=== PATIENT | male | born 1935 | race Caucasian/White ===

== ENCOUNTER 2016-09-26 13:04 | Inpatient (IN) | payer OTHER, MEDICARE ==
[~2016-09-26] VITALS: Ht 198.1 cm; Wt 126.8 kg
[~2016-09-26 13:04] MED LIST: ASPIRIN EC81 M1 PO; D-31000 IU PO; DIOVAN80 M1 PO; ELIQUIS5 MG PO; HUMALOG 75/2100 U/ML SC; IMDUR60 MG PO; KLOR-CON M1010 ME1 PO; LASIX80 M1 PO; LASIX80 MG PO; METOPROLOL TART50 MG PO; PRESERVISION AR1 SGL PO; PROBIOTIC1 EACH PO; ZOCOR40 M1 PO
--- NOTE | 2016-09-26 13:34 | ED DYSPNEA/ASTHMA COMPLAINT ---
History of Present Illness General Chief Complaint: Dyspnea (COPD, CHF, Other) Stated Complaint: SOB Source: patient, family, old records Exam Limitations: no limitations Allergies Coded Allergies: piperacillin (Mild, RASH 12/15/15) tazobactam (Mild, RASH 12/15/15) morphine (Intermediate, HALLUCINATIONS 12/15/15) heparin (SOMETHING WITH HIS PLATELETS 12/15/15) Reconcile Medications Apixaban (Eliquis) 5 MG TAB 1 TAB PO BID BLOOD THINNER Ascorbic Acid/Copper/Vitamin (Preservision Areds) 1 SGL SGL 1 SGL PO BID EYE HEALTH (Reported) Aspirin (Ecotrin) 81 MG ECT 1 TAB PO DAILY HEART HEALTH (Reported) Cholecalciferol (D-3) 1,000 IU CAP 1 TAB PO DAILY BONE HEALTH (Reported) Furosemide (Lasix) 80 MG TABLET 1 TAB PO BID WATER PILL (Reported) Insulin Lispro (Humalog 75/25) 100 U/ML SHEEBA 68 UNITS SC 0800 DIABETES ( Reported) Insulin Lispro (Humalog 75/25) 100 U/ML SHEEBA 74 UNITS SC 2200 DIABETES ( Reported) Isosorbide Mononitrate (Imdur) [address]5 TAB PO BID HEART HEALTH ( Reported) Metoprolol Tartrate 50 MG TAB 1 TAB PO BID HTN (Reported) Potassium Chloride (Klor-Con M10) [address] 1 PAC PO DAILY SUPPLEMENT ( Reported) Simvastatin (Zocor 40MG Tab) 40 MG TAB 1 TAB PO QPM CHOL (Reported) Valsartan (Diovan) 80 MG TAB HTN (Reported) Triage Note: C/O SOB WITH WHEEZING AT NIGHT SINCE 09/20 WITH COUGH WITH BILATERAL ANKLE EDEMA. HAD B/W AND CHEST XRAY ON 09/23. LASIX WAS INCREASED BY DR. BILLS TO 240 MG X 2 DAYS. DENIES CHEST PAIN. SOB WORSE ON INSPIRATION. Triage Nurses Notes Reviewed? yes Onset: Abrupt Duration: week(s): (1), constant, getting worse Timing: recent history Severity: moderate Activities at Onset: activity Prior Episodes/Possible Cause: occasional episodes Modifying Factors: Improves With: rest. Worsens With: movement. Associated Symptoms: cough ([facility]) HPI: 80-year-old male with history of A. fib, CHF presents emergency room for evaluation complaining of progressively worsening dyspnea upon exertion or orthopnea or leg swelling for the past 1 week getting worse. He was seen by his primary care physician earlier this week and had outpatient chest x-ray labs performed. He was advised it was up to Lasix 240 mg a day for 3 days. However states his symptoms are getting worse. His medical lab technologist is Dr. Raines. No chest pain no palpitations dizziness lightheadedness. Denies any nausea vomiting fever chills or abdominal pain. He states that despite going up on his diuretic he has had decreased urine output. There are no other modifying factors or associated symptoms otherwise (PIPO RODRIGUEZ) Vital Signs & Intake/Output Vital Signs & Intake/Output Vital Signs Date Time Temp Pulse Resp B/P Pulse O2 O2 Flow FiO2 Ox Delivery Rate 09/26 1849 97.0 75 20 120/70 90 09/26 1717 97.8 90 24 142/63 96 Room Air 09/26 1349 96 Room Air 09/26 1321 97.4 56 28 132/72 93 Room Air Past History Travel History Traveled to [place] past 21 day No Medical History Any Pertinent Medical History? see below for history Neurological: peripheral neuropathy EENT: CATARACT Cardiovascular: AFIB (paroxysmal), CHF, hyperlipidemia, syncope, STENT, PACER AFIB ,CHOL, HTN STENTS LCW PM permanent pacemaker for heart block peripheral vascular diseaase Respiratory: LYNDSEY Gastrointestinal: diverticulitis Hepatic: NONE Renal: benign prost hyperplasia Musculoskeletal: sciatica, L KNEE REPLACEMENT OSTEOMYELITIS osteomyelitis Psychiatric: NONE Endocrine: IDDM with diabetic neuropathy diabetic retinopathy Blood Disorders: NONE Cancer(s): NONE SIGNALER/Reproductive: NONE History of MRSA: Yes History of VRE: No History of CDIFF: No Surgical History Surgical History: DEFIB Psychosocial History Who do you live with Spouse Services at Home None What is your primary language Israeli Tobacco Use: Quit >30 days ago ETOH Use: occasional use Family History Hx Contributory? No (PIPO RODRIGUEZ) Review of Systems Review of Systems Constitutional: Reports: see HPI. All Other Systems: Reviewed and Negative Comments Review of systems: See HPI, All other systems negative. Constitutional, no chills no fever, no malaise HEENT: No visual changes no sore throat no congestion Cardiovascular: No chest pain , no palpitation , orthopnea ankle swelling Skin, no jaundice no rashes, no change in skin Respiratory: dyspnea cough no sputum no hemoptysis GI: No nausea no vomiting, no diarrhea, no bloating/constipation : No dysuria Muscle skeletal: No joint pain, no joint swelling, no back pain, no neck pain, Neurologic: no headache Psych: No stress Heme/endocrine: No bruising no bleeding no polyuria Immunology: No lymphadenopathy, (CEDRIC RUVALCABA,PIPO) Physical Exam Physical Exam General Appearance: well developed/nourished, alert, awake Respiratory: rales Comments: Well-developed well-nourished person in no acute distress HEENT: Normal EENT exam; PERRL, EOMI, HEAD is atraumatic. moist mucous membranes. Neck: Supple, normal range of motion Back: Nontender, no CVA tenderness. Full range of motion Cardiovascular: Irregular rate and rhythm no murmurs rubs or gallops Respiratory: Chest nontender.There were no bony deformities, no asymmetry. No respiratory distress. Patient speaking in full complete crackles noted to the bases no wheezing rhonchi Abdomen: Soft, nontender nondistended, no appreciable organomegaly. Normal bowel sounds. No rebound/guarding, No appreciable enlargement of the abdominal aorta, No ascites. Extremity: 3+ edema B/L LE EDEMA, full range of motion of extremities, normal and equal pulses bilaterally, 5 out of 5 strength noted to bilateral upper and lower extremities Neuro: Alert oriented x3, motor sensory normal, There were no obvious focal neurologic abnormalities. Skin: No appreciable rash on exposed skin, skin is warm and dry. Psych: Mood and affect is normal, memory and judgment is normal. Core Measures ACS in differential dx? Yes Severe Sepsis Present: No Septic Shock Present: No (CEDRIC RUVALCABA,PIPO) Progress Differential Diagnosis: asthma, AMI, bronchitis, costochondritis, CHF, COPD, musculoskeletal pain, pericarditis, pulmonary embolism, pneumonia, unstable angina Diagnostic Imaging: Viewed by Me: Radiology Read. Discussed w/RAD: Radiology Read. Radiology Impression: PATIENT: DAPHNEY MUNROE PRESENT AGE: 80 PATIENT ACCOUNT NO: [id number] : 34 LOCATION: [facility] ORDERING PHYSICIAN: PIPO RUVALCABA SERVICE DATE: 09/26/164839 EXAM TYPE: RAD - XRY- PORTABLE CHEST XRAY EXAMINATION: XR PORTABLE CHEST CLINICAL INFORMATION: Dyspnea. COMPARISON: 09/23/2016 TECHNIQUE: Portable view of the chest was obtained. FINDINGS: Left chest wall dual-lead pacer is unchanged. Low lung volumes. Small bilateral pleural effusions with mild interstitial prominence. No pneumothorax. No dense consolidation. The cardiomediastinal silhouette is unchanged, with a calcified aorta. IMPRESSION: Small bilateral pleural effusions with likely associated mild interstitial edema. DICTATED BY: JAMES MEANS MD DATE/TIME DICTATED:09/26/161402 [employer]:GLEN DATE/TIME TRANSCRIBED:09/26/161402 CONFIDENTIAL, DO NOT COPY WITHOUT APPROPRIATE AUTHORIZATION. <Electronically signed in Other Vendor System> SIGNED BY: JAMES MEANS MD 09/26/16 1411 Initial ED EKG: a. FIB 90, RIGHT BUNDLE BRANCH BLOCK NO ACUTE st SEGMENT CHANGES Prior EKG: unchanged (2014) Rhythm Strip: atrial fibrillation (PIPO RODRIGUEZ) Plan of Care: Orders Procedure Date/time Status Consistent Carbohydrate 3 09/27 B Active TROPONIN LEVEL 09/27 0600 Active CBC WITHOUT DIFFERENTIAL 09/27 0600 Active BASIC ELECTROLYTES PLUS BUN&CR 09/27 0600 Active EKG 09/27 0600 Active TROPONIN LEVEL 09/26 2200 Active EKG 09/26 2200 Active URINALYSIS 09/26 1911 Active Pathway - chart 09/26 1848 Active House Staff 09/26 1848 Active Code Status 09/26 1848 Active FingerStick- Glucose 09/26 1720 Active ECHOCARDIOGRAM 09/26 1711 Active Patient Data 09/26 1621 Active Misc Message 09/26 1603 Active ED Holding Orders 09/26 1603 Active Admit to inpatient 09/26 1603 Active Vital Signs 09/26 1603 Active Code Status 09/26 1603 Complete Intake & Output 09/26 1348 Active Saline Lock 09/26 1325 Active TROPONIN LEVEL 09/26 1325 Complete PROTHROMBIN TIME 09/26 1325 Complete COMPREHENSIVE METABOLIC PANEL 09/26 1325 Complete CBC WITHOUT DIFFERENTIAL 09/26 1325 Complete B-TYPE NATRIURETIC PEP (BNP) 09/26 1325 Complete EKG 09/26 1305 Active US-RENAL/KIDNEY 09/26 UNK Active Weight 09/26 UNK Active VTE Mechanical Prophylaxis 09/26 UNK Active Current Medications Sig/Roge Start time Last Medication Dose Stop Time Status Admin Aspirin Buffered 81 MG DAILY 09/27 1000 AC (Ecotrin) Cholecalciferol 1,000 IU DAILY 09/27 1000 AC (Vitamin D) Furosemide 80 MG BID 09/27 1000 AC (Lasix) Losartan Potassium 25 MG DAILY 09/27 1000 AC (Cozaar) Insulin Aspart 0 TIDAC 09/27 0800 AC (NovoLOG) Apixaban 5 MG BID 09/26 2200 AC (Eliquis) Insulin Detemir 25 UNITS BID 09/26 2200 AC (Levemir) Isosorbide 30 MG BID 09/26 2200 AC Mononitrate (Imdur) Metoprolol Tartrate 50 MG BID 09/26 2200 AC (Lopressor) Acetaminophen 650 MG Q6P PRN 09/26 190 AC (Tylenol) Laboratory Tests 09/26/16 1405: Anion Gap 12, Estimated GFR 49 L, BUN/Creatinine Ratio 37.1 H, Glucose 200 H, Calcium 9.1, Total Bilirubin 0.9, AST 17, ALT 20 L, Alkaline Phosphatase 68, Troponin I < 0.01, Hmi-R-Ldabrvlsfte Pept 4630 H, Total Protein 6.8, Albumin 3.5, Globulin 3.3, Albumin/Globulin Ratio 1.1, PT 25.3 H, INR 2.43 H, CBC w Diff NO MAN DIFF REQ, RBC 3.89 L, MCV 83.8, MCH 27.6, RDW 17.1 H, MPV 9.9, Gran % 83.9 H, Lymphocytes % 7.5 L, Monocytes % 7.0, Eosinophils % 1.1, Basophils % 0.5, Absolute Granulocytes 9.6 H, Absolute Lymphocytes 0.9 L, Absolute Monocytes 0.8 H, Absolute Eosinophils 0.1, Absolute Basophils 0.1, PUBS MCHC 33.0 Labs ordered old records reviewed patient speaking in full complete sentences 80 mg Lasix IV ordered old records reviewed. Case discussed with Dr. Trevino who evaluated the patient agrees with plan Case discussed with Dr. Raines will consul agrees with plan D/W DR HOWELL WILL ADMIT TO TELE 1800 dr raines at bedside (PIPO RODRIGUEZ) Departure Departure Time of Disposition: 1523 Disposition: STILL A PATIENT Condition: Stable Clinical Impression Primary Impression: CHF exacerbation Referrals: NEGAR GRIFFIN,WAYLON Segal (PCP/Family) Referred to [facility] as new patient No Departure Forms: Customer Survey General Discharge Information Admission Note Spoke With: DAVID HOWELL MD Documentation of Exam: Documentation of any treatments & extenuating circumstances including Concerns Regarding Discharge (functional status, medication knowledge or non-compliance, living conditions, etc.) that warrant an admission rather than observation: IV diuresis trend labs premature discharge would medically harmful cardiology consult (PIPO RODRIGUEZ) PA/[facility] Co-Sign Statement Statement: ED Attending supervision documentation- [X] I saw and evaluated the patient. I have also reviewed all the pertinent lab results and diagnostic results. I agree with the findings and the plan of care as documented in the PA's/[facility]'s documentation. [] I have reviewed the ED Record and agree with the PA's/[facility]'s documentation. [] Additions or exceptions (if any) to the PAs/[facility]'s note and plan are summarized below: [] (JOANNA GRIFFIN,OTIS Tyson) Critical Care Note Critical Care Note Critical Care Time: non-applicable (PIPO RODRIGUEZ)
--- NOTE | 2016-09-26 14:11 | RADIOLOGY REPORT ---
EXAMINATION: XR PORTABLE CHEST CLINICAL INFORMATION: Dyspnea. COMPARISON: 09/23/2016 TECHNIQUE: Portable view of the chest was obtained. FINDINGS: Left chest wall dual-lead pacer is unchanged. Low lung volumes. Small bilateral pleural effusions with mild interstitial prominence. No pneumothorax. No dense consolidation. The cardiomediastinal silhouette is unchanged, with a calcified aorta. IMPRESSION: Small bilateral pleural effusions with likely associated mild interstitial edema.
[2016-09-26 14:21] LABS: ABSOLUTE BASOPHIL COUNT 0.1 /CUMM (0.0-0.2); ABSOLUTE EOSINOPHIL COUNT 0.1 /CUMM (0.0-0.7); ABSOLUTE GRANULOCYTE CT 9.6 /CUMM (1.4-6.5); ABSOLUTE LYMPH COUNT 0.9 /CUMM (1.2-3.4); ABSOLUTE MONOCYTE COUNT 0.8 /CUMM (0.10-0.60); BASOPHIL % 0.5 % (0.0-2.0); EOSINOPHIL % 1.1 % (0-5); HEMATOCRIT 32.6 % (42-52); MEAN CORPUSCULAR HGB 27.6 PG (27.0-31.0); MEAN CORPUSCULAR VOLUME 83.8 FL (80.0-94.0); MEAN PLATELET VOLUME 9.9 FL (7.4-10.4); PLATELET COUNT 182 /CUMM (130-400); RBC DISTRIBUTION WIDTH 17.1 % (11.5-14.5); RED BLOOD CELL CT 3.89 /CUMM (4.70-6.10); WHITE BLOOD CELL COUNT 11.4 /CUMM (4.8-10.8)
[2016-09-26 14:23] LABS: PT 25.3 SEC (9.4-12.5)
[2016-09-26 14:45] LABS: GRANULOCYTE % 83.9 % (42.2-75.2)
--- NOTE | 2016-09-26 17:52 | Admission Certification ---
Admission Certification Certification Statement - As attending physician, I certify that at the time of - admission, based on clinical presentation, severity of - symptoms, need for further diagnostic testing and - therapeutic interventions, and risk of adverse outcomes - without in-hospital treatment, in my clinical assessment, - this patient requires an acute hospital stay for a minimum - of two nights or longer. I have also considered psychsocial - factors such as support system, advanced age, financial - issues, cognitive issues, and failed out-patient treatments, - past re-admission history, safety of patient, and lack of - compliance as applicable. Specific rationale supporting this admission is: Acute CHF failing otupatient therapy
--- NOTE | 2016-09-26 17:52 | PN- Att Addend ---
Attending Addendum Attending Brief Note 80M PMH HTN, CAD, a-fib on Coumadin, PVD, pacemaker placement presenting with worsening dyspnea with exertion, bilateral LE edema, orthopnea. His home Lasix has been increased to 80mg TID in the past few days with no improvement. No chest pain or palpitations. CXR shows small bilateral pleural effusion with interstitial edema. Creatinine stable at 1.4. Laboratory Tests 09/26/16 1405: Anion Gap 12, Estimated GFR 49 L, BUN/Creatinine Ratio 37.1 H, Glucose 200 H, Calcium 9.1, Total Bilirubin 0.9, AST 17, ALT 20 L, Alkaline Phosphatase 68, Troponin I < 0.01, Kwi-P-Vntyfxmuiqv Pept 4630 H, Total Protein 6.8, Albumin 3.5, Globulin 3.3, Albumin/Globulin Ratio 1.1, PT 25.3 H, INR 2.43 H, CBC w Diff NO MAN DIFF REQ, RBC 3.89 L, MCV 83.8, MCH 27.6, RDW 17.1 H, MPV 9.9, Gran % 83.9 H, Lymphocytes % 7.5 L, Monocytes % 7.0, Eosinophils % 1.1, Basophils % 0.5, Absolute Granulocytes 9.6 H, Absolute Lymphocytes 0.9 L, Absolute Monocytes 0.8 H, Absolute Eosinophils 0.1, Absolute Basophils 0.1, PUBS MCHC 33.0 Vital Signs Date Time Temp Pulse Resp B/P Pulse O2 O2 Flow FiO2 Ox Delivery Rate 09/26 1717 97.8 90 24 142/63 96 Room Air 09/26 1349 96 Room Air 09/26 1321 97.4 56 28 132/72 93 Room Air Intake & Output 09/26 1600 Intake Total Output Total Balance Patient 127.913 kg Weight Will admit to telemetry, start Lasix 80mg IV BID, monitor I/O, cardiology consult, serial cardiac enzymes and EKG, repeat echocardiogram, obtain renal ultrasound to rule out obstruction, check UA, continue home medications, DVT PPx.
--- NOTE | 2016-09-26 18:16 | History & Physical ---
DEE DEE CARMEN 09/26/16 1816: General Information and HPI MD Statement: I have seen and personally examined DAPHNEY MUNROE and documented this H&P. The patient is a 80 year old M who presented with a patient stated chief complaint of worsening shortness of breath and bilateral lower extremity leg swelling Source of Information: patient, family, old records Exam Limitations: no limitations History of Present Illness: This is a 80-year-old male with past medical history significant for diabetes mellitus, paroxysmal atrial fibrillation on eliqus at home, congestive heart failure(last echo in July 2015 with EF of 50-55% with a stage III diastolic dysfunction), hypertension, hyperlipidemia, peripheral neuropathy, syncope, coronary artery disease, stents, atrial fibrillation status post pacemaker placement, peripheral vascular disease, obstructive sleep apnea, diverticulitis, BPH, osteomyelitis, left knee replacement, sciatica presented to the emergency department with worsening shortness of breath and bilateral lower extremity leg swelling for 1 week. Patient spoke with Waylon Nunez MD primary care doctor over the phone early this week because of worsening shortness of breath and increased lower extremity swelling dince 09/23/2017. He was advised to take Lasix 80 mg 3 times a day for 3 days. However he sees no improvement. He was supposed to go to Waylon Nunez MD 's office this morning. Waylon Nunez MD advised him to go to the emergency room for further evaluation. According to the patient he has worsening shortness of breath on exertion since 1 week. He couldn't even take a few steps. He has bad orthopnea, couldn't lie flat he has to sit up every night because of breathing problem. Shortness of breath is associated with cough and phlegm production. Does report wheezing. Of note patient reports worsening b/l leg swelling. He noticed decrease in urinary output. even though after taking 80 mg Lasix 3 times a day there is no improvement in her urinary output. He didn't notice any weight change. He is on low-salt diet. Compliant with his medications. He denied any fever, chills, sick contacts, travel history. He denied any chest pain, racing of heart, hemoptysis, headache, weakness or sensory changes. He denied any nausea, vomiting, abdominal pain, change in bowel habits. Denies current smoking, alcohol, illicit drug abuse. Also reports generalized weakness and swelling of his fingers. Allergies/Medications Allergies: Coded Allergies: piperacillin (Mild, RASH 12/15/15) tazobactam (Mild, RASH 12/15/15) morphine (Intermediate, HALLUCINATIONS 12/15/15) heparin (SOMETHING WITH HIS PLATELETS 12/15/15) Home Med list Apixaban (Eliquis) 5 MG TAB 1 TAB PO BID BLOOD THINNER Ascorbic Acid/Copper/Vitamin (Preservision Areds) 1 SGL SGL 1 SGL PO BID EYE HEALTH (Reported) Aspirin (Ecotrin) 81 MG ECT 1 TAB PO DAILY HEART HEALTH (Reported) Cholecalciferol (D-3) 1,000 IU CAP 1 TAB PO DAILY BONE HEALTH (Reported) Furosemide (Lasix) 80 MG TABLET 1 TAB PO BID WATER PILL (Reported) Insulin Lispro (Humalog 75/25) 100 U/ML SHEEBA 68 UNITS SC 0800 DIABETES ( Reported) Insulin Lispro (Humalog 75/25) 100 U/ML SHEEBA 74 UNITS SC 2200 DIABETES ( Reported) Isosorbide Mononitrate (Imdur) [address]5 TAB PO BID HEART HEALTH ( Reported) Metoprolol Tartrate 50 MG TAB 1 TAB PO BID HTN (Reported) Potassium Chloride (Klor-Con M10) [address] PAC PO DAILY SUPPLEMENT ( Reported) Simvastatin (Zocor 40MG Tab) 40 MG TAB 1 TAB PO QPM CHOL (Reported) Valsartan (Diovan) 80 MG TAB HTN (Reported) Compliance With Home Meds: GOOD Past History Travel History Traveled to [place] past 21 day No Medical History Neurological: peripheral neuropathy EENT: CATARACT Cardiovascular: AFIB (paroxysmal), CHF, hyperlipidemia, syncope, STENT, PACER AFIB ,CHOL, HTN STENTS LCW PM permanent pacemaker for heart block peripheral vascular diseaase Respiratory: LYNDSEY Gastrointestinal: diverticulitis Hepatic: NONE Renal: benign prost hyperplasia Musculoskeletal: sciatica, L KNEE REPLACEMENT OSTEOMYELITIS osteomyelitis Psychiatric: NONE Endocrine: IDDM with diabetic neuropathy diabetic retinopathy Blood Disorders: NONE Cancer(s): NONE TELEVISION PARTS TESTER/Reproductive: NONE History of MRSA: Yes History of VRE: No History of CDIFF: No Surgical History Surgical History: DEFIB Past Family/Social History Psychosocial History Services at Home: None Smoking Status: Former Smoker ETOH Use: occasional use Illicit Drug Use: denies illicit drug use Review of Systems Review of Systems Constitutional: Reports: weakness. Denies: chills, diaphoresis, fever, malaise, unexplained weight loss. EENTM: Denies: double vision, visual changes, hearing changes. Cardiovascular: Reports: edema, orthopena, peripheral edema. Denies: chest pain, palpitations, syncope. Respiratory: Reports: cough, orthopnea, short of breath, sputum production, wheezing. Denies : hemoptysis, stridor. GI: Denies: abdominal pain, constipation, diarrhea, changes in stool, vomiting. Genitourinary: Denies: dysuria, hematuria, nocturia. Musculoskeletal: Denies: back pain, joint pain. Skin: Denies: rash. Neurological/Psychological: Denies: ataxia, cognitive dysfunction, confusion, depressed, dementia, emotional problems, tingling, tremors, weakness. Exam & Diagnostic Data Last 24 Hrs of Vital Signs/I&O Vital Signs Date Time Temp Pulse Resp B/P Pulse O2 O2 Flow FiO2 Ox Delivery Rate 09/26 1849 97.0 75 20 120/70 90 09/26 1717 97.8 90 24 142/63 96 Room Air 09/26 1349 96 Room Air 09/26 1321 97.4 56 28 132/72 93 Room Air Intake & Output 09/26 1600 09/26 0800 09/26 0000 Intake Total Output Total Balance Patient 127.913 kg Weight Physical Exam General Appearance Alert, Oriented X3, Cooperative, No Acute Distress Skin No Rashes, No Breakdown, No Significant Lesion HEENT Atraumatic, PERRLA, Mucous Membr. moist/pink Neck Supple, No JVD Lymphatic Cervical nl Cardiovascular Normal S1, Normal S2, No Murmurs, irregular rhythm Lungs crackles b/l Abdomen Normal Bowel Sounds, Soft, distended Neurological Strength at 5/5 X4 Ext, Normal Tone, Sensation Intact, Cranial Nerves 3-12 NL Extremities No Clubbing, No Cyanosis, +2 pitting edema b/l Vascular Normal Pulses Last 24 Hrs of Labs/Chu: Laboratory Tests 09/26/16 1405: Anion Gap 12, Estimated GFR 49 L, BUN/Creatinine Ratio 37.1 H, Glucose 200 H, Calcium 9.1, Total Bilirubin 0.9, AST 17, ALT 20 L, Alkaline Phosphatase 68, Troponin I < 0.01, Vxh-R-Rytqzelfmhs Pept 4630 H, Total Protein 6.8, Albumin 3.5, Globulin 3.3, Albumin/Globulin Ratio 1.1, PT 25.3 H, INR 2.43 H, CBC w Diff NO MAN DIFF REQ, RBC 3.89 L, MCV 83.8, MCH 27.6, RDW 17.1 H, MPV 9.9, Gran % 83.9 H, Lymphocytes % 7.5 L, Monocytes % 7.0, Eosinophils % 1.1, Basophils % 0.5, Absolute Granulocytes 9.6 H, Absolute Lymphocytes 0.9 L, Absolute Monocytes 0.8 H, Absolute Eosinophils 0.1, Absolute Basophils 0.1, PUBS MCHC 33.0 Diagnostic Data EKG Results EKG showed ventricular paced + A. fib, 90 CXR Results CXR IMPRESSION: Small bilateral pleural effusions with likely associated mild interstitial edema. Assessment/Plan Assessment: This is a 80-year-old male with past medical history significant for diabetes mellitus, paroxysmal atrial fibrillation on eliqus at home, congestive heart failure(last echo in July 2015 with EF of 50-55% with a stage III diastolic dysfunction), hypertension, hyperlipidemia, peripheral neuropathy, syncope, coronary artery disease, stents, atrial fibrillation status post pacemaker placement, peripheral vascular disease, obstructive sleep apnea, diverticulitis, BPH, osteomyelitis, left knee replacement, sciatica presented to the emergency department with worsening shortness of breath and bilateral lower extremity leg swelling for 1 week. Temperature 97.8, pulse rate 90, RR 24, blood pressure 142/63, saturating at 96% on room air WBC 11.4, H and H 10.7 and 32.6. INR 2.43. Electrolytes normal. Creatinine 1.4 on admission which is his baseline.. Troponins were negative. ProBNP elevated 4630. CXR- Small bilateral pleural effusions with likely associated mild interstitial edema. EKG showed ventricular paced + A. fib, 90 Problem list 1. Acute on chronic diastolic congestive heart failure 2. Possible upper respiratory tract infection 3. Diabetes mellitus 4. Paroxysmal atrial fibrillation 5. Hypertension 6. Hyperlipidemia 7. Coronary artery disease Acute on chronic stage 3 diastolic congestive heart failure Patient presented with worsening shortness of breath, orthopnea, bilateral lower extremity leg swelling. He failed outpatient treatment for congestive heart failure. He took Lasix 80 mg orally 3 times a day before coming to the hospital with no improvement in urinary output. Admitted him to the hospital for acute on chronic diastolic heart failure. Chest x-ray showed bilateral pleural effusions and pulmonary edema. (last echo in July 2015 with EF of 50-55% with a stage III diastolic dysfunction) * Admitted to telemetry floor for further monitoring. * Monitor vitals every shift * Maintain oxygen saturation above 92% * Provide supplemental oxygen if necessary * First set of EKG and troponins were negative * Serial EKGs and troponins * Monitor for worsening shortness of breath, leg swelling * IV Lasix 80 mg twice a day for now. Of note patient takes Lasix 80 twice a day at home * Strict ins and outs * Daily weights * Monitor closely for urine output * Renal ultrasound to rule out any obstruction * Echocardiogram * Trauma Registrar on board possible upper respiratory tract infection Patient presented with worsening shortness of breath, cough, associated with yellow colored phlegm production. He denied any fever, chills, sick contacts, travel history. He reported wheezing. Complains of orthopnea. * WBC count elevated to 11.4 on admission * Closely watch for fever and leukocytosis * Monitor him off from antibiotics for now * Chest x-ray ruled out pneumonia. * Check WBC in the morning * Total respiratory care diabetes mellitus * Follows Waylon Nunez MD as an outpatient * Stopped Humalog home dose * per started the patient on Levemir 25 twice a day and sliding scale insulin before each meal and at bedtime * Accu-Cheks 3 times a day and at bedtime Hypertension Continue metoprolol home dose Continue valsartan home Paroxysmal atrial fibrillation Continue home dose of eliqus 5 mg twice a day Coronary artery disease Continue aspirin, statins Continue imdur Hyperlipidemia Continue statins Low urine output Patient complaint of low urine output even after taking 80 mg 3 times a day. * Will check renal ultrasound to rule out any obstruction * Will check urinalysis DVT prophylaxis - eliqus Diabetic diet Pain pathway Tylenol Full code As Ranked By This Provider Problem List: 1. Congestive heart failure 2. Peripheral edema 3. Hypertension 4. Diabetes Core Measures/Miscellaneous Acute Coronary Syndrome ACS Diagnosis: No Cerebrovascular Accident CVA/TIA Diagnosis: No Congestive Heart Failure CHF Diagnosis: Yes Last Known EF %: 55 ELENA/ARB for EF <40%: Yes Venous Thromboembolism VTE Risk Factors: Acute medical illness, Age > 40, CHF or Resp failure, Obesity VTE Prophylaxis Ordered Inpt: Pharm- Eliquis No Mech VTE prophylaxis d/t: LE Edema No VTE Pharm Prophylaxis d/t: VTE low risk, No contraindications VTE Diagnosis: No VTE Type: NONE VTE Confirmed by (Test): NONE Severe Sepsis Severe Sepsis Present: No Septic Shock Septic Shock Present: No Miscellaneous Documentation Attending Case Discussed With: DAVID HOWELL MD Primary Care Physician: WAYLON NUNEZ MD Patient sees these Specialists cardiology Level of Patient Care: Telemetry SHELLEY GUILLORY 09/26/16 1825: Resident Review Statement Resident Statement: examined this patient, discussed with agriculture intern, agreed with agriculture intern, discussed with family, reviewed EMR data (avail), reviewed images, amended to note Other Findings: 80-year-old man with past medical history of A. fib with pacemaker on eliquis, diabetes on Humalog, CHF(last echo in July 2015 with EF of 50-55% with a stage III diastolic dysfunction), hypertension, hyperlipidemia came to the hospital was she complaining of shortness of breath. She reported about 1 week ago he started having shortness of breath on minimal exertion with occasional coughing with phlegm production which is white. He denies any fevers, chills, nausea, vomiting, headache, dizziness. However he reports swelling of the hands and anything his fingers and generalized weakness. He does report of wheezing and orthopnea as well. He called Dr. Nunez and increased his Lasix to 240 mg daily for 3 days, however his symptoms did not improve and he came to the hospital. Patient denies any recent sick contacts. He reports that he follows a good diet regimen and takes his medication regularly. Temperature 97.8, pulse rate 90, RR 24, blood pressure 142/63, pulse is 96% on room air General appearance alert and oriented 3, not in distress HEENT Atraumatic, PERRLA, EOMI Neck Supple, No JVD, No thryomegaly Cardiovascular iriRegular Rate, Normal S1, Normal S2 Lungs bilateral fine crackles in lower half of the lungs Abdomen Normal Bowel Sounds, Soft, No Tenderness, distended Extremities No Clubbing, No Cyanosis, +2 edema till mid shins 11.4 wbc, rbc 3.89, hgb 10.7 , grn 83.9, sodim 140,creatine 1.4 which is at baseline Glucose 200, AST 20, BNP 4630, troponin was unremarkable CXR IMPRESSION: Small bilateral pleural effusions with likely associated mild interstitial edema. EKG showed ventricular paced + A. fib, 90 Assessment and plan #CHF Exacebation/history of hypertension/possible URI/CAD -patient got 80 mg of IV Lasix. Continue with 80 mg IV Lasix twice a day -Follow cardiology notes -Rule out ACS with serial troponins and EKGs -Continue Diovan -Continue metoprolol -continue aspirin -Echocardiogram for now -Follow cardiology notes -We can check rapid flu -Continue Imdur -Daily weights and strict I and O's -Follow-up WBC and watch for fevers #Diabetes on Humalog -Stop Humalog -per start the patient on Levemir 25 twice a day and sliding scale insulin -Accu-Cheks 3 times a day and at bedtime #HyperLipidemia -Continue statin #low urine output -Check renal ultrasound -Check UA DVT prophylaxis is eliquis and mechanical, diabetic diet, Tylenol for pain, full code
--- NOTE | 2016-09-26 18:47 | Cons- Cardiology ---
General Information and HPI Consulting Request Date of Consult: 09/26/16 Requested By: DAVID HOWELL MD History of Present Illness: Brad is 80 year old male with a history of diabetes mellitus, dyslipidemia, PVD, carotid artery disease and coronary artery disease s/p non-ST elevation VA. He also has a history of PAF treated with Coumadin. The patient is s/p angioplasty to his LAD performed in 1997. Lastly this patient is status post a permanent pacemaker for heart block. Brad has noted shortness of breath with orthopnea over the past week along with leg swelling that is worse than his baseline. He also has a fullness in his abdomen without any clear chest or abdominal pain. He denies any fever or chills but does have a cough that is a bit worse than his baseline. It is productive of clear sputum. Lightheadedness and palpitations are not part of his clinical syndrome although he is worn out. The patient did see Dr. Nunez recently who thought that the patient had decompensated CHF. He was given a higher dose of lasix with little improvement. His chest X -ray shows small bilateral pleural effusion with mild interstitial edema. Creatinine is stable at 1.4. At baseline this patient is minimally active. This patient underwent a vascular procedure on his legs by Dr. Martinez a couple months ago with some borderline positive results. The patient's last echocardiogram showed a low normal EF of 50% with distal septal and apical akinesis and mild to moderate left ventricular hypertrophy with a restrictive filling pattern. There was mild right ventricular enlargement with moderate left atrial enlargment. Trace MR, AI, PI and mild TR is noted along with moderate pulmonary hypertension. To review of the patient's prior history, Brad has a history of atrial fibrillation, s/p cardioversion. Workup has included Holter monitor performed in 09/2007 which showed NSR with occasional PACs and PVCs with no recurrence of atrial fibrillation. In 1997, the patient underwent angioplasty of his LAD, as mentioned above. It should be noted that Brad underwent a left knee replacement complicated by what sounded like a non-ST elevation myocardial infarction. This occurred at [facility]. 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 In August of 2009, the patient was admitted with shortness of breath and a cough. He did rule in for another non-ST elevation VA. It was, at that time, he was discovered to have osteomyelitis with gram positive cocci in both blood and bone samples. In consideration of the above, I performed a repeat cardiac catheterization which showed a diffusely calcified left main with a 50% distal stenosis. The LAD harbored a 50% proximal stenosis followed by a 50% mid- stenosis. Luminal irregularities were noted in the previously placed stent. Left circumflex, however, had a 50% proximal stenosis of the obtuse marginal 3 branch. The right coronary artery is dominant and parents a diffusely diseased PDA., with perhaps, a focal 80% mid-stenosis. I felt the patient had questionable left main disease with non-obstructive coronary artery disease in the left LAD and circumflex. The PDA did have a significant stenosis; however, this disease was very distal and diffusely diseased narrow vessel. Therefore, medical therapy was pursued. The PDA had an 80% mid-stenosis and less than 2 mm in this location and I do not think it would get good angioplasty results. Allergies/Medications Allergies: Coded Allergies: piperacillin (Mild, RASH 12/15/15) tazobactam (Mild, RASH 12/15/15) morphine (Intermediate, HALLUCINATIONS 12/15/15) heparin (SOMETHING WITH HIS PLATELETS 12/15/15) Home Med List: Apixaban (Eliquis) 5 MG TAB 1 TAB PO BID BLOOD THINNER Ascorbic Acid/Copper/Vitamin (Preservision Areds) 1 SGL SGL 1 SGL PO BID EYE HEALTH (Reported) Aspirin (Ecotrin) 81 MG ECT 1 TAB PO DAILY HEART HEALTH (Reported) Cholecalciferol (D-3) 1,000 IU CAP 1 TAB PO DAILY BONE HEALTH (Reported) Furosemide (Lasix) 80 MG TABLET 1 TAB PO BID WATER PILL (Reported) Insulin Lispro (Humalog 75/25) 100 U/ML SHEEBA 68 UNITS SC 0800 DIABETES ( Reported) Insulin Lispro (Humalog 75/25) 100 U/ML SHEEBA 74 UNITS SC 2200 DIABETES ( Reported) Isosorbide Mononitrate (Imdur) [address] 0[address]5 TAB PO BID HEART HEALTH ( Reported) Metoprolol Tartrate 50 MG TAB 1 TAB PO BID HTN (Reported) Potassium Chloride (Klor-Con M10) [address] 1 PAC PO DAILY SUPPLEMENT ( Reported) Simvastatin (Zocor 40MG Tab) 40 MG TAB 1 TAB PO QPM CHOL (Reported) Valsartan (Diovan) 80 MG TAB HTN (Reported) Review of Systems Review of Systems: A twelve point review of systems is unremarkable. Past History Travel History Traveled to [place] past 21 day No Medical History Neurological: peripheral neuropathy EENT: CATARACT, diabetic retinopathy Cardiovascular: AFIB (paroxysmal), CHF, hyperlipidemia, syncope, STENT, PACER AFIB ,CHOL, HTN STENTS LCW PM permanent pacemaker for heart block peripheral vascular diseaase, peripheral vascular disease s/p angioplasty Respiratory: LYNDSEY Gastrointestinal: diverticulitis Hepatic: NONE Renal: benign prost hyperplasia Musculoskeletal: sciatica, L KNEE REPLACEMENT OSTEOMYELITIS osteomyelitis Psychiatric: NONE Endocrine: IDDM with diabetic neuropathy diabetic retinopathy Blood Disorders: NONE Cancer(s): NONE 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 Mother: stroke, hypertension Father: diabetes Psychosocial History Services at Home: None Smoking Status: Former Smoker (quit in 1979) ETOH Use: denies use (2 drinks per day), occasional use Exam & Diagnostic Data Vital Signs and I&O Vital Signs Date Time Temp Pulse Resp B/P Pulse O2 O2 Flow FiO2 Ox Delivery Rate 09/26 1717 97.8 90 24 142/63 96 Room Air 09/26 1349 96 Room Air 09/26 1321 97.4 56 28 132/72 93 Room Air Intake & Output 09/26 1600 09/26 0800 09/26 0000 09/25 1600 09/25 0800 09/25 0000 Intake Total Output Total Balance Patient 282 lb Weight Physical Exam: General: WD/ obese male in NAD; alert and oriented x 3 HEENT: NC/ AT, PERRL, EOMI, clear oropharynx Neck: no JVD, bilateral carotid bruit R>L Heart: irregularly irregular with 2/6 sytolic murmur at the RUSB and 2/6 sytolic murmur at the LUSB and apex Lungs: clear bilaterally with decresed breath sounds at the bases bilaterally Abdomen: soft, obese, NT, +ve bowel sounds Extremities: 3+ leg edema with venous stasis changes bilaterally Diagnostic Data EKG Results atrial fibrillation with RBBB, LAFB, occasional PVC's and demand pacing Assessment/Plan Assessment/Plan * Although a viral URI cannot be excluded, I suspect that this patient has mild decompensated congestive heart failure due to his conversion into atrial fibrillation. This is superimposed on restrictive heart disease that will make tachycardia even less well tolerated. Although his average heart rate is reasonably well controlled he does have frequent heartbeats that are in close temporal proximity and likely has poor filling and contraction associated with these beats. We will obtain an echocardiogram and will diurese with Lasix 80mg IV BID. Continue his Lopressor, Imdur and Diovan. Follow his BUN, creatinine and potassium. * This patient will need to stay on Eliquis for stroke prophylaxis. * Follow this patient's WBC count and observe for fever. Consult Acknowledgment - Thank you for your consult request.
[2016-09-26 18:49] VITALS: BP 120/70
--- NOTE | 2016-09-26 21:33 | ULTRASOUND REPORT ---
US RETROPERITONEAL COMPLETE (RENAL) CLINICAL INFORMATION: Low urine output with elevated creatinine.. COMPARISON: Abdominal CT 01/15/2014. TECHNIQUE: Real-time imaging of the kidneys and bladder. FINDINGS: RIGHT KIDNEY: 10.6 x 5.2 x 4.7 cm (SAG x AP x TRV). Assessment is limited by technique. Renal echogenicity appears normal. There is no hydronephrosis. No calculi are identified. LEFT KIDNEY: 11.0 x 6.0 x 4.7 cm (SAG x AP x TRV). Significantly limited assessment of the left renal parenchyma secondary to obscuring bowel gas. No hydronephrosis is appreciated. No definite calculi are seen. BLADDER: The bladder is partially decompressed and difficult to evaluate. IMPRESSION: Limited renal ultrasound with very limited assessment of the left kidney secondary to obscuring bowel gas. No hydronephrosis is appreciated.
[2016-09-27 00:37] VITALS: BP 110/56
--- NOTE | 2016-09-27 06:35 | PN- Housestaff ---
KAHLILSHELLEY PARSONS 09/27/16 0635: Subjective Follow-up For: CHF exacerbation Tele-Events Since Last Visit: single pacing 69-74 Subjective: patient is slightly better. however slept on recliner last night.VSS but on 2 L oxyge. we try to wean him off oxygen. Review of Systems Constitutional: Reports: see HPI. Objective Last 24 Hrs of Vital Signs/I&O Vital Signs Date Time Temp Pulse Resp B/P Pulse O2 O2 Flow FiO2 Ox Delivery Rate 09/27 0037 93 Nasal 2.0L Cannula 09/27 0037 97.3 70 20 110/56 92 Room Air 09/27 0000 Nasal 2.0L Cannula 09/26 2102 79 09/26 2102 79 09/26 1849 97.0 75 20 120/70 90 09/26 1717 97.8 90 24 142/63 96 Room Air 09/26 1349 96 Room Air 09/26 1321 97.4 56 28 132/72 93 Room Air Intake & Output 09/27 0800 09/27 0000 09/26 1600 Intake Total 250 250 Output Total 575 250 Balance -325 0 Intake, IV 10 10 Intake, Oral 240 240 Number 1 Bowel Movements Output, Urine 575 250 Patient 284 lb 288 lb 282 lb Weight Physical Exam General Appearance: Alert, Oriented X3, Cooperative Cardiovascular: Regular Rate, Normal S1, Normal S2 Lungs: mild basal crackles Extremities: No Clubbing, No Cyanosis, +2 edema Current Medications: Current Medications Sig/Roge Start time Last Medication Dose Route Stop Time Status Admin Acetaminophen 650 MG Q6P PRN 09/26 1900 AC PO Albuterol Sulfate 3 ML Q6 PRN 09/27 0015 AC 09/27 INH 0023 Apixaban 5 MG BID 09/26 2200 AC 09/26 PO 2102 Aspirin Buffered 81 MG DAILY 09/27 1000 AC PO Atorvastatin Calcium 20 MG 1700 09/26 1700 AC 09/26 PO 1716 Cholecalciferol 1,000 IU DAILY 09/27 1000 AC PO Furosemide 80 MG BID 09/27 1000 AC IV Furosemide 0 .STK-MED ONE 09/26 1422 DC IV Furosemide 80 MG ONCE ONE 09/26 1415 DC 09/26 IV PUSH 09/26 1416 1425 Insulin Aspart 0 TIDAC 09/27 0800 AC SC Insulin Detemir 25 UNITS BID 09/26 2200 AC 09/26 SC 2102 Isosorbide 30 MG BID 09/26 2200 AC 09/26 Mononitrate PO 210 Losartan Potassium 25 MG DAILY 09/27 1000 AC PO Metoprolol Tartrate 50 MG BID 09/26 2200 AC 09/26 PO 210 Multivitamins 1 TAB DAILY 09/26 1624 AC 09/26 PO 1716 Patient Medication 1 UNIT ONE NR 09/26 1715 MN Teaching ED 09/26 1730 Potassium Chloride 10 MEQ DAILY 09/27 1000 AC PO Assessment/Plan Assessment: 80-year-old man with past medical history of A. fib with pacemaker on eliquis, diabetes on Humalog, CHF(last echo in July 2015 with EF of 50-55% with a stage III diastolic dysfunction), hypertension, hyperlipidemia came to the hospital was she complaining of shortness of breath. She reported about 1 week ago he started having shortness of breath on minimal exertion with occasional coughing with phlegm production which is white. He denies any fevers, chills, nausea, vomiting, headache, dizziness. However he reports swelling of the hands and anything his fingers and generalized weakness. He does report of wheezing and orthopnea as well. He called Dr. Nunez and increased his Lasix to 240 mg daily for 3 days, however his symptoms did not improve and he came to the hospital. Patient denies any recent sick contacts. He reports that he follows a good diet regimen and takes his medication regularly. Temperature 97.8, pulse rate 90, RR 24, blood pressure 142/63, pulse is 96% on room air General appearance alert and oriented 3, not in distress 11.4 wbc, rbc 3.89, hgb 10.7 , grn 83.9, sodim 140,creatine 1.4 which is at baseline Glucose 200, AST 20, BNP 4630, troponin was unremarkable CXR IMPRESSION: Small bilateral pleural effusions with likely associated mild interstitial edema. EKG showed ventricular paced + A. fib, 90 Assessment and plan #CHF Exacebation/history of hypertension/possible URI/CAD -patient got 80 mg of IV Lasix. Continue with 80 mg IV Lasix twice a day -Follow cardiology notes -Rule out ACS with serial troponins and EKGs (so far negative) -Continue Diovan -Continue metoprolol -continue aspirin -Echocardiogram is pending -Follow cardiology notes -We can check rapid flu -Continue Imdur -Daily weights and strict I and O's -Follow-up WBC and watch for fevers #Diabetes on Humalog -Stop Humalog -per start the patient on Levemir 25 twice a day and sliding scale insulin -Accu-Cheks 3 times a day and at bedtime #HyperLipidemia -Continue statin #low urine output -Check renal ultrasound :no obstrction -Check UA Problem List: 1. Congestive Heart Failure Pain Ratin Pain Location: no pain Pain Goal: Pain 4 or less Pain Plan: same Tomorrow's Labs & Rationales: laurence ROQUE MD,CABRERAOli 09/27/16 1112: Attending MD Review Statement Attending Statement Attending MD Statement: examined this patient, discuss w/resident/PA/UROGYNECOLOGY PHYSICIAN, agreed w/resident/PA/UROGYNECOLOGY PHYSICIAN, reviewed EMR data (avail), discussed with nursing, discussed with case mgmt, amended to note Attending Assessment/Plan: Patient seen and examined. Seasonal comfortably in chair not in acute distress. He reports feeling slightly better compared to admission. ventricular ectory noted on telemetry. Denies chest pain or shortness of breath at rest. He so far maintaining a negative balance. His weight appears to be down by about 2 kg. His blood glucose levels are in the 200s. Is hemodynamically stable. He i saturating 90-92% on room air. On examination has diminished entry in the bases with mild crepitus. The venous distention. Abdomen is soft and nontender. He has bilateral pedal edema left greater than right with some hyperpigmentation. Recommendations: -Continue diuresis with Lasix IV. -His creatinine has trended up mildly. He does have history of chronic kidney disease. No acute pathology noted on renal ultrasound. Continue to monitor serum creatinine daily, if renal function continues to worsen recommend tapering down his diuretic regimen. -Continue anticoagulation with liquids. -Recommend Doppler of the lower extremity to rule out DVT given the uneven nature of the leg swelling. -Continue patient on his home insulin regimen with sliding scale coverage.
[2016-09-27 08:10] LABS: ABSOLUTE BASOPHIL COUNT 0 /CUMM (0.0-0.2); ABSOLUTE EOSINOPHIL COUNT 0.1 /CUMM (0.0-0.7); ABSOLUTE GRANULOCYTE CT 7.5 /CUMM (1.4-6.5); ABSOLUTE LYMPH COUNT 1.2 /CUMM (1.2-3.4); ABSOLUTE MONOCYTE COUNT 0.9 /CUMM (0.10-0.60); BASOPHIL % 0.5 % (0.0-2.0); EOSINOPHIL % 1.3 % (0-5); GRANULOCYTE % 76.7 % (42.2-75.2); HEMATOCRIT 31.4 % (42-52); MEAN CORPUSCULAR HGB 27.7 PG (27.0-31.0); MEAN CORPUSCULAR VOLUME 84.2 FL (80.0-94.0); MEAN PLATELET VOLUME 10.8 FL (7.4-10.4); PLATELET COUNT 171 /CUMM (130-400); RBC DISTRIBUTION WIDTH 16.4 % (11.5-14.5); RED BLOOD CELL CT 3.73 /CUMM (4.70-6.10); WHITE BLOOD CELL COUNT 9.7 /CUMM (4.8-10.8)
[2016-09-27 08:36] VITALS: BP 142/50
--- NOTE | 2016-09-27 13:01 | Cons- Endocrinology ---
General Information and HPI Consulting Request Date of Consult: 09/27/16 Requested By: medical team Reason for Consult: management of DM type 2 Source of Information: patient, old records Exam Limitations: no limitations History of Present Illness: 80-year-old male with past medical history significant for diabetes mellitus, paroxysmal atrial fibrillation, congestive heart failure, hypertension, hyperlipidemia, peripheral neuropathy, syncope, coronary artery disease, stents, atrial fibrillation status post pacemaker placement, peripheral vascular disease , obstructive sleep apnea, diverticulitis, BPH, osteomyelitis, left knee replacement, sciatica presented to the emergency department with worsening SOB and LE swelling. At home, he was on Humalog 75/25 mix 68 units before breakfast and 74 units before dinner. In hospital, he was put on Levemir 25 units twice a day, Novolog coverage before meals and novolog coverage at bedtime. His FSGs were 260, 279, 218 and 147. Clinically he has been feeling better and he feels hungry, will finish the lunch today. Allergies/Medications Allergies: Coded Allergies: piperacillin (Mild, RASH 12/15/15) tazobactam (Mild, RASH 12/15/15) morphine (Intermediate, HALLUCINATIONS 12/15/15) heparin (SOMETHING WITH HIS PLATELETS 12/15/15) Home Med List: Apixaban (Eliquis) 5 MG TAB 1 TAB PO BID BLOOD THINNER Ascorbic Acid/Copper/Vitamin (Preservision Areds) 1 SGL SGL 1 SGL PO BID EYE HEALTH (Reported) Aspirin (Ecotrin) 81 MG ECT 1 TAB PO DAILY HEART HEALTH (Reported) Cholecalciferol (D-3) 1,000 IU CAP 1 TAB PO DAILY BONE HEALTH (Reported) Furosemide (Lasix) 80 MG TABLET 1 TAB PO BID WATER PILL (Reported) Insulin Lispro (Humalog 75/25) 100 U/ML SHEEBA 68 UNITS SC 0800 DIABETES ( Reported) Insulin Lispro (Humalog 75/25) 100 U/ML SHEEBA 74 UNITS SC 2200 DIABETES ( Reported) Isosorbide Mononitrate (Imdur) [address]5 TAB PO BID HEART HEALTH ( Reported) Metoprolol Tartrate 50 MG TAB 1 TAB PO BID HTN (Reported) Potassium Chloride (Klor-Con M10) [address] PAC PO DAILY SUPPLEMENT ( Reported) Simvastatin (Zocor 40MG Tab) 40 MG TAB 1 TAB PO QPM CHOL (Reported) Valsartan (Diovan) 80 MG TAB HTN (Reported) Review of Systems Review of Systems Constitutional: Reports: see HPI. Cardiovascular: Reports: edema, orthopena. Respiratory: Reports: short of breath. GI: Denies: abdominal pain. Hematologic/Endocrine: Denies: polyuria, polydipsia. Past History Travel History Traveled to [place] past 21 day No Medical History Neurological: peripheral neuropathy EENT: CATARACT diabetic retinopathy Cardiovascular: AFIB (paroxysmal), CHF, hyperlipidemia, syncope, STENT, PACER AFIB ,CHOL, HTN STENTS LCW PM permanent pacemaker for heart block peripheral vascular diseaase peripheral vascular disease s/p angioplasty Respiratory: LYNDSEY Gastrointestinal: diverticulitis Hepatic: NONE Renal: benign prost hyperplasia Musculoskeletal: sciatica, L KNEE REPLACEMENT OSTEOMYELITIS osteomyelitis Psychiatric: NONE Endocrine: IDDM with diabetic neuropathy diabetic retinopathy Blood Disorders: NONE Cancer(s): NONE SOLUTION CONSULTANT/Reproductive: NONE Other Medical Hx: osteomyelitis Surgical History Surgical History: left knee replacement Psychosocial History Where Do You Live? Home Services at Home: None Smoking Status: Former Smoker ETOH Use: denies use (2 drinks per day), occasional use Illicit Drug Use: denies illicit drug use Exam & Diagnostic Data Last 24 Hrs of Vital Signs/I&O Vital Signs Date Time Temp Pulse Resp B/P Pulse O2 O2 Flow FiO2 Ox Delivery Rate 09/27 0949 Room Air 09/27 0836 97.9 71 18 142/50 93 Room Air 09/27 0800 Room Air 09/27 0800 72 142/50 09/27 0759 72 142/50 09/27 0758 72 142/50 09/27 0037 93 Nasal 2.0L Cannula 09/27 0037 97.3 70 20 110/56 92 Room Air 09/27 0000 Nasal 2.0L Cannula 09/26 2102 79 09/26 2102 79 09/26 1849 97.0 75 20 120/70 90 09/26 1717 97.8 90 24 142/63 96 Room Air 09/26 1349 96 Room Air 09/26 1321 97.4 56 28 132/72 93 Room Air Intake & Output 09/27 1600 09/27 0800 09/27 0000 Intake Total 250 250 Output Total 575 250 Balance -325 0 Intake, IV 10 10 Intake, Oral 240 240 Number 1 Bowel Movements Output, Urine 575 250 Patient 284 lb 288 lb Weight Physical Exam General Appearance: no apparent distress Neck: normal inspection Respiratory: decreased breath sounds Cardiovascular: irregularly irregular Gastrointestinal: distention Extremities: swelling Labs/Chu Results: Laboratory Tests 09/27 09/26 0625 2200 Chemistry Sodium (137 - 145 mmol/L) 139 Potassium (3.5 - 5.1 mmol/L) 4.4 Chloride (98 - 107 mmol/L) 101 Carbon Dioxide (22 - 30 mmol/L) 28 Anion Gap (5 - 16) 11 BUN (9 - 20 mg/dL) 56 H Creatinine (0.7 - 1.2 mg/dL) 1.5 H Estimated GFR (>60 ml/min) 45 L BUN/Creatinine Ratio (7 - 25 %) 37.3 H Troponin I (<0.11 ng/ml) 0.02 0.01 Hematology CBC w Diff NO MAN DIFF REQ WBC (4.8 - 10.8 /CUMM) 9.7 RBC (4.70 - 6.10 /CUMM) 3.73 L Hgb (14.0 - 18.0 G/DL) 10.4 L Hct (42 - 52 %) 31.4 L MCV (80.0 - 94.0 FL) 84.2 MCH (27.0 - 31.0 PG) 27.7 RDW (11.5 - 14.5 %) 16.4 H Plt Count (130 - 400 /CUMM) 171 MPV (7.4 - 10.4 FL) 10.8 H Gran % (42.2 - 75.2 %) 76.7 H Lymphocytes % (20.5 - 51.1 %) 12.3 L Monocytes % (1.7 - 9.3 %) 9.2 Eosinophils % (0 - 5 %) 1.3 Basophils % (0.0 - 2.0 %) 0.5 Absolute Granulocytes (1.4 - 6.5 /CUMM) 7.5 H Absolute Lymphocytes (1.2 - 3.4 /CUMM) 1.2 Absolute Monocytes (0.10 - 0.60 /CUMM) 0.9 H Absolute Eosinophils (0.0 - 0.7 /CUMM) 0.1 Absolute Basophils (0.0 - 0.2 /CUMM) 0 PUBS MCHC (33.0 - 37.0 G/DL) 33.0 09/26 1405 Chemistry Sodium (137 - 145 mmol/L) 140 Potassium (3.5 - 5.1 mmol/L) 4.1 Chloride (98 - 107 mmol/L) 100 Carbon Dioxide (22 - 30 mmol/L) 28 Anion Gap (5 - 16) 12 BUN (9 - 20 mg/dL) 52 H Creatinine (0.7 - 1.2 mg/dL) 1.4 H Estimated GFR (>60 ml/min) 49 L BUN/Creatinine Ratio (7 - 25 %) 37.1 H Glucose (65 - 99 mg/dL) 200 H Calcium (8.4 - 10.2 mg/dL) 9.1 Total Bilirubin (0.2 - 1.3 mg/dL) 0.9 AST (17 - 59 U/L) 17 ALT (21 - 72 U/L) 20 L Alkaline Phosphatase (< 127 U/L) 68 Troponin I (<0.11 ng/ml) < 0.01 [id number] Pept (<125 pg/mL) 4630 H Total Protein (6.3 - 8.2 g/dL) 6.8 Albumin (3.5 - 5.0 g/dL) 3.5 Globulin (1.9 - 4.2 gm/dL) 3.3 Albumin/Globulin Ratio (1.1 - 2.2 %) 1.1 Coagulation PT (9.4 - 12.5 SEC) 25.3 H INR (0.90 - 1.17) 2.43 H Hematology CBC w Diff NO MAN DIFF REQ WBC (4.8 - 10.8 /CUMM) 11.4 H RBC (4.70 - 6.10 /CUMM) 3.89 L Hgb (14.0 - 18.0 G/DL) 10.7 L Hct (42 - 52 %) 32.6 L MCV (80.0 - 94.0 FL) 83.8 MCH (27.0 - 31.0 PG) 27.6 RDW (11.5 - 14.5 %) 17.1 H Plt Count (130 - 400 /CUMM) 182 MPV (7.4 - 10.4 FL) 9.9 Gran % (42.2 - 75.2 %) 83.9 H Lymphocytes % (20.5 - 51.1 %) 7.5 L Monocytes % (1.7 - 9.3 %) 7.0 Eosinophils % (0 - 5 %) 1.1 Basophils % (0.0 - 2.0 %) 0.5 Absolute Granulocytes (1.4 - 6.5 /CUMM) 9.6 H Absolute Lymphocytes (1.2 - 3.4 /CUMM) 0.9 L Absolute Monocytes (0.10 - 0.60 /CUMM) 0.8 H Absolute Eosinophils (0.0 - 0.7 /CUMM) 0.1 Absolute Basophils (0.0 - 0.2 /CUMM) 0.1 PUBS MCHC (33.0 - 37.0 G/DL) 33.0 Assessment/Plan Assessment/Plan 80-year-old male with past medical history significant for diabetes mellitus, paroxysmal atrial fibrillation, congestive heart failure, hypertension, hyperlipidemia, peripheral neuropathy, syncope, coronary artery disease, stents, atrial fibrillation status post pacemaker placement, peripheral vascular disease , obstructive sleep apnea, diverticulitis, BPH, osteomyelitis and left knee replacement, was admitted for CHF exacerbation. DM management: 1. increase Levemir to 30 units twice a day; 2. adjust Novolog coverage before meals--detail see the inpatient DM order; 3. continue the current Novolog coverage at bedtime; 4. monitor FSGs. will follow. Inpatient Diabetes Orders Before Each Meal: Bolus Insulin: Novolog < 80 mg/dl: no coverage 80-100 mg/dl: 8 units 101-120 mg/dl: 8 units 121-150 mg/dl: 8 units 151-200 mg/dl: 10 units 201-250 mg/dl: 12 units 251-300 mg/dl: 14 units 301-350 mg/dl: 16 units 351-400 mg/dl: 18 units > 400 mg/dl: 20 units Consult Acknowledgment - Thank you for your consult request.
--- NOTE | 2016-09-27 15:52 | ULTRASOUND REPORT ---
EXAMINATION: US TRIPLEX LOWER EXTREMITY, BILATERAL CLINICAL INFORMATION: Leg swelling. COMPARISON: None. TECHNIQUE: Color-flow triplex imaging with spectral analysis and compression Doppler were performed on the bilateral lower extremities. FINDINGS: The common femoral vein is compressible and exhibits a normal phasic waveform, bilaterally; this suggests that the iliac veins are widely patent above. Within each proximal thigh, the visualized profunda femoris vein is patent. The visualized greater saphenous vein and saphenofemoral junction are normal, bilaterally. Superficial femoral vein is patent in the proximal, mid and distal aspect of each thigh. Popliteal vein appears normal to the level of the trifurcation, bilaterally, and the visualized calf veins are unremarkable. No evidence of Peres's cyst. IMPRESSION: No evidence of deep vein thrombosis in either lower extremity.
[2016-09-27 16:45] VITALS: BP 141/60
--- NOTE | 2016-09-27 19:01 | PN- Cardiology ---
Subjective Subjective: Feeling better. No shortness of breath. No chest pain. No palpitations. No diaphoresis. Objective Vital Signs and I&Os Vital Signs Date Time Temp Pulse Resp B/P Pulse O2 O2 Flow FiO2 Ox Delivery Rate 09/27 1645 97.6 67 18 141/60 94 Room Air 09/27 0949 Room Air 09/27 0836 97.9 71 18 142/50 93 Room Air 09/27 0800 Room Air 09/27 0800 72 142/50 09/27 0759 72 142/50 09/27 0758 72 142/50 09/27 0037 93 Nasal 2.0L Cannula 09/27 0037 97.3 70 20 110/56 92 Room Air 09/27 0000 Nasal 2.0L Cannula 09/26 210 79 09/26 2102 79 Intake & Output 09/27 1600 09/27 0800 09/27 0000 09/26 1600 09/26 0800 09/26 0000 Intake Total 600 250 250 Output Total 700 575 250 Balance -100 -325 0 Intake, IV 10 10 Intake, Oral 600 240 240 Number 1 Bowel Movements Output, Urine 700 575 250 Patient 284 lb 288 lb 282 lb Weight Physical Exam: General: WD/ obese male in NAD; alert and oriented x 3 HEENT: NC/ AT, PERRL, EOMI, clear oropharynx Neck: no JVD, bilateral carotid bruit R>L Heart: irregularly irregular with 2/6 sytolic murmur at the RUSB and 2/6 sytolic murmur at the LUSB and apex Lungs: clear bilaterally with decresed breath sounds at the bases bilaterally Abdomen: soft, obese, NT, +ve bowel sounds Extremities: 3+ leg edema with venous stasis changes bilaterally Current Medications: Current Medications Sig/Roge Start time Last Medication Dose Route Stop Time Status Admin Acetaminophen 650 MG Q6P PRN 09/26 1900 AC PO Albuterol Sulfate 3 ML Q6 PRN 09/27 0015 DC 09/27 INH 0023 Apixaban 5 MG BID 09/26 2200 AC 09/27 PO 0756 Aspirin Buffered 81 MG DAILY 09/27 1000 AC 09/27 PO 0758 Atorvastatin Calcium 20 MG 1700 09/26 1700 AC 09/27 PO 0758 Cholecalciferol 1,000 IU DAILY 09/27 1000 AC 09/27 PO 0801 Furosemide 80 MG BID 09/27 1000 AC 09/27 IV 0756 Insulin Aspart 0 TIDAC 09/27 0800 AC 09/27 SC 1651 Insulin Detemir 27 UNITS BID 09/27 2200 DC SC Insulin Detemir 30 UNITS BID 09/27 2200 AC SC Insulin Detemir 25 UNITS BID 09/26 2200 DC 09/27 SC 0756 Isosorbide 30 MG BID 09/26 2200 AC 09/27 Mononitrate PO 0758 Losartan Potassium 25 MG DAILY 09/27 1000 AC 09/27 PO 0759 Metoprolol Tartrate 50 MG BID 09/26 2200 AC 09/27 PO 0800 Multivitamins 1 TAB DAILY 09/26 1624 AC 09/27 PO 0758 Potassium Chloride 10 MEQ DAILY 09/27 1000 AC 09/27 PO 0757 Results Last 48 Hrs of Labs/Mics: Laboratory Tests 09/27/16 0625: Anion Gap 11, Estimated GFR 45 L, BUN/Creatinine Ratio 37.3 H, Troponin I 0.02 , CBC w Diff NO MAN DIFF REQ, RBC 3.73 L, MCV 84.2, MCH 27.7, RDW 16.4 H, MPV 10.8 H, Gran % 76.7 H, Lymphocytes % 12.3 L, Monocytes % 9.2, Eosinophils % 1.3, Basophils % 0.5, Absolute Granulocytes 7.5 H, Absolute Lymphocytes 1.2, Absolute Monocytes 0.9 H, Absolute Eosinophils 0.1, Absolute Basophils 0, PUBS MCHC 33.0 09/26/162199: Troponin I 0.01 09/26/16 1911: Urine Color Cancelled, Urine Clarity Cancelled, Urine pH Cancelled, Ur Specific [place] Cancelled, Urine Protein Cancelled, Urine Ketones Cancelled, Urine Nitrite Cancelled, Urine Bilirubin Cancelled, Urine Urobilinogen Cancelled, Ur Leukocyte Esterase Cancelled, Ur Microscopic Cancelled, Urine Hemoglobin Cancelled, Urine Glucose Cancelled 09/26/16 1405: Anion Gap 12, Estimated GFR 49 L, BUN/Creatinine Ratio 37.1 H, Glucose 200 H, Calcium 9.1, Total Bilirubin 0.9, AST 17, ALT 20 L, Alkaline Phosphatase 68, Troponin I < 0.01, Voh-K-Gvwtvfpewli Pept 4630 H, Total Protein 6.8, Albumin 3.5, Globulin 3.3, Albumin/Globulin Ratio 1.1, PT 25.3 H, INR 2.43 H, CBC w Diff NO MAN DIFF REQ, RBC 3.89 L, MCV 83.8, MCH 27.6, RDW 17.1 H, MPV 9.9, Gran % 83.9 H, Lymphocytes % 7.5 L, Monocytes % 7.0, Eosinophils % 1.1, Basophils % 0.5, Absolute Granulocytes 9.6 H, Absolute Lymphocytes 0.9 L, Absolute Monocytes 0.8 H, Absolute Eosinophils 0.1, Absolute Basophils 0.1, PUBS MCHC 33.0 Recent Imaging Studies: Bilateral lower Extremity Doppler study: No evidence of deep vein thrombosis in either lower extremity. Assessment/Plan Assessment/Plan Assessment: 1. Acute HFpEF exacerbation 2. Paroxysmal atrial fibrillation 3. Lower extremity Doppler study negative for DVT 4. Coronary artery disease Plan: * Continue IV Lasix * Follow input and output with daily weights * Check basic metabolic profile daily. * Continue Eliquis. Continue telemetry? Yes
[2016-09-28 00:27] VITALS: BP 128/60
--- NOTE | 2016-09-28 08:13 | PN- Housestaff ---
DEE DEE CARMEN 09/28/16 0813: Subjective Follow-up For: Acute on chronic diastolic congestive heart failure Diabetes mellitus Paroxysmal atrial fibrillation Complaints: pain scale (0-10) Tele-Events Since Last Visit: Patient is in sinus rhythm Rate 70-80 Single pacing PVCs No other acute events reported overnight Subjective: Patient was seen and examined this morning. He is alert, awake and oriented to time place and person. No acute events reported overnight. He was sitting comfortably and eating breakfast this morning. He denies any shortness of breath, saturating at room air comfortably. He denied any fever, chills, lung congestion, cough, sputum production. He denied any nausea, vomiting, abdominal pain, change in bladder or bowel habits. He does report bilateral lower extremity swelling. Left greater than right. b/l DVT was ruled out. Vitals were stable. He is afebrile, heart rate 70, respiratory 20, blood pressure 140/50, saturating at 94% on room air Review of Systems Constitutional: Denies: see HPI. Objective Last 24 Hrs of Vital Signs/I&O Vital Signs Date Time Temp Pulse Resp B/P Pulse O2 O2 Flow FiO2 Ox Delivery Rate 09/28 0916 76 142/56 09/28 0841 97.4 75 20 142/56 94 Room Air 09/28 0027 98.4 72 20 128/60 94 Room Air 09/28 0000 Room Air 09/27 2155 78 128/60 09/27 2155 78 1209/27 1645 97.6 67 18 141/60 94 Room Air Intake & Output 09/28 1600 09/28 0800 09/28 0000 Intake Total 200 450 Output Total 800 800 Balance -600 -350 Intake, IV 0 0 Intake, Oral 200 450 Number 0 0 Bowel Movements Output, Urine 800 800 Patient 129.274 kg Weight Physical Exam General Appearance: Alert, Oriented X3, Cooperative, No Acute Distress Skin: No Breakdown, No Significant Lesion HEENT: Atraumatic, Mucous Membr. moist/pink Neck: Supple, No JVD Lymphatic: Cervical nl Cardiovascular: Regular Rate, Normal S1, Normal S2, No Murmurs Lungs: decreased breath sounds bilaterally Abdomen: Normal Bowel Sounds, Soft, No Tenderness Extremities: No Clubbing, No Cyanosis, bilateral lower extremity pitting edema left greater than right Vascular: Normal Pulses Current Medications: Current Medications Sig/Roge Start time Last Medication Dose Route Stop Time Status Admin Acetaminophen 650 MG Q6P PRN 09/26 1900 AC PO Apixaban 5 MG BID 09/26 2200 AC 09/28 PO 0916 Aspirin Buffered 81 MG DAILY 09/27 1000 AC 09/28 PO 0917 Atorvastatin Calcium 20 MG 1700 09/26 1700 AC 09/27 PO 0758 Cholecalciferol 1,000 IU DAILY 09/27 1000 AC 09/28 PO 0917 Furosemide 80 MG 7:30 AM, & 4:30 PM 09/28 0730 AC 09/28 IV 0918 Furosemide 80 MG BID 09/27 1000 DC 09/27 IV 1900 Insulin Aspart 0 TIDAC 09/27 0800 AC 09/28 SC 0918 Insulin Detemir 27 UNITS BID 09/27 2200 DC SC Insulin Detemir 30 UNITS BID 09/27 220 AC 09/28 SC 0917 Isosorbide 30 MG BID 09/26 220 AC 09/28 Mononitrate PO 0916 Losartan Potassium 25 MG DAILY 09/27 1000 AC 09/28 PO 0917 Metoprolol Tartrate 50 MG BID 09/26 220 AC 09/28 PO 0917 Multivitamins 1 TAB DAILY 09/26 1624 AC 09/28 PO 0917 Potassium Chloride 10 MEQ DAILY 09/27 1000 AC 09/28 PO 0917 Last 24 Hrs of Lab/Chu Results Last 24 Hrs of Labs/Mics: Laboratory Tests 09/28/16 0635: Anion Gap 13, Estimated GFR 49 L, BUN/Creatinine Ratio 38.6 H, CBC w Diff NO MAN DIFF REQ, RBC 3.79 L, MCV 84.5, MCH 28.0, RDW 16.7 H, MPV 10.4, Gran % 81.1 H, Lymphocytes % 9.3 L, Monocytes % 8.0, Eosinophils % 1.3, Basophils % 0.3, Absolute Granulocytes 8.5 H, Absolute Lymphocytes 1.0 L, Absolute Monocytes 0.8 H, Absolute Eosinophils 0.1, Absolute Basophils 0, PUBS MCHC 33.1 Assessment/Plan Assessment: This is a 80-year-old male with past medical history significant for diabetes mellitus, paroxysmal atrial fibrillation on eliqus at home, congestive heart failure(last echo in July 2015 with EF of 50-55% with a stage III diastolic dysfunction), hypertension, hyperlipidemia, peripheral neuropathy, syncope, coronary artery disease, stents, atrial fibrillation status post pacemaker placement, peripheral vascular disease, obstructive sleep apnea, diverticulitis, BPH, osteomyelitis, left knee replacement, sciatica presented to the emergency department with worsening shortness of breath and bilateral lower extremity leg swelling for 1 week. Temperature 97.8, pulse rate 90, RR 24, blood pressure 142/63, saturating at 96% on room air WBC 11.4, H and H 10.7 and 32.6. INR 2.43. Electrolytes normal. Creatinine 1.4 on admission which is his baseline.. Troponins were negative. ProBNP elevated 4630. CXR- Small bilateral pleural effusions with likely associated mild interstitial edema. EKG showed ventricular paced + A. fib, 90 Problem list 1. Acute on chronic diastolic congestive heart failure 2. Possible upper respiratory tract infection 3. Diabetes mellitus 4. Paroxysmal atrial fibrillation 5. Hypertension 6. Hyperlipidemia 7. Coronary artery disease Acute on chronic stage 3 diastolic congestive heart failure Patient presented with worsening shortness of breath, orthopnea, bilateral lower extremity leg swelling. He failed outpatient treatment for congestive heart failure. He took Lasix 80 mg orally 3 times a day before coming to the hospital with no improvement in urinary output. Admitted him to the hospital for acute on chronic diastolic heart failure. Chest x-ray showed bilateral pleural effusions and pulmonary edema. (last echo in July 2015 with EF of 50-55% with a stage III diastolic dysfunction) * Admitted to telemetry floor for further monitoring. * Monitor vitals every shift * Maintain oxygen saturation above 92% * Provide supplemental oxygen if necessary * First set of EKG and troponins were negative * Serial EKGs and troponins-negative * Monitor for worsening shortness of breath, leg swelling * IV Lasix 80 mg twice a day for now. Of note patient takes Lasix 80 twice a day at home * Strict ins and outs * Daily weights * Monitor closely for urine output * Renal ultrasound ruled out obstruction * Echocardiogram * Talent Manager on board possible upper respiratory tract infection Patient presented with worsening shortness of breath, cough, associated with yellow colored phlegm production. He denied any fever, chills, sick contacts, travel history. He reported wheezing. Complains of orthopnea. * WBC count elevated to 11.4 on admission-came down to 10.4 * Closely watch for fever and leukocytosis * Monitor him off from antibiotics for now * Chest x-ray ruled out pneumonia. * Check WBC in the morning * Total respiratory care diabetes mellitus * Follows Elmer Nunez MD as an outpatient * Stopped Humalog home dose * per started the patient on Levemir 30 twice a day and sliding scale insulin before each meal and at bedtime * Accu-Cheks 3 times a day and at bedtime Hypertension Continue metoprolol home dose Continue valsartan home Paroxysmal atrial fibrillation Continue home dose of eliqus 5 mg twice a day Coronary artery disease Continue aspirin, statins Continue imdur Hyperlipidemia Continue statins Low urine output Patient complaint of low urine output even after taking lasix 80 mg 3 times a day. checked renal ultrasound to rule out any obstruction- normal DVT prophylaxis - eliqus Diabetic diet Pain pathway Tylenol Full code Problem List: 1. Congestive Heart Failure 2. Diabetes Pain Ratin Pain Location: none Pain Goal: Remain pain free Pain Plan: tylinol Tomorrow's Labs & Rationales: BEP in the setting of acute congestive heart failure MYA GRIFFIN,MIKE 09/28/16 0837: Attending MD Review Statement Attending Statement Attending MD Statement: examined this patient, discuss w/resident/PA/GRUBBER, agreed w/resident/PA/GRUBBER, reviewed EMR data (avail), discussed with nursing, amended to note Attending Assessment/Plan: Patient seen and examined. Sitting comfortably eating breakfast. No issues overnight reported by nursing staff. No events on telemetry order than occasional PVCs. He denies chest pain or shortness of breath at rest. He continues to maintain saturation on room air. On examination he has nodular venous distention. He continues have diminished breath sounds in the bases with mild crepitus. Abdomen is soft and nontender. He continues of bilateral lower extremity edema left greater than right. Lower extremity Dopplers yesterday showed no evidence of deep vein thrombosis. Recommendations: -Continue diuresis with IV Lasix today. -If patient remains stable off oxygen supplementation and transitioned to oral Lasix tomorrow. Follow-up with the cardiology service regarding dosing. -Continue to monitor daily weights and input output. -Follow-up serum chemistry. -Blood glucose level was 251 at bedtime yesterday. Follow-up a.m. blood glucose readings. Follow-up with the endocrinology service regarding management of his insulin regimen.
[2016-09-28 08:41] VITALS: BP 142/56
[2016-09-28 08:53] LABS: ABSOLUTE BASOPHIL COUNT 0 /CUMM (0.0-0.2); ABSOLUTE EOSINOPHIL COUNT 0.1 /CUMM (0.0-0.7); ABSOLUTE GRANULOCYTE CT 8.5 /CUMM (1.4-6.5); ABSOLUTE MONOCYTE COUNT 0.8 /CUMM (0.10-0.60); BASOPHIL % 0.3 % (0.0-2.0); EOSINOPHIL % 1.3 % (0-5); GRANULOCYTE % 81.1 % (42.2-75.2); MEAN CORPUSCULAR HGB CONC 33.1 G/DL (33.0-37.0); MEAN CORPUSCULAR VOLUME 84.5 FL (80.0-94.0); MEAN PLATELET VOLUME 10.4 FL (7.4-10.4); PLATELET COUNT 162 /CUMM (130-400); RBC DISTRIBUTION WIDTH 16.7 % (11.5-14.5); RED BLOOD CELL CT 3.79 /CUMM (4.70-6.10); WHITE BLOOD CELL COUNT 10.4 /CUMM (4.8-10.8)
--- NOTE | 2016-09-28 11:36 | PN- Diabetes ---
Assessment/Plan Assessment: 80-year-old male with past medical history significant for diabetes mellitus, paroxysmal atrial fibrillation, congestive heart failure, hypertension, hyperlipidemia, peripheral neuropathy, syncope, coronary artery disease, stents, atrial fibrillation status post pacemaker placement, peripheral vascular disease , obstructive sleep apnea, diverticulitis, BPH, osteomyelitis and left knee replacement, was admitted for CHF exacerbation. He was put on Levemir 30 units twice a day, Novolog coverage before meals and Novolog coverage at bedtime. His FSGs were 147, 217, 251 and 234. Plan: 1. increase Levemir to 36 units twice a day; 2. adjust Novolog coverage before meals-- detail see the inpatient DM order. 3. continue the current Novolog coverage at bedtime; 4. monitor FSGs. will follow. Inpatient Diabetes Orders Before Each Meal: Bolus Insulin: Novolog < 80 mg/dl: no coverage 80-100 mg/dl: 11 units 101-120 mg/dl: 11 units 121-150 mg/dl: 11 units 151-200 mg/dl: 13 units 201-250 mg/dl: 15 units 251-300 mg/dl: 17 units 301-350 mg/dl: 19 units 351-400 mg/dl: 21 units > 400 mg/dl: 23 units Subjective Subjective: He feels okay this morning. The LE swelling is slight better. Objective Last 24 Hrs of Vital Signs/I&O Vital Signs Date Time Temp Pulse Resp B/P Pulse O2 O2 Flow FiO2 Ox Delivery Rate 09/28 0916 76 142/56 09/28 0841 97.4 75 20 142/56 94 Room Air 09/28 0027 98.4 72 20 128/60 94 Room Air 09/28 0000 Room Air 09/27 215 78 128/60 09/27 215 78 09/27 1645 97.6 67 18 141/60 94 Room Air Intake & Output 09/28 1600 09/28 0800 09/28 0000 Intake Total 200 450 Output Total 800 800 Balance -600 -350 Intake, IV 0 0 Intake, Oral 200 450 Number 0 0 Bowel Movements Output, Urine 800 800 Patient 285 lb Weight Findings Pertinent Lab/Chu Results: Laboratory Tests 09/28 0635 Chemistry Sodium (137 - 145 mmol/L) 140 Potassium (3.5 - 5.1 mmol/L) 4.0 Chloride (98 - 107 mmol/L) 98 Carbon Dioxide (22 - 30 mmol/L) 28 Anion Gap (5 - 16) 13 BUN (9 - 20 mg/dL) 54 H Creatinine (0.7 - 1.2 mg/dL) 1.4 H Estimated GFR (>60 ml/min) 49 L BUN/Creatinine Ratio (7 - 25 %) 38.6 H Hematology CBC w Diff NO MAN DIFF REQ WBC (4.8 - 10.8 /CUMM) 10.4 RBC (4.70 - 6.10 /CUMM) 3.79 L Hgb (14.0 - 18.0 G/DL) 10.6 L Hct (42 - 52 %) 32.0 L MCV (80.0 - 94.0 FL) 84.5 MCH (27.0 - 31.0 PG) 28.0 RDW (11.5 - 14.5 %) 16.7 H Plt Count (130 - 400 /CUMM) 162 MPV (7.4 - 10.4 FL) 10.4 Gran % (42.2 - 75.2 %) 81.1 H Lymphocytes % (20.5 - 51.1 %) 9.3 L Monocytes % (1.7 - 9.3 %) 8.0 Eosinophils % (0 - 5 %) 1.3 Basophils % (0.0 - 2.0 %) 0.3 Absolute Granulocytes (1.4 - 6.5 /CUMM) 8.5 H Absolute Lymphocytes (1.2 - 3.4 /CUMM) 1.0 L Absolute Monocytes (0.10 - 0.60 /CUMM) 0.8 H Absolute Eosinophils (0.0 - 0.7 /CUMM) 0.1 Absolute Basophils (0.0 - 0.2 /CUMM) 0 PUBS MCHC (33.0 - 37.0 G/DL) 33.1
--- NOTE | 2016-09-28 15:49 | PN- Cardiology ---
Subjective Subjective: Shortness of breath improving. No chest pain. No palpitations. No diaphoresis. No nausea or vomiting. Objective Vital Signs and I&Os Vital Signs Date Time Temp Pulse Resp B/P Pulse O2 O2 Flow FiO2 Ox Delivery Rate 09/28 0916 76 142/56 09/28 0841 97.4 75 20 142/56 94 Room Air 09/28 0027 98.4 72 20 128/60 94 Room Air 09/28 0000 Room Air 09/27 2155 78 128/60 09/27 2155 78 64 09/27 1645 97.6 67 18 141/60 94 Room Air Intake & Output 09/28 1600 09/28 0800 09/28 0000 09/27 1600 09/27 0800 09/27 0000 Intake Total 200 450 600 250 250 Output Total 800 800 700 575 250 Balance -600 -350 -100 -325 0 Intake, IV 0 0 10 10 Intake, Oral 200 450 600 240 240 Number 0 0 1 Bowel Movements Output, Urine 800 800 700 575 250 Patient 285 lb 284 lb 288 lb Weight Physical Exam: General: WD/ obese male in NAD; alert and oriented x 3 HEENT: NC/ AT, PERRL, EOMI, clear oropharynx Neck: no JVD, bilateral carotid bruit R>L Heart: irregularly irregular with 2/6 sytolic murmur at the RUSB and 2/6 sytolic murmur at the LUSB and apex Lungs: Few scattered rales bilaterally with decresed breath sounds at the bases bilaterally Abdomen: soft, obese, NT, +ve bowel sounds Extremities: 2+ leg edema with venous stasis changes bilaterally Current Medications: Current Medications Sig/Roge Start time Last Medication Dose Route Stop Time Status Admin Acetaminophen 650 MG Q6P PRN 09/26 1900 AC PO Apixaban 5 MG BID 09/26 2200 AC 09/28 PO 0916 Aspirin Buffered 81 MG DAILY 09/27 1000 AC 09/28 PO 0917 Atorvastatin Calcium 20 MG 1700 09/26 1700 AC 09/27 PO 0758 Cholecalciferol 1,000 IU DAILY 09/27 1000 AC 09/28 PO 0917 Furosemide 80 MG 7:30 AM, & 4:30 PM 09/28 0730 AC 09/28 IV 0918 Furosemide 80 MG BID 09/27 1000 DC 09/27 IV 1900 Insulin Aspart 0 TIDAC 09/27 0800 AC 09/28 SC 1339 Insulin Detemir 36 UNITS BID 09/28 2199 [facility] Insulin Detemir 30 UNITS BID 09/27 2200 DC 09/28 MN 0917 Isosorbide 30 MG BID 09/26 2200 AC 09/28 Mononitrate PO 0916 Losartan Potassium 25 MG DAILY 09/27 1000 AC 09/28 PO 0917 Metoprolol Tartrate 50 MG BID 09/26 2200 AC 09/28 PO 0917 Multivitamins 1 TAB DAILY 09/26 1624 AC 09/28 PO 0917 Potassium Chloride 10 MEQ DAILY 09/27 1000 AC 09/28 PO 0917 Results Last 48 Hrs of Labs/Mics: Laboratory Tests 09/28/16 0635: Anion Gap 13, Estimated GFR 49 L, BUN/Creatinine Ratio 38.6 H, CBC w Diff NO MAN DIFF REQ, RBC 3.79 L, MCV 84.5, MCH 28.0, RDW 16.7 H, MPV 10.4, Gran % 81.1 H, Lymphocytes % 9.3 L, Monocytes % 8.0, Eosinophils % 1.3, Basophils % 0.3, Absolute Granulocytes 8.5 H, Absolute Lymphocytes 1.0 L, Absolute Monocytes 0.8 H, Absolute Eosinophils 0.1, Absolute Basophils 0, PUBS MCHC 33.1 09/27/16 0625: Anion Gap 11, Estimated GFR 45 L, BUN/Creatinine Ratio 37.3 H, Troponin I 0.02 , CBC w Diff NO MAN DIFF REQ, RBC 3.73 L, MCV 84.2, MCH 27.7, RDW 16.4 H, MPV 10.8 H, Gran % 76.7 H, Lymphocytes % 12.3 L, Monocytes % 9.2, Eosinophils % 1.3, Basophils % 0.5, Absolute Granulocytes 7.5 H, Absolute Lymphocytes 1.2, Absolute Monocytes 0.9 H, Absolute Eosinophils 0.1, Absolute Basophils 0, PUBS MCHC 33.0 09/26/162199: Troponin I 0.01 09/26/161910: Urine Color Cancelled, Urine Clarity Cancelled, Urine pH Cancelled, Ur Specific [place] Cancelled, Urine Protein Cancelled, Urine Ketones Cancelled, Urine Nitrite Cancelled, Urine Bilirubin Cancelled, Urine Urobilinogen Cancelled, Ur Leukocyte Esterase Cancelled, Ur Microscopic Cancelled, Urine Hemoglobin Cancelled, Urine Glucose Cancelled Assessment/Plan Assessment/Plan Assessment: 1. Acute HFpEF exacerbation 2. Paroxysmal atrial fibrillation 3. Lower extremity Doppler study negative for DVT 4. Coronary artery disease Plan: * Continue IV Lasix, can change to po tomorrow if continued improvement * Follow input and output with daily weights * Check basic metabolic profile daily. * Continue Eliquis. Continue telemetry? Yes
[2016-09-28 16:05] VITALS: BP 146/50
[2016-09-29 00:28] VITALS: BP 150/60
[2016-09-29 08:22] VITALS: BP 134/57
--- NOTE | 2016-09-29 09:16 | PN- Housestaff ---
Subjective Follow-up For: Acute on chronic diastolic congestive heart failure Diabetes mellitus Paroxysmal atrial fibrillation Tele-Events Since Last Visit: Normal sinus rhythm, rate 71-91, no events Subjective: Patient seen and examined. Offers no complaints. Denies headache, nausea, vomiting, dizziness, lightheadedness, chest pain, shortness of breath, abdominal pain, urinary symptoms. His lower extremity edema is at baseline. Vital signs stable. No overnight events reported. Review of Systems Constitutional: Denies: see HPI. Objective Last 24 Hrs of Vital Signs/I&O Vital Signs Date Time Temp Pulse Resp B/P Pulse O2 O2 Flow FiO2 Ox Delivery Rate 09/29 2108 71 150/60 09/29 210 71 150/60 09/29 1545 97.6 75 18 179/53 95 Room Air 09/29 0830 Room Air 09/29 0822 97.3 90 18 134/57 91 Room Air 09/29 0814 92 150/60 09/29 0813 92 150/60 09/29 0813 92 150/60 09/29 0028 98.2 92 20 150/60 92 Room Air Intake & Output 09/29 1600 09/29 0800 09/29 0000 Intake Total 600 Output Total 350 725 875 Balance 250 -725 -875 Intake, Oral 600 Number 2 Bowel Movements Output, Urine 350 725 875 Patient 280 lb Weight Physical Exam General Appearance: Alert, Oriented X3, Cooperative, No Acute Distress Skin: No Rashes, No Breakdown, No Significant Lesion HEENT: Atraumatic, PERRLA, EOMI, Mucous Membr. moist/pink Neck: Supple, No JVD, No thryomegaly, +2 Carotid Pulse wo Bruit, No LAD Lymphatic: Axillary nl, Cervical nl Cardiovascular: Regular Rate, Normal S1, Normal S2, No Murmurs Lungs: expiratory wheezes, decreased breath sounds Abdomen: Normal Bowel Sounds, Soft, No Tenderness, No Hepatospenomegaly Neurological: Normal Speech, Strength at 5/5 X4 Ext, Normal Tone, Sensation Intact, Cranial Nerves 3-12 NL, Reflexes 2+ Extremities: lower extremity edema noted.left greater than right. Vascular: Normal Pulses, Pulses Symmetrical Assessment/Plan Assessment: This is an 80-year-old gentleman with past medical history significant for diabetes mellitus, paroxysmal atrial fibrillation on eliquis, congestive heart failure(last echo in July 2015 with EF of 50-55% with a stage III diastolic dysfunction), hypertension, hyperlipidemia, peripheral neuropathy, syncope, coronary artery disease, stents, atrial fibrillation status post pacemaker placement, peripheral vascular disease, obstructive sleep apnea, diverticulitis, BPH, osteomyelitis, left knee replacement, sciatica presented to the emergency department with worsening shortness of breath and bilateral lower extremity leg swelling for 1 week. Problem list/plan #Acute on chronic stage 3 diastolic congestive heart failure * Continue with bus monitor * Monitor vitals every shift * Maintain oxygen saturation above 92% * Serial EKGs and troponins-negative * Strict ins and outs * Daily weights * Renal ultrasound ruled out obstruction * Echocardiogram pending * Inseam Trimming Machine Operator on board * Cardiology recommended to change IV Lasix to by mouth #diabetes mellitus * Follows Elmer Nunez MD as an outpatient * Stopped Humalog home dose * On Levemir 36 twice a day and sliding scale insulin before each meal and at bedtime * Accu-Cheks 3 times a day and at bedtime #Hypertension * Stable * Continue with Cozaar, metoprolol #Paroxysmal atrial fibrillation * Continue home dose of eliquis 5 mg twice a day #Coronary artery disease * Continue aspirin, statins, imdur #Hyperlipidemia * Continue statins DVT prophylaxis - eliquis Diabetic diet Pain pathway Tylenol Full code Problem List: 1. Congestive Heart Failure 2. Peripheral edema 3. Renal insufficiency Pain Ratin Pain Location: NA Pain Goal: Remain pain free Pain Plan: Pain pathway Tylenol Tomorrow's Labs & Rationales: BEP to monitor creatinine level * Follows Elmer Nunez MD as an outpatient * Stopped Humalog home dose * per started the patient on Levemir 30 twice a day and sliding scale insulin before each meal and at bedtime * Accu-Cheks 3 times a day and at bedtime Hypertension Continue metoprolol home dose Continue valsartan home Paroxysmal atrial fibrillation Continue home dose of eliqus 5 mg twice a day Coronary artery disease Continue aspirin, statins Continue imdur Hyperlipidemia Continue statins Low urine output Patient complaint of low urine output even after taking lasix 80 mg 3 times a day. checked renal ultrasound to rule out any obstruction- normal DVT prophylaxis - eliqus Diabetic diet Pain pathway Tylenol Full code
--- NOTE | 2016-09-29 11:25 | PN- Att Addend ---
Attending Addendum Attending Brief Note Patient seen and examined. Resting comfortably not in acute distress. No events overnight on telemetry. Paced rhythm with heart rate occasionally in the 40s. He reports feeling better. Denies shortness of breath at rest. Denies chest pain. Denies palpitations. He has been keeping his legs elevated. Vital Signs Date Time Temp Pulse Resp B/P Pulse O2 O2 Flow FiO2 Ox Delivery Rate 09/29 0830 Room Air 09/29 0822 97.3 90 18 134/57 91 Room Air 09/29 0814 92 150/60 09/29 0813 92 150/60 09/29 0813 92 150/60 09/29 0028 98.2 92 20 150/60 92 Room Air 09/28 2116 80 132/60 09/28 1605 97.6 73 20 146/50 93 Room Air Gen. appearance: Well-developed and not in acute distress. Heart: S1-S2 Lungs: Improved air entry in the bases with diminished crepitus. Abdomen: Soft, nontender with normal bowel sounds Extremities: Decreased lower extremity edema however left remains greater than right. Skin: Intact with no rashes Neurologic: No gross focal deficits. Laboratory Tests 09/29/16 0600: Anion Gap 11, Estimated GFR 49 L, BUN/Creatinine Ratio 37.9 H Problems: Problem list 1. Acute on chronic diastolic congestive heart failure 2. Insulin-dependent diabetes mellitus. 3. Paroxysmal atrial fibrillation status post implantable pacemaker. 4. Hypertension 5. Coronary artery disease. Plan: -Follow-up with the cardiology service regarding transition patient to oral Lasix. He was on Lasix 80 mg orally twice daily at home prior to admission. He was likely require doses. -Refer patient outpatient CHF clinic upon discharge. Please note, he states states that his millwright may have told him that he does not require this service. -Continue to monitor input and output. Creatinine remains stable despite aggressive diuresis. -Endocrinology follow-up appreciated. Follow recommendations. -Continue anticoagulation with Eliquis.
--- NOTE | 2016-09-29 11:46 | PN- Diabetes ---
Assessment/Plan Assessment: 80-year-old male with past medical history significant for diabetes mellitus, paroxysmal atrial fibrillation, congestive heart failure, hypertension, hyperlipidemia, peripheral neuropathy, syncope, coronary artery disease, stents, atrial fibrillation status post pacemaker placement, peripheral vascular disease , obstructive sleep apnea, diverticulitis, BPH, osteomyelitis and left knee replacement, was admitted for CHF exacerbation. He was put on Levemir 36 units twice a day, Novolog coverage before meals and Novolog coverage at bedtime. His FSGs were 287, 141, 90 and 84. Plan: continue the current insulin regimen for now; monitor FSGs; will follow. Subjective Subjective: He feels about the same. Objective Last 24 Hrs of Vital Signs/I&O Vital Signs Date Time Temp Pulse Resp B/P Pulse O2 O2 Flow FiO2 Ox Delivery Rate 09/29 0830 Room Air 09/29 0822 97.3 90 18 134/57 91 Room Air 09/29 0814 92 150/60 09/29 0813 92 150/60 09/29 0813 92 150/60 09/29 0028 98.2 92 20 150/60 92 Room Air 09/28 2116 80 132/60 09/28 1605 97.6 73 20 146/50 93 Room Air Intake & Output 09/29 1600 09/29 0800 09/29 0000 Intake Total Output Total 725 875 Balance -725 -875 Number 2 Bowel Movements Output, Urine 725 875 Patient 280 lb Weight Findings Pertinent Lab/Chu Results: Laboratory Tests 09/29 0600 Chemistry Sodium (137 - 145 mmol/L) 141 Potassium (3.5 - 5.1 mmol/L) 4.0 Chloride (98 - 107 mmol/L) 102 Carbon Dioxide (22 - 30 mmol/L) 28 Anion Gap (5 - 16) 11 BUN (9 - 20 mg/dL) 53 H Creatinine (0.7 - 1.2 mg/dL) 1.4 H Estimated GFR (>60 ml/min) 49 L BUN/Creatinine Ratio (7 - 25 %) 37.9 H
--- NOTE | 2016-09-29 14:07 | PN- Cardiology ---
Subjective Subjective: Feeling better. Shortness of breath is improving. No chest pain. No palpitations. No diaphoresis. No nausea or vomiting. Objective Vital Signs and I&Os Vital Signs Date Time Temp Pulse Resp B/P Pulse O2 O2 Flow FiO2 Ox Delivery Rate 09/29 0830 Room Air 09/29 0822 97.3 90 18 134/57 91 Room Air 09/29 0814 92 150/60 09/29 0813 92 150/60 09/29 0813 92 150/60 09/29 0028 98.2 92 20 150/60 92 Room Air 09/28 2116 80 132/60 09/28 1605 97.6 73 20 146/50 93 Room Air Intake & Output 09/29 1600 09/29 0800 09/29 0000 09/28 1600 09/28 0809/28 0000 Intake Total 200 450 Output Total 725 875 625 800 800 Balance -725 -875 -625 -600 -350 Intake, IV 0 0 Intake, Oral 200 450 Number 2 0 0 Bowel Movements Output, Urine 725 875 625 800 800 Patient 280 lb 285 lb Weight Physical Exam: General: WD/ obese male in NAD; alert and oriented x 3 HEENT: NC/ AT, PERRL, EOMI, clear oropharynx Neck: no JVD, bilateral carotid bruit R>L Heart: irregularly irregular with 2/6 sytolic murmur at the RUSB and 2/6 sytolic murmur at the LUSB and apex Lungs: Few scattered rales bilaterally with decresed breath sounds at the bases bilaterally Abdomen: soft, obese, NT, +ve bowel sounds Extremities: 2+ leg edema with venous stasis changes bilaterally Current Medications: Current Medications Sig/Roge Start time Last Medication Dose Route Stop Time Status Admin Acetaminophen 650 MG Q6P PRN 09/26 1900 AC PO Apixaban 5 MG BID 09/26 2200 AC 09/29 PO 0814 Aspirin Buffered 81 MG DAILY 09/27 1000 AC 09/29 PO 0814 Atorvastatin Calcium 20 MG 1700 09/26 1700 AC 09/28 PO 1801 Bismuth Subsalicylate 30 ML PCHS 09/28 2115 DC PO Cholecalciferol 1,000 IU DAILY 09/27 1000 AC 09/29 PO 0814 Furosemide 80 MG 7:30 AM, & 4:30 PM 09/28 0730 AC 09/29 IV 0626 Insulin Aspart 0 TIDAC 09/27 0800 AC 09/29 SC 1218 Insulin Detemir 36 UNITS BID 09/28 2200 AC 09/29 SC 0815 Isosorbide 30 MG BID 09/26 2200 AC 09/29 Mononitrate PO 0814 Losartan Potassium 25 MG DAILY 09/27 1000 AC 09/29 PO 0813 Metoprolol Tartrate 50 MG BID 09/26 2200 AC 09/29 PO 0813 Multivitamins 1 TAB DAILY 09/26 1624 AC 09/29 PO 0813 Omeprazole 20 MG DAILY AC 09/29 0700 DC PO Omeprazole 20 MG DAILY AC 09/28 2130 AC 09/29 PO 0626 Potassium Chloride 10 MEQ DAILY 09/27 1000 AC 09/29 PO 0813 Results Last 48 Hrs of Labs/Mics: Laboratory Tests 09/29/16 0600: Anion Gap 11, Estimated GFR 49 L, BUN/Creatinine Ratio 37.9 H 09/28/16 0635: Anion Gap 13, Estimated GFR 49 L, BUN/Creatinine Ratio 38.6 H, CBC w Diff NO MAN DIFF REQ, RBC 3.79 L, MCV 84.5, MCH 28.0, RDW 16.7 H, MPV 10.4, Gran % 81.1 H, Lymphocytes % 9.3 L, Monocytes % 8.0, Eosinophils % 1.3, Basophils % 0.3, Absolute Granulocytes 8.5 H, Absolute Lymphocytes 1.0 L, Absolute Monocytes 0.8 H, Absolute Eosinophils 0.1, Absolute Basophils 0, PUBS MCHC 33.1 Assessment/Plan Assessment/Plan Assessment: 1. Acute HFpEF exacerbation 2. Paroxysmal atrial fibrillation 3. Lower extremity Doppler study negative for DVT 4. Coronary artery disease Plan: * Change Lasix to 120 mg by mouth twice a day * Check basic metabolic profile tomorrow * Continue Eliquis. * Likely ready for discharge tomorrow Continue telemetry? Yes
[2016-09-29 15:45] VITALS: BP 179/53
[2016-09-29 23:15] VITALS: BP 150/60
--- NOTE | 2016-09-30 07:26 | PN- Housestaff ---
DEE DEE CARMEN 09/30/16 0726: Subjective Follow-up For: Acute on chronic diastolic congestive heart failure Diabetes mellitus Paroxysmal atrial fibrillation Complaints: pain scale (0-10) Tele-Events Since Last Visit: Patient is in sinus rhythm Rate 70-80 Single pacing No other acute events reported overnight Subjective: Patient was seen and examined this morning. He is alert, awake and oriented to time place and person. No acute events reported overnight. He was sitting comfortably and eating breakfast this morning. He denies any shortness of breath, saturating at room air comfortably. He denied any fever, chills, lung congestion, cough, sputum production. He denied any nausea, vomiting, abdominal pain, change in bladder or bowel habits. He does report bilateral lower extremity swelling-improved since admission. b/l DVT was ruled out. Feels much better this morning and eager to go home. Vitals were stable. He is afebrile, heart rate 70, respiratory 20, blood pressure 150/60, saturating at 94% on room air Review of Systems Constitutional: Denies: see HPI. Objective Last 24 Hrs of Vital Signs/I&O Vital Signs Date Time Temp Pulse Resp B/P Pulse O2 O2 Flow FiO2 Ox Delivery Rate 09/30 1105 79 142/54 09/30 1103 79 142/54 09/30 1101 79 142/54 09/30 0827 98.1 79 20 142/54 90 Room Air 09/30 0000 94 Room Air 09/29 2315 97.5 76 20 150/60 94 Room Air 09/29 2109 71 150/60 09/29 2108 71 150/60 09/29 1545 97.6 75 18 179/53 95 Room Air Intake & Output 09/30 1600 09/30 0800 09/30 0000 Intake Total 240 240 Output Total 350 150 Balance -110 90 Intake, Oral 240 240 Number 0 Bowel Movements Output, Urine 350 150 Physical Exam General Appearance: Alert, Oriented X3, Cooperative, No Acute Distress Skin: No Rashes, No Significant Lesion HEENT: Atraumatic, Mucous Membr. moist/pink Neck: Supple, No JVD Lymphatic: Cervical nl Cardiovascular: Regular Rate, Normal S1, Normal S2, No Murmurs Lungs: Normal Air Movement, basialr crackles Abdomen: Normal Bowel Sounds, Soft, No Tenderness Extremities: No Clubbing, No Cyanosis, b/l pitting edema +1 Vascular: Normal Pulses Current Medications: Current Medications Sig/Roge Start time Last Medication Dose Route Stop Time Status Admin Acetaminophen 650 MG Q6P PRN 09/26 1900 AC PO Apixaban 5 MG BID 09/26 2200 AC 09/30 PO 1105 Aspirin Buffered 81 MG DAILY 09/27 1000 AC 09/30 PO 1104 Atorvastatin Calcium 20 MG 1700 09/26 1700 AC 09/29 PO 1701 Cholecalciferol 1,000 IU DAILY 09/27 1000 AC 09/30 PO 1106 Furosemide 120 MG 7:30 AM, & 4:30 PM 09/30 0730 AC 09/30 PO 0812 Furosemide 80 MG 7:30 AM, & 4:30 PM 09/28 0730 DC 09/29 IV 0626 Insulin Aspart 0 TIDAC 09/27 0800 AC 09/30 SC 0813 Insulin Detemir 30 UNITS BID 09/30 1000 AC 09/30 SC 1106 Insulin Detemir 36 UNITS BID 09/28 2200 DC 09/29 SC 0815 Isosorbide 30 MG BID 09/26 2200 AC 09/30 Mononitrate PO 1101 Losartan Potassium 25 MG DAILY 09/27 1000 AC 09/30 PO 1103 Metoprolol Tartrate 50 MG BID 09/26 2200 AC 09/30 PO 1105 Multivitamins 1 TAB DAILY 09/26 1624 AC 09/30 PO 1105 Omeprazole 20 MG DAILY AC 09/28 2130 AC 09/30 PO 0812 Potassium Chloride 10 MEQ DAILY 09/27 1000 AC 09/30 PO 1105 Last 24 Hrs of Lab/Hcu Results Last 24 Hrs of Labs/Mics: Laboratory Tests 09/30/16 0645: Anion Gap 14, Estimated GFR 42 L, BUN/Creatinine Ratio 35.0 H Assessment/Plan Assessment: This is an 80-year-old gentleman with past medical history significant for diabetes mellitus, paroxysmal atrial fibrillation on eliquis, congestive heart failure(last echo in July 2015 with EF of 50-55% with a stage III diastolic dysfunction), hypertension, hyperlipidemia, peripheral neuropathy, syncope, coronary artery disease, stents, atrial fibrillation status post pacemaker placement, peripheral vascular disease, obstructive sleep apnea, diverticulitis, BPH, osteomyelitis, left knee replacement, sciatica presented to the emergency department with worsening shortness of breath and bilateral lower extremity leg swelling for 1 week. Temperature 97.8, pulse rate 90, RR 24, blood pressure 142/63, saturating at 96% on room air WBC 11.4, H and H 10.7 and 32.6. INR 2.43. Electrolytes normal. Creatinine 1.4 on admission which is his baseline.. Troponins were negative. ProBNP elevated 4630. CXR- Small bilateral pleural effusions with likely associated mild interstitial edema. EKG showed ventricular paced + A. fib, 90 Problem list 1. Acute on chronic diastolic congestive heart failure 2. Possible upper respiratory tract infection 3. Diabetes mellitus 4. Paroxysmal atrial fibrillation 5. Hypertension 6. Hyperlipidemia 7. Coronary artery disease Acute on chronic stage 3 diastolic congestive heart failure Patient presented with worsening shortness of breath, orthopnea, bilateral lower extremity leg swelling. He failed outpatient treatment for congestive heart failure. He was on Lasix 80 mg orally 3 times a day before coming to the hospital with no improvement in urinary output. Admitted him to the hospital for acute on chronic diastolic heart failure. Chest x-ray showed bilateral pleural effusions and pulmonary edema. (last echo in July 2015 with EF of 50-55% with a stage III diastolic dysfunction) * Admitted to telemetry floor for further monitoring. * Monitor vitals every shift * Maintain oxygen saturation above 92% * Provide supplemental oxygen if necessary * First set of EKG and troponins were negative * Serial EKGs and troponins-negative * Monitor for worsening shortness of breath, leg swelling * IV Lasix 80 mg twice a day so far. Of note patient takes Lasix 80 twice a day at home. Planning to discharge him on 120 mg lasix orally twice a day * Strict ins and outs * Daily weights * Monitor closely for urine output * Renal ultrasound ruled out obstruction * Echocardiogram PENDING. 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 He denied any fever, chills, sick contacts, travel history. He reported wheezing. Complains of orthopnea. * WBC count elevated to 11.4 on admission-came down to 10.4 * Closely watching for fever and leukocytosis * Monitor him off from antibiotics for now * Chest x-ray ruled out pneumonia. * Total respiratory care diabetes mellitus * Follows Elmer Nunez MD as an outpatient * Stopped Humalog home dose * per started the patient on Levemir 30 twice a day and sliding scale insulin before each meal and at bedtime * Accu-Cheks 3 times a day and at bedtime Hypertension Continue metoprolol home dose Continue valsartan home Paroxysmal atrial fibrillation Continue home dose of eliqus 5 mg twice a day Coronary artery disease Continue aspirin, statins Continue imdur Hyperlipidemia Continue statins Low urine output Patient complaint of low urine output even after taking lasix 80 mg 3 times a day at the time of admission. checked renal ultrasound to rule out any obstruction- normal DVT prophylaxis - eliqus Diabetic diet Pain pathway Tylenol Full code Problem List: 1. CHF exacerbation 2. Diabetes Pain Ratin Pain Location: none Pain Goal: Remain pain free Pain Plan: tylinol Tomorrow's Labs & Rationales: BEP in the setting of acute CHF exacerbation HA MCCORMACK MD 09/30/16 1010: Attending MD Review Statement Attending Statement Attending MD Statement: examined this patient, discuss w/resident/PA/TRUCK SALES MANAGER, agreed w/resident/PA/TRUCK SALES MANAGER, reviewed EMR data (avail), discussed with nursing, discussed with case mgmt Attending Assessment/Plan: Patient is eager to leave. He's been transitioned to by mouth Lasix and is on 120 twice a day. His usual outpatient doses 80 twice a day. He has underlying coronary artery disease, A. 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 Will follow-up with cardiology and make sure they're okay with the by mouth Lasix dose. Set him up with CHF outpatient clinic. He says his is a nurse and she manages all his medications and will follow-up for likely discharge today.
[2016-09-30 08:27] VITALS: BP 142/54
--- NOTE | 2016-09-30 08:35 | PN- Diabetes ---
See Addendum Assessment/Plan Assessment: 80-year-old male with past medical history significant for diabetes mellitus, paroxysmal atrial fibrillation, congestive heart failure, hypertension, hyperlipidemia, peripheral neuropathy, syncope, coronary artery disease, stents, atrial fibrillation status post pacemaker placement, peripheral vascular disease , obstructive sleep apnea, diverticulitis, BPH, osteomyelitis and left knee replacement, was admitted for CHF exacerbation. He was put on Levemir 36 units twice a day, Novolog coverage before meals and Novolog coverage at bedtime. His FSGs were 84, 201, 118, 79 and 194. Plan: 1. decrease Levemir to 30 units twice a day; 2. decrease Novolog coverage before meals--detail see the inpatient DM order; 3. continue the current Novolog coverage at bedtime; 4. monitor FSGs. will follow. Inpatient Diabetes Orders Before Each Meal: Bolus Insulin: Novolog < 80 mg/dl: no coverage 80-100 mg/dl: 10 units 101-120 mg/dl: 10 units 121-150 mg/dl: 10 units 151-200 mg/dl: 12 units 201-250 mg/dl: 14 units 251-300 mg/dl: 16 units 301-350 mg/dl: 18 units 351-400 mg/dl: 20 units > 400 mg/dl: 22 units Subjective Subjective: He has no special complaints this morning. Objective Last 24 Hrs of Vital Signs/I&O Vital Signs Date Time Temp Pulse Resp B/P Pulse O2 O2 Flow FiO2 Ox Delivery Rate 09/30 0827 98.1 79 20 142/54 90 Room Air 09/30 0000 94 Room Air 09/29 2315 97.5 76 20 150/60 94 Room Air 09/29 2109 71 150/60 09/29 2108 71 150/60 09/29 1545 97.6 75 18 179/53 95 Room Air Intake & Output 09/30 1600 09/30 0800 09/30 0000 Intake Total 240 240 Output Total 350 150 Balance -110 90 Intake, Oral 240 240 Number 0 Bowel Movements Output, Urine 350 150 Findings Pertinent Lab/Chu Results: Laboratory Tests 09/30 0645 Chemistry Sodium (137 - 145 mmol/L) 138 Potassium (3.5 - 5.1 mmol/L) 4.4 Chloride (98 - 107 mmol/L) 98 Carbon Dioxide (22 - 30 mmol/L) 27 Anion Gap (5 - 16) 14 BUN (9 - 20 mg/dL) 56 H Creatinine (0.7 - 1.2 mg/dL) 1.6 H Estimated GFR (>60 ml/min) 42 L BUN/Creatinine Ratio (7 - 25 %) 35.0 H
[2016-09-30] MEDS ORDERED: OMEPRAZOLE20 M2 PO (09:20)
[2016-09-30] MEDS ORDERED: LASIX40 M1 PO (09:24)
--- NOTE | 2016-09-30 09:33 | Patient Discharge Instructions ---
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 in 1 week Follow-up at CHF clinic ON 10/13/16 AT 11AM after discharge Diet Recommended Diet: Heart Healthy Activity Full Activity/No Limits: No Acute Coronary Syndrome Inclusion Criteria At DC or during hospital stay patient has or had the following: ACS DIAGNOSIS No Discharge Core Measures Meds if any: Prescribed or Continued at Discharge Meds if any: NOT Prescribed or Continued at Discharge Congestive Heart Failure Inclusion Criteria At DC or during hospital stay patient has or had the following: CHF DIAGNOSIS No Discharge Core Measures Meds if any: Prescribed or Continued at Discharge Meds if any: NOT Prescribed or Continued at Discharge Cerebrovascular accident Inclusion Criteria At DC or during hospital stay patient has or had the following: CVA/TIA Diagnosis No Discharge Core Measures Meds if any: Prescribed or Continued at Discharge Meds if any: NOT Prescribed or Continued at Discharge Venous thromboembolism Inclusion Criteria VTE Diagnosis No VTE Type NONE VTE Confirmed by (Test) NONE Discharge Core Measures - Per Current guidelines, there needs to be overlap - treatment for the first 5 days of Warfarin therapy. - If discharged on Warfarin prior to 5 days of - overlap therapy, the patient will need to be - assessed for post discharge needs including - *Post discharge parental anticoagulation - *Warfarin and/or parental anticoagulation education - *Follow up date to check INR post discharge At least 5 days overlap therapy as Inpatient No Meds if any: Prescribed or Continued at Discharge Note: Overlap Therapy is Warfarin and Anticoagulant Meds if any: NOT Prescribed or Continued at Discharge
[2016-09-30] MEDS ORDERED: HUMALOG100 UNIT/2 SC ×2 (13:25)
--- NOTE | 2016-09-30 14:14 | PN- Cardiology ---
Subjective Subjective: * Breathing is now comfortable although leg swelling persists. Patient does report right knee discomfort and discomfort in his left fingertips. * Creatinine increased to 1.6 with normal potassium * atrial fibrillation with demand pacing Objective Vital Signs and I&Os Vital Signs Date Time Temp Pulse Resp B/P Pulse O2 O2 Flow FiO2 Ox Delivery Rate 09/30 1105 79 142/54 09/30 1103 79 142/54 09/30 1101 79 142/54 09/30 1045 93 Room Air Room Air 09/30 0827 98.1 79 20 142/54 90 Room Air 09/30 0000 94 Room Air 09/29 2315 97.5 76 20 150/60 94 Room Air 09/29 2109 71 150/60 09/29 2108 71 150/60 09/29 1545 97.6 75 18 179/53 95 Room Air Intake & Output 09/30 1600 09/30 0800 09/30 0000 09/29 1600 09/29 0800 09/29 0000 Intake Total 240 240 600 Output Total 350 150 350 725 875 Balance -110 90 250 -725 -875 Intake, Oral 240 240 600 Number 0 2 Bowel Movements Output, Urine 350 150 350 725 875 Patient 280 lb Weight Physical Exam: General: WD/ obese male in NAD; alert and oriented x 3 Neck: no JVD, bilateral carotid bruit R>L Heart: irregularly irregular with 2/6 sytolic murmur at the RUSB and 2/6 sytolic murmur at the LUSB and apex Lungs: no crackles or wheezing Abdomen: soft, obese, NT, +ve bowel sounds Extremities: 2+ leg edema with venous stasis changes bilaterally Assessment/Plan Assessment/Plan * This patient is doing a bit better with increased diuresis. He now has resolution of his shortness of breath with clear lungs. Leg swelling is improved although not resolved. Brad is stable for discharge on Lasix 120mg PO BID. Continue Diovan, Imdur and lopressor as previously prescribed and continue potassium while on large doses of Lasix. I would not go up on his diuretic at this time despite his persistent leg edema due to his renal insufficiency. I will follow up with this patient in the office in a week and will consider switching him to Bumex at that time if he remains significantly fluid overloaded. In all likelihood, the patients conversion to atrial fibrillation made him decompensate. I will not plan on a cardioversion at this time but rather we should continue Apixiban for stroke prophylaxis. * Knee discomfort. This is likely an arthritic pain. I would not give NSAIDS. Check a uric acid level although I am no highly suspicious of gout. Continue telemetry? No
[2016-09-30] MEDS ORDERED: HUMALOG MI100 UNIT/1 SC ×2 (14:56)
[2016-09-30 16:24] VITALS: BP 138/58
--- NOTE | 2016-09-30 17:17 | Discharge Summary ---
Visit Information Visit Dates Admission Date: 09/26/16 Discharge Date: 09/30/16 Hospital Course Course Attending Physician: KSENIA GRIFFIN,HA Gonzalez Primary Care Physician: NEGAR GRIFFIN,WAYLON Segal Other Care Providers: Dr. Moreno and Dr. Olu anderson Consulting Request: Consulting Specialty: Cardiology Hospital Course: This is an 80-year-old gentleman with past medical history significant for diabetes mellitus, paroxysmal atrial fibrillation on eliquis, congestive heart failure(last echo in July 2015 with EF of 50-55% with a stage III diastolic dysfunction), hypertension, hyperlipidemia, peripheral neuropathy, syncope, coronary artery disease, stents, atrial fibrillation status post pacemaker placement, peripheral vascular disease, obstructive sleep apnea, diverticulitis, BPH, osteomyelitis, left knee replacement, sciatica presented to the emergency department with worsening shortness of breath and bilateral lower extremity leg swelling for 1 week. Vitals on admission -Temperature 97.8, pulse rate 90, RR 24, blood pressure 142/ 63, saturating at 96% on room air WBC 11.4, H and H 10.7 and 32.6. INR 2.43. Electrolytes normal. Creatinine 1.4 on admission which is his baseline.. Troponins were negative. ProBNP elevated 4630. CXR- Small bilateral pleural effusions with likely associated mild interstitial edema. EKG showed ventricular paced + A. fib, 90 Acute on chronic stage 3 diastolic congestive heart failure Patient presented with worsening shortness of breath, orthopnea, bilateral lower extremity leg swelling. He failed outpatient treatment for congestive heart failure. He was on Lasix 80 mg orally 3 times a day before coming to the hospital with no improvement in urinary output. Admitted him to the hospital for acute on chronic diastolic heart failure. Chest x-ray showed bilateral pleural effusions and pulmonary edema. (last echo in July 2015 with EF of 50 -55% with a stage III diastolic dysfunction) we Admitted him to telemetry floor for further monitoring. Monitored vitals every shift. Serial EKGs and troponins-negative. Received IV Lasix 80 mg twice a day in the hospital. Of note patient takes Lasix 80 twice a day at home. He was discharged on 120 mg lasix orally twice a day. Strict ins and outs and Daily weights were monitored. Advised to follow-up with progressive care nurse Dr. Raines in one week and follow-up at CHF clinic on 10/13/2016 at 11 AM possible upper respiratory tract infection Patient presented with worsening shortness of breath, cough, associated with yellow colored phlegm production. He denied any fever, chills, sick contacts, travel history. He reported wheezing and orthopnea. WBC count elevated to 11.4 on admission-came down to 10.4. Closely watched for fever and leukocytosis. Monitored him off from antibiotics for now diabetes mellitus Follows Waylon Nunez MD as an outpatient. Stopped Humalog home dose. per started the patient on Levemir 30 twice a day and sliding scale insulin before each meal and at bedtime. Accu-Cheks 3 times a day and at bedtime. Patient was sent on insulin lispro/Humalog (75-25)-100 unit/vial-45 units subcutaneous at 8 AM and 45 units subcutaneous at 10 PM daily. Hypertension Continued metoprolol home dose Continued losartan in the hospital. Paroxysmal atrial fibrillation Continued home dose of eliqus 5 mg twice a day Coronary artery disease Continued aspirin, statins Continued imdur Hyperlipidemia Continued statins Low urine output Patient complaint of low urine output even after taking lasix 80 mg 3 times a day at the time of admission. checked renal ultrasound to rule out any obstruction- normal DVT prophylaxis - eliqus Diabetic diet Pain pathway Tylenol Full code Complications: none Allergies: Coded Allergies: piperacillin (Mild, RASH 12/15/15) tazobactam (Mild, RASH 12/15/15) morphine (Intermediate, HALLUCINATIONS 12/15/15) heparin (SOMETHING WITH HIS PLATELETS 12/15/15) Significant Procedures: none Pertinent Lab Results: renal ultrasound IMPRESSION: Limited renal ultrasound with very limited assessment of the left kidney secondary to obscuring bowel gas. No hydronephrosis is appreciated. cxr IMPRESSION: Small bilateral pleural effusions with likely associated mild interstitial edema. venous doppler IMPRESSION: No evidence of deep vein thrombosis in either lower extremity. Disposition Summary Disposition Principal Diagnosis: Acute on chronic stage III diastolic heart failure Additional Diagnosis: Atrial fibrillation Diabetes mellitus Discharge Disposition: home health services Discharge Instructions General Discharge Information Code Status: Full Code Patient's Diet: diabetic diet Patient's Activity: As tolerated Follow-Up Instructions/Appts: Follow-up with primary care doctor in 1 week Follow-up with your progressive care nurse dr raines in 1 week Follow-up at CHF clinic ON 10/13/16 AT 11AM after discharge. Medications at Discharge Discharge Medications: Stop taking the following medications: Isosorbide Mononitrate (Imdur) [address] ORAL TWICE DAILY Qty = 90 Insulin Lispro (Humalog 75/25) 100 U/ML SHEEBA Inject into fatty tissue DAILY @8 AM Insulin Lispro (Humalog 75/25) 100 U/ML SHEEBA Inject into fatty tissue 2200 Furosemide (Lasix) 80 MG TABLET ORAL TWICE DAILY Continue taking these medications: Simvastatin (Zocor 40MG Tab) 40 MG TAB 1 Tablet ORAL Every night Qty = 90 Comments: Last Taken:08/21/15 Time:5 PM Valsartan (Diovan) 80 MG TAB Qty = 90 Comments: Last Taken:08/22/15 Time:1020 AM Potassium Chloride (Klor-Con M10) [address] Packet ORAL DAILY Qty = 90 Comments: Last Taken:08/22/15 Time:1020 AM Metoprolol Tartrate (Metoprolol Tartrate) 50 MG TAB 1 Tablet ORAL TWICE DAILY Qty = 180 Comments: Last Taken:08/22/15 Time:1020 AM Apixaban (Eliquis) 5 MG TAB 1 Tablet ORAL TWICE DAILY Qty = 60 Comments: Last Taken:08/22/15 Time:1020 AM Aspirin (Ecotrin) 81 MG ECT 1 Tablet ORAL DAILY Comments: Last Taken:08/22/15 Time:1020 AM Cholecalciferol (D-3) 1,000 IU CAP 1 Tablet ORAL DAILY Comments: NOT GIVEN IN HOSPITAL Ascorbic Acid/Copper/Vitamin (Preservision Areds) 1 SGL SGL 1 SGL ORAL TWICE DAILY Comments: NOT GIVEN IN HOSPITAL Start taking the following new medications: Omeprazole (Omeprazole) 20 MG CAPSULE.DR 1 Tablet ORAL DAILY BEFORE BREAKFAST Qty = 30 No Refills Furosemide (Lasix) 40 MG TABLET 3 Tablet ORAL 7:30AM & 4:30PM Qty = 30 No Refills Insulin NPL/Insulin Lispro (Humalog Mix 75-25 Vial) 100 UNIT/ML (75-25) VIAL 45 Units Inject into fatty tissue DAILY @8AM Days = 30 No Refills Insulin NPL/Insulin Lispro (Humalog Mix 75-25 Vial) 100 UNIT/ML (75-25) VIAL 45 Units Inject into fatty tissue 2200 Days = 30 No Refills Copies To: NEGAR GRIFFIN,WAYLON Segal
[2017-02-20] MEDS ORDERED: LOPRESSOR50 M1 PO (15:44)
[2017-02-20] MEDS ORDERED: PRESERVISION A1 EAC1 (15:45)
== END 2016-09-30 16:28 | DRG 293 ==
LOC: ERH 13:04 → ERHI 16:03 → 1NO 16:03
PROVIDERS: Internal Medicine; Physician Assistant Medical; ADMIT Internal Medicine
DX: I11.0 Hypertensive heart disease with heart failure (principal); E11.40 Type 2 diabetes mellitus with diabetic neuropathy, unspecified; I42.5 Other restrictive cardiomyopathy; I48.91 Unspecified atrial fibrillation; I50.33 Acute on chronic diastolic (congestive) heart failure; I45.10 Unspecified right bundle-branch block; E11.319 Type 2 diabetes mellitus with unspecified diabetic retinopathy without macular edema; J06.9 Acute upper respiratory infection, unspecified; E78.5 Hyperlipidemia, unspecified; I25.10 Atherosclerotic heart disease of native coronary artery without angina pectoris; Z95.0 Presence of cardiac pacemaker; G47.33 Obstructive sleep apnea (adult) (pediatric); N40.0 Benign prostatic hyperplasia without lower urinary tract symptoms
CPT/HCPCS: 1NP; 36415; 76775; 82436; 93005; 93010; 93970; 96374; J1940

== ENCOUNTER 2016-10-06 11:54 | Inpatient (IN) | payer OTHER, MEDICARE ==
[~2016-10-06] VITALS: Ht 198.1 cm; Wt 122.9 kg
[~2016-10-06 11:54] MED LIST changes: +HUMALOG MI100 UNIT/1 SC; +HUMALOG100 UNIT/2 SC; +LASIX40 M1 PO; +OMEPRAZOLE20 M2 PO
--- NOTE | 2016-10-06 12:09 | NUR ---
81 YEAR OLD MALE SENT BY DR MCFARLANE DUE TO HIS CHF, STATES THAT HE HAS INCREASED BLE EDEMA AND SOB, O2 SAT 90 % ON RA, NON PRODUCTIVE COUGH. DENIES CP
[2016-10-06] MEDS ORDERED: ISOSORBIDE MONO60 M1 PO (12:29)
[2016-10-06] MEDS ORDERED: PROAIR HFA8.5 GM PO (12:31)
--- NOTE | 2016-10-06 12:32 | ED DYSPNEA/ASTHMA COMPLAINT ---
History of Present Illness General Chief Complaint: Dyspnea (COPD, CHF, Other) Stated Complaint: DIFF BREAHING Source: patient, family, old records Exam Limitations: no limitations Vital Signs & Intake/Output Vital Signs & Intake/Output Vital Signs Date Time Temp Pulse Resp B/P Pulse O2 O2 Flow FiO2 Ox Delivery Rate 10/06 1407 96.4 76 20 185/74 98 Nasal 2.0L Cannula 10/06 1309 96 Nasal 2.0L Cannula 10/06 1210 97.1 62 24 137/62 90 Room Air Allergies Coded Allergies: piperacillin (Mild, RASH 12/15/15) tazobactam (Mild, RASH 12/15/15) morphine (Intermediate, HALLUCINATIONS 12/15/15) heparin (SOMETHING WITH HIS PLATELETS 12/15/15) Reconcile Medications Albuterol Sulfate (Proair Hfa) 90 MCG HFA.AER.AD 2 PUFF PO BID BREATHING PROBLEMS (Reported) Apixaban (Eliquis) 5 MG TAB 1 TAB PO BID BLOOD THINNER Ascorbic Acid/Copper/Vitamin (Preservision Areds) 1 SGL SGL 1 SGL PO BID EYE HEALTH (Reported) Aspirin (Ecotrin) 81 MG ECT 1 TAB PO DAILY HEART HEALTH (Reported) Cholecalciferol (D-3) 1,000 IU CAP 1 TAB PO DAILY BONE HEALTH (Reported) Furosemide (Lasix) 40 MG TABLET 3 TAB PO 7:30 AM, & 4:30 PM chf Insulin NPL/Insulin Lispro (Humalog Mix 75-25 Vial) 100 UNIT/ML (75-25) VIAL 45 UNITS SC 8AM diabetes Insulin NPL/Insulin Lispro (Humalog Mix 75-25 Vial) 100 UNIT/ML (75-25) VIAL 45 UNITS SC 2200 diabetes Isosorbide Mononitrate (Isosorbide Mononitrate ER) 60 MG TAB.ER.24H 0.5 TAB PO BID HEART (Reported) Metoprolol Tartrate 50 MG TAB 1 TAB PO BID HTN (Reported) Omeprazole 20 MG CAPSULE.DR 1 TAB PO DAILY AC heart burn Potassium Chloride (Klor-Con M10) [address] PAC PO DAILY SUPPLEMENT ( Reported) Simvastatin (Zocor 40MG Tab) 40 MG TAB 1 TAB PO QPM CHOL (Reported) Valsartan (Diovan) 80 MG TABLET 1 TAB PO DAILY HTN (Reported) Triage Note: 81 YEAR OLD MALE SENT BY DR MCFARLANE DUE TO HIS CHF, STATES THAT HE HAS INCREASED BLE EDEMA AND SOB, O2 SAT 90 % ON RA, NON PRODUCTIVE COUGH. DENIES CP Triage Nurses Notes Reviewed? yes HPI: Patient presents for evaluation of dyspnea. Patient states that he was recently discharged from [facility] for a similar complaint of dyspnea secondary to congestive heart failure. He was treated with furosemide and albuterol treatments and was discharged to August 30. He states that he has not felt any better since his discharge and returns for reevaluation. He is unable to lie flat stating that he begins to wheeze and "becomes gurgly" after about an hour. He has been forced to sleep in a reclining chair. He becomes severely dyspneic with exertion and even with conversation. He has been compliant with his medications but states his leg swelling is beginning to worsen again. He has had a nonproductive cough but no other cold symptoms or fever. Past History Travel History Traveled to [place] past 21 day No Medical History Any Pertinent Medical History? see below for history Neurological: peripheral neuropathy EENT: CATARACT diabetic retinopathy Cardiovascular: AFIB (paroxysmal), CHF, hyperlipidemia, syncope, STENT, PACER AFIB ,CHOL, HTN STENTS LCW PM permanent pacemaker for heart block peripheral vascular diseaase peripheral vascular disease s/p angioplasty Respiratory: LYNDSEY Gastrointestinal: diverticulitis Hepatic: NONE Renal: benign prost hyperplasia Musculoskeletal: sciatica, L KNEE REPLACEMENT OSTEOMYELITIS osteomyelitis Psychiatric: NONE Endocrine: IDDM with diabetic neuropathy diabetic retinopathy Blood Disorders: NONE Cancer(s): NONE 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 No Review of Systems Review of Systems Constitutional: Reports: no symptoms. EENTM: Reports: no symptoms. Respiratory: Reports: no symptoms. Cardiovascular: Reports: no symptoms. GI: Reports: no symptoms. Genitourinary: Reports: no symptoms. Musculoskeletal: Reports: no symptoms. Skin: Reports: no symptoms. Neurological/Psychological: Reports: no symptoms. Hematologic/Endocrine: Reports: no symptoms. Immunologic/Allergic: Reports: no symptoms. All Other Systems: Reviewed and Negative Physical Exam Physical Exam Respiratory: SEE BELOW Comments: Gen.: Well-nourished, well-developed, no acute respiratory distress. Head: Normocephalic, atraumatic. Eyes: Normal inspection bilaterally Ears: Normal inspection bilaterally Nose: Normal inspection Throat/mouth : Moist mucosa Neck: Supple, full range of motion, no goiter, no JVD or hepatojugular reflux Heart: Regular rate and rhythm, no murmurs rubs or gallops Lungs: Decreased air entry bilaterally but no wheezes rales or rhonchi Chest: Nontender Back: Normal range of motion Abdomen: Soft, nontender, nondistended, normal bowel sounds Extremities: Normal range of motion grossly, equal radial pulses, no cyanosis, 3 + bilateral pitting lower extremity edema with chronic skin changes and hyperpigmentation. Neurologic: Cranial nerves grossly intact, speech is clear Skin: warm and dry Psychiatric: Calm, cooperative, no apparent delusions or hallucinations Core Measures ACS in differential dx? No Severe Sepsis Present: No Septic Shock Present: No Progress Differential Diagnosis: CHF, COPD, pneumonia Plan of Care: Orders Procedure Date/time Status Heart Healthy Diet 10/[address] in observation 10/06 1505 Active Telemetry/Journeyman Molder 10/06 1231 Active TROPONIN LEVEL 10/06 1231 Complete MAGNESIUM 10/06 1231 Complete CBC WITHOUT DIFFERENTIAL 10/06 1231 Complete B-TYPE NATRIURETIC PEP (BNP) 10/06 1231 Complete BASIC METABOLIC PANEL 10/06 1231 Complete EKG 10/06 1155 Active Laboratory Tests 10/06/16 1254: Anion Gap 13, Estimated GFR 53 L, BUN/Creatinine Ratio 36.9 H, Glucose 195 H, Calcium 9.0, Magnesium 2.2, Troponin I 0.01, Mru-L-Hof[place]res[place] Pept 5660 H, CBC w Diff NO MAN DIFF REQ, RBC 3.83 L, MCV 83.2, MCH 27.0, RDW 16.5 H, MPV 8.6, Gran % 83.1 H, Lymphocytes % 7.5 L, Monocytes % 7.4, Eosinophils % 1.4, Basophils % 0.6, Absolute Granulocytes 9.1 H, Absolute Lymphocytes 0.8 L, Absolute Monocytes 0.8 H, Absolute Eosinophils 0.2, Absolute Basophils 0.1, PUBS MCHC 32.4 L Diagnostic Imaging: Discussed w/RAD: Radiology Read. CXR Impression: PATIENT: DAPHNEY MUNROE PRESENT AGE: 81 PATIENT ACCOUNT NO: [id number] : 34 LOCATION: [facility] ORDERING PHYSICIAN: OTIS MARSHALL MD SERVICE DATE: 10/06/161231 EXAM TYPE: RAD - XRY-PORTABLE CHEST XRAY EXAMINATION: XR PORTABLE CHEST CLINICAL INFORMATION: Shortness of breath, leg swelling and history of congestive heart failure. COMPARISON: CXR from 09/19/2014 and 09/26/2016 TECHNIQUE: Portable view of the chest was obtained. FINDINGS: There is a left pectoral region cardiac pacemaker with transvenous leads extending to the right atrium and right ventricle. Cardiac silhouette and pulmonary vessels remain enlarged but there is no overt interstitial edema; no Mariah B lines are seen. The haziness in the medial right lung bases likely represents atelectasis adjacent to the paracardiac fat pad. The left lateral costophrenic sulcus remains blunted, consistent with small pleural effusion. The bones appear diffusely osteopenic. IMPRESSION: 1. Cardiomegaly and pulmonary vascular congestion. 2. Small left pleural effusion, unchanged compared to 09/26/2016. DICTATED BY: BERT ROMANO MD DATE/TIME DICTATED:10/06/161250 OPTIMIZATION MANAGER:GLEN DATE/TIME TRANSCRIBED:1250 CONFIDENTIAL, DO NOT COPY WITHOUT APPROPRIATE AUTHORIZATION. < Electronically signed in Other Vendor System> SIGNED BY: BERT ROMANO MD 10/06/16 1250 Initial ED EKG: VENTRICULAR PACER WITH LEFT BUNDLE BRANCH PATTERN, RATE 78 Prior EKG: unchanged Comments: 10/06/2016 3:09:57 PM patient's case discussed with Dr. Mcfarlane and IV Bumex ordered at his suggestion. Patient has also been provided supplemental oxygen with improvement in his overall level of dyspnea. His oxygen saturations have normalized as well. Departure Departure Disposition: STILL A PATIENT Condition: Stable Clinical Impression Primary Impression: Congestive heart failure Qualifiers: Congestive heart failure type: unspecified congestive heart failure type Congestive heart failure chronicity: acute on chronic Qualified Code: I50.9 - Heart failure, unspecified Secondary Impressions: Anemia Qualifiers: Anemia type: unspecified type Qualified Code: D64.9 - Anemia, unspecified Hyperglycemia Peripheral edema Renal insufficiency Stasis dermatitis of both legs Volume overload Qualifiers: Hypervolemia type: unspecified Qualified Code: E87.70 - Fluid overload, unspecified Referrals: NEGAR GRIFFIN,WAYLON Segal (PCP/Family) Departure Forms: Customer Survey General Discharge Information Observation Note Spoke With: DENYS GRIFFIN PhD,DRU Devi Physician Advisor Notified: NATAN GRIFFIN,DRU [place] [facility] Patient In: Non-ED OBS Care Area Rationale for Observation: My rational for observation is as follows patient presents for worsening dyspnea on exertion orthopnea and leg swelling. His evaluation reveals an increase in his BNP I feel reflective of volume overload. This is consistent with his worsening leg swelling. He has failed outpatient management with relatively large doses of Lasix. His dyspnea on exertion and worsening leg edema make him a poor candidate for outpatient management as well. He would be at high risk of hypoxia and falling with subsequent injury. I now feel he requires a more aggressive management with IV diuresis and close monitoring of his renal functions. In addition intake and output should be monitored along with daily weights. His medication regimen should be adjusted accordingly. Critical Care Note Critical Care Note Critical Care Time: 30-74 min
--- NOTE | 2016-10-06 12:36 | NUR ---
PT EVALUATED BY MD JOANNA. RAD AT BEDSIDE FOR CHEST XRAY.
--- NOTE | 2016-10-06 12:55 | NUR ---
BLOOD DRAWN AND SENT TO [facility]. FOOD ORDERED.
[2016-10-06 12:56] LABS: ABSOLUTE BASOPHIL COUNT 0.1 /CUMM (0.0-0.2); ABSOLUTE EOSINOPHIL COUNT 0.2 /CUMM (0.0-0.7); ABSOLUTE GRANULOCYTE CT 9.1 /CUMM (1.4-6.5); ABSOLUTE LYMPH COUNT 0.8 /CUMM (1.2-3.4); ABSOLUTE MONOCYTE COUNT 0.8 /CUMM (0.10-0.60); BASOPHIL % 0.6 % (0.0-2.0); EOSINOPHIL % 1.4 % (0-5); GRANULOCYTE % 83.1 % (42.2-75.2); HEMATOCRIT 31.9 % (42-52); MEAN CORPUSCULAR HGB CONC 32.4 G/DL (33.0-37.0); MEAN CORPUSCULAR VOLUME 83.2 FL (80.0-94.0); MEAN PLATELET VOLUME 8.6 FL (7.4-10.4); PLATELET COUNT 229 /CUMM (130-400); RBC DISTRIBUTION WIDTH 16.5 % (11.5-14.5); RED BLOOD CELL CT 3.83 /CUMM (4.70-6.10); WHITE BLOOD CELL COUNT 10.9 /CUMM (4.8-10.8)
--- NOTE | 2016-10-06 12:59 | RADIOLOGY REPORT ---
EXAMINATION: XR PORTABLE CHEST CLINICAL INFORMATION: Shortness of breath, leg swelling and history of congestive heart failure. COMPARISON: CXR from 09/19/2014 and 09/26/2016 TECHNIQUE: Portable view of the chest was obtained. FINDINGS: There is a left pectoral region cardiac pacemaker with transvenous leads extending to the right atrium and right ventricle. Cardiac silhouette and pulmonary vessels remain enlarged but there is no overt interstitial edema; no Mariah B lines are seen. The haziness in the medial right lung bases likely represents atelectasis adjacent to the paracardiac fat pad. The left lateral costophrenic sulcus remains blunted, consistent with small pleural effusion. The bones appear diffusely osteopenic. IMPRESSION: 1. Cardiomegaly and pulmonary vascular congestion. 2. Small left pleural effusion, unchanged compared to 09/26/2016.
--- NOTE | 2016-10-06 14:27 | NUR ---
PT MEDICATED WITH BUMEX PER EMAR.
--- NOTE | 2016-10-06 15:26 | NUR ---
ASSUMED CARE OF PT. PT ASSISTED BY RAGINI BOB RN UP TO RECLINER CHAIR-PER PT REQUEST. PT SITTING IN RECLINER, CALL MARSHALL IN REACH. ON 2 LITERS OF NC O2. IN NO ACUTE DISTRESS. AT BEDSIDE. PT VERBALIZED UNDERSTANDING OF PLAN TO ADMIT TO HOSPITAL.
--- NOTE | 2016-10-06 15:41 | History & Physical ---
VIC GRIFFIN,[facility] 10/06/16 1534: General Information and HPI MD Statement: I have seen and personally examined DAPHNEY LIN and documented this H&P. The patient is a 81 year old M who presented with a patient stated chief complaint of dyspnea Source of Information: patient, family, old records Exam Limitations: no limitations History of Present Illness: Mr Lin is an 81 year gentleman with past medical history significant for diabetes mellitus, paroxysmal atrial fibrillation on eliqus at home, congestive heart failure(last echo in July 2015 with EF of 50-55% with a stage III diastolic dysfunction), hypertension, hyperlipidemia, peripheral neuropathy, syncope, coronary artery disease, stents, atrial fibrillation status post pacemaker placement, peripheral vascular disease, obstructive sleep apnea, diverticulitis, BPH, osteomyelitis, left knee replacement, sciatica who presented to the emergency department on 10/06/2016 after experiencing dyspnea and dyspnea on exertion. The patient was previously discharged from [facility] on 09/30/2016. Patient states that since he got home he has continued to feel dyspneic. He reports only one evening where he has a resolution of his symptoms. Patient states he has been unable to lie flat due to worsening orthopnea, which normally begins approximately one hour after he gets into bed. Patient denies any palpitations. Over the course of the weekend the patient has also continued to experience, bilateral lower extremity swelling. He reports edema is increased in the left lower extremity. Patient also reports right lower extremity knee pain rated pain in knee joint rated at a 2 out of 10 in severity. Patient states pain becomes worse on ambulation and goes up to a 4 out of 10. Patient denies any acute changes to this pain and states pain has been present over last few weeks. The of the patient who was also present at Bedside spoke with Dr. Raines this a.m. who recommended that he should come in to the emergency department for additional care and workup. The patient denies any fever, chills, nausea, vomiting. The patient PCP is Dr Nunez. The patients [employer] Clerk is Dr Raines. Allergies/Medications Allergies: Coded Allergies: piperacillin (Mild, RASH 12/15/15) tazobactam (Mild, RASH 12/15/15) morphine (Intermediate, HALLUCINATIONS 12/15/15) heparin (SOMETHING WITH HIS PLATELETS 12/15/15) Home Med list Albuterol Sulfate (Proair Hfa) 90 MCG HFA.AER.AD 2 PUFF PO BID BREATHING PROBLEMS (Reported) Apixaban (Eliquis) 5 MG TAB 1 TAB PO BID BLOOD THINNER Ascorbic Acid/Copper/Vitamin (Preservision Areds) 1 SGL SGL 1 SGL PO BID EYE HEALTH (Reported) Aspirin (Ecotrin) 81 MG ECT 1 TAB PO DAILY HEART HEALTH (Reported) Cholecalciferol (D-3) 1,000 IU CAP 1 TAB PO DAILY BONE HEALTH (Reported) Furosemide (Lasix) 40 MG TABLET 3 TAB PO 7:30 AM, & 4:30 PM chf Insulin NPL/Insulin Lispro (Humalog Mix 75-25 Vial) 100 UNIT/ML (75-25) VIAL 45 UNITS SC 8AM diabetes Insulin NPL/Insulin Lispro (Humalog Mix 75-25 Vial) 100 UNIT/ML (75-25) VIAL 45 UNITS SC 2200 diabetes Isosorbide Mononitrate (Isosorbide Mononitrate ER) 60 MG TAB.ER.24H 0.5 TAB PO BID HEART (Reported) Metoprolol Tartrate 50 MG TAB 1 TAB PO BID HTN (Reported) Omeprazole 20 MG CAPSULE.DR 1 TAB PO DAILY AC heart burn Potassium Chloride (Klor-Con M10) [address] PAC PO DAILY SUPPLEMENT ( Reported) Simvastatin (Zocor 40MG Tab) 40 MG TAB 1 TAB PO QPM CHOL (Reported) Valsartan (Diovan) 80 MG TABLET 1 TAB PO DAILY HTN (Reported) Compliance With Home Meds: GOOD Past History Travel History Traveled to [place] past 21 day No Medical History Neurological: peripheral neuropathy EENT: CATARACT diabetic retinopathy Cardiovascular: AFIB (paroxysmal), CHF, hyperlipidemia, syncope, STENT, PACER AFIB ,CHOL, HTN STENTS LCW PM permanent pacemaker for heart block peripheral vascular diseaase peripheral vascular disease s/p angioplasty Respiratory: LYNDSEY Gastrointestinal: diverticulitis Hepatic: NONE Renal: benign prost hyperplasia Musculoskeletal: sciatica, L KNEE REPLACEMENT OSTEOMYELITIS osteomyelitis Psychiatric: NONE Endocrine: IDDM with diabetic neuropathy diabetic retinopathy Blood Disorders: NONE Cancer(s): NONE 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 Home Who Do You Live With? spouse Services at Home: None Primary Language: East Timorese ETOH Use: denies use Illicit Drug Use: denies illicit drug use Functional Ability ADLs Independent: dressing, eating, toileting, bathing. Ambulation: walker Review of Systems Review of Systems Constitutional: Reports: see HPI, weakness. Denies: chills, diaphoresis, fever, malaise. Cardiovascular: Reports: edema, orthopena, peripheral edema. Denies: chest pain, palpitations, syncope. Respiratory: Reports: cough. Denies: hemoptysis, orthopnea, short of breath, sputum production, stridor. GI: Reports: constipation. Denies: abdominal pain, bloating, distention, bowel incontinence, melena, nausea. Genitourinary: Denies: dysuria, frequency, hematuria, hesitation, nocturia. Musculoskeletal: Reports: joint pain. Denies: joint swelling, muscle pain, muscle stiffness. Skin: Denies: erythema, jaundice, lesions. Exam & Diagnostic Data Last 24 Hrs of Vital Signs/I&O Vital Signs Date Time Temp Pulse Resp B/P Pulse O2 O2 Flow FiO2 Ox Delivery Rate 10/06 1407 96.4 76 20 185/74 98 Nasal 2.0L Cannula 10/06 1309 96 Nasal 2.0L Cannula 10/06 1210 97.1 62 24 137/62 90 Room Air Intake & Output 10/06 1600 10/06 0800 10/06 0000 Intake Total Output Total Balance Patient 128.82 kg Weight Physical Exam General Appearance Alert, Oriented X3, Cooperative, No Acute Distress Cardiovascular Normal S1, Normal S2, Irregular Rate and Rhythm Lungs Distant Breath Sounds. ?Crackles Left Lower Lung Bases Abdomen Normal Bowel Sounds, Soft, No Tenderness Neurological Normal Speech, Sensation Intact, Cranial Nerves 3-12 NL Extremities Edema. L>R. Left: 3+ Right 2+ Last 24 Hrs of Labs/Chu: Laboratory Tests 10/06/16 1254: Anion Gap 13, Estimated GFR 53 L, BUN/Creatinine Ratio 36.9 H, Glucose 195 H, Calcium 9.0, Magnesium 2.2, Troponin I 0.01, Gqy-P-Pmsfkougctc Pept 5660 H, CBC w Diff NO MAN DIFF REQ, RBC 3.83 L, MCV 83.2, MCH 27.0, RDW 16.5 H, MPV 8.6, Gran % 83.1 H, Lymphocytes % 7.5 L, Monocytes % 7.4, Eosinophils % 1.4, Basophils % 0.6, Absolute Granulocytes 9.1 H, Absolute Lymphocytes 0.8 L, Absolute Monocytes 0.8 H, Absolute Eosinophils 0.2, Absolute Basophils 0.1, PUBS MCHC 32.4 L Diagnostic Data CXR Results PATIENT: DAPHNEY LIN PRESENT AGE: 81 PATIENT ACCOUNT NO: [id number] : 34 LOCATION: [facility] ORDERING PHYSICIAN: OTIS MARSHALL MD SERVICE DATE: 10/06/16 EXAM TYPE: RAD - XRY-PORTABLE CHEST XRAY EXAMINATION: XR PORTABLE CHEST CLINICAL INFORMATION: Shortness of breath, leg swelling and history of congestive heart failure. COMPARISON: CXR from 09/19/2014 and 09/26/2016 TECHNIQUE: Portable view of the chest was obtained. FINDINGS: There is a left pectoral region cardiac pacemaker with transvenous leads extending to the right atrium and right ventricle. Cardiac silhouette and pulmonary vessels remain enlarged but there is no overt interstitial edema; no Mariah B lines are seen. The haziness in the medial right lung bases likely represents atelectasis adjacent to the paracardiac fat pad. The left lateral costophrenic sulcus remains blunted, consistent with small pleural effusion. The bones appear diffusely osteopenic. IMPRESSION: 1. Cardiomegaly and pulmonary vascular congestion. 2. Small left pleural effusion, unchanged compared to 09/26/2016. 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 <Electronically signed in Other Vendor System> SIGNED BY: BERT ROMANO MD 10/06/16 7995 Assessment/Plan Assessment: Mr Lin is an 81 year gentleman with past medical history significant for diabetes mellitus, paroxysmal atrial fibrillation on eliqus at home, congestive heart failure(last echo in July 2015 with EF of 50-55% with a stage III diastolic dysfunction), hypertension, hyperlipidemia, peripheral neuropathy, syncope, coronary artery disease, stents, atrial fibrillation status post pacemaker placement, peripheral vascular disease, obstructive sleep apnea, diverticulitis, BPH, osteomyelitis, left knee replacement, sciatica who presented to the emergency department on 10/06/2016 after experiencing dyspnea and dyspnea on exertion # CAD and HFpEF Admit patient to telemetry service for continuous cardiac monitoring and serial EKG and troponins. Continue diuresis with Lasix IV. Due to questionable renal function patient may benefit from Bumex. Cardiology consult, for further diurseing recomendations. ProBNP chest x-ray to rule out worsening pulmonary congestion and pulmonary Edema Strict I's and O's Daily weights Limit intake of sodium. #Diabetes Continue patient on sliding scale Hemoglobin A1c Levemir 12 units #History of hypertension Continue antihypertensives. #Atrial Fibrilation Continue Eliquis #Worsening constipation Dulcolax and senna when necessary patient continues to experience abdominal symptoms consider abdominal x-ray to rule out worsening obstruction versus stool impaction #Left Knee Pain Tylenol when necessary as needed for pain relief it patient complains worsening pain consider stronger pain medication. May consider x-ray to rule out septic joint if patient continues to experience knee pain. #Diet Consistent carbohydrate two #DVT prophylaxis Eliquis #Code Full code As Ranked By This Provider Problem List: 1. Hyperglycemia 2. Volume overload Qualifiers Hypervolemia type: unspecified Qualified Code: E87.70 - Fluid overload, unspecified 3. CHF exacerbation 4. Chronic CHF 5. CHF (congestive heart failure) 6. Hypertension 7. Pulmonary edema 8. Congestive heart failure Qualifiers Congestive heart failure type: unspecified congestive heart failure type Congestive heart failure chronicity: acute on chronic Qualified Code: I50.9 - Heart failure, unspecified 9. Diabetes Core Measures/Miscellaneous Acute Coronary Syndrome ACS Diagnosis: No Cerebrovascular Accident CVA/TIA Diagnosis: No Congestive Heart Failure CHF Diagnosis: Yes Venous Thromboembolism VTE Risk Factors: Age > 40 VTE Prophylaxis Ordered Inpt: Pharm- Eliquis No [facility] VTE prophylaxis d/t: No contraindications No VTE Pharm Prophylaxis d/t: No contraindications VTE Diagnosis: No VTE Type: NONE VTE Confirmed by (Test): NONE Severe Sepsis Severe Sepsis Present: No Septic Shock Septic Shock Present: No Miscellaneous Documentation Attending Case Discussed With: Dr Nunez Primary Care Physician: WAYLON NUNEZ MD Patient sees these Specialists Dr Raines Level of Patient Care: Telemetry ALECIA GRIFFIN,LISA 10/06/16 1618: Resident Review Statement Resident Statement: examined this patient, discussed with industrial engineering intern, agreed with industrial engineering intern, discussed with family, reviewed EMR data (avail), discussed with nursing , discussed with case mgmt, reviewed images, amended to note Other Findings: Daphney an 80-year-old man with a medical history of type 2 diabetes proximal atrial fibrillation on anticoagulation w/ eliquis congestive heart failure with preserved ejection fraction hypertension dyslipidemia peripheral neuropathy syncope coronary disease with cardiac stents atrial fibrillation status post permanent pacemaker peripheral vascular disease and obstructive sleep apnea diverticulitis BPH osteomyelitis left knee replacement sciatica was recently discharged from [facility] on 09/30/2016 for acute on chronic state diastolic congestive heart failure. He returns with similar symptoms for some dyspnea and "gurgling", orthopnea. Suspect the patient is once again a congestive heart failure. - Problems - Acute HFpEF CAD PAFib Type 2 diabetes Hypertension - Plan - Continuous cardiac monitoring Obtain serial enzymes and EKG Aggressive diuresis with Lasix 80 mg IV every 12 hours Strict I's and O's Restrict sodium to less than 2 g per day Continue cardiac regimen Await cardiology recommendations Continue anticoagulation and beta drake for rate control Levemir 12 units every 12 hours: NovoLog 6 units pre-meal with sliding scale coverage Continue antihypertensive medications DVT prophylaxis - patient is already anticoagulated Full code
--- NOTE | 2016-10-06 16:43 | NUR ---
PT SITTING UP IN CHAIR. NO COMPLAINTS. INQUIRING ABOUT DINNER
--- NOTE | 2016-10-06 17:14 | NUR ---
PT STOOD UP WITH ASSIST TO VOID
--- NOTE | 2016-10-06 17:45 | NUR ---
PT MOVED TO ROOM 21. REPORT GIVEN TO DYLON LOCKWOOD. DYLON NOTIFIED OF REPEAT EKG AND TROPONINS ORDERED. FINGER STICK CHECKED AND WAS 225.
--- NOTE | 2016-10-06 18:00 | NUR ---
DINNER TRAY GIVEN TO PT, GLUCOSE LEVEL TAKEN AND PT COVERED WITH SSI
--- NOTE | 2016-10-06 18:25 | Cons- Cardiology ---
General Information and HPI Consulting Request Date of Consult: 10/06/16 Requested By: DENYS GRIFFIN PhD,DRU Devi History of Present Illness: Brad is 81 year old male with a history of diabetes mellitus, dyslipidemia, PVD, carotid artery disease and coronary artery disease s/p non-ST elevation SC. He also has a history of PAF treated with Coumadin. The patient is s/p angioplasty to his LAD performed in 1997. Lastly this patient is status post a permanent pacemaker for heart block. Brad was recently admitted to [facility] with shortness of breath accompanied by orthopnea. He was diureses with lasix and was discharged to home. He continued to feel shortness of breath with minimal exertion and needs to sleep in a reclining chair. He can walk about twently feet before becoming winded. He also has severe lower extremity edema. Early in the day this patient has noted some mild chest heaviness that improves as the day progresses. There is no clear exertional chest pain, He denies lightheadedness or palpitations. At baseline this patient is minimally active. This patient underwent a vascular procedure on his legs by Dr. Martinez a couple months ago with some borderline positive results. The patient's last echocardiogram showed a low normal EF of 50% with distal septal and apical akinesis and mild to moderate left ventricular hypertrophy with a restrictive filling pattern. There was mild right ventricular enlargement with moderate left atrial enlargment. Trace MR, AI, PI and mild TR is noted along with moderate pulmonary hypertension. To review of the patient's prior history, Brad has a history of atrial fibrillation, s/p cardioversion. Workup has included Holter monitor performed in 09/2007 which showed NSR with occasional PACs and PVCs with no recurrence of atrial fibrillation. In 1997, the patient underwent angioplasty of his LAD, as mentioned above. It should be noted that Brad underwent a left knee replacement complicated by what sounded like a non-ST elevation myocardial infarction. This occurred at [facility]. 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 In August of 2009, the patient was admitted with shortness of breath and a cough. He did rule in for another non-ST elevation SC. It was, at that time, he was discovered to have osteomyelitis with gram positive cocci in both blood and bone samples. In consideration of the above, I performed a repeat cardiac catheterization which showed a diffusely calcified left main with a 50% distal stenosis. The LAD harbored a 50% proximal stenosis followed by a 50% mid- stenosis. Luminal irregularities were noted in the previously placed stent. Left circumflex, however, had a 50% proximal stenosis of the obtuse marginal 3 branch. The right coronary artery is dominant and parents a diffusely diseased PDA., with perhaps, a focal 80% mid-stenosis. I felt the patient had questionable left main disease with non-obstructive coronary artery disease in the left LAD and circumflex. The PDA did have a significant stenosis; however, this disease was very distal and diffusely diseased narrow vessel. Therefore, medical therapy was pursued. The PDA had an 80% mid-stenosis and less than 2 mm in this location and I do not think it would get good angioplasty results. Allergies/Medications Allergies: Coded Allergies: piperacillin (Mild, RASH 12/15/15) tazobactam (Mild, RASH 12/15/15) morphine (Intermediate, HALLUCINATIONS 12/15/15) heparin (SOMETHING WITH HIS PLATELETS 12/15/15) Home Med List: Albuterol Sulfate (Proair Hfa) 90 MCG HFA.AER.AD 2 PUFF PO BID BREATHING PROBLEMS (Reported) Apixaban (Eliquis) 5 MG TAB 1 TAB PO BID BLOOD THINNER Ascorbic Acid/Copper/Vitamin (Preservision Areds) 1 SGL SGL 1 SGL PO BID EYE HEALTH (Reported) Aspirin (Ecotrin) 81 MG ECT 1 TAB PO DAILY HEART HEALTH (Reported) Cholecalciferol (D-3) 1,000 IU CAP 1 TAB PO DAILY BONE HEALTH (Reported) Furosemide (Lasix) 40 MG TABLET 3 TAB PO 7:30 AM, & 4:30 PM chf Insulin NPL/Insulin Lispro (Humalog Mix 75-25 Vial) 100 UNIT/ML (75-25) VIAL 45 UNITS SC 8AM diabetes Insulin NPL/Insulin Lispro (Humalog Mix 75-25 Vial) 100 UNIT/ML (75-25) VIAL 45 UNITS SC 2200 diabetes Isosorbide Mononitrate (Isosorbide Mononitrate ER) 60 MG TAB.ER.24H 0.5 TAB PO BID HEART (Reported) Metoprolol Tartrate 50 MG TAB 1 TAB PO BID HTN (Reported) Omeprazole 20 MG CAPSULE.DR 1 TAB PO DAILY AC heart burn Potassium Chloride (Klor-Con M10) [address] PAC PO DAILY SUPPLEMENT ( Reported) Simvastatin (Zocor 40MG Tab) 40 MG TAB 1 TAB PO QPM CHOL (Reported) Valsartan (Diovan) 80 MG TABLET 1 TAB PO DAILY HTN (Reported) Review of Systems Review of Systems: Knee discomfort on the right. Past History Travel History Traveled to [place] past 21 day No Medical History Neurological: peripheral neuropathy EENT: CATARACT diabetic retinopathy Cardiovascular: AFIB (paroxysmal), CHF, hyperlipidemia, syncope, STENT, PACER AFIB ,CHOL, HTN STENTS LCW PM permanent pacemaker for heart block peripheral vascular diseaase peripheral vascular disease s/p angioplasty Respiratory: LYNDSEY Gastrointestinal: diverticulitis Hepatic: NONE Renal: benign prost hyperplasia Musculoskeletal: sciatica, L KNEE REPLACEMENT OSTEOMYELITIS osteomyelitis Psychiatric: NONE Endocrine: IDDM with diabetic neuropathy diabetic retinopathy Blood Disorders: NONE Cancer(s): NONE 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 Home Who Do You Live With? spouse Services at Home: None Primary Language: Albanian ETOH Use: denies use Illicit Drug Use: denies illicit drug use Functional Ability ADLs Independent: dressing, eating, toileting, bathing. Ambulation: walker Exam & Diagnostic Data Vital Signs and I&O Vital Signs Date Time Temp Pulse Resp B/P Pulse O2 O2 Flow FiO2 Ox Delivery Rate 10/06 1642 97.2 65 20 171/70 98 Nasal 2.0L Cannula 10/06 1407 96.4 76 20 185/74 98 Nasal 2.0L Cannula 10/06 1309 96 Nasal 2.0L Cannula 10/06 1210 97.1 62 24 137/62 90 Room Air Intake & Output 10/06 1600 10/06 0000 10/05 1600 10/05 0000 Intake Total Output Total Balance Patient 284 lb Weight Physical Exam: General: WD/ obese male in NAD; alert and oriented x 3 HEENT: NC/ AT, PERRL, EOMI, clear oropharynx Neck: no JVD, bilateral carotid bruit R>L Heart: regular rate and rhythm with ectopy and a 2/6 sytolic murmur at the RUSB and 2/6 sytolic murmur at the LUSB and apex Lungs: clear bilaterally Abdomen: soft, obese, NT, +ve bowel sounds Extremities: 3+ leg edema on the left and 2+ edema on the right with venous stasis changes bilaterally Assessment/Plan Assessment/Plan * This patient has mild vascular congestion that is somewhat out of proportion to his level of shortness of breath. He clearly has peripheral edema however. We will obtain an echocardiogram to assess his RV and LV function. This patient has some known restrictive heart disease. We will diurese him aggressively with careful monitoring of his renal function. Begin Bumex 2mg IV x one dose then 2mg PO BID. Stop Lasix. Monitor potassium level. * We will also check a urinalysis and 24 hour urine for protein and creatinine. * Continue other medications as previously prescribed. Consult Acknowledgment - Thank you for your consult request.
[2016-10-06 23:00] VITALS: BP 195/81
--- NOTE | 2016-10-07 02:21 | NUR ---
PT UP AND DOWN OOB IN RECLINER, AT BEDSIDE AND LYING IN BED EVERY 15 MINUTES CHANGES POSITION. PT 24 HR URINE COLLECTION STARTED AT 0030. PT UNABLE TO MARKIE VTE D/T EDEMA AND CHRONIC VENOUS STATIS, HOUSESTAFF PAGED FOR SAME.
--- NOTE | 2016-10-07 03:00 | NUR ---
AWAKE MONITOR PACED/BBB 24 HR URINE COLLECTION CONTINUES OFFERS NO COMPLAINTS
--- NOTE | 2016-10-07 05:40 | NUR ---
UP TO COMMODE, NO BM STATES HE HAS GONE IN SEVERAL DAYS V/S STABLE AM BLOOD WORK DRAWN AND SENT
--- NOTE | 2016-10-07 07:20 | PN- Housestaff ---
Subjective Follow-up For: Acute on chronic diastolic congestive heart failure Diabetes mellitus Paroxysmal atrial fibrillation Complaints: pain scale (0-10) Tele-Events Since Last Visit: Patient is in sinus rhythm Rate 70-80 Single pacing No other acute events reported overnight Subjective: Patient was seen and examined this morning. He is alert, awake and oriented to time place and person. No acute events reported overnight. He reports shortness of breath and orthopnea. He denied any fever, chills, lung congestion, cough, sputum production. He denied any nausea, vomiting, abdominal pain, change in bladder or bowel habits. He does report bilateral lower extremity swelling-left worse than right. Vitals were stable. He is afebrile, heart rate 70, respiratory 20, blood pressure 161/70, saturating at 94% on 2l. Review of Systems Constitutional: Denies: see HPI. Objective Last 24 Hrs of Vital Signs/I&O Vital Signs Date Time Temp Pulse Resp B/P Pulse O2 O2 Flow FiO2 Ox Delivery Rate 10/07 1057 97.0 72 18 152/86 95 Room Air 10/07 1046 97.0 72 18 152/86 95 Room Air 10/07 1037 97.0 152/86 10/07 1037 72 18 152/86 10/07 1037 97.0 72 18 152/86 10/07 0541 65 20 161/70 95 Nasal 2.0L Cannula 10/06 2300 97.9 65 20 195/81 97 Nasal 2.0L Cannula 10/06 2220 78 164/80 10/06 2220 78 164/80 10/06 2031 98 Room Air 2.0L 10/06 1642 97.2 65 20 171/70 98 Nasal 2.0L Cannula 10/06 1407 96.4 76 20 185/74 98 Nasal 2.0L Cannula 10/06 1309 96 Nasal 2.0L Cannula 10/06 1210 97.1 62 24 137/62 90 Room Air Intake & Output 10/07 1600 10/07 0800 10/07 0000 Intake Total 300 Output Total 400 490 950 Balance -100 -490 -950 Intake, Oral 300 Output, Urine 400 490 950 Patient 128.82 kg Weight Physical Exam General Appearance: Alert, Oriented X3, Cooperative, No Acute Distress Skin: No Rashes, No Breakdown HEENT: Atraumatic, Mucous Membr. moist/pink Neck: Supple, No JVD Lymphatic: Cervical nl Cardiovascular: Regular Rate, Normal S1, Normal S2 Lungs: crackles b/l Abdomen: Normal Bowel Sounds, Soft, No Tenderness Extremities: No Clubbing, No Cyanosis, +2 edema Vascular: Normal Pulses Current Medications: Current Medications Sig/Roge Start time Last Medication Dose Route Stop Time Status Admin Acetaminophen 650 MG Q6P PRN 10/06 1600 AC PO Albuterol Sulfate 2 PUF BID PRN 10/06 1615 AC INH Apixaban 5 MG BID 10/06 2199 AC 10/07 PO 1037 Aspirin 81 MG DAILY 10/07 1000 AC 10/07 PO 1037 Atorvastatin Calcium 20 MG 1700 10/06 1700 AC 10/06 PO 1746 Bumetanide 2 MG BID 10/07 1000 AC 10/07 PO 1037 Bumetanide 4 MG ONCE ONE 10/06 1345 DC 10/06 IV 10/06 1346 1427 Cholecalciferol 1,000 IU DAILY 10/07 1000 AC 10/07 PO 1037 Diphenhydramine HCl 25 MG Q6P PRN 10/06 1600 AC IV Docusate Sodium 100 MG BID 10/06 2199 AC 10/07 PO 1037 Furosemide 0 .STK-MED ONE 10/06 1656 DC IV Furosemide 80 MG 7:30 AM, & 4:30 PM 10/06 1630 DC 10/06 IV 1745 Insulin Aspart 0 TIDAC 10/06 1700 AC 10/07 SC 0846 Insulin Detemir 12 UNITS BID 10/060 AC 10/07 SC 1037 Isosorbide 30 MG BID 10/060 AC 10/07 Mononitrate PO 1037 Losartan Potassium 25 MG DAILY 10/07 1000 AC 10/07 PO 1037 Metoprolol Tartrate 50 MG BID 10/06 2199 AC 10/07 PO 1037 Omeprazole 20 MG DAILY AC 10/07 0700 AC 10/07 PO 0904 Polyethylene Glycol 17 GM AT BEDTIME 10/06 2200 AC 10/06 PO 2220 Potassium Chloride 0 .STK-MED ONE 10/06 1656 DC PO Potassium Chloride 20 MEQ DAILY 10/06 1610 AC 10/07 PO 1037 Prochlorperazine 10 MG Q6P PRN 10/06 1600 AC IV Senna/Docusate Sodium 1 TAB AT BEDTIME 10/06 2199 AC 10/06 PO 2220 Last 24 Hrs of Lab/Chu Results Last 24 Hrs of Labs/Mics: Laboratory Tests 10/07/16 0530: Anion Gap 13, Estimated GFR 58 L, BUN/Creatinine Ratio 35.8 H, Magnesium 2.2 10/07/16 0033: Urinalysis LIGHT H, Urine Color YEL, Urine Clarity CLEAR, Urine pH 6.0, Ur Specific [place] 1.010, Urine Protein NEG, Urine Ketones NEG, Urine Nitrite NEG, Urine Bilirubin NEG, Urine Urobilinogen 0.2, Ur Leukocyte Esterase NEG, Ur Microscopic SEDIMENT EXAMINED, Urine RBC 1-3, Urine Hemoglobin TRACE-INTACT H, Urine Glucose NEG 10/06/16 1900: Troponin I 0.02 10/06/16 1254: Anion Gap 13, Estimated GFR 53 L, BUN/Creatinine Ratio 36.9 H, Glucose 195 H, Calcium 9.0, Magnesium 2.2, Troponin I 0.01, Aia-M-Xlimjyqyfbi Pept 5660 H, CBC w Diff NO MAN DIFF REQ, RBC 3.83 L, MCV 83.2, MCH 27.0, RDW 16.5 H, MPV 8.6, Gran % 83.1 H, Lymphocytes % 7.5 L, Monocytes % 7.4, Eosinophils % 1.4, Basophils % 0.6, Absolute Granulocytes 9.1 H, Absolute Lymphocytes 0.8 L, Absolute Monocytes 0.8 H, Absolute Eosinophils 0.2, Absolute Basophils 0.1, PUBS MCHC 32.4 L Assessment/Plan Assessment: This is an 80-year-old gentleman with past medical history significant for diabetes mellitus, paroxysmal atrial fibrillation on eliquis, congestive heart failure(last echo in July 2015 with EF of 50-55% with a stage III diastolic dysfunction), hypertension, hyperlipidemia, peripheral neuropathy, syncope, coronary artery disease, stents, atrial fibrillation status post pacemaker placement, peripheral vascular disease, obstructive sleep apnea, diverticulitis, BPH, osteomyelitis, left knee replacement, sciatica presented to the emergency department with worsening shortness of breath, orthopnea and bilateral lower extremity leg swelling. The patient was previously discharged from [facility] on 09/30/2016 after being treated for acute chf exacerbation. Temperature 97.1, pulse rate 62, RR 24, blood pressure 137/62, saturating at 90% on room air WBC 10.9, H and H 10.3 and 31.9. Electrolytes normal. Creatinine 1.3 on admission which is his baseline.. Troponins were negative. ProBNP elevated 5660 CXR- 1. Cardiomegaly and pulmonary vascular congestion. 2. Small left pleural effusion, unchanged compared to 09/26/2016. EKG showed ventricular paced + A. fib, 90 Problem list 1. Acute on chronic diastolic congestive heart failure 3. Diabetes mellitus 4. Paroxysmal atrial fibrillation 5. Hypertension 6. Hyperlipidemia 7. Coronary artery disease Acute on chronic stage 3 diastolic congestive heart failure Patient presented with worsening shortness of breath, orthopnea, bilateral lower extremity leg swelling. The patient was recently discharged from [facility] on 09/30/2016 after being treated for acute chf exacerbation. Admitted him to the hospital again for acute on chronic diastolic heart failure. Chest x-ray showed 1. Cardiomegaly and pulmonary vascular congestion. 2. Small left pleural effusion, unchanged compared to 09/26/2016. (last echo in July 2015 with EF of 50-55% with a stage III diastolic dysfunction) * Admitted to telemetry floor for further monitoring. * Monitor vitals every shift * Maintain oxygen saturation above 92% * Provide supplemental oxygen if necessary * First set of EKG and troponins were negative * Monitor for worsening shortness of breath, leg swelling * IV Lasix 80 mg twice a day so far. * Received Bumex 2 mg IV once and started on Bumex 2 mg orally twice a day. * Lasix was stopped * Strict ins and outs * Daily weights * Monitor closely for urine output. * Echocardiogram PENDING. * Programmer on board diabetes mellitus * Follows Elmer Nunez MD as an outpatient * Stopped Humalog home dose * started the patient on Levemir 12 twice a day and sliding scale insulin before each meal and at bedtime * Accu-Cheks 3 times a day and at bedtime Hypertension Continue metoprolol home dose Continue losartan (valsartan at home) Paroxysmal atrial fibrillation Continue home dose of eliqus 5 mg twice a day Coronary artery disease Continue aspirin, statins Continue imdur Hyperlipidemia Continue statins Worsening constipation Dulcolax and senna when necessary If patient continues to experience abdominal symptoms consider abdominal x-ray to rule out obstruction versus stool impaction #Left Knee Pain Tylenol when necessary as needed for pain relief if patient complains worsening pain consider stronger pain medication. DVT prophylaxis - eliqus Diabetic diet Pain pathway Tylenol Full code Problem List: 1. CHF (congestive heart failure) 2. CHF exacerbation Pain Ratin Pain Location: knee pain- right Pain Goal: Remain pain free Pain Plan: bruna Tomorrow's Labs & Rationales: bep in the setting of renal insufficiency and chf
--- NOTE | 2016-10-07 07:56 | NUR ---
ASSUMED CARE, PT ASSISTED TO SIT UP AND USE URINAL , VOIDED 140 CC CLEAR YELLOW URINE, PLACED IN 24 HOUR URINE COLLECTION BOTTLE, PT NOW SITTING UP EATING HIS BREAKFAST
--- NOTE | 2016-10-07 08:50 | NUR ---
PT MEDICATED WITH 12 UNITS NOVOLOG FOR FS 268
--- NOTE | 2016-10-07 09:49 | PN- Student ---
Subjective Subjective: Patient is a 81 year old male with PMH of DM, paraxysmal atrial fibrilation, CHF with stage III disatorlic dysfunction EF 50-55%, hypertension, hyperlipidemia, peripheral neuropathy, syncope, coronart artery disease, stents, arterial fibrilation status post pacemaker placement, peripheral vascular disease, obstructive sleep apnra, diverticulitis, BPH, osteomyelitis, left knee replacement, sciatica. He presented to the ED on 10/06/16 due to dynea and dyspnea on exertion. Today was observed in bedside sitting up eating breakfast. Patient reported that O2 has been helping him, and that is currently not experiencing wheezing. He still has edema of the left leg but reports that it has improved since yesterday. He also reports a mild cough. Pt denies periphernal numbness and tingling, shortness of breath , chest pain. ROS: Constitutional: Pt denies fatigue, or fever HEENT: Patient denies changes in his vision, or headache HEART: Pt denies palpitations, or chest tightness LUNGS: Pt denies wheezing, pt reports slight cough NEURO: Pt denies numbness and tingling, or weakness EXTREMETIES: Patient has lower leg edema, especially of the left leg Objective Objective: Patient observed at bedside sitting up. Pt on 2L O2 NC pulse ox 95, pulse 65 RR 20, BP 161/70.Physical Exam General: patient appears comfortable HEART: S1/S2 normal, hard to appeciate heart sounds due to body habitus LUNGS: distant breath sounds, some crackles at base? Neuro: Sensory and motor functions intact Extremeties: lower leg edema, worse on left leg Skin: Sebbhoric keratosis present on back Physical Exam Vital Signs Date Time Temp Pulse Resp B/P Pulse O2 O2 Flow FiO2 Ox Delivery Rate 10/07 0541 65 20 161/70 95 Nasal 2.0L Cannula 10/06 2300 97.9 65 20 195/81 97 Nasal 2.0L Cannula 10/06 2220 78 164/80 10/06 2220 78 164/80 10/06 2031 98 Room Air 2.0L 10/06 1642 97.2 65 20 171/70 98 Nasal 2.0L Cannula 10/06 1407 96.4 76 20 185/74 98 Nasal 2.0L Cannula 10/06 1309 96 Nasal 2.0L Cannula 10/06 1210 97.1 62 24 137/62 90 Room Air Last 24 Hours I&Os 10/07 1600 10/07 0800 10/07 0000 Intake Total Output Total 490 950 Balance -490 -950 Output, Urine 490 950 Patient 284 lb Weight Laboratory Tests 10/07/16 0530: Anion Gap 13, Estimated GFR 58 L, BUN/Creatinine Ratio 35.8 H, Magnesium 2.2 10/07/16 0033: Urinalysis LIGHT H, Urine Color YEL, Urine Clarity CLEAR, Urine pH 6.0, Ur Specific [place] 1.010, Urine Protein NEG, Urine Ketones NEG, Urine Nitrite NEG, Urine Bilirubin NEG, Urine Urobilinogen 0.2, Ur Leukocyte Esterase NEG, Ur Microscopic SEDIMENT EXAMINED, Urine RBC 1-3, Urine Hemoglobin TRACE-INTACT H, Urine Glucose NEG 10/06/16 1900: Troponin I 0.02 10/06/16 1254: Anion Gap 13, Estimated GFR 53 L, BUN/Creatinine Ratio 36.9 H, Glucose 195 H, Calcium 9.0, Magnesium 2.2, Troponin I 0.01, Oyn-N-Ynhopyyipel Pept 5660 H, CBC w Diff NO MAN DIFF REQ, RBC 3.83 L, MCV 83.2, MCH 27.0, RDW 16.5 H, MPV 8.6, Gran % 83.1 H, Lymphocytes % 7.5 L, Monocytes % 7.4, Eosinophils % 1.4, Basophils % 0.6, Absolute Granulocytes 9.1 H, Absolute Lymphocytes 0.8 L, Absolute Monocytes 0.8 H, Absolute Eosinophils 0.2, Absolute Basophils 0.1, PUBS MCHC 32.4 L Orders Procedure Date/time Status MAGNESIUM 10/07 0600 Complete BASIC ELECTROLYTES PLUS BUN&CR 10/07 0600 Complete ECHOCARDIOGRAM 10/07 UNK Active Consistent Carbohydrate 3 10/06 D Active Vital Signs 10/06 2010 Active Teach/Educate 10/06 2010 Active Nutritional Intake, Monitor 10/06 2010 Active Isolation 10/06 2010 Active Patient Care Conference 10/06 2010 Active Activity/Ambulation 10/06 2010 Active URINE TOTAL CREATININE, 24 HR. 10/06 1902 Active URINALYSIS 10/06 1901 Complete TROPONIN LEVEL 10/06 1900 Complete EKG 10/06 1900 Active Saline Lock 10/06 1600 Active Pathway - chart 10/06 1600 Active House Staff 10/06 1600 Active Code Status 10/06 1600 Active Patient Data 10/[address] in observation 10/06 1505 Active Telemetry/Handle Sewer 10/06 1231 Active TROPONIN LEVEL 10/06 1231 Complete MAGNESIUM 10/06 1231 Complete CBC WITHOUT DIFFERENTIAL 10/06 1231 Complete B-TYPE NATRIURETIC PEP (BNP) 10/06 1231 Complete BASIC METABOLIC PANEL 10/06 1231 Complete EKG 10/06 1155 Active VTE Mechanical Prophylaxis 10/06 UNK Complete Intake & Output 10/06 UNK Active Heat/Cold Therapy 10/06 UNK Active FingerStick- Glucose 10/06 UNK Active URINE TOTAL PROTEIN 10/06 UNK Active Results Results: Laboratory Tests 10/07/16 0530: Anion Gap 13, Estimated GFR 58 L, BUN/Creatinine Ratio 35.8 H, Magnesium 2.2 10/07/16 0033: Urinalysis LIGHT H, Urine Color YEL, Urine Clarity CLEAR, Urine pH 6.0, Ur Specific [place] 1.010, Urine Protein NEG, Urine Ketones NEG, Urine Nitrite NEG, Urine Bilirubin NEG, Urine Urobilinogen 0.2, Ur Leukocyte Esterase NEG, Ur Microscopic SEDIMENT EXAMINED, Urine RBC 1-3, Urine Hemoglobin TRACE-INTACT H, Urine Glucose NEG 10/06/16 1900: Troponin I 0.02 10/06/16 1254: Anion Gap 13, Estimated GFR 53 L, BUN/Creatinine Ratio 36.9 H, Glucose 195 H, Calcium 9.0, Magnesium 2.2, Troponin I 0.01, Tnp-T-Aopqfcibrsp Pept 5660 H, CBC w Diff NO MAN DIFF REQ, RBC 3.83 L, MCV 83.2, MCH 27.0, RDW 16.5 H, MPV 8.6, Gran % 83.1 H, Lymphocytes % 7.5 L, Monocytes % 7.4, Eosinophils % 1.4, Basophils % 0.6, Absolute Granulocytes 9.1 H, Absolute Lymphocytes 0.8 L, Absolute Monocytes 0.8 H, Absolute Eosinophils 0.2, Absolute Basophils 0.1, PUBS MCHC 32.4 L
--- NOTE | 2016-10-07 10:13 | NUR ---
PHARMACY CALLED FOR MEDS , PT NOTED TO BE SLEEPING AT THIS TIME REG RESP RATE NOTED AND HR 60 AT THIS TIME
--- NOTE | 2016-10-07 10:46 | NUR ---
PT SITTING UP ON EDGE OF BED, MEDICATED PER ORDER, THIS NURSE OFFERED TO ASSIST PT INTO RECLINER SO THAT FRESH BED LINENS COULD BE APPLIED AND PT REFUSED. PT VOIDED 140 CC YELLOW URINE THAT WAS ADDED TO 24 HOUR COLLECTION JAR
--- NOTE | 2016-10-07 10:49 | NUR ---
SPOUSE AT BEDSIDE
[2016-10-07 10:57] VITALS: BP 152/86
--- NOTE | 2016-10-07 10:58 | NUR ---
pt admitted to room 173 per nursing sup
[2016-10-07 12:39] VITALS: BP 152/70
[2016-10-07 15:30] VITALS: BP 118/68
--- NOTE | 2016-10-07 15:57 | Patient Discharge Instructions ---
Discharge Instructions General Discharge Information You were seen/treated for: acute on chronic chf You had these procedures: none Watch for these problems: worsening lower extremity edema worsening short of breath and orthopnea Special Instructions: Follow up your primary care doctor, dr coto in one week. Follow up motor runner, in one week. Plan for an outpatient transesophageal echocardiogram to hopefully get better visualization of his mitral valve to better assess his degree of mitral stenosis. Diet Recommended Diet: Diabetic, Heart Healthy Activity Additional ACTIVITY Info: As tolerated. Acute Coronary Syndrome Inclusion Criteria At DC or during hospital stay patient has or had the following: ACS DIAGNOSIS No Discharge Core Measures Meds if any: Prescribed or Continued at Discharge Meds if any: NOT Prescribed or Continued at Discharge Congestive Heart Failure Inclusion Criteria At DC or during hospital stay patient has or had the following: CHF DIAGNOSIS Yes Discharge Core Measures Meds if any: Prescribed or Continued at Discharge Meds if any: NOT Prescribed or Continued at Discharge Cerebrovascular accident Inclusion Criteria At DC or during hospital stay patient has or had the following: CVA/TIA Diagnosis No Discharge Core Measures Meds if any: Prescribed or Continued at Discharge Meds if any: NOT Prescribed or Continued at Discharge Venous thromboembolism Inclusion Criteria VTE Diagnosis No VTE Type NONE VTE Confirmed by (Test) NONE Discharge Core Measures - Per Current guidelines, there needs to be overlap - treatment for the first 5 days of Warfarin therapy. - If discharged on Warfarin prior to 5 days of - overlap therapy, the patient will need to be - assessed for post discharge needs including - *Post discharge parental anticoagulation - *Warfarin and/or parental anticoagulation education - *Follow up date to check INR post discharge At least 5 days overlap therapy as Inpatient No Meds if any: Prescribed or Continued at Discharge Note: Overlap Therapy is Warfarin and Anticoagulant Meds if any: NOT Prescribed or Continued at Discharge
--- NOTE | 2016-10-07 16:02 | PN- Cardiology ---
Subjective Subjective: * Breathing is comfortable at rest on 2L O2 by NC * slightly less leg edema * creatinine improved to 1.2 Objective Vital Signs and I&Os Vital Signs Date Time Temp Pulse Resp B/P Pulse O2 O2 Flow FiO2 Ox Delivery Rate 10/07 1239 97.8 60 20 152/70 95 Nasal 2.0L Cannula 10/07 1057 97.0 72 18 152/86 95 Room Air 10/07 1046 97.0 72 18 152/86 95 Room Air 10/07 1037 97.0 152/86 10/07 1037 72 18 152/86 10/07 1037 97.0 72 18 152/86 10/07 0541 65 20 161/70 95 Nasal 2.0L Cannula 10/06 2300 97.9 65 20 195/81 97 Nasal 2.0L Cannula 10/06 2220 78 164/80 10/06 2220 78 164/80 10/06 2031 98 Room Air 2.0L 10/06 1642 97.2 65 20 171/70 98 Nasal 2.0L Cannula Intake & Output 10/07 1600 10/07 0800 10/07 0000 10/06 1600 10/06 0800 10/06 0000 Intake Total 540 Output Total 400 490 950 Balance 140 -490 -950 Intake, Oral 540 Output, Urine 400 490 950 Patient 284 lb 284 lb Weight Physical Exam: General: WD/ obese male in NAD; alert and oriented x 3 Neck: no JVD, bilateral carotid bruit R>L Heart: regular rate and rhythm with ectopy and a 2/6 sytolic murmur at the RUSB and 2/6 sytolic murmur at the LUSB and apex Lungs: clear bilaterally Extremities: 3+ leg edema on the left and 1+ edema on the right with venous stasis changes bilaterally Assessment/Plan Assessment/Plan * Change Bumex to 2mg IV BID and follow BUN, creatinine and potassium. * obtain echo * 24 hour urine for protein and creatinine Continue telemetry? Yes
[2016-10-07 23:30] VITALS: BP 138/72
--- NOTE | 2016-10-08 07:31 | PN- Housestaff ---
Subjective Follow-up For: Acute on chronic diastolic congestive heart failure Diabetes mellitus Paroxysmal atrial fibrillation Complaints: pain scale (0-10) Tele-Events Since Last Visit: Patient is in a.flutter Rate 60-70 No other acute events reported overnight Subjective: Patient was seen and examined this morning. He is alert, awake and oriented to time place and person. No acute events reported overnight. He reports shortness of breath and orthopnea. He denied any fever, chills, lung congestion, cough, sputum production. He denied any nausea, vomiting, abdominal pain, change in bladder or bowel habits. He does report bilateral lower extremity- subsiding since admission Vitals were stable. He is afebrile, heart rate 60, respiratory 22, blood pressure 138/70, saturating at 95% on 2l. Review of Systems Constitutional: Denies: see HPI. Objective Last 24 Hrs of Vital Signs/I&O Vital Signs Date Time Temp Pulse Resp B/P Pulse O2 O2 Flow FiO2 Ox Delivery Rate 10/08 0943 82 148/58 10/08 0942 82 148/58 10/08 0941 82 148/58 10/08 0800 97.5 75 20 102/60 95 Nasal 2.0L Cannula 10/08 0000 Nasal 2.0L Cannula 10/07 2330 97.2 64 22 138/72 95 Nasal 2.0L Cannula 10/07 2158 78 172/60 10/07 2158 78 172/60 10/07 1600 96 Nasal 2.0L Cannula 10/07 1530 98.7 61 20 118/68 96 Nasal 2.0L Cannula Intake & Output 10/08 1600 10/08 0800 10/08 0000 Intake Total 450 600 Output Total 950 1150 Balance -500 -550 Intake, IV 0 Intake, Oral 450 600 Number 0 1 Bowel Movements Output, Urine 950 1150 Physical Exam General Appearance: Alert, Oriented X3, Cooperative, No Acute Distress Skin: No Rashes, No Breakdown HEENT: Atraumatic, Mucous Membr. moist/pink Neck: Supple, No JVD Lymphatic: Cervical nl Cardiovascular: Normal S1, Normal S2, No Murmurs Lungs: Normal Air Movement Abdomen: Normal Bowel Sounds, Soft, No Tenderness Extremities: No Clubbing, No Cyanosis, +3 edema on left and +1 edema on right Vascular: Normal Pulses, Pulses Symmetrical Current Medications: Current Medications Sig/Roge Start time Last Medication Dose Route Stop Time Status Admin Acetaminophen 650 MG Q6P PRN 10/06 1600 AC PO Albuterol Sulfate 2 PUF BID PRN 10/06 1615 AC INH Apixaban 5 MG BID 10/06 2200 AC 10/08 PO 0943 Aspirin 81 MG DAILY 10/07 1000 AC 10/08 PO 0942 Atorvastatin Calcium 20 MG 1700 10/06 1700 AC 10/07 PO 1809 Bumetanide 2 MG BID 10/07 2200 AC 10/08 IV 0948 Bumetanide 2 MG BID 10/07 1000 DC 10/07 PO 1037 Cholecalciferol 1,000 IU DAILY 10/07 1000 AC 10/08 PO 0942 Diphenhydramine HCl 25 MG Q6P PRN 10/06 1600 AC IV Docusate Sodium 100 MG BID 10/06 2200 AC 10/07 PO 1037 Insulin Aspart 0 TIDAC 10/06 1700 AC 10/08 SC 1241 Insulin Detemir 12 UNITS BID 10/06 2200 AC 10/08 SC 0948 Isosorbide 30 MG BID 10/07 2200 AC 10/08 Mononitrate PO 0941 Isosorbide 30 MG BID 10/06 2200 DC 10/07 Mononitrate PO 1037 Losartan Potassium 25 MG DAILY 10/07 1000 AC 10/08 PO 0942 Metoprolol Tartrate 50 MG BID 10/06 2200 AC 10/08 PO 0943 Omeprazole 20 MG DAILY AC 10/07 0700 AC 10/07 PO 0904 Polyethylene Glycol 17 GM AT BEDTIME 10/06 2200 AC 10/06 PO 2220 Potassium Chloride 20 MEQ DAILY 10/06 1610 AC 10/08 PO 0941 Prochlorperazine 10 MG Q6P PRN 10/06 1600 AC IV Senna/Docusate Sodium 1 TAB AT BEDTIME 10/06 2200 AC 10/06 PO 2220 Last 24 Hrs of Lab/Chu Results Last 24 Hrs of Labs/Mics: Laboratory Tests 10/08/16 0620: Anion Gap 12, Estimated GFR 58 L, BUN/Creatinine Ratio 31.7 H 10/08/16 0000: Ur Random Creatinine 40.0, Urine Total Volume 2200 H, Urine Creatinine 0.9 L Assessment/Plan Assessment: This is an 80-year-old gentleman with past medical history significant for diabetes mellitus, paroxysmal atrial fibrillation on eliquis, congestive heart failure(last echo in July 2015 with EF of 50-55% with a stage III diastolic dysfunction), hypertension, hyperlipidemia, peripheral neuropathy, syncope, coronary artery disease, stents, atrial fibrillation status post pacemaker placement, peripheral vascular disease, obstructive sleep apnea, diverticulitis, BPH, osteomyelitis, left knee replacement, sciatica presented to the emergency department with worsening shortness of breath, orthopnea and bilateral lower extremity leg swelling. The patient was previously discharged from [facility] on 09/30/2016 after being treated for acute chf exacerbation. Temperature 97.1, pulse rate 62, RR 24, blood pressure 137/62, saturating at 90% on room air WBC 10.9, H and H 10.3 and 31.9. Electrolytes normal. Creatinine 1.3 on admission which is his baseline.. Troponins were negative. ProBNP elevated 5660 CXR- 1. Cardiomegaly and pulmonary vascular congestion. 2. Small left pleural effusion, unchanged compared to 09/26/2016. EKG showed ventricular paced + A. fib, 90 Problem list 1. Acute on chronic diastolic congestive heart failure 3. Diabetes mellitus 4. Paroxysmal atrial fibrillation 5. Hypertension 6. Hyperlipidemia 7. Coronary artery disease Acute on chronic stage 3 diastolic congestive heart failure Patient presented with worsening shortness of breath, orthopnea, bilateral lower extremity leg swelling. The patient was recently discharged from [facility] on 09/30/2016 after being treated for acute chf exacerbation. Admitted him to the hospital again for acute on chronic diastolic heart failure. Chest x-ray showed 1. Cardiomegaly and pulmonary vascular congestion. 2. Small left pleural effusion, unchanged compared to 09/26/2016. (last echo in July 2015 with EF of 50-55% with a stage III diastolic dysfunction) * Admitted to telemetry floor for further monitoring. * Monitor vitals every shift * Maintain oxygen saturation above 92% * Provide supplemental oxygen if necessary * First set of EKG and troponins were negative * Monitor for worsening shortness of breath, leg swelling * IV Lasix 80 mg twice a day so far. * started on Bumex 2 mg iv twice a day. * Lasix was stopped * Strict ins and outs * Daily weights * Monitor closely for urine output. * Echocardiogram PENDING. 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 diabetes mellitus * Follows Elmer Nunez MD as an outpatient * Stopped Humalog home dose * started the patient on Levemir 12 twice a day and sliding scale insulin before each meal and at bedtime * Accu-Cheks 3 times a day and at bedtime Hypertension Continue metoprolol home dose Continue losartan (valsartan at home) Paroxysmal atrial fibrillation Continue home dose of eliqus 5 mg twice a day Coronary artery disease Continue aspirin, statins Continue imdur Hyperlipidemia Continue statins Worsening constipation Dulcolax and senna when necessary If patient continues to experience abdominal symptoms consider abdominal x-ray to rule out obstruction versus stool impaction #Left Knee Pain Tylenol when necessary as needed for pain relief if patient complains worsening pain consider stronger pain medication. DVT prophylaxis - eliqus Diabetic diet Pain pathway Tylenol Full code Problem List: 1. CHF exacerbation Pain Ratin Pain Location: none Pain Goal: Remain pain free Pain Plan: tylinol Tomorrow's Labs & Rationales: BEP in the setting of acute congestive heart failure
[2016-10-08 08:00] VITALS: BP 102/60
--- NOTE | 2016-10-08 14:04 | PN- Cardiology ---
Subjective Subjective: * Breathing is improving. * creatinine 1.2 * atrial fibrillation with paced rhythm Objective Vital Signs and I&Os Vital Signs Date Time Temp Pulse Resp B/P Pulse O2 O2 Flow FiO2 Ox Delivery Rate 10/08 0943 82 148/58 10/08 0842 82 148/58 10/08 0941 82 148/58 10/08 08 97.5 75 20 102/60 95 Nasal 2.0L Cannula 10/08 0000 Nasal 2.0L Cannula 10/07 2330 97.2 64 22 138/72 95 Nasal 2.0L Cannula 10/07 2158 78 172/60 10/07 2158 78 172/60 10/07 1600 96 Nasal 2.0L Cannula 10/07 1530 98.7 61 20 118/68 96 Nasal 2.0L Cannula Intake & Output 10/08 1600 10/08 0800 10/08 0000 10/07 1600 10/07 0800 10/07 0000 Intake Total 450 600 540 Output Total 950 1150 400 490 950 Balance -500 -550 140 -490 -950 Intake, IV 0 Intake, Oral 450 600 540 Number 0 1 Bowel Movements Output, Urine 950 1150 400 490 950 Patient 284 lb Weight Physical Exam: General: WD/ obese male in NAD; alert and oriented x 3 Neck: no JVD, bilateral carotid bruit R>L Heart: regular rate and rhythm with ectopy and a 2/6 sytolic murmur at the RUSB and 2/6 sytolic murmur at the LUSB and apex Lungs: clear bilaterally Extremities: 3+ leg edema on the left and 1+ edema on the right with venous stasis changes bilaterally Assessment/Plan Assessment/Plan * Continue Bumex to 2mg IV BID and begin a 1000cc per day fluid restriction. Follow BUN, creatinine and potassium. * obtain echo * 24 hour urine for protein and creatinine * Ambulate as tolerated. Continue telemetry? Yes
--- NOTE | 2016-10-08 14:25 | PN- Student ---
Subjective Subjective: Patient was observed sitting at bedside eating his breakfast. This morning patient was in a slightly irritable mood. He was oriented to person place and time. Patient reported that his shortness of breath has been improving. Patient said he could not tell whether his leg edema was getting better or not. Objective Objective: Patient has no events overnight. He has been in artial flutter 59-68. BY was 148 /58, pulse 82, RR 20. On physcial exam edema was still noted on the legs, +1 on right leg, +3 on left leg. Patient has distant breath sounds. Physcial Exam Heart: Normal s1, s2 heart sounds Lungs: Lung sounds distant, some wheezeing heard on lung base. Neuro: Soft touch and pinprick intact. Extremeties: Lower left leg edema +3, right leg edema +1 Vital Signs Date Time Temp Pulse Resp B/P Pulse O2 O2 Flow FiO2 Ox Delivery Rate 10/08 0943 82 148/58 10/08 0942 82 148/58 10/08 0941 82 148/58 10/08 0800 97.5 75 20 102/60 95 Nasal 2.0L Cannula 10/08 0000 Nasal 2.0L Cannula 10/07 2330 97.2 64 22 138/72 95 Nasal 2.0L Cannula 10/07 2158 78 172/60 10/07 2158 78 172/60 10/07 1600 96 Nasal 2.0L Cannula 10/07 1530 98.7 61 20 118/68 96 Nasal 2.0L Cannula 10/07 1239 97.8 60 20 152/70 95 Nasal 2.0L Cannula 10/07 1057 97.0 72 18 152/86 95 Room Air 10/07 1046 97.0 72 18 152/86 95 Room Air 10/07 1037 97.0 152/86 10/07 1037 72 18 152/86 10/07 1037 97.0 72 18 152/86 10/07 0541 65 20 161/70 95 Nasal 2.0L Cannula 10/06 2300 97.9 65 20 195/81 97 Nasal 2.0L Cannula 10/06 2220 78 164/80 10/06 2220 78 164/80 10/06 2031 98 Room Air 2.0L 10/06 1642 97.2 65 20 171/70 98 Nasal 2.0L Cannula 10/06 1407 96.4 76 20 185/74 98 Nasal 2.0L Cannula 10/06 1309 96 Nasal 2.0L Cannula 10/06 1210 97.1 62 24 137/62 90 Room Air Laboratory Tests 10/08/16 0620: Anion Gap 12, Estimated GFR 58 L, BUN/Creatinine Ratio 31.7 H 10/08/16 0000: Ur Random Creatinine 40.0, Urine Total Volume 2200 H, Urine Creatinine 0.9 L Orders Procedure Date/time Status BASIC ELECTROLYTES PLUS BUN&CR 10/09 0600 Active Consistent Carbohydrate 3 10/08 D Active Weight 10/08 0827 Active BASIC ELECTROLYTES PLUS BUN&CR 10/08 06 Complete MISSING MEDICATION FORM 10/08 UNK Active ECHOCARDIOGRAM 10/08 UNK Active MAGNESIUM 10/07 0600 Complete BASIC ELECTROLYTES PLUS BUN&CR 10/07 0600 Complete OXYGEN SETUP CHG 10/07 UNK Complete OXYGEN 10/07 UNK Complete OXYGEN TRANSPORT 10/07 UNK Complete OXYGEN SETUP (GEN) 10/07 UNK Complete Admit to inpatient 10/07 UNK Active MISSING MEDICATION FORM 10/07 UNK Active Consistent Carbohydrate 3 10/06 D Complete Vital Signs 10/06 2010 Active Teach/Educate 10/06 2010 Active Nutritional Intake, Monitor 10/06 2010 Active Isolation 10/06 2010 Active Patient Care Conference 10/06 2010 Active Activity/Ambulation 10/06 2010 Active URINE TOTAL CREATININE, 24 HR. 10/06 1902 Complete URINALYSIS 10/06 1901 Complete TROPONIN LEVEL 10/06 1900 Complete EKG 10/06 1900 Active Saline Lock 10/06 1600 Active Pathway - chart 10/06 1600 Active House Staff 10/06 1600 Active Code Status 10/06 1600 Active Patient Data 10/[address] in observation 10/06 1505 Active Telemetry/Card Grader 10/06 1231 Active TROPONIN LEVEL 10/06 1231 Complete MAGNESIUM 10/06 1231 Complete CBC WITHOUT DIFFERENTIAL 10/06 1231 Complete B-TYPE NATRIURETIC PEP (BNP) 10/06 1231 Complete BASIC METABOLIC PANEL 10/06 1231 Complete EKG 10/06 1155 Active VTE Mechanical Prophylaxis 10/06 UNK Complete Intake & Output 10/06 UNK Active Heat/Cold Therapy 10/06 UNK Active FingerStick- Glucose 10/06 UNK Active Assessment/Plan Assessment: 1. CHF 2. Diabetes Mellitus 3. Paroxysmal atrial fibrilation 4. Hypertention 5. Hyperlipidemia 7. Coronary artery disease Plan: 1. Continue to monitor on telemetry floor Bumex 2mg oral BID Patient switched to Bumax after max trial of furosemide 2. Diabetees Mellitus Home Humalog stopped Started on Levemir 12 BID sliding scale insulin before each meal and at bedtime 3. HTN Continue on metprolol home dose Continue on Losartan, valsartan at home 4. Paroxysmal atril fibrilaton Continue on Eliqus 5 mg BID 5. Coronary Artery Disease Continue statins Continue aspril 6. Hyperlipidemia Continue statins
[2016-10-08 15:30] VITALS: BP 118/60
--- NOTE | 2016-10-08 16:26 | Discharge Summary ---
Visit Information Visit Dates Admission Date: 10/06/16 Discharge Date: 10/12/16 Hospital Course Course Attending Physician: DENYS GRIFFIN PhD,DRU Devi Primary Care Physician: NEGAR GRIFFIN,WAYLON Segal Other Care Providers: none Consulting Request: Consulting Specialty: Cardiology Hospital Course: This is an 80-year-old gentleman with past medical history significant for diabetes mellitus, paroxysmal atrial fibrillation on eliquis, congestive heart failure(last echo in July 2015 with EF of 50-55% with a stage III diastolic dysfunction), hypertension, hyperlipidemia, peripheral neuropathy, syncope, coronary artery disease, stents, atrial fibrillation status post pacemaker placement, peripheral vascular disease, obstructive sleep apnea, diverticulitis, BPH, osteomyelitis, left knee replacement, sciatica presented to the emergency department with worsening shortness of breath, orthopnea and bilateral lower extremity leg swelling. The patient was previously discharged from [facility] on 09/30/2016 after being treated for acute chf exacerbation. Temperature 97.1, pulse rate 62, RR 24, blood pressure 137/62, saturating at 90% on room air WBC 10.9, H and H 10.3 and 31.9. Electrolytes normal. Creatinine 1.3 on admission which is his baseline.. Troponins were negative. ProBNP elevated 5660 CXR- 1. Cardiomegaly and pulmonary vascular congestion. 2. Small left pleural effusion, unchanged compared to 09/26/2016. EKG showed ventricular paced + A. fib, 90. Acute on chronic stage 3 diastolic congestive heart failure Patient presented with worsening shortness of breath, orthopnea, bilateral lower extremity leg swelling. The patient was recently discharged from [facility] on 09/30/2016 after being treated for acute chf exacerbation. Admitted him to the hospital again for acute on chronic diastolic heart failure. Chest x-ray showed 1. Cardiomegaly and pulmonary vascular congestion. 2. Small left pleural effusion, unchanged compared to 09/26/2016. (last echo in July 2015 with EF of 50-55% with a stage III diastolic dysfunction) Admitted to telemetry floor for further monitoring. He was on Bumex 4mg iv twice a day. Lasix was stopped. Discharged on bumex 2mg orally twice a day. Strict ins and outs and Daily weights were monitored. ECHO- CONCLUSIONS 1. Normal EF of 70%. 2. Mild left ventricular hypertrophy. 3. Severe left atrial enlargment. 4. 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 5. Moderate to severe mitral stenosis with trace mitral regurgitation. 6. Mild tricuspid regurgitation. 7. Mild aortic stenosis. 8. Mild pulmonic regurgitation. 9. Moderate to severe pulmonary hypertension. Plan for an outpatient transesophageal echocardiogram to hopefully get better visualization of mitral valve to better assess his degree of mitral stenosis. diabetes mellitus Follows Waylon Coto MD as an outpatient. we Stopped Humalog home dose [facility]. He was on Levemir 12 units twice a day and sliding scale insulin before each meal and at bedtime. Hypertension Continued metoprolol home dose Continued losartan (valsartan at home) Paroxysmal atrial fibrillation Continued home dose of eliqus 5 mg twice a day Coronary artery disease Continued aspirin, statins Continued imdur Hyperlipidemia Continued statins constipation Dulcolax and senna when necessary #Left Knee Pain Tylenol when necessary as needed for pain relief DVT prophylaxis - eliqus Diabetic diet Pain pathway Tylenol Full code Complications: none Allergies: Coded Allergies: piperacillin (Mild, RASH 12/15/15) tazobactam (Mild, RASH 12/15/15) morphine (Intermediate, HALLUCINATIONS 12/15/15) heparin (SOMETHING WITH HIS PLATELETS 12/15/15) Significant Procedures: none Pertinent Lab Results: cxr IMPRESSION: 1. Cardiomegaly and pulmonary vascular congestion. 2. Small left pleural effusion, unchanged compared to 09/26/2016. ECHO- CONCLUSIONS 1. Normal EF of 70%. 2. Mild left ventricular hypertrophy. 3. Severe left atrial enlargment. 4. 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 5. Moderate to severe mitral stenosis with trace mitral regurgitation. 6. Mild tricuspid regurgitation. 7. Mild aortic stenosis. 8. Mild pulmonic regurgitation. 9. Moderate to severe pulmonary hypertension. Disposition Summary Disposition Principal Diagnosis: Acute on chronic diastolic congestive heart failure Additional Diagnosis: Paroxysmal atrial fibrillation Diabetes mellitus Discharge Disposition: home or self care Discharge Instructions General Discharge Information Code Status: Full Code Patient's Diet: Heart healthy diet Patient's Activity: As tolerated Follow-Up Instructions/Appts: Follow up your primary care doctor, dr coto in one week. Follow up clinical training specialist, in one week. Plan for an outpatient transesophageal echocardiogram to hopefully get better visualization of mitral valve to better assess his degree of mitral stenosis. Medications at Discharge Discharge Medications: Stop taking the following medications: Furosemide (Lasix) 40 MG TABLET ORAL 7:30AM & 4:30PM Qty = 30 Continue taking these medications: Simvastatin (Zocor 40MG Tab) 40 MG TAB 1 Tablet ORAL Every night Qty = 90 Comments: Last Taken:08/21/15 Time:5 PM Valsartan (Diovan) 80 MG TABLET 1 Tablet ORAL DAILY Comments: Last Taken: 10/12/16 Time: 10 AM Potassium Chloride (Klor-Con M10) [address] Packet ORAL DAILY Qty = 90 Comments: Last Taken:08/22/15 Time:1020 AM Metoprolol Tartrate (Metoprolol Tartrate) 50 MG TAB 1 Tablet ORAL TWICE DAILY Qty = 180 Comments: Last Taken:08/22/15 Time:1020 AM Apixaban (Eliquis) 5 MG TAB 1 Tablet ORAL TWICE DAILY Qty = 60 Comments: Last Taken:08/22/15 Time:1020 AM Aspirin (Ecotrin) 81 MG ECT 1 Tablet ORAL DAILY Comments: Last Taken:08/22/15 Time:1020 AM Cholecalciferol (D-3) 1,000 IU CAP 1 Tablet ORAL DAILY Comments: NOT GIVEN IN HOSPITAL Ascorbic Acid/Copper/Vitamin (Preservision Areds) 1 SGL SGL 1 SGL ORAL TWICE DAILY Comments: NOT GIVEN IN HOSPITAL Omeprazole (Omeprazole) 20 MG CAPSULE.DR 1 Tablet ORAL DAILY BEFORE BREAKFAST Qty = 30 Comments: Last Taken: 10/07/16 Time: 9 AM Insulin NPL/Insulin Lispro (Humalog Mix 75-25 Vial) 100 UNIT/ML (75-25) VIAL 45 Units Inject into fatty tissue DAILY @8AM Days = 30 Comments: Last Taken: 10/12/16 Time: 11:30 AM NOVOLOG & LEVEMIR GIVEN Insulin NPL/Insulin Lispro (Humalog Mix 75-25 Vial) 100 UNIT/ML (75-25) VIAL 45 Units Inject into fatty tissue 2200 Days = 30 Comments: NOT GIVEN IN HOSPITAL Isosorbide Mononitrate (Isosorbide Mononitrate ER) 60 MG TAB.ER.24H 0.5 Tablet ORAL TWICE DAILY Qty = 90 Comments: Last Taken: 10/12/16 Time: 10 AM Albuterol Sulfate (Proair Hfa) 90 MCG HFA.AER.AD 2 PUFF ORAL TWICE DAILY Qty = 9 Comments: NOT GIVEN IN HOSPITAL Start taking the following new medications: Bumetanide (Bumetanide) 2 MG TABLET 1 Tablet ORAL TWICE DAILY Qty = 60 No Refills Copies To: NEGAR GRIFFIN,WAYLON Segal
[2016-10-08 23:00] VITALS: BP 150/62
--- NOTE | 2016-10-09 07:20 | PN- Housestaff ---
Subjective Follow-up For: Acute on chronic diastolic congestive heart failure Diabetes mellitus Paroxysmal atrial fibrillatio Complaints: pain scale (0-10) Tele-Events Since Last Visit: Patient is in a.flutter Rate 60-80 No other acute events reported overnight Subjective: Patient was seen and examined this morning. He is alert, awake and oriented to time place and person. No acute events reported overnight. He reports shortness of breath and orthopnea- however subsiding now.. He denied any fever, chills, lung congestion, cough, sputum production. He denied any nausea, vomiting, abdominal pain, change in bladder or bowel habits. He does report bilateral lower extremity- subsiding since admission Vitals were stable. He is afebrile, heart rate 60, respiratory 22, blood pressure 150/62, saturating at 93 on room air. Review of Systems Constitutional: Denies: see HPI. Objective Last 24 Hrs of Vital Signs/I&O Vital Signs Date Time Temp Pulse Resp B/P Pulse O2 O2 Flow FiO2 Ox Delivery Rate 10/09 0832 97.9 62 20 140/52 93 Room Air 10/09 0820 72.0 150/90 10/09 0819 150/90 10/09 0817 150/90 10/09 0000 94 Room Air 10/08 2300 97.8 61 18 150/62 94 Room Air 10/08 2101 61 150/62 10/08 2101 61 150/62 Intake & Output 10/09 1600 10/09 0800 10/09 0000 Intake Total 400 300 400 Output Total 575 525 525 Balance -175 -225 -125 Intake, Oral 400 300 400 Number 1 1 Bowel Movements Output, Urine 575 525 525 Patient 125.305 kg Weight Physical Exam General Appearance: Alert, Oriented X3, Cooperative, No Acute Distress Skin: No Rashes, No Breakdown HEENT: Atraumatic, Mucous Membr. moist/pink Neck: Supple, No JVD Lymphatic: Cervical nl Cardiovascular: Normal S1, Normal S2 Lungs: Normal Air Movement Abdomen: Normal Bowel Sounds, Soft, No Tenderness Extremities: No Clubbing, No Cyanosis, +1 edema b/l Vascular: Normal Pulses Current Medications: Current Medications Sig/Roge Start time Last Medication Dose Route Stop Time Status Admin Acetaminophen 650 MG Q6P PRN 10/06 1600 AC PO Albuterol Sulfate 2 PUF BID PRN 10/06 1615 AC INH Apixaban 5 MG BID 10/06 2200 AC 10/09 PO 0819 Aspirin 81 MG DAILY 10/07 1000 AC 10/09 PO 0817 Atorvastatin Calcium 20 MG 1700 10/06 1700 AC 10/08 PO 1803 Bumetanide 4 MG BID 10/09 2200 AC IV 10/10 1001 Bumetanide 2 MG BID 10/07 2200 DC 10/09 IV 0818 Cholecalciferol 1,000 IU DAILY 10/07 1000 AC 10/09 PO 0822 Diphenhydramine HCl 25 MG Q6P PRN 10/06 1600 AC IV Docusate Sodium 100 MG BID 10/06 2200 AC 10/09 PO 0819 Insulin Aspart 0 TIDAC 10/06 1700 AC 10/09 SC 1225 Insulin Detemir 12 UNITS BID 10/06 2200 AC 10/09 SC 1225 Isosorbide 30 MG BID 10/07 2200 AC 10/09 Mononitrate PO 0817 Losartan Potassium 25 MG DAILY 10/07 1000 AC 10/09 PO 0819 Metoprolol Tartrate 50 MG BID 10/06 2200 AC 10/09 PO 0820 Omeprazole 20 MG DAILY AC 10/07 0700 AC 10/07 PO 0904 Patient Medication 1 ED .STK-MED ONE 10/09 1348 NV Teaching ED 10/09 1349 Polyethylene Glycol 17 GM AT BEDTIME 10/06 2199 AC 10/06 PO 2220 Potassium Chloride 20 MEQ DAILY 10/06 1610 AC 10/09 PO 0820 Prochlorperazine 10 MG Q6P PRN 10/06 1600 AC IV Senna/Docusate Sodium 1 TAB AT BEDTIME 10/06 2199 AC 10/06 PO 2220 Last 24 Hrs of Lab/Chu Results Last 24 Hrs of Labs/Mics: Laboratory Tests 10/09/16 0615: Anion Gap 13, Estimated GFR 49 L, BUN/Creatinine Ratio 32.1 H Assessment/Plan Assessment: This is an 80-year-old gentleman with past medical history significant for diabetes mellitus, paroxysmal atrial fibrillation on eliquis, congestive heart failure(last echo in July 2015 with EF of 50-55% with a stage III diastolic dysfunction), hypertension, hyperlipidemia, peripheral neuropathy, syncope, coronary artery disease, stents, atrial fibrillation status post pacemaker placement, peripheral vascular disease, obstructive sleep apnea, diverticulitis, BPH, osteomyelitis, left knee replacement, sciatica presented to the emergency department with worsening shortness of breath, orthopnea and bilateral lower extremity leg swelling. The patient was previously discharged from [facility] on 09/30/2016 after being treated for acute chf exacerbation. Temperature 97.1, pulse rate 62, RR 24, blood pressure 137/62, saturating at 90% on room air WBC 10.9, H and H 10.3 and 31.9. Electrolytes normal. Creatinine 1.3 on admission which is his baseline.. Troponins were negative. ProBNP elevated 5660 CXR- 1. Cardiomegaly and pulmonary vascular congestion. 2. Small left pleural effusion, unchanged compared to 09/26/2016. EKG showed ventricular paced + A. fib, 90 Problem list 1. Acute on chronic diastolic congestive heart failure 3. Diabetes mellitus 4. Paroxysmal atrial fibrillation 5. Hypertension 6. Hyperlipidemia 7. Coronary artery disease Acute on chronic stage 3 diastolic congestive heart failure Patient presented with worsening shortness of breath, orthopnea, bilateral lower extremity leg swelling. The patient was recently discharged from [facility] on 09/30/2016 after being treated for acute chf exacerbation. Admitted him to the hospital again for acute on chronic diastolic heart failure. Chest x-ray showed 1. Cardiomegaly and pulmonary vascular congestion. 2. Small left pleural effusion, unchanged compared to 09/26/2016. (last echo in July 2015 with EF of 50-55% with a stage III diastolic dysfunction) * Admitted to telemetry floor for further monitoring. * Monitor vitals every shift * Maintain oxygen saturation above 92% * Provide supplemental oxygen if necessary * First set of EKG and troponins were negative * Monitor for worsening shortness of breath, leg swelling * IV Lasix 80 mg twice a day so far. * on bumex 4mg iv bid today. will resume bumex 2mg iv bid from tomorroww. * Lasix was stopped * Strict ins and outs * Daily weights * 1000 cc fluid restriction. * Monitor closely for urine output. * Echocardiogram PENDING. * Fans Clerk on board diabetes mellitus * Follows Elmer Nunez MD as an outpatient * Stopped Humalog home dose * started the patient on Levemir 12 twice a day and sliding scale insulin before each meal and at bedtime * Accu-Cheks 3 times a day and at bedtime Hypertension Continue metoprolol home dose Continue losartan (valsartan at home) Paroxysmal atrial fibrillation Continue home dose of eliqus 5 mg twice a day Coronary artery disease Continue aspirin, statins Continue imdur Hyperlipidemia Continue statins Worsening constipation Dulcolax and senna when necessary If patient continues to experience abdominal symptoms consider abdominal x-ray to rule out obstruction versus stool impaction #Left Knee Pain Tylenol when necessary as needed for pain relief if patient complains worsening pain consider stronger pain medication. DVT prophylaxis - eliqus Diabetic diet Pain pathway Tylenol Full code Problem List: 1. CHF (congestive heart failure) Pain Ratin Pain Location: none Pain Goal: Remain pain free Pain Plan: tylinol Tomorrow's Labs & Rationales: bep in the setting of chf
[2016-10-09 08:32] VITALS: BP 140/52
--- NOTE | 2016-10-09 08:51 | PN- Student ---
Subjective Subjective: Patient examined this morning sitting up eating his breakfast on a chair next to his bed. Patient appears comfortable and appears well rested this morning. His mood is somewhat irritable. Patient reports that he has been feeling better, denies shortness of breath today. Patient also has lower leg edema, worse in the left leg. It is the same as yesterday, right leg +1 left leg +3. ROS: Constitutional: no fever, no pallor HEENT: no headache, or changes in vision HEART: no palpitations, no chest tightness LUNG: no shortness of breath Extremeties: Lower leg swelling bilaterally, worse on left leg Objective Objective: Pt in atrial flutter 62-79, no overnight events. Pt temp is 97.9, pulse 62, BP 140/52, pulse ox 93, on room air. Patient has no wheezes or shortness of breath. Patient has lower leg edema, +3 left leg +1 right leg. Physical Exam: HEENT: No congestion or swollen lymph nodes Vital Signs Date Time Temp Pulse Resp B/P Pulse O2 O2 Flow FiO2 Ox Delivery Rate 10/09 0832 97.9 62 20 140/52 93 Room Air 10/09 0820 72.0 150/90 10/09 0819 150/90 10/09 0817 150/90 10/09 0000 94 Room Air 10/08 2300 97.8 61 18 150/62 94 Room Air 10/08 2101 61 150/62 10/08 2101 61 150/62 10/08 1530 97.7 64 20 118/60 94 Room Air 10/08 0943 82 148/58 10/08 0942 82 148/58 10/08 0941 82 148/58 Intake & Output 10/09 1600 10/09 0800 10/09 0000 Intake Total 400 Output Total 525 Balance -125 Intake, Oral 400 Output, Urine 525 Patient 276 lb Weight
--- NOTE | 2016-10-09 09:56 | PN- Cardiology ---
Subjective Subjective: * Breathing is improving. Patient ambulated a short distance to the fish tanks without problem. * creatinine 1.4 * atrial fibrillation with paced rhythm Objective Vital Signs and I&Os Vital Signs Date Time Temp Pulse Resp B/P Pulse O2 O2 Flow FiO2 Ox Delivery Rate 10/09 0832 97.9 62 20 140/52 93 Room Air 10/09 0820 72.0 150/90 10/09 0819 150/90 10/09 0817 150/90 10/09 0000 94 Room Air 10/08 2300 97.8 61 18 150/62 94 Room Air 10/08 2101 61 150/62 10/08 2101 61 150/62 10/08 1530 97.7 64 20 118/60 94 Room Air Intake & Output 10/09 1600 10/09 0800 10/09 0000 10/08 1600 10/08 0800 10/08 0000 Intake Total 400 640 450 600 Output Total 525 632 147 7638 Balance -125 15 -500 -550 Intake, IV 0 Intake, Oral 400 640 450 600 Number 0 1 Bowel Movements Output, Urine 525 612 601 7910 Patient 276 lb Weight Physical Exam: General: WD/ obese male in NAD; alert and oriented x 3 Neck: no JVD, bilateral carotid bruit R>L Heart: regular rate and rhythm with ectopy and a 2/6 sytolic murmur at the RUSB and 2/6 sytolic murmur at the LUSB and apex Lungs: clear bilaterally Extremities: 3+ leg edema on the left and 1+ edema on the right with venous stasis changes bilaterally Assessment/Plan Assessment/Plan * Change Bumex to 4mg IV BID for today and then decrease to 2mg IV BID tomorrow. Begin a 1000cc per day fluid restriction. Follow BUN, creatinine and potassium. * Obtain accurate daily weights and I/O's * obtain echo * 24 hour urine for protein and creatinine * Ambulate as tolerated. Continue telemetry? Yes
[2016-10-09 16:25] VITALS: BP 160/60
[2016-10-10 00:10] VITALS: BP 162/60
--- NOTE | 2016-10-10 07:38 | PN- Housestaff ---
Subjective Follow-up For: Acute on chronic diastolic congestive heart failure Diabetes mellitus Paroxysmal atrial fibrillatioN Complaints: pain scale (0-10) Tele-Events Since Last Visit: Patient is in a.flutter Rate 62-68 pvc No other acute events reported overnight Subjective: Patient was seen and examined this morning. He is alert, awake and oriented to time place and person. No acute events reported overnight. He reports shortness of breath and orthopnea- however subsiding now.. He denied any fever, chills, lung congestion, cough, sputum production. He denied any nausea, vomiting, abdominal pain, change in bladder or bowel habits. He does report bilateral lower extremity- subsiding since admission Vitals were stable. He is afebrile, heart rate 60, respiratory 22, blood pressure 162/60, saturating at 92 on room air. lost 4pounds since admisson. negative fluid balance 1060. Review of Systems Constitutional: Denies: see HPI. Objective Last 24 Hrs of Vital Signs/I&O Vital Signs Date Time Temp Pulse Resp B/P Pulse O2 O2 Flow FiO2 Ox Delivery Rate 10/10 0924 60 160/64 10/10 0924 60 160/64 10/10 0924 60 160/64 10/10 0805 97.6 60 20 160/64 95 Room Air 10/10 0010 98.0 60 20 162/60 92 Room Air 10/10 0000 92 Room Air 10/09 2028 60 160/60 10/09 2029 60 160/60 10/09 1625 97.6 60 20 160/60 92 Room Air Intake & Output 10/10 1600 10/10 0800 10/10 0000 Intake Total 240 300 Output Total 1300 1275 Balance -1060 -975 Intake, Oral 240 300 Number 1 1 Bowel Movements Output, Urine 1300 1275 Patient 124.738 kg Weight Physical Exam General Appearance: Alert, Oriented X3, Cooperative, No Acute Distress Skin: No Rashes, No Breakdown HEENT: Atraumatic, Mucous Membr. moist/pink Neck: Supple, No JVD Lymphatic: Cervical nl Cardiovascular: Normal S1, Normal S2 Lungs: Normal Air Movement, crackles Abdomen: Normal Bowel Sounds, Soft, No Tenderness Extremities: No Clubbing, No Cyanosis, Normal Pulses, +2 edema b/l Vascular: Normal Pulses Current Medications: Current Medications Sig/Roge Start time Last Medication Dose Route Stop Time Status Admin Acetaminophen 650 MG Q6P PRN 10/06 1600 AC PO Albuterol Sulfate 2 PUF BID PRN 10/06 1615 AC INH Apixaban 5 MG BID 10/06 2200 AC 10/10 PO 0924 Aspirin 81 MG DAILY 10/07 1000 AC 10/10 PO 0923 Atorvastatin Calcium 20 MG 1700 10/06 1700 AC 10/09 PO 1843 Bumetanide 4 MG BID 10/10 2200 AC IV 10/11 1001 Bumetanide 4 MG BID 10/09 2200 DC 10/10 IV 10/10 1001 0923 Cholecalciferol 1,000 IU DAILY 10/07 1000 AC 10/10 PO 0924 Diphenhydramine HCl 25 MG Q6P PRN 10/06 1600 AC IV Docusate Sodium 100 MG BID 10/06 2200 AC 10/09 PO 0819 Insulin Aspart 0 TIDAC 10/06 1700 AC 10/10 SC 0922 Insulin Detemir 12 UNITS BID 10/06 2200 AC 10/10 SC 0921 Isosorbide 30 MG BID 10/07 2200 AC 10/10 Mononitrate PO 0924 Losartan Potassium 25 MG DAILY 10/07 1000 AC 10/10 PO 0924 Metoprolol Tartrate 50 MG BID 10/06 2200 AC 10/10 PO 0924 Omeprazole 20 MG DAILY AC 10/07 0700 AC 10/07 PO 0904 Patient Medication 1 ED .STK-MED ONE 10/09 1348 IA Teaching ED 10/09 1349 Polyethylene Glycol 17 GM AT BEDTIME 10/06 2199 AC 10/06 PO 2220 Potassium Chloride 20 MEQ DAILY 10/06 1610 AC 10/10 PO 0924 Prochlorperazine 10 MG Q6P PRN 10/06 1600 AC IV Senna/Docusate Sodium 1 TAB AT BEDTIME 10/06 2200 AC 10/06 PO 2220 Last 24 Hrs of Lab/Chu Results Last 24 Hrs of Labs/Mics: Laboratory Tests 10/10/16 0620: Anion Gap 14, Estimated GFR 49 L, BUN/Creatinine Ratio 35.0 H Assessment/Plan Assessment: This is an 80-year-old gentleman with past medical history significant for diabetes mellitus, paroxysmal atrial fibrillation on eliquis, congestive heart failure(last echo in July 2015 with EF of 50-55% with a stage III diastolic dysfunction), hypertension, hyperlipidemia, peripheral neuropathy, syncope, coronary artery disease, stents, atrial fibrillation status post pacemaker placement, peripheral vascular disease, obstructive sleep apnea, diverticulitis, BPH, osteomyelitis, left knee replacement, sciatica presented to the emergency department with worsening shortness of breath, orthopnea and bilateral lower extremity leg swelling. The patient was previously discharged from [facility] on 09/30/2016 after being treated for acute chf exacerbation. Temperature 97.1, pulse rate 62, RR 24, blood pressure 137/62, saturating at 90% on room air WBC 10.9, H and H 10.3 and 31.9. Electrolytes normal. Creatinine 1.3 on admission which is his baseline.. Troponins were negative. ProBNP elevated 5660 CXR- 1. Cardiomegaly and pulmonary vascular congestion. 2. Small left pleural effusion, unchanged compared to 09/26/2016. EKG showed ventricular paced + A. fib, 90 Problem list 1. Acute on chronic diastolic congestive heart failure 3. Diabetes mellitus 4. Paroxysmal atrial fibrillation 5. Hypertension 6. Hyperlipidemia 7. Coronary artery disease Acute on chronic stage 3 diastolic congestive heart failure Patient presented with worsening shortness of breath, orthopnea, bilateral lower extremity leg swelling. The patient was recently discharged from [facility] on 09/30/2016 after being treated for acute chf exacerbation. Admitted him to the hospital again for acute on chronic diastolic heart failure. Chest x-ray showed 1. Cardiomegaly and pulmonary vascular congestion. 2. Small left pleural effusion, unchanged compared to 09/26/2016. (last echo in July 2015 with EF of 50-55% with a stage III diastolic dysfunction) * Admitted to telemetry floor for further monitoring. * Monitor vitals every shift * Maintain oxygen saturation above 92% * Provide supplemental oxygen if necessary * First set of EKG and troponins were negative * Monitor for worsening shortness of breath, leg swelling * IV Lasix 80 mg twice a day so far. * on bumex 4mg iv bid today. * Lasix was stopped * Strict ins and outs * Daily weights * 1000 cc fluid restriction. * Monitor closely for urine output. * Field Service Tech on board ECHO 1. Normal EF of 70%. 2. Mild left ventricular hypertrophy. 3. Severe left atrial enlargment. 4. 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 5. Moderate to severe mitral stenosis with trace mitral regurgitation. 6. Mild tricuspid regurgitation. 7. Mild aortic stenosis. 8. Mild pulmonic regurgitation. 9. Moderate to severe pulmonary hypertension. diabetes mellitus * Follows Elmer Nunez MD as an outpatient * Stopped Humalog home dose * started the patient on Levemir 12 twice a day and sliding scale insulin before each meal and at bedtime * Accu-Cheks 3 times a day and at bedtime Hypertension Continue metoprolol home dose Continue losartan (valsartan at home) Paroxysmal atrial fibrillation Continue home dose of eliqus 5 mg twice a day Coronary artery disease Continue aspirin, statins Continue imdur Hyperlipidemia Continue statins Worsening constipation Dulcolax and senna when necessary If patient continues to experience abdominal symptoms consider abdominal x-ray to rule out obstruction versus stool impaction #Left Knee Pain Tylenol when necessary as needed for pain relief if patient complains worsening pain consider stronger pain medication. DVT prophylaxis - eliqus Diabetic diet Pain pathway Tylenol Full code Problem List: 1. CHF (congestive heart failure) Pain Ratin Pain Location: NONE Pain Goal: Remain pain free Pain Plan: TYLINOL Tomorrow's Labs & Rationales: BEP IN THE SETTING OF ACUTE CHF ON BUMEX
[2016-10-10 08:05] VITALS: BP 160/64
--- NOTE | 2016-10-10 08:25 | ECHOCARDIOGRAM REPORT ---
DAPHNEY MUNROE Age: 81 : 1935 Gender: M Exam Date: 10/09/2016 17:57 Exam Location: 1 [address] Ht (in): 78 Wt (lb): 284 BSA: 2.69 BP: 140 / 52 Ordering Physician: DELMA HO MD Referring Physician: Joel Raines MD, PhD Technologist: Angélica Galicia [facility] Room Number: [id number] Indications: SHORTNESS OF BREATH Rhythm: atrial fibrillation with ventricular pacing Technical Quality: fair FINDINGS Left Ventricle Normal left ventricular size with mild left ventricular hypertrophy. Normal systolic function with no obvious regional wall motion abnormalities. The ejection fraction is visually estimated at 70%. Right Ventricle The right ventricle is normal in size and function. A pacemaker lead is noted in the right cardiac chambers. Right Atrium The right atrium is normal in size. Left Atrium The left atrium is markedly enlarged. The interatrial septum is intact. Mitral Valve The mitral valve is thickended and calcified with decreased leaflet excursion and mild calcification of the subvalvular apparatus. There is moderate to severe mitral stenosis with a mean gradient of 8.5mmHg. normal in structure and function. There is trace mitral regurgitation. Aortic Valve Mildly calcified aortic valve with mildly decreased leaflet excursion. There is mild aortic stenosis. There is no aortic regurgitation. Tricuspid Valve The tricuspid valve is normal in structure and function. There is mild tricuspid regurgitation. Pulmonary artery systolic pressure is moderate to severely elevated to 61mmHg. Pulmonic Valve Structurally normal pulmonic valve. There is mild pulmonic regurgitation. Pericardium Normal pericardium without effusion. No pleural effusion. Great Vessels Normal aortic root dimension. The aortic arch and great vessels are well seen and are normal. CONCLUSIONS 1. Normal EF of 70%. 2. Mild left ventricular hypertrophy. 3. Severe left atrial enlargment. 4. 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 5. Moderate to severe mitral stenosis with trace mitral regurgitation. 6. Mild tricuspid regurgitation. 7. Mild aortic stenosis. 8. Mild pulmonic regurgitation. 9. Moderate to severe pulmonary hypertension. Joel Raines M.D. (Electronically Signed) Final Date: 10 October 2016 08:25 MEASUREMENTS (Male / Female) Normal Values 2D ECHO LV Diastolic Diameter PLAX 4.4 cm 4.2 - 5.9 / 3.9 - 5.3 cm LV Systolic Diameter PLAX 2.4 cm 2.1 - 4.0 cm LV Fractional Shortening PLAX 45.5 % 25 - 46 % LV Ejection Fraction 2D Teich 77.0 % IVS Diastolic Thickness 1.3 cm LVPW Diastolic Thickness 1.3 cm LV Relative Wall Thickness 0.6 RV Internal Dim ED PLAX 3.0 cm 1.9 - 3.8 cm LVOT Diameter 2.2 cm Aortic Root Diameter 3.1 cm LA Systolic Diameter LX 5.2 cm 3.0 - 4.0 / 2.7 - 3.8 cm LA Volume 147.0 cm 18 - 58 / 22 - 52 cm Ascending Aorta Diameter 3.0 cm DOPPLER AV Peak Velocity 171.0 cm/s AV Peak Gradient 11.7 mmHg AV Mean Velocity 125.0 cm/s AV Mean Gradient 7.0 mmHg AV Velocity Time Integral 39.9 cm LVOT Peak Velocity 129.0 cm/s LVOT Peak Gradient 6.7 mmHg LVOT Mean Velocity 89.1 cm/s LVOT Mean Gradient 4.0 mmHg LVOT Velocity Time Integral 30.6 cm LVOT Stroke Volume 116.3 cm AV Area Cont Eq vti 2.9 cm AV Area Cont Eq pk 2.9 cm MV Peak Velocity 249.5 cm/s MV Peak Gradient 24.9 mmHg MV Mean Velocity 127.5 cm/s MV Mean Gradient 8.5 mmHg Mitral E Point Velocity 211.0 cm/s MV PHT Velocity 258.0 cm/s MV Deceleration Nuckolls 662.5 cm/s MV Pressure Half Time 116.8 ms MV Area PHT 1.9 cm MV Deceleration Time 333.0 ms TR Peak Velocity 375.0 cm/s TR Peak Gradient 56.3 mmHg Right Atrial Pressure 5.0 mmHg Pulmonary Artery Systolic Pressu 61.3 mmHg Right Ventricular Systolic Press 61.3 mmHg PV Peak Velocity 103.0 cm/s PV Peak Gradient 4.2 mmHg PV Mean Velocity 72.9 cm/s PV Mean Gradient 2.0 mmHg PV Velocity Time Integral 23.3 cm LV E' Lateral Velocity 5.1 cm/s Mitral E to LV E' Lateral Ratio 41.0 LV E' Septal Velocity 6.1 cm/s Mitral E to LV E' Septal Ratio 34.4
[2016-10-10 15:31] VITALS: BP 158/60
--- NOTE | 2016-10-10 17:30 | PN- Cardiology ---
Subjective Subjective: * Brad feels well at rest without shortness of breath. He was able to ambulate short distances as well. * Patient's weight decreased 5 pounds since admission. * No evidence of high levels of protein wasting in his urine to suggest nephrotic syndrome * The patient's echo shows a normal EF with left atrial enlargement, mild and moderate to severe mitral stenosis. * creatinine stable at 1.4 * atrial fibrillation with demand pacing Objective Vital Signs and I&Os Vital Signs Date Time Temp Pulse Resp B/P Pulse O2 O2 Flow FiO2 Ox Delivery Rate 10/10 1531 97.4 60 20 158/60 95 Room Air 10/10 0924 60 160/64 10/10 0924 60 160/64 10/10 0924 60 160/64 10/10 0805 97.6 60 20 160/64 95 Room Air 10/10 0010 98.0 60 20 162/60 92 Room Air 10/10 0000 92 Room Air 10/09 202 60 160/60 10/099 60 160/60 Intake & Output 10/10 1600 10/10 0800 10/10 0000 10/09 1600 10/09 0800 10/09 0000 Intake Total 750 240 300 400 300 400 Output Total 1000 1300 1275 575 525 525 Balance -250 -1060 -975 -175 -225 -125 Intake, IV 0 Intake, Oral 750 240 300 400 300 400 Number 1 1 1 1 1 Bowel Movements Output, Urine 1000 1300 1275 575 525 525 Patient 275 lb 275 lb 276 lb Weight Physical Exam: General: WD/ obese male in NAD; alert and oriented x 3 Neck: no JVD, bilateral carotid bruit R>L Heart: regular rate and rhythm with ectopy and a 2/6 sytolic murmur at the RUSB and 2/6 sytolic murmur at the LUSB and apex Lungs: clear bilaterally Extremities: 3+ leg edema on the left and 1+ edema on the right with venous stasis changes bilaterally Assessment/Plan Assessment/Plan * [place] Bumex at 4mg IV BID for today and then decrease to 2mg PO BID tomorrow 10/11/2016. Follow BUN, creatinine and potassium. * Obtain accurate daily weights and I/O's * If patient is ambulating reasonably tomorrow without significant shortness of breath he can be discharged on Bumex 2mg PO BID. Our plan will be for an outpatient BETH early next week. If his breathing is not adequate we will continue to diurese him over the weekend and will pursue a BETH as an inpatient. Continue telemetry? Yes
[2016-10-11 00:07] VITALS: BP 170/60
[2016-10-11 00:18] VITALS: BP 150/60
[2016-10-11 08:15] VITALS: BP 142/60
--- NOTE | 2016-10-11 08:32 | PN- Housestaff ---
Subjective Follow-up For: Acute on chronic diastolic congestive heart failure Diabetes mellitus Paroxysmal atrial fibrillatioN Complaints: pain scale (0-10) Tele-Events Since Last Visit: Patient is in a.fib Rate 62-68 pvc No other acute events reported overnight Subjective: Patient was seen and examined this morning. He is alert, awake and oriented to time place and person. No acute events reported overnight. He reports shortness of breath only on exertion and orthopnea- however subsiding now.. He denied any fever, chills, lung congestion, cough, sputum production. He denied any nausea, vomiting, abdominal pain, change in bladder or bowel habits. He does report bilateral lower extremity- subsided since admission Vitals were stable. He is afebrile, heart rate 60, respiratory 22, blood pressure 142/60, saturating at 95 on room air. lost 6 pounds since admisson. negative fluid balance 1100 Review of Systems Constitutional: Denies: see HPI. Objective Last 24 Hrs of Vital Signs/I&O Vital Signs Date Time Temp Pulse Resp B/P Pulse O2 O2 Flow FiO2 Ox Delivery Rate 10/11 0815 97.6 62 20 142/60 95 Room Air 10/11 0018 150/60 10/11 0007 97.8 63 20 170/60 93 Room Air 10/11 0000 Room Air 10/10 2135 59 176/60 10/10 2135 59 176/60 10/10 1600 95 Room Air 10/10 1531 97.4 60 20 158/60 95 Room Air 10/10 0924 60 160/64 10/10 0924 60 160/64 10/10 0924 60 160/64 Intake & Output 10/11 1600 10/11 0800 10/11 0000 Intake Total 420 Output Total 1100 1350 Balance -1100 -930 Intake, IV 20 Intake, Oral 400 Number 1 1 Bowel Movements Output, Urine 1100 1350 Patient 122.924 kg Weight Physical Exam General Appearance: Alert, Oriented X3, Cooperative, No Acute Distress Skin: No Rashes, No Breakdown HEENT: Atraumatic, Mucous Membr. moist/pink Neck: Supple, No JVD Lymphatic: Cervical nl Cardiovascular: Normal S1, Normal S2 Lungs: Normal Air Movement Abdomen: Normal Bowel Sounds, Soft, No Tenderness Extremities: No Clubbing, No Cyanosis, +1 edema Vascular: Normal Pulses, Pulses Symmetrical Current Medications: Current Medications Sig/Roge Start time Last Medication Dose Route Stop Time Status Admin Acetaminophen 650 MG Q6P PRN 10/06 1600 AC 10/11 PO 0250 Albuterol Sulfate 2 PUF BID PRN 10/06 1615 AC INH Apixaban 5 MG BID 10/06 2200 AC 10/10 PO 2133 Aspirin 81 MG DAILY 10/07 1000 AC 10/10 PO 0923 Atorvastatin Calcium 20 MG 1700 10/06 1700 AC 10/10 PO 1627 Bumetanide 2 MG BID 10/11 1000 AC PO Bumetanide 4 MG BID 10/10 2200 DC 10/10 IV 10/10 2300 2136 Bumetanide 4 MG BID 10/09 2200 DC 10/10 IV 10/10 1001 0923 Cholecalciferol 1,000 IU DAILY 10/07 1000 AC 10/10 PO 0924 Diphenhydramine HCl 25 MG Q6P PRN 10/06 1600 AC IV Docusate Sodium 100 MG BID 10/06 2200 AC 10/09 PO 0819 Insulin Aspart 0 TIDAC 10/06 1700 AC 10/10 SC 1745 Insulin Detemir 12 UNITS BID 10/06 2200 AC 10/10 SC 2145 Isosorbide 30 MG BID 10/07 2200 AC 10/10 Mononitrate PO 2135 Losartan Potassium 25 MG DAILY 10/07 1000 AC 10/10 PO 0924 Metoprolol Tartrate 50 MG BID 10/06 2200 AC 10/10 PO 2135 Omeprazole 20 MG DAILY AC 10/07 0700 AC 10/07 PO 0904 Polyethylene Glycol 17 GM AT BEDTIME 10/06 2200 AC 10/06 PO 2220 Potassium Chloride 20 MEQ DAILY 10/06 1610 AC 10/10 PO 0924 Prochlorperazine 10 MG Q6P PRN 10/06 1600 AC IV Senna/Docusate Sodium 1 TAB AT BEDTIME 10/06 2200 AC 10/06 PO 2220 Last 24 Hrs of Lab/Chu Results Last 24 Hrs of Labs/Mics: Laboratory Tests 10/11/16 0605: Anion Gap 14, Estimated GFR 49 L, BUN/Creatinine Ratio 35.0 H Assessment/Plan Assessment: This is an 80-year-old gentleman with past medical history significant for diabetes mellitus, paroxysmal atrial fibrillation on eliquis, congestive heart failure(last echo in July 2015 with EF of 50-55% with a stage III diastolic dysfunction), hypertension, hyperlipidemia, peripheral neuropathy, syncope, coronary artery disease, stents, atrial fibrillation status post pacemaker placement, peripheral vascular disease, obstructive sleep apnea, diverticulitis, BPH, osteomyelitis, left knee replacement, sciatica presented to the emergency department with worsening shortness of breath, orthopnea and bilateral lower extremity leg swelling. The patient was previously discharged from [facility] on 09/30/2016 after being treated for acute chf exacerbation. Temperature 97.1, pulse rate 62, RR 24, blood pressure 137/62, saturating at 90% on room air WBC 10.9, H and H 10.3 and 31.9. Electrolytes normal. Creatinine 1.3 on admission which is his baseline.. Troponins were negative. ProBNP elevated 5660 CXR- 1. Cardiomegaly and pulmonary vascular congestion. 2. Small left pleural effusion, unchanged compared to 09/26/2016. EKG showed ventricular paced + A. fib, 90 Problem list 1. Acute on chronic diastolic congestive heart failure 3. Diabetes mellitus 4. Paroxysmal atrial fibrillation 5. Hypertension 6. Hyperlipidemia 7. Coronary artery disease Acute on chronic stage 3 diastolic congestive heart failure Patient presented with worsening shortness of breath, orthopnea, bilateral lower extremity leg swelling. The patient was recently discharged from [facility] on 09/30/2016 after being treated for acute chf exacerbation. Admitted him to the hospital again for acute on chronic diastolic heart failure. Chest x-ray showed 1. Cardiomegaly and pulmonary vascular congestion. 2. Small left pleural effusion, unchanged compared to 09/26/2016. (last echo in July 2015 with EF of 50-55% with a stage III diastolic dysfunction) * Admitted to telemetry floor for further monitoring. * Monitor vitals every shift * Maintain oxygen saturation above 92% * Provide supplemental oxygen if necessary * First set of EKG and troponins were negative * Monitor for worsening shortness of breath, leg swelling * on bumex 4mg iv bid so far * Lasix was stopped * started bumex 2mg po bid today * Strict ins and outs * Daily weights * 1000 cc fluid restriction. * Monitor closely for urine output. * Scrap Charger on board ECHO 1. Normal EF of 70%. 2. Mild left ventricular hypertrophy. 3. Severe left atrial enlargment. 4. 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 5. Moderate to severe mitral stenosis with trace mitral regurgitation. 6. Mild tricuspid regurgitation. 7. Mild aortic stenosis. 8. Mild pulmonic regurgitation. 9. Moderate to severe pulmonary hypertension. diabetes mellitus * Follows Elmer Nunez MD as an outpatient * Stopped Humalog home dose * started the patient on Levemir 12 twice a day and sliding scale insulin before each meal and at bedtime * Accu-Cheks 3 times a day and at bedtime Hypertension Continue metoprolol home dose Continue losartan (valsartan at home) Paroxysmal atrial fibrillation Continue home dose of eliqus 5 mg twice a day Coronary artery disease Continue aspirin, statins Continue imdur Hyperlipidemia Continue statins Worsening constipation Dulcolax and senna when necessary If patient continues to experience abdominal symptoms consider abdominal x-ray to rule out obstruction versus stool impaction #Left Knee Pain Tylenol when necessary as needed for pain relief if patient complains worsening pain consider stronger pain medication. DVT prophylaxis - eliqus Diabetic diet Pain pathway Tylenol Full code Problem List: 1. CHF exacerbation Pain Ratin Pain Location: none Pain Goal: Remain pain free Pain Plan: tylinol Tomorrow's Labs & Rationales: bep in the setting of raising creatinine
[2016-10-11 16:00] VITALS: BP 150/70
[2016-10-11] MEDS ORDERED: BUMETANIDE1 M1 PO (18:48)
--- NOTE | 2016-10-11 19:21 | PN- Cardiology ---
Subjective Subjective: Admits to continued dyspnea on exertion. Denies any chest discomfort or palpitations. Thinks is lower extremity edema has improved. Objective Vital Signs and I&Os Vital Signs Date Time Temp Pulse Resp B/P Pulse O2 O2 Flow FiO2 Ox Delivery Rate 10/11 1600 97.4 59 20 150/70 95 Room Air 10/11 0840 62 142/60 10/11 0840 62 142/60 10/11 0840 62 142/60 10/11 0815 97.6 62 20 142/60 95 Room Air 10/11 0018 150/60 10/11 0007 97.8 63 20 170/60 93 Room Air 10/11 0000 Room Air 10/10 2135 59 176/60 10/10 2135 59 176/60 Intake & Output 10/11 1600 10/11 0800 10/11 0000 10/10 1600 10/10 0800 10/10 0000 Intake Total 800 420 750 240 300 Output Total 800 1100 1350 1000 1300 1275 Balance 0 -1100 -930 -250 -1060 -975 Intake, IV 0 20 0 Intake, Oral 800 400 750 240 300 Number 3 1 1 1 1 1 Bowel Movements Output, Urine 800 1100 1350 1000 1300 1275 Patient 271 lb 275 lb 275 lb Weight Physical Exam: Well-developed, overweight elderly male in no acute distress. Vital signs: See above. Lungs: Few crackles at the bases. Heart: S1, S2 (irregularly, irregular) with grade 2/6 systolic murmur. Extremities: Positive edema. Current Medications: Current Medications Sig/Roge Start time Last Medication Dose Route Stop Time Status Admin Acetaminophen 325 MG .STK-MED ONE 10/11 0244 DC PO 10/11 0245 Acetaminophen 650 MG Q6P PRN 10/06 1600 AC 10/11 PO 0250 Albuterol Sulfate 2 PUF BID PRN 10/06 1615 AC INH Apixaban 5 MG BID 10/06 2200 AC 10/11 PO 0840 Aspirin 81 MG DAILY 10/07 1000 AC 10/11 PO 0840 Atorvastatin Calcium 20 MG 1700 10/06 1700 AC 10/11 PO 1745 Bumetanide 2 MG BID 10/11 1000 AC 10/11 PO 1223 Bumetanide 4 MG BID 10/10 2200 DC 10/10 IV 10/10 2300 2136 Cholecalciferol 1,000 IU DAILY 01/10 1000 AC 10/11 PO 0840 Diphenhydramine HCl 25 MG Q6P PRN 10/06 1600 AC IV Docusate Sodium 100 MG BID 10/06 2200 AC 10/09 PO 0819 Insulin Aspart 0 TIDAC 10/06 1700 AC 10/11 SC 1745 Insulin Detemir 12 UNITS BID 10/06 2200 AC 10/11 SC 0841 Isosorbide 30 MG BID 10/07 2200 AC 10/11 Mononitrate PO 0840 Losartan Potassium 25 MG DAILY 10/07 1000 AC 10/11 PO 0840 Metoprolol Tartrate 50 MG BID 10/06 2200 AC 10/11 PO 0840 Omeprazole 20 MG DAILY AC 10/07 0700 AC 10/07 PO 0904 Polyethylene Glycol 17 GM AT BEDTIME 10/06 2200 AC 10/06 PO 2220 Potassium Chloride 20 MEQ DAILY 10/06 1610 AC 10/11 PO 0840 Prochlorperazine 10 MG Q6P PRN 10/06 1600 AC IV Senna/Docusate Sodium 1 TAB AT BEDTIME 10/06 220 AC 10/06 PO 2220 Results Last 48 Hrs of Labs/Mics: Laboratory Tests 10/11/16 0605: Anion Gap 14, Estimated GFR 49 L, BUN/Creatinine Ratio 35.0 H 10/10/16 0620: Anion Gap 14, Estimated GFR 49 L, BUN/Creatinine Ratio 35.0 H Recent Imaging Studies: Echocardiogram (10/09/2016) Normal left ventricular size with mild left ventricular hypertrophy, no obvious regional wall motion abnormalities, and normal systolic function with an estimated ejection fraction of 70%, normal right ventricular size and function, normal right atrial size, pacemaker lead noted in right heart, markedly dilated left atrium, calcified mitral valve annulus and subvalvular apparatus as well as thickened mitral valve leaflets with decreased excursion, mildly calcified aortic valve leaflets with decreased excursion, structurally normal tricuspid and pulmonic valves, no pericardial effusion, normal size aortic root. The Doppler portion of the study revealed moderate to severe mitral stenosis with a mean gradient of 8.5 mmHg, trace mitral regurgitation, mild aortic stenosis, mild tricuspid regurgitation, mild pulmonic regurgitation, and moderate to severe pulmonary hypertension with estimated PA systolic pressure of 61 mmHg. Assessment/Plan Assessment/Plan Recurrent heart failure in this elderly male with his most recent transthoracic echocardiogram revealing preserved left ventricular systolic function and evidence of moderate to severe mitral stenosis. We will plan for discharge in the morning if the ventricular response to his atrial fibrillation adequate and he feels as though his breathing is near his baseline. We will maintain him on bumetanide 2 mg twice daily with close follow-up of his BUN/creatinine, potassium, etc. We will also plan for an outpatient transesophageal echocardiogram to hopefully get better visualization of his mitral valve to better assess his degree of mitral stenosis. Continue telemetry? Yes
[2016-10-11 23:33] VITALS: BP 150/70
[2016-10-12 08:14] VITALS: BP 144/60
--- NOTE | 2016-10-12 09:20 | PN- Housestaff ---
Subjective Follow-up For: CHF A. fib Complaints: no complaints Tele-Events Since Last Visit: Paroxysmal A. fib, rate in the 70s, some PVCs Subjective: Patient seen and examined this morning, offers no complaints, states that he couldn't sleep extremely well last night because he is uncomfortable in the bed. Apart from that he is eager to go home today. States that the swelling on his legs has markedly improved. Review of Systems Constitutional: Reports: see HPI. Objective Last 24 Hrs of Vital Signs/I&O Vital Signs Date Time Temp Pulse Resp B/P Pulse O2 O2 Flow FiO2 Ox Delivery Rate 10/12 813 97.8 68 20 144/60 94 Room Air 10/12 0000 Room Air 10/11 2333 97.7 68 20 150/70 96 10/11 2053 60 144/68 10/11 2052 60 144/68 10/11 1600 97.4 59 20 150/70 95 Room Air Intake & Output 10/12 1600 10/12 0800 10/12 0000 Intake Total 800 200 Output Total 500 150 Balance 300 50 Intake, Oral 800 200 Output, Urine 500 150 Physical Exam General Appearance: Alert, Oriented X3, Cooperative HEENT: Atraumatic, PERRLA, EOMI Cardiovascular: Normal S1, Normal S2 Lungs: Normal Air Movement Extremities: 1+ b/l le edema Current Medications: Current Medications Sig/Roge Start time Last Medication Dose Route Stop Time Status Admin Acetaminophen 650 MG Q6P PRN 10/06 1600 AC 10/11 PO 0250 Albuterol Sulfate 2 PUF BID PRN 10/06 1615 AC INH Apixaban 5 MG BID 10/06 2199 AC 10/11 PO 2053 Aspirin 81 MG DAILY 10/07 1000 AC 10/11 PO 0840 Atorvastatin Calcium 20 MG 1700 10/06 1700 AC 10/11 PO 1745 Bumetanide 2 MG BID 10/11 1000 AC 10/11 PO 2053 Cholecalciferol 1,000 IU DAILY 10/07 1000 AC 10/11 PO 08 Diphenhydramine HCl 25 MG Q6P PRN 10/06 1600 AC IV Docusate Sodium 100 MG BID 10/06 2199 AC 10/09 PO 0819 Insulin Aspart 0 TIDAC 10/06 1700 AC 10/12 SC 08 Insulin Detemir 12 UNITS BID 10/06 2199 AC 10/11 SC 2053 Isosorbide 30 MG BID 10/07 2199 AC 10/11 Mononitrate PO 2052 Losartan Potassium 25 MG DAILY 10/07 1000 AC 10/11 PO 839 Metoprolol Tartrate 50 MG BID 10/06 2199 AC 10/11 PO 2053 Omeprazole 20 MG DAILY AC 10/07 0700 AC 10/07 PO 0904 Polyethylene Glycol 17 GM AT BEDTIME 10/060 AC 10/06 PO 2220 Potassium Chloride 20 MEQ DAILY 10/06 1610 AC 10/11 PO 0840 Prochlorperazine 10 MG Q6P PRN 10/06 1600 AC IV Senna/Docusate Sodium 1 TAB AT BEDTIME 10/06 2199 AC 10/06 PO 2220 Last 24 Hrs of Lab/Chu Results Last 24 Hrs of Labs/Mics: Laboratory Tests 10/12/16 0605: Sodium Pending, Potassium Pending, Chloride Pending, Carbon Dioxide Pending, Anion Gap Pending, BUN Pending, Creatinine Pending, BUN/Creatinine Ratio Pending Assessment/Plan Assessment: Problem list 1. Acute on chronic diastolic congestive heart failure 2. Bilateral lower extremity pitting edema 3. Diabetes mellitus 4. Paroxysmal atrial fibrillation 5. Hypertension 6. Hyperlipidemia 7. Coronary artery disease Plan Continue by mouth Bumex Has not negative fluid balance Low-salt diet Elevate lower extremities Accu-Cheks, diabetic diet Beta drake note was for A. fib Continue losartan Continue statin Problem List: 1. Hyperglycemia 2. Anemia 3. CHF exacerbation 4. Volume overload 5. Stasis dermatitis of both legs Pain Ratin Pain Location: none Pain Goal: Pain 4 or less Pain Plan: per emr Tomorrow's Labs & Rationales: none
[2016-10-12 10:07] VITALS: BP 144/60
[2016-10-12] MEDS ORDERED: BUMETANIDE2 M1 PO (13:49)
--- NOTE | 2016-10-12 13:49 | PN- Cardiology ---
Subjective Subjective: No new complaints. Has chronic dyspnea on exertion that has improved since admission. He denies any chest discomfort or palpitations. Objective Vital Signs and I&Os Vital Signs Date Time Temp Pulse Resp B/P Pulse O2 O2 Flow FiO2 Ox Delivery Rate 10/12 1007 68 144/60 10/12 1006 68 144/60 10/12 1006 68 144/60 10/12 0814 97.8 68 20 144/60 94 Room Air 10/12 0000 Room Air 10/11 2333 97.7 68 20 150/70 96 10/11 2054 60 144/68 10/11 2053 60 144/68 10/11 1600 97.4 59 20 150/70 95 Room Air Intake & Output 10/12 1600 10/12 0800 10/12 0000 10/11 1600 10/11 0000 Intake Total 800 200 800 420 Output Total 500 122 897 0246 1350 Balance 300 50 0 -1100 -930 Intake, IV 0 20 Intake, Oral 800 200 800 400 Number 1 3 1 1 Bowel Movements Output, Urine 500 190 167 0181 1350 Patient 271 lb Weight Physical Exam: Well-developed, overweight elderly male in no acute distress. Vital signs: See above. Lungs: Few crackles at the bases. Heart: S1, S2 (irregularly, irregular) with grade 2/6 systolic murmur. Extremities: Positive edema. Assessment/Plan Assessment/Plan Recurrent heart failure in this elderly male with his most recent transthoracic echocardiogram revealing preserved left ventricular systolic function and evidence of moderate to severe mitral stenosis. We will plan for discharge in the morning if the ventricular response to his atrial fibrillation adequate and he feels as though his breathing is near his baseline. We will maintain him on bumetanide 2 mg twice daily with close follow-up of his BUN/creatinine, potassium, etc. We will also plan for an outpatient transesophageal echocardiogram to hopefully get better visualization of his mitral valve to better assess his degree of mitral stenosis. Continue telemetry? No
[2017-02-20] MEDS ORDERED: LOPRESSOR50 M1 PO (15:44)
[2017-02-20] MEDS ORDERED: PRESERVISION A1 EAC1 (15:45)
== END 2016-10-12 14:20 | DRG 293 ==
LOC: ERH 11:54 → ERHI 15:05 → 1NO 16:01 → ERHI 20:31 → 1NO 10-07 12:00
PROVIDERS: Emergency Medicine; ADMIT Internal Medicine Interventional Cardiology
DX: I11.0 Hypertensive heart disease with heart failure (principal); E11.319 Type 2 diabetes mellitus with unspecified diabetic retinopathy without macular edema; I48.0 Paroxysmal atrial fibrillation; I73.9 Peripheral vascular disease, unspecified; Z79.01 Long term (current) use of anticoagulants; I87.2 Venous insufficiency (chronic) (peripheral); K59.00 Constipation, unspecified; I50.33 Acute on chronic diastolic (congestive) heart failure; E78.5 Hyperlipidemia, unspecified; I05.0 Rheumatic mitral stenosis; I25.10 Atherosclerotic heart disease of native coronary artery without angina pectoris; Z95.0 Presence of cardiac pacemaker; N40.0 Benign prostatic hyperplasia without lower urinary tract symptoms
CPT/HCPCS: 1NP; 84156; ERO; 36415; 81001; 82436; 82570; 93005; 93010; 93306; 96374; 97116-GO; 97161-GP; J0780; J1200; J1940; J3490

== ENCOUNTER 2017-02-25 02:19 | Inpatient (IN) | payer OTHER, MEDICARE ==
[~2017-02-25] VITALS: Ht 198.1 cm; Wt 129.3 kg
[~2017-02-25 02:19] MED LIST changes: +BUMETANIDE1 M1 PO; +BUMETANIDE2 M1 PO; +ISOSORBIDE MONO60 M1 PO; +LOPRESSOR50 M1 PO; +PRESERVISION A1 EAC1; +PROAIR HFA8.5 GM PO
--- NOTE | 2017-02-25 13:50 | Operative Report ---
Operative/Inv Procedure Report Surgery Date: 02/25/17 Name of Procedure: Left carpal tunnel release Pre-Operative Diagnosis: Left carpal tunnel syndrome Post-Operative Diagnosis: Same Estimated Blood Loss: none Surgeon/Machine Operator Cane Cutter: JULIUS FLEMING MD Anesthesia: local monitored anesthesi, block IV Fluids: See anesthesia record Implants: None Specimens: None Tourniquet: 15 minutes Condition: Stable Operative Indication: Patient is a 1-year-old male with documented carpal tunnel the left hand. He was indicated for surgical decompression of the median nerve. Risk and benefits of procedure were discussed with the patient detail and he wished to proceed. Operative/Procedure Note Note: Once informed consent was obtained and the correct limb was identified patient brought to operating room placed on table supine position. After administration of sedation local anesthesia was infiltrated around the planned incision site on the left palm. Left upper extremity is prepped and draped usual sterile fashion and a tourniquet was inflated to 250 mmHg. An incision was made in line with the radial border of the fourth ray. Sharp dissection Down to skin and subcutaneous tissue and palmar fascia. A weave and retractor was placed in the incision and the transverse carpal ligament was identified. A Timbo elevator was placed underneath the trans-pars carpal ligament to protect any neurovascular and tendinous structures. The ligament was incised sharply with a #15 blade. Incision was carried out proximal and distally for complete release. The wound was then irrigated with sterile saline. The skin was closed with 3-0 nylon interrupted sutures and a sterile dressing and splint was applied. Patient was taken recovery room in stable condition.
[2017-02-25 21:20] VITALS: BP 132/68
--- NOTE | 2017-02-25 21:25 | Admission Core Measures ---
Admission Meds I reviewed the following Meds: Current Medications Sig/Roge Start time Last Medication Dose Stop Time Status Admin Albuterol Sulfate 2 PUF BID 02/25 2200 UNVr (Ventolin) Apixaban 5 MG BID 02/25 2200 UNVr (Eliquis) Aspirin 81 MG DAILY 02/26 1000 UNVr (Aspirin) Atorvastatin Calcium 20 MG 1700 02/26 1700 UNVr (Lipitor) Bumetanide 2 MG BID 02/25 2200 UNVr (Bumex) Cefazolin Sodium 2,000 MG ONCE 02/25 0000 NR (Kefzol-Ancef Inj) 02/25 2359 Insulin Human Isoph/ 40 UNITS QAM 02/26 1000 UNVr Insulin Regular (Novolin 70/30) Insulin Human Regular 0 TIDAC/HS 02/26 0800 UNVr (NovoLIN R) Isosorbide 30 MG DAILY 02/26 1000 UNVr Mononitrate (Imdur) Losartan Potassium 25 MG DAILY 02/26 1000 UNVr (Cozaar) Metoprolol Tartrate 50 MG BID 02/25 2200 UNVr (Lopressor) Ondansetron HCl 4 MG Q8P PRN 02/25 2100 UNVr (Zofran) Potassium Chloride 20 MEQ DAILY 02/26 1000 UNVr (Klor) Sodium Chloride 1,000 ML .[id number] 02/25 2100 UNVr (Normal Saline 0.9%) Acute Coronary Syndrome Inclusion Criteria ACS Diagnosis No Inpatient Core Measures LDL Reminder: If No, please order W/I first 24hr of stay Congestive Heart Failure Inclusion Criteria CHF Diagnosis No Cerebrovascular accident Inclusion Criteria CVA/TIA Diagnosis No Inpatient Core Measures Bedside Swallow Eval Reminder: If BSE failed, place ST order Antithrombotic Reminder: Order Antithrombotic Medication by end of day 2 Antithrombotic Reminder: Document Reason Antithrombotic Not ordered by end of day 2 AFIB/Flutter Reminder: If Present, add to problem list AFIB/Flutter Reminder: Order Anticoag Medication for pts with AFIB/Flutter Atherosclerosis Reminder: If Present, add to problem list LDL Reminder: If No, please order W/I first 24hr of stay PT Order Reminder: If No, please order Venous thromboembolism Inpatient Core Measures VTE Risk Factors: Age > 40, Obesity, Surgery No [facility] VTE prophylaxis d/t Peripheral vascular Dx, Sensory neuropathy, Vascular insuff of limb No VTE Pharm Prophylaxis d/t No contraindications Inclusion Criteria - Per Current guidelines, there needs to be overlap - treatment for the first 5 days of Warfarin therapy. - Parenteral Anticoagulation (IV or SC) needs to be - given along with Warfarin therapy. VTE Diagnosis No VTE Type NONE VTE Confirmed by (Test) NONE Problem List As ranked by this Provider includes Assessment & Plan 1. S/P carpal tunnel release 2. Need for assistance due to unsteady gait HOME MEDS Home Med List Albuterol Sulfate (Proair Hfa) 90 MCG HFA.AER.AD 2 PUFF PO BID BREATHING PROBLEMS (Reported) Apixaban (Eliquis) 5 MG TAB 1 TAB PO BID BLOOD THINNER Ascorbic Acid/Copper/Vitamin (Preservision Areds) 1 SGL SGL 1 SGL PO BID EYE HEALTH (Reported) Aspirin (Ecotrin) 81 MG ECT 1 TAB PO DAILY HEART HEALTH (Reported) Bumetanide 2 MG TABLET 1 TAB PO BID Fluid Retention Cholecalciferol (D-3) 1,000 IU CAP 1 TAB PO DAILY BONE HEALTH (Reported) Insulin NPL/Insulin Lispro (Humalog Mix 75-25 Vial) 100 UNIT/ML (75-25) VIAL 45 UNITS SC 8AM diabetes Isosorbide Mononitrate (Isosorbide Mononitrate ER) 60 MG TAB.ER.24H 0.5 TAB PO DAILY CAD (Reported) Metoprolol Tartrate (Lopressor) 50 MG TABLET 1 TAB PO BID CAD (Reported) Potassium Chloride (Klor-Con M10) [address] PAC PO DAILY SUPPLEMENT ( Reported) Simvastatin (Zocor 40MG Tab) 40 MG TAB 1 TAB PO QPM CHOL (Reported) Valsartan (Diovan) 80 MG TABLET 1 TAB PO DAILY HTN (Reported)
[2017-02-25 22:40] LABS: ABSOLUTE BASOPHIL COUNT 0.1 /CUMM (0.0-0.2); ABSOLUTE EOSINOPHIL COUNT 0.2 /CUMM (0.0-0.7); ABSOLUTE GRANULOCYTE CT 8.1 /CUMM (1.4-6.5); ABSOLUTE LYMPH COUNT 1.2 /CUMM (1.2-3.4); ABSOLUTE MONOCYTE COUNT 0.7 /CUMM (0.10-0.60); BASOPHIL % 0.6 % (0.0-2.0); EOSINOPHIL % 1.5 % (0-5); GRANULOCYTE % 79.3 % (42.2-75.2); HEMATOCRIT 37.6 % (42-52); MEAN CORPUSCULAR HGB 24.4 PG (27.0-31.0); MEAN CORPUSCULAR HGB CONC 31.4 G/DL (33.0-37.0); MEAN CORPUSCULAR VOLUME 77.7 FL (80.0-94.0); MEAN PLATELET VOLUME 8.9 FL (7.4-10.4); PLATELET COUNT 204 /CUMM (130-400); RBC DISTRIBUTION WIDTH 19.9 % (11.5-14.5); RED BLOOD CELL CT 4.84 /CUMM (4.70-6.10); WHITE BLOOD CELL COUNT 10.2 /CUMM (4.8-10.8)
--- NOTE | 2017-02-25 22:41 | History & Physical Pre-Op ---
General Information and [facility] MD Statement: I have seen and personally examined DAPHNEY MUNROE and documented this H&P. This is a postoperative H&P for admission due to inability of patient to safely mobilize after L CTR such that he could not be discharged home as originally hoped and planned. The patient is a 81 year old diabetic WM with neuropathy and severe walker- dependent and upper extremity supported baseline ambulatory difficulty who requires admission S/P L CTR for CTS performed earlier today. He required general anesthesia for surgery and although his CTR was brief and uncomplicated he has been unable to elevate independently from a chair postoperatively which appears to be mostly due to worsened weakness in the lower extremities (likely slow motor recovery from general anesthesia due to his severe preexisting neuropathy and severe motor weakness which already had him at a borderline functional level preoperatively), He was trialed several times and with platform walker addition to his preop walker but was unable to elevate and ambulate due to leg weakness, balance disorder and despite a well padded volar splint specifically applied so that the patient could use his left upper extremity to assist with elevation. His lower extremities are diffusely weak with sensory loss consistent with diabetic neuropathy. His and the nursing staff familiar with his preoperative status feel that he is weaker than perop consistent with his early postop condition and recent general anesthesia from which he may not have yet fully recovered in his already dysfunctional lower extremity nerves. His upper extremities do not appear to be as weak but are also not as neuropathic at baseline. The remainder of his exam is unchanged compared to preop by brief comparative review of his records and by patient and family report. See preop H &P for details. His splint is in good position. It may be possible to pad, contour and shorten the splint to allow better appraiser timber for more effective upper extremity use while still protecting the surgical site. Hand/Occupational therapy will be consulted to see if splint alteration will help his independent home function. Otherwise, he will need rehab until he can return to his preoperative and pre-anesthesia level of tenuous independent function. He understands and accepts that, given his barely sufficient strength even preoperatively, that he may require extensive inpatient and/or outpatient rehabilitation and that there is even the possibility (because he had so much deficit even preoperatively) that he may require a prolonged or even permanent change of care status or residence. We will admit him to Orthopaedics for observation, see how he continues to recover, initiate therapy as early as possible, optimize splinting for loading and appraiser timber as long as it still protects the surgical site and start arrangements for inpatient rehabilitation if he does not meet criteria for saf home discharge within a standard three day hospital stay. The patient and his are in agreement with this plan. For now his medical conditions appear stable. If concerns regarding his medical conditions arise then medical consultation and possible transfer of care will be arranged as he is being admitted more for decompensated neuropathy, imbalance and ambulatory deficit than for his presenting orthopaedic condition (CTS). Allergies/Medications Allergies: Coded Allergies: piperacillin (Mild, RASH 12/15/15) tazobactam (Mild, RASH 12/15/15) morphine (Intermediate, HALLUCINATIONS 12/15/15) heparin (SOMETHING WITH HIS PLATELETS 12/15/15) Home Med list Albuterol Sulfate (Proair Hfa) 90 MCG HFA.AER.AD 2 PUFF PO BID BREATHING PROBLEMS (Reported) Apixaban (Eliquis) 5 MG TAB 1 TAB PO BID BLOOD THINNER Ascorbic Acid/Copper/Vitamin (Preservision Areds) 1 SGL SGL 1 SGL PO BID EYE HEALTH (Reported) Aspirin (Ecotrin) 81 MG ECT 1 TAB PO DAILY HEART HEALTH (Reported) Bumetanide 2 MG TABLET 1 TAB PO BID Fluid Retention Cholecalciferol (D-3) 1,000 IU CAP 1 TAB PO DAILY BONE HEALTH (Reported) Insulin NPL/Insulin Lispro (Humalog Mix 75-25 Vial) 100 UNIT/ML (75-25) VIAL 45 UNITS SC 8AM diabetes Isosorbide Mononitrate (Isosorbide Mononitrate ER) 60 MG TAB.ER.24H 0.5 TAB PO DAILY CAD (Reported) Metoprolol Tartrate (Lopressor) 50 MG TABLET 1 TAB PO BID CAD (Reported) Potassium Chloride (Klor-Con M10) [address] PAC PO DAILY SUPPLEMENT ( Reported) Simvastatin (Zocor 40MG Tab) 40 MG TAB 1 TAB PO QPM CHOL (Reported) Valsartan (Diovan) 80 MG TABLET 1 TAB PO DAILY HTN (Reported) Vit C/E/Zn/Coppr/Lutein/Zeaxan (Preservision Areds 2 Softgel) 250-200-40 CAPSULE MACULAR DEGENERATION (Reported) Past History Medical History Blood Transfusion Hx: Yes Neurological: peripheral neuropathy EENT: CATARACT diabetic retinopathy Cardiovascular: AFIB (paroxysmal), CHF, hyperlipidemia, syncope, STENT, PACER AFIB ,CHOL, HTN STENTS LCW PM permanent pacemaker for heart block peripheral vascular diseaase peripheral vascular disease s/p angioplasty Respiratory: LYNDSEY Gastrointestinal: diverticulitis Hepatic: NONE Renal: benign prost hyperplasia Musculoskeletal: sciatica, L KNEE REPLACEMENT OSTEOMYELITIS osteomyelitis Psychiatric: NONE Endocrine: IDDM with diabetic neuropathy diabetic retinopathy Blood Disorders: NONE Cancer(s): NONE 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 spouse Services at Home None Primary Language: Liberian Smoking Status: Former Smoker Functional Ability ADLs Independent: dressing, eating, toileting, bathing. Ambulation: walker Assessment/Plan Assessment/Plan: 81 year old white male with neuropathic decompensation following general anesthesia for routine and uncomplicated CTS with lower extremity weakness and balance disorder causing inability to indpendently mobilize or meet criteria for safe home discharge.
[2017-02-26 06:13] VITALS: BP 130/60
--- NOTE | 2017-02-26 08:21 | NUR ---
NURSING NOTE: PATIENT REFUSED TO WEAR HOSPITAL GRIPPY SOCKS WITH MST. PATIENT INFORMED THEY ARE TO BE WORN FOR HIS SAFETY. PATIENT STILL REFUSED. BED ALARM IN PLACE. WILL CONTINUE TO MONITOR.
--- NOTE | 2017-02-26 13:34 | PN- Orthopedic ---
See Addendum Subjective Subjective: No complaints, minimal pain, did not require any medication. Patient was admitted postoperatively due to inability to ambulate as he cannot use a walker because of his carpal tunnel operative site is resting on the walker which increases risk of wound dehiscence. Objective Vital Signs and I&Os Vital Signs Date Time Temp Pulse Resp B/P B/P Pulse O2 O2 Flow FiO2 Mean Ox Delivery Rate 02/26 613 98.3 63 22 130/60 90 Room Air 02/26 2120 97.5 59 24 132/68 94 Room Air Intake & Output 02/26 0802/26 0000 02/25 0000 Intake Total 720 120 Output Total 400 750 100 Balance -400 -30 20 Intake, IV 600 Intake, Oral 120 120 Output, Urine 400 750 100 Patient 285 lb Weight Weight Reported by Patient Measurement Method Physical Exam: Well-developed well-nourished elderly male alert and oriented 3 no complaints Left upper extremity, dressing clean dry and intact, splint applied to the volar wrist, neurovascularly intact, minimal swelling. No respiratory distress Results Last 48 Hours of Labs: Laboratory Tests 02/26 2220 Chemistry Sodium (137 - 145 mmol/L) 137 Potassium (3.5 - 5.1 mmol/L) 4.2 Chloride (98 - 107 mmol/L) 95 L Carbon Dioxide (22 - 30 mmol/L) 30 Anion Gap (5 - 16) 13 BUN (9 - 20 mg/dL) 34 H Creatinine (0.7 - 1.2 mg/dL) 1.1 Estimated GFR (>60 ml/min) > 60 BUN/Creatinine Ratio (7 - 25 %) 30.9 H Hematology CBC w Diff NO MAN DIFF REQ WBC (4.8 - 10.8 /CUMM) 10.2 RBC (4.70 - 6.10 /CUMM) 4.84 Hgb (14.0 - 18.0 G/DL) 11.8 L Hct (42 - 52 %) 37.6 L MCV (80.0 - 94.0 FL) 77.7 L MCH (27.0 - 31.0 PG) 24.4 L RDW (11.5 - 14.5 %) 19.9 H Plt Count (130 - 400 /CUMM) 204 MPV (7.4 - 10.4 FL) 8.9 Gran % (42.2 - 75.2 %) 79.3 H Lymphocytes % (20.5 - 51.1 %) 11.7 L Monocytes % (1.7 - 9.3 %) 6.9 Eosinophils % (0 - 5 %) 1.5 Basophils % (0.0 - 2.0 %) 0.6 Absolute Granulocytes (1.4 - 6.5 /CUMM) 8.1 H Absolute Lymphocytes (1.2 - 3.4 /CUMM) 1.2 Absolute Monocytes (0.10 - 0.60 /CUMM) 0.7 H Absolute Eosinophils (0.0 - 0.7 /CUMM) 0.2 Absolute Basophils (0.0 - 0.2 /CUMM) 0.1 PUBS MCHC (33.0 - 37.0 G/DL) 31.4 L Assessment/Plan Assessment/Plan 81-year-old male postop day 1 status post left carpal tunnel release. Patient was admitted due to inability to ambulate secondary to chronic gait instability, bilateral knee arthritis, need for walker and inability to use the walker immediately postop. possible splint by OT today, molded to walker so pt may WB on the walker and clear PT to be discharged home with services as he does not want to go to rehab Pain medication as needed, currently patient is comfortable Core Measures/Miscellaneous Venous Thromboembolism VTE Risk Factors: Age > 40, Surgery VTE Contraindications: No Contraindications VTE Diagnosis: No VTE Type: NONE VTE Confirmed by (Test): NONE Beta Cesar Is Beta Cesar a Home Med? Yes If Yes, Was This Ordered Today? Yes Antibiotics Is Patient on Antibiotics? No
[2017-02-26 14:15] VITALS: BP 142/80
[2017-02-26 21:52] VITALS: BP 120/78
[2017-02-27 07:20] VITALS: BP 140/60
--- NOTE | 2017-02-27 07:49 | PN- Orthopedic ---
See Addendum Subjective Subjective: No complaints, patient continues to express that he does not wish to go to shelter facility. No acute events overnight Objective Vital Signs and I&Os Vital Signs Date Time Temp Pulse Resp B/P B/P Pulse O2 O2 Flow FiO2 Mean Ox Delivery Rate 02/27 0720 98.4 62 22 140/60 93 Room Air 02/26 2217 64 120/78 02/26 2152 98.4 64 20 120/78 92 02/26 1453 Room Air 02/26 1415 98.1 63 20 142/80 92 Room Air Intake & Output 02/27 0802/27 0000 02/26 1600 02/26 0800 02/26 0000 02/25 1600 Intake Total 1125 720 120 Output Total 300 450 900 750 100 Balance -300 -450 225 -30 20 Intake, IV 225 600 Intake, Oral 900 120 120 Output, Urine 300 450 900 750 100 Patient 285 lb Weight Weight Reported by Patient Measurement Method Physical Exam: Well-developed well-nourished elderly male Alert and oriented 3, no distress No respiratory distress Left upper extremity, dressing clean dry and intact, volar splint in place, neurovascularly intact, mild swelling of the fingers, range of motion is near full, slightly limited secondary to swelling and splint. Assessment/Plan Assessment/Plan Postoperative day 2 status post left carpal tunnel release, admitted because he cannot ambulate and is a fall risk as he cannot use his walker. Follow-up with occupational therapy today with splint, hopefully this can improve his ability to use the walker enough that he very discharged home with VNA services. Core Measures/Miscellaneous Venous Thromboembolism VTE Risk Factors: Age > 40, Surgery VTE Contraindications: No Contraindications VTE Diagnosis: No VTE Type: NONE VTE Confirmed by (Test): NONE Beta Cesar Is Beta Cesar a Home Med? Yes If Yes, Was This Ordered Today? Yes Antibiotics Is Patient on Antibiotics? No
[2017-02-27 15:17] VITALS: BP 110/71
--- NOTE | 2017-02-27 16:27 | Patient Discharge Instructions ---
Discharge Instructions General Discharge Information You were seen/treated for: carpal tunnel syndrome You had these procedures: carpal tunnel release Watch for these problems: increased wound drainage/redness, worsening numbness/tingling to left hand No bath, but you may shower: Yes Other wound care: keep wound clean and dry Special Instructions: Follow up with your primary care provider after discharge. Follow up with your orthopedic surgeon as needed for your post operative care. Follow up with your neurolgist after discharge. Diet Continue normal diet: Yes Recommended Diet: Regular Activity Activity Limited to: Weight bear as tolerated Other activity limits: wear hand splint to left hand when ambulating with walker Acute Coronary Syndrome Inclusion Criteria At DC or during hospital stay patient has or had the following: ACS DIAGNOSIS No Discharge Core Measures Meds if any: Prescribed or Continued at Discharge Meds if any: NOT Prescribed or Continued at Discharge Congestive Heart Failure Inclusion Criteria At DC or during hospital stay patient has or had the following: CHF DIAGNOSIS No Discharge Core Measures Meds if any: Prescribed or Continued at Discharge Meds if any: NOT Prescribed or Continued at Discharge Cerebrovascular accident Inclusion Criteria At DC or during hospital stay patient has or had the following: CVA/TIA Diagnosis No Discharge Core Measures Meds if any: Prescribed or Continued at Discharge Meds if any: NOT Prescribed or Continued at Discharge Venous thromboembolism Inclusion Criteria VTE Diagnosis No VTE Type NONE VTE Confirmed by (Test) NONE Discharge Core Measures - Per Current guidelines, there needs to be overlap - treatment for the first 5 days of Warfarin therapy. - If discharged on Warfarin prior to 5 days of - overlap therapy, the patient will need to be - assessed for post discharge needs including - *Post discharge parental anticoagulation - *Warfarin and/or parental anticoagulation education - *Follow up date to check INR post discharge At least 5 days overlap therapy as Inpatient No Meds if any: Prescribed or Continued at Discharge Note: Overlap Therapy is Warfarin and Anticoagulant Meds if any: NOT Prescribed or Continued at Discharge
--- NOTE | 2017-02-27 17:00 | NUR ---
NURSING NOTE: PATIENT'S WAS TRYING TO MANIPULATE PATIENT'S TESTICLES TO USE THE URINAL AND PATIENT SUSTAINED SMALL ABBRATION TO RIGHT SCROTUM. AREA CLEANED WITH SOAP AND WATER. SMALL AMT OF BLOOD NOTED. BLEEDING STOPPED AFTER 2 MINUTES. REPORT TO NIGHT NURSE TO MONITOR FOR BLEEDING.
--- NOTE | 2017-02-27 17:30 | Discharge Summary ---
Visit Information Visit Dates Admission Date: 02/25/17 Discharge Date: 02/28/17 Hospital Course Course Attending Physician: JULIUS MAE MD Primary Care Physician: WAYLON BILLS MD Hospital Course: Mr. Lin is an 81-year-old male with a past medical history of peripheral vascular disease, diabetes mellitus, severe degenerative arthritis bilateral knees, and walker dependent for ambulation was taken to the operating room by Dr. Gil on 02/25/2017 for left carpal tunnel release for carpal tunnel syndrome. This surgery was scheduled to be an outpatient procedure however upon transferring the patient to a wheelchair for discharge it was discovered that his inability to use his left hand after surgery required him to be a maximum assist of 4 persons. For this reason he was admitted to the hospital overnight for PT evaluation in the a.m. for possible rehabilitation placement. Postop day 1,2 and 3 the patient did get out of bed with physical therapy however continue to remain a minimum of a 2 person assist with ambulation and transfers. Also drinks hospital stay occupational therapy fashioned a volar splint for his left wrist so that he may be able to securely operate the rolling walker and not compromise his surgical incision. He was somewhat successful with this with physical therapy however still requires rehabilitation placement to return to baseline ambulation. Allergies: Coded Allergies: piperacillin (Mild, RASH 12/15/15) tazobactam (Mild, RASH 12/15/15) morphine (Intermediate, HALLUCINATIONS 12/15/15) heparin (SOMETHING WITH HIS PLATELETS 12/15/15) Significant Procedures: Left carpal tunnel release Disposition Summary Disposition Principal Diagnosis: Left wrist carpal tunnel syndrome Additional Diagnosis: Unsteady gait Discharge Disposition: SNF Discharge Instructions General Discharge Information Code Status: Full Code Patient's Diet: Diabetic diet Patient's Activity: May be weightbearing as tolerated bilateral lower extremities, however when ambulating he should ambulate with a rolling walker and left wrist splint for wrist protection Follow-Up Instructions/Appts: The bed was rolling walker and left wrist splint Dressing change left wrist daily please call Dr. Mae evaluate orthopedics for any wound changes Orthopedic follow-up will be with Dr. Mae Medications at Discharge Discharge Medications: Continue taking these medications: Simvastatin (Zocor 40MG Tab) 40 MG TAB 1 Tablet ORAL Every night Qty = 90 Comments: Last Taken:11/24/15 Time:5 PM Valsartan (Diovan) 80 MG TABLET 1 Tablet ORAL DAILY Comments: Last Taken: 10/12/16 Time: 10 AM Potassium Chloride (Klor-Con M10) [address] Packet ORAL DAILY Qty = 90 Comments: Last Taken:08/22/15 Time:1020 AM Apixaban (Eliquis) 5 MG TAB 1 Tablet ORAL TWICE DAILY Qty = 60 Comments: Last Taken:08/22/15 Time:1020 AM Aspirin (Ecotrin) 81 MG ECT 1 Tablet ORAL DAILY Comments: Last Taken:08/22/15 Time:1020 AM Cholecalciferol (D-3) 1,000 IU CAP 1 Tablet ORAL DAILY Comments: NOT GIVEN IN HOSPITAL Ascorbic Acid/Copper/Vitamin (Preservision Areds) 1 SGL SGL 1 SGL ORAL TWICE DAILY Comments: NOT GIVEN IN HOSPITAL Insulin NPL/Insulin Lispro (Humalog Mix 75-25 Vial) 100 UNIT/ML (75-25) VIAL 45 Units Inject into fatty tissue DAILY @8AM Days = 30 Comments: Last Taken: 10/12/16 Time: 11:30 AM NOVOLOG & LEVEMIR GIVEN Isosorbide Mononitrate (Isosorbide Mononitrate ER) 60 MG TAB.ER.24H 0.5 Tablet ORAL DAILY Qty = 90 Comments: Last Taken: 10/12/16 Time: 10 AM Albuterol Sulfate (Proair Hfa) 90 MCG HFA.AER.AD 2 PUFF ORAL TWICE DAILY Qty = 9 Comments: NOT GIVEN IN HOSPITAL Bumetanide (Bumetanide) 2 MG TABLET 1 Tablet ORAL TWICE DAILY Qty = 60 Metoprolol Tartrate (Lopressor) 50 MG TABLET 1 Tablet ORAL TWICE DAILY Vit C/E/Zn/Coppr/Lutein/Zeaxan (Preservision Areds 2 Softgel) 250-200-40 CAPSULE TWICE DAILY Copies To: BERNADETTE GRIFFIN,JULIUS Hodgson
--- NOTE | 2017-02-27 23:25 | NUR ---
nurse note: PT SAT 80% ON ROOM AIR. PT IS MOUTH BREATHING, ENCOURAGED DEEP BREATHS IN AND OUT. SURGICAL PA AWARE, PUT PT ON 4LNC AND NOW O2 SAT IS 95%. WILL CONTINUE TO MONITOR.
[2017-02-27 23:51] VITALS: BP 138/70
[2017-02-28] VITALS (9 sets, daily range): BP systolic 130–140; BP diastolic 60–72
--- NOTE | 2017-02-28 08:46 | PN- Orthopedic ---
See Addendum Subjective Subjective: Awake, alert No complaints overnight Denies any pain Continues to work with PT - STR is recommended due to extreme weakness and inability to get around Objective Vital Signs and I&Os Vital Signs Date Time Temp Pulse Resp B/P B/P Pulse O2 O2 Flow FiO2 Mean Ox Delivery Rate 02/28 0648 99.6 67 20 130/62 94 Nasal 4.0L Cannula 02/28 0000 Nasal 4.0L Cannula 02/27 2351 99.7 65 20 138/70 95 Nasal 4.0L Cannula 02/27 2308 64 138/70 02/27 1517 98.1 62 20 110/71 Room Air 02/27 0922 62 140/60 02/27 0922 62 140/60 02/27 0922 62 140/60 Intake & Output 02/28 1600 02/28 0800 02/28 0000 02/27 1600 02/27 0800 02/27 0000 Intake Total 240 480 400 10 Output Total 550 525 600 300 450 Balance -550 240 -45 -200 -290 -450 Intake, IV 10 Intake, Oral 240 480 400 Number 0 Bowel Movements Output, Urine 550 525 600 300 450 Physical Exam: General: alert and oriented times three Chest: clear anteriorly bilaterally Ext: LUE dressed in ELENA, dressing dry, positive sensate to fingers and good ROM, 1+ edema to fingers of LUE, BLE no edema, positive sensate, no calf tenderness Assessment/Plan Assessment/Plan 81yo male s/p left carpal tunnel release admitted post op for decompensated neuropathy and inability to mobilize STR when available continue PT, pain management Core Measures/Miscellaneous Venous Thromboembolism VTE Risk Factors: Age > 40, Surgery VTE Contraindications: No Contraindications VTE Diagnosis: No VTE Type: NONE VTE Confirmed by (Test): NONE Beta Cesar Is Beta Cesar a Home Med? Yes If Yes, Was This Ordered Today? Yes Antibiotics Is Patient on Antibiotics? No
--- NOTE | 2017-02-28 12:22 | Cons- Medical ---
General Information and HPI Consulting Request Date of Consult: 02/28/17 Requested By: JULIUS FLEMING MD Reason for Consult: CONFUSION History of Present Illness: Brad is 81 year old male with a history of type 2 diabetes mellitus, dyslipidemia, PVD, carotid artery disease and coronary artery disease s/p non-ST elevation TN. He also has a history of PAF treated with Apixaban. The patient is s/p angioplasty to his LAD performed in 1997. Lastly this patient is status post a permanent pacemaker for heart block. At present, he came in for elective left carpal tunnel release 02/25/17. He was admitted for observation due to inability of patient to safely mobilize after L CTR such that he could not be discharged home as originally hoped and planned. He required general anesthesia for surgery and although his CTR was brief and uncomplicated he has been unable to elevate independently from a chair postoperatively which appears to be mostly due to worsened weakness in the lower extremities (likely slow motor recovery from general anesthesia due to his severe preexisting neuropathy and severe motor weakness which already had him at a borderline functional level preoperatively), He was trialed several times and with platform walker addition to his preop walker but was unable to elevate and ambulate due to leg weakness, balance disorder and despite a well padded volar splint specifically applied so that the patient could use his left upper extremity to assist with elevation. Plan of care was to discharge the patient to acute rehabilitation facility where he could obtain more aggressive physical therapy with goals to regain his strength. This morning his noticed that the patient was more confused than usual when she called early in the morning. Presently, he seems more awake alert oriented. He is oriented to self place, time of day but not the year. He drinks one beer a day consistently, however depending on his fluid intake he may or may not have the drink and occasionally skips due to underlying CHF. His is his rehab tech and appears to be well informed. His last drink was Thursday, he's never had any withdrawal symptoms no seizures, denies being on any pain medication sleep aids relaxants, depressants. He does admit to a cough was productive. He denies any fevers chills chest pain dyspnea nausea vomiting diarrhea dysuria or any other symptoms after review in detail. Allergies/Medications Allergies: Coded Allergies: piperacillin (Mild, RASH 12/15/15) tazobactam (Mild, RASH 12/15/15) morphine (Intermediate, HALLUCINATIONS 12/15/15) heparin (SOMETHING WITH HIS PLATELETS 12/15/15) Home Med List: Albuterol Sulfate (Proair Hfa) 90 MCG HFA.AER.AD 2 PUFF PO BID BREATHING PROBLEMS (Reported) Apixaban (Eliquis) 5 MG TAB 1 TAB PO BID BLOOD THINNER Ascorbic Acid/Copper/Vitamin (Preservision Areds) 1 SGL SGL 1 SGL PO BID EYE HEALTH (Reported) Aspirin (Ecotrin) 81 MG ECT 1 TAB PO DAILY HEART HEALTH (Reported) Bumetanide 2 MG TABLET 1 TAB PO BID Fluid Retention Cholecalciferol (D-3) 1,000 IU CAP 1 TAB PO DAILY BONE HEALTH (Reported) Insulin NPL/Insulin Lispro (Humalog Mix 75-25 Vial) 100 UNIT/ML (75-25) VIAL 45 UNITS SC 8AM diabetes Isosorbide Mononitrate (Isosorbide Mononitrate ER) 60 MG TAB.ER.24H 0.5 TAB PO DAILY CAD (Reported) Metoprolol Tartrate (Lopressor) 50 MG TABLET 1 TAB PO BID CAD (Reported) Potassium Chloride (Klor-Con M10) [address] PAC PO DAILY SUPPLEMENT ( Reported) Simvastatin (Zocor 40MG Tab) 40 MG TAB 1 TAB PO QPM CHOL (Reported) Valsartan (Diovan) 80 MG TABLET 1 TAB PO DAILY HTN (Reported) Vit C/E/Zn/Coppr/Lutein/Zeaxan (Preservision Areds 2 Softgel) 250-200-40 CAPSULE MACULAR DEGENERATION (Reported) Review of Systems Review of Systems Constitutional: Denies: see HPI. Past History Medical History Blood Transfusion Hx: Yes Neurological: peripheral neuropathy EENT: CATARACT diabetic retinopathy Cardiovascular: AFIB (paroxysmal), CHF, hyperlipidemia, syncope, STENT, PACER AFIB ,CHOL, HTN STENTS LCW PM permanent pacemaker for heart block peripheral vascular diseaase peripheral vascular disease s/p angioplasty Respiratory: LYNDSEY Gastrointestinal: diverticulitis Hepatic: NONE Renal: benign prost hyperplasia Musculoskeletal: sciatica, L KNEE REPLACEMENT OSTEOMYELITIS osteomyelitis Psychiatric: NONE Endocrine: IDDM with diabetic neuropathy diabetic retinopathy Blood Disorders: NONE Cancer(s): NONE RN BABY/Reproductive: NONE Other Medical Hx: osteomyelitis Surgical History Surgical History: left knee replacement Psychosocial History Who Do You Live With? spouse Services at Home: None Primary Language: Citizen Of [place] Smoking Status: Former Smoker Functional Ability ADLs Independent: dressing, eating, toileting, bathing. Ambulation: walker Exam & Diagnostic Data Last 24 Hrs of Vital Signs/I&O Vital Signs Date Time Temp Pulse Resp B/P B/P Pulse O2 O2 Flow FiO2 Mean Ox Delivery Rate 02/28 1200 98.3 63 20 132/60 / 1027 99.6 67 20 130/62 / 1027 67 130/62 / 1027 99.6 67 20 130/62 / 0800 94 Nasal 4.0L Cannula 02/28 0648 99.6 67 20 130/62 94 Nasal 4.0L Cannula 02/28 0000 Nasal 4.0L Cannula 02/27 2351 99.7 65 20 138/70 95 Nasal 4.0L Cannula 02/27 2308 64 138/70 02/27 1517 98.1 62 20 110/71 Room Air Intake & Output 02/28 1600 02/28 0800 06 0000 Intake Total 240 480 Output Total 550 525 Balance -550 240 -45 Intake, Oral 240 480 Output, Urine 550 525 Physical Exam General Appearance: well developed/nourished, alert, awake, comfortable Head: atraumatic Eyes: Bilateral: normal appearance, PERRL. Ears, Nose, Throat: normal pharynx Neck: normal inspection, supple Respiratory: normal breath sounds Cardiovascular: regular rate/rhythm Gastrointestinal: normal bowel sounds Back: normal inspection Extremities: pedal edema Neurologic/Psych: no motor/sensory deficits Cranial Nerves: normal hearing, normal speech Skin: intact, normal color, warm/dry Lymphatic: no anterior cervical carlos Last 24 Hrs of Labs/Chu: Laboratory Tests 03/04/17 1028: pH 7.36, pCO2 55 H, pO2 75 L, HCO3 31 H, ABG O2 Sat (Measured) 95.0 L, P-50 (Temp Corrected) NO, Carboxyhemoglobin 0.9 L, O2 Concentration % 3.5L, Temperature 98.4, O2 Delivery Method NC, Phlebotomy Draw Site RIGHT RADIAL 03/04/17 0605: CBC w Diff NO MAN DIFF REQ, RBC 4.20 L, MCV 78.9 L, MCH 24.8 L, RDW 19.5 H, MPV 9.5, Gran % 85.8 H, Lymphocytes % 4.5 L, Monocytes % 8.7, Eosinophils % 0.8, Basophils % 0.2, Absolute Granulocytes 13.4 H, Absolute Lymphocytes 0.7 L , Absolute Monocytes 1.4 H, Absolute Eosinophils 0.1, Absolute Basophils 0, PUBS MCHC 31.4 L Microbiology 03/03 1738 URINE ROUT: Legionella Antigen - COMP Assessment/Plan Assessment/Plan Brad is 81 year old male with a history of type 2 diabetes mellitus, dyslipidemia, PVD, carotid artery disease and coronary artery disease s/p non-ST elevation TN. He also has a history of PAF treated with Apixaban. Hx of BPH, LYNDSEY. The patient is s/p angioplasty to his LAD performed in 1997. S/p left carparal tunnel release. Now POD#4, who presents with sudden onset confusion likely due to delirum. No new blood work is present in the chart. Upon review of CBC, BMP from 02/25 it appears unremarkable. He does have a mild anemia with low MCV. Suspect post-op drug-induced delirium. Certainly being in the hospital does not help, he also may have mild underlying dementia. We should however rule out infectious causes. Other then general anesthesia, no new medications have been started. He does not appear to be withdrawing from etoh, it has been more than 72 hours since his last drink. Problems: Delirium Post-op deconditioning Paroxysmal atrial fibrillation Congestive heart failure CAD PVD Type 2 diabetes Heart block with PPM - Recommendations - Check CBC, CMP, UA, Sputum cx. Consider CXR and empiric abx if pending above or if spikes fever. Avoid sedatives, opioids, muscle relaxants - may worsen acute delirium Continue PT, Spirometry, encourage OOB to chair Dispo to STR Consult Acknowledgment - Thank you for your consult request.
--- NOTE | 2017-02-28 15:00 | NUR ---
PATIENT SPIKED A TEMP OF 101 WHICH WAS CHECKED ORALLY. TEMP WAS RECHECKED RECTALLY AND PATIENT WAS FEBRILE AT 103.2. JORDON HUTTON AWARE. BLOOD CULTURES ORDERED AND COMPLETED. CXR PORTABLE ORDERED AND DONE. UA AND SPUTUM CULTURE ORDER. PATIENT HAS NO COUGH AT THIS TIME. PATIENT LAST VOIDED AND WAS INCONTINENT. PATIENT IS AWARE WHEN HE HAS TO VOID AND WILL CALL FOR ASSISTANCE. ON COMING NURSE IS AWARE OF SPUTUM AND URINE SAMPLE. IS AT BEDSIDE. WILL FOLLOW PLAN OF CARE.
--- NOTE | 2017-02-28 15:50 | RADIOLOGY REPORT ---
EXAMINATION: XR PORTABLE CHEST CLINICAL INFORMATION: Pneumonia, postop fever COMPARISON: 10/06/2016 chest x-ray TECHNIQUE: Portable upright AP view of the chest was obtained. FINDINGS: Stable mild cardiomegaly. The mediastinal silhouette is unremarkable. Atherosclerotic calcifications of aortic arch noted. A left subclavian dual-lead cardiac pacer in place, with leads projecting over the right atrium and right ventricle, unchanged in position. Mild pulmonary venous congestion noted. There are pulmonary opacities in the retrocardiac lung, right infrahilar and left lower lobe with obscuration of the left diaphragmatic border. Blunting of bilateral costophrenic angles and represent some degree of pleural effusions. No pneumothorax. IMPRESSION: Bilateral pulmonary opacities can represent pneumonia. Small bilateral pleural effusions. Mild pulmonary venous congestion.
[2017-02-28 16:58] LABS: BASOPHIL % 0.1 % (0.0-2.0); EOSINOPHIL % 0.4 % (0-5); GRANULOCYTE % 88.4 % (42.2-75.2); MEAN CORPUSCULAR HGB 24.8 PG (27.0-31.0); MEAN CORPUSCULAR HGB CONC 31.8 G/DL (33.0-37.0); PLATELET COUNT 147 /CUMM (130-400); RBC DISTRIBUTION WIDTH 19.7 % (11.5-14.5); RED BLOOD CELL CT 4.16 /CUMM (4.70-6.10)
[2017-02-28 17:00] LABS: HEMATOCRIT 32.4 % (42-52); WHITE BLOOD CELL COUNT 18.4 /CUMM (4.8-10.8)
--- NOTE | 2017-02-28 18:04 | PN- Att Addend ---
Attending MD Review Statement Attending Statement Attending MD Statement: examined this patient, discuss w/resident/PA/[employer], agreed w/resident/PA/[employer], discussed with family, reviewed EMR data (avail), discussed w/ nursing Attending Assessment/Plan: Laboratory Tests 02/28/17 1610: Urine Color YEL, Urine Clarity CLEAR, Urine pH 6.0, Ur Specific [place] 1.020, Urine Protein 30 H, Urine Ketones NEG, Urine Nitrite NEG, Urine Bilirubin NEG, Urine Urobilinogen 0.2, Ur Leukocyte Esterase NEG, Ur Microscopic SEDIMENT EXAMINED, Urine RBC 10-15 H, Ur Epithelial Cells RARE, Hyaline Casts 5-10 H, Urine Hemoglobin MOD H, Urine Glucose NEG 02/28/17 1300: Lactic Acid 1.4 02/28/17 1300: Anion Gap 9, Estimated GFR 49 L, BUN/Creatinine Ratio 30.0 H, CBC w Diff NO MAN DIFF REQ, RBC 4.16 L, MCV 78.0 L, MCH 24.8 L, RDW 19.7 H, MPV 10.0, Gran % 88.4 H, Eosinophils % 0.4, Basophils % 0.1, PUBS MCHC 31.8 L Vital Signs Date Time Temp Pulse Resp B/P B/P Pulse O2 O2 Flow FiO2 Mean Ox Delivery Rate 02/28 1554 101.3 / 1459 101.3 61 20 138/72 92 Nasal 4.0L Cannula 02/28 1451 103.2 02/28 1200 98.3 63 20 132/60 06/ 1027 99.6 67 20 130/62 06/03 1027 67 130/62 /03 1027 99.6 67 20 130/62 /03 0800 94 Nasal 4.0L Cannula 02/28 0648 99.6 67 20 130/62 94 Nasal 4.0L Cannula 02/28 0000 Nasal 4.0L Cannula 02/27 2351 99.7 65 20 138/70 95 Nasal 4.0L Cannula 02/27 2308 64 138/70 Patient seen and examined at bedside. Discussed with patient's at bedside the care plan. Medicine was consulted by Dr. Llanos for confusion in patient. Patient had surgery done on February 25 for carpal tunnel release and was admitted. Secondary to weakness and inability to walk. Patient does have extensive medical history of diabetes, coronary artery disease, paroxysmal atrial fibrillation on Eliquis, BPH, obstructive sleep apnea and carotid artery disease. Patient this afternoon was also found to have fever of 101.3 oral. His CBC done shows a white count of 18,000 and his chest x-ray showing opacities suggestive of pneumonia. For now we will treat him as hospital acquired pneumonia and will start him on vancomycin and ceftazidime. Acute kidney injury-we will hold his diuretics and give him gentle hydration and repeat his creatinine level tomorrow. We will also follow-up on his blood cultures.
[2017-03-01] VITALS (9 sets, daily range): BP systolic 130–160; BP diastolic 60–68
--- NOTE | 2017-03-01 00:14 | NUR ---
ALERT TO PERSON AND PLACE. ON 3.5L O2 VIA NC. SHORTNESS OF BREATH NOTED VITAL SIGNS STABLE. DENIES CHEST PAIN. + PULSES. DENIES NUMBNESS/TINGLING WEAK UPPER AND LOWER EXTREMITIES. DENIES PAIN. WILL CONTINUE TO MONITOR
--- NOTE | 2017-03-01 08:13 | PN- Orthopedic ---
Subjective Subjective: Patient sleepy but arousable, still confused, no complaints of pain Objective Vital Signs and I&Os Vital Signs Date Time Temp Pulse Resp B/P B/P Pulse O2 O2 Flow FiO2 Mean Ox Delivery Rate 03/01 0756 98.2 61 20 146/64 94 Nasal 3.5L Cannula / 0000 97.8 62 20 140/60 06/ 0000 95 Nasal 3.5L Cannula 02/28 2200 98.7 62 20 140/60 / 2120 98.7 62 20 140/60 95 Nasal 3.5L Cannula 02/28 2112 62 140/60 02/28 2000 99.0 62 20 140/70 / 1900 99.0 62 20 140/70 92 Nasal 3.0L Cannula 02/28 1800 100.1 02/28 1800 100.1 61 20 138/72 02/28 1653 100.1 02/28 1600 Nasal 4.0L Cannula 02/28 1600 101.3 61 20 138/72 / 1554 101.3 02/28 1459 101.3 61 20 138/72 92 Nasal 4.0L Cannula 02/28 1451 103.2 02/28 1200 98.3 63 20 132/60 /03 1027 99.6 67 20 130/62 /03 1027 67 130/62 /03 1027 99.6 67 20 130/62 Intake & Output 03/01 1600 03/01 0800 /04 0000 02/28 1600 02/28 0800 02/28 0000 Intake Total 960 100 480 240 480 Output Total 440 300 625 525 Balance 520 -200 -145 240 -45 Intake, IV 720 Intake, Oral 240 100 480 240 480 Number 0 Bowel Movements Output, Urine 440 300 625 525 Physical Exam: Elderly male, sleepy but arousable, confused No respiratory distress Left upper extremity, dressing is clean dry and intact, volar splint is in place Mild swelling of the fingers as expected, range of motion mildly limited. Results Last 48 Hours of Labs: Laboratory Tests 03/01 02/28 02/28 0615 1610 1300 Chemistry Sodium Pending Potassium Pending Chloride Pending Carbon Dioxide Pending Anion Gap Pending BUN Pending Creatinine Pending BUN/Creatinine Ratio Pending Lactic Acid (0.7 - 2.1 mmol/L) 1.4 Hematology CBC w Diff Pending WBC Pending RBC Pending Hgb Pending Hct Pending MCV Pending MCH Pending RDW Pending Plt Count Pending MPV Pending PUBS MCHC Pending Urines Urine Color (YEL,AMB,STR) YEL Urine Clarity (CLEAR) CLEAR Urine pH (5.0 - 8.0) 6.0 Ur Specific [place] (1.001 - 1.035) 1.020 Urine Protein (NEG,<30 MG/DL) 30 H Urine Ketones (NEG) NEG Urine Nitrite (NEG) NEG Urine Bilirubin (NEG) NEG Urine Urobilinogen (0.1 - 1.0 EU/dl) 0.2 Ur Leukocyte Esterase (NEG) NEG Ur Microscopic SEDIMENT EXAMINED Urine RBC (0 - 5 /HPF) 10-15 H Ur Epithelial Cells (NONE,FEW) RARE Hyaline Casts (0/LPF) 5-10 H Urine Hemoglobin (NEG) MOD H Urine Glucose (N MG/DL) NEG / 1300 Chemistry Sodium (137 - 145 mmol/L) 135 L Potassium (3.5 - 5.1 mmol/L) 3.9 Chloride (98 - 107 mmol/L) 95 L Carbon Dioxide (22 - 30 mmol/L) 32 H Anion Gap (5 - 16) 9 BUN (9 - 20 mg/dL) 42 H Creatinine (0.7 - 1.2 mg/dL) 1.4 H Estimated GFR (>60 ml/min) 49 L BUN/Creatinine Ratio (7 - 25 %) 30.0 H Hematology CBC w Diff NO MAN DIFF REQ WBC (4.8 - 10.8 /CUMM) 18.4 H RBC (4.70 - 6.10 /CUMM) 4.16 L Hgb (14.0 - 18.0 G/DL) 10.3 L Hct (42 - 52 %) 32.4 L MCV (80.0 - 94.0 FL) 78.0 L MCH (27.0 - 31.0 PG) 24.8 L RDW (11.5 - 14.5 %) 19.7 H Plt Count (130 - 400 /CUMM) 147 MPV (7.4 - 10.4 FL) 10.0 Gran % (42.2 - 75.2 %) 88.4 H Eosinophils % (0 - 5 %) 0.4 Basophils % (0.0 - 2.0 %) 0.1 PUBS MCHC (33.0 - 37.0 G/DL) 31.8 L Assessment/Plan Assessment/Plan Postoperative day #4 status post left carpal tunnel release, admitted for deconditioning, inability to ambulate and need for short-term rehabilitation placement who subsequently developed bilateral pneumonia, spiking fevers yesterday, acute delirium, mild KEISHA Appreciate medical consult yesterday, patient on antibiotics for pneumonia. There is no further treatment for patient's carpal tunnel until his sutures come out around 12-14 days postoperatively. Likely transfer to the medical service, will SRINIVASAN De Leon. SRINIVASAN Izquierdo Core Measures/Miscellaneous Venous Thromboembolism VTE Risk Factors: Age > 40, Surgery VTE Contraindications: No Contraindications VTE Diagnosis: No VTE Type: NONE VTE Confirmed by (Test): NONE Beta Cesar Is Beta Cesar a Home Med? Yes If Yes, Was This Ordered Today? Yes Antibiotics Is Patient on Antibiotics? No
[2017-03-01 08:30] LABS: ABSOLUTE BASOPHIL COUNT 0 /CUMM (0.0-0.2); ABSOLUTE EOSINOPHIL COUNT 0 /CUMM (0.0-0.7); ABSOLUTE GRANULOCYTE CT 18.4 /CUMM (1.4-6.5); ABSOLUTE LYMPH COUNT 0.6 /CUMM (1.2-3.4); ABSOLUTE MONOCYTE COUNT 1.8 /CUMM (0.10-0.60); BASOPHIL % 0 % (0.0-2.0); EOSINOPHIL % 0.1 % (0-5); HEMATOCRIT 35.1 % (42-52); MEAN CORPUSCULAR HGB 24.9 PG (27.0-31.0); MEAN CORPUSCULAR HGB CONC 31.9 G/DL (33.0-37.0); MEAN CORPUSCULAR VOLUME 78.1 FL (80.0-94.0); MEAN PLATELET VOLUME 10.5 FL (7.4-10.4); PLATELET COUNT 154 /CUMM (130-400); RBC DISTRIBUTION WIDTH 19.7 % (11.5-14.5); RED BLOOD CELL CT 4.49 /CUMM (4.70-6.10); WHITE BLOOD CELL COUNT 20.8 /CUMM (4.8-10.8)
[2017-03-01 09:36] LABS: GRANULOCYTE % 88.3 % (42.2-75.2)
--- NOTE | 2017-03-01 14:39 | NUR ---
NURSING SHIFT NOTE: PT REMAINS AWAKE, DROUSY AT TIMES, AGITATED AT TIMES, ORIENTED X3, AT BEDSIDE, BED ALARM IN PLACE, O2 3.5L NC IN USE, IVF PER MD ORDER, PT VOIDING IN URINAL. ELENA WRAP TO L WRIST; +CAP REFILL, UNABLE TO ASSESS RADIAL PULSE BECAUSE OF DSG. SKIN INTACT. MARKIE DIET. DENIES PAIN. NEEDS IN REACH, SAFTEY MAINTAINED, WILL GIVE REPORT TO NEXT SHIFT RN.
--- NOTE | 2017-03-01 15:39 | PN- Att Addend ---
Attending Addendum Attending Brief Note Laboratory Tests 03/01/17 0615: Anion Gap 12, Estimated GFR 53 L, BUN/Creatinine Ratio 35.4 H, CBC w Diff NO MAN DIFF REQ, RBC 4.49 L, MCV 78.1 L, MCH 24.9 L, RDW 19.7 H, MPV 10.5 H, Gran % 88.3 H, Lymphocytes % 3.0 L, Monocytes % 8.6, Eosinophils % 0.1, Basophils % 0 L, Absolute Granulocytes 18.4 H, Absolute Lymphocytes 0.6 L, Absolute Monocytes 1.8 H, Absolute Eosinophils 0, Absolute Basophils 0, PUBS MCHC 31.9 L 02/28/17 1610: Urine Color YEL, Urine Clarity CLEAR, Urine pH 6.0, Ur Specific [place] 1.020, Urine Protein 30 H, Urine Ketones NEG, Urine Nitrite NEG, Urine Bilirubin NEG, Urine Urobilinogen 0.2, Ur Leukocyte Esterase NEG, Ur Microscopic SEDIMENT EXAMINED, Urine RBC 10-15 H, Ur Epithelial Cells RARE, Hyaline Casts 5-10 H, Urine Hemoglobin MOD H, Urine Glucose NEG Vital Signs Date Time Temp Pulse Resp B/P B/P Pulse O2 O2 Flow FiO2 Mean Ox Delivery Rate 03/01 1446 97.6 60 20 130/68 95 Nasal 3.5L Cannula 03/01 1009 128/78 03/01 0800 94 Nasal 3.5L Cannula 03/01 0756 98.2 61 20 146/64 94 Nasal 3.5L Cannula 03/01 0000 97.8 62 20 140/60 /04 0000 95 Nasal 3.5L Cannula 02/28 2200 98.7 62 20 140/60 /03 2120 98.7 62 20 140/60 95 Nasal 3.5L Cannula 02/28 2112 62 140/60 / 2000 99.0 62 20 140/70 06/03 1900 99.0 62 20 140/70 92 Nasal 3.0L Cannula 02/28 1800 100.1 06/ 1800 100.1 61 20 138/72 06/03 1653 100.1 06 1600 Nasal 4.0L Cannula 02/28 1600 101.3 61 20 138/72 /03 1554 101.3 subjective- pt is less confused today and is alert and oriented and is staying afebrile. no complaints. Objective Alert and oriented HEENT - Normal. Chest - b/basilar minimal crackles Heart- no murmur appreciated ABdomen- soft non tender. Labs- as above A/P Patient seen and examined at bedside. Discussed with patient's at bedside the care plan. Medicine was consulted by Dr. Llnaos for confusion in patient. Patient had surgery done on February 25 for carpal tunnel release and was admitted. Secondary to weakness and inability to walk. Patient does have extensive medical history of diabetes, coronary artery disease, paroxysmal atrial fibrillation on Eliquis, BPH, obstructive sleep apnea and carotid artery disease. Hospital Acquired Pneumonia- With fever and leukocytosis yesterday. Wbc still high at 20.8. his chest x-ray showing opacities suggestive of pneumonia. For now we will treat him as hospital acquired pneumonia and cont him on vancomycin and ceftazidime. Acute kidney injury-we will hold his diuretics and give him gentle hydration and his repeat creatinine today is 1.3. Will f/u on labs tomorrow. Deconditioning- ordered PT/OT consult for tomorrow. DVT proph- cont on eliquis. DM- on novolog 70/30 , cont with that. BS not well controlled. Will get endocrine consult in am. Will increase the dose to 40 Units BID for now.
--- NOTE | 2017-03-01 20:59 | NUR ---
ALERT AND ORIENTED X 3. ON 3.5L VIA NC. EXERTIONAL SHORTNESS OF BREATH NOTED VITAL SIGNS STABLE. DENIES CHEST PAIN. + PULSES. DISCOLORATION TO BLE +1 EDEMA TO LUE. NO DISCOMFORT NOTED. WILL CONTINUE TO MONITOR
[2017-03-02 06:00] VITALS: BP 130/60
[2017-03-02 06:56] VITALS: BP 136/60
--- NOTE | 2017-03-02 08:06 | PN- Housestaff ---
Subjective Follow-up For: Hospital acquired pneumonia Acute kidney injury Deconditioning Status post carpal tunnel release Complaints: no complaints Subjective: Patient was seen and examined this morning. He is alert awake and oriented to time place and person. No acute events noticed overnight. Patient denies any difficulty breathing. However reports ongoing cough associated with sputum production which is clear. Denies any blood in the sputum. Denies any fever, chills. Denies any chest pain, racing of heart, nausea, vomiting, abdominal pain. He offers 2 out of 10 pain at the surgical site. Vitals stable. Saturating at 95 on 3.5 L. Review of Systems Constitutional: Denies: chills, diaphoresis, fever, malaise. Objective Last 24 Hrs of Vital Signs/I&O Vital Signs Date Time Temp Pulse Resp B/P B/P Pulse O2 O2 Flow FiO2 Mean Ox Delivery Rate 03/02 1404 97.9 59 18 126/58 95 Nasal 4.0L Cannula / 1018 60 136/60 06/05 1018 60 136/60 06/05 1018 60 136/60 06/05 0949 Nasal 3.5L Cannula / 0800 Nasal 3.5L Cannula / 0656 97.8 60 16 136/60 95 Nasal 3.5L Cannula 06/05 0600 97.8 60 16 130/60 06/05 0000 93 Nasal 3.5L Cannula 06/04 2233 60 152/62 06/04 2227 98.6 60 16 152/62 93 Nasal Cannula 06/04 2200 98.6 60 16 152/62 06/04 2000 97.8 60 20 160/60 06/04 1900 97.8 60 20 160/60 92 Nasal 3.5L Cannula 06/04 1800 97.6 60 20 130/68 06/04 1600 Nasal 3.5L Cannula 06/04 1600 97.6 60 20 130/68 06/04 1446 97.6 60 20 130/68 95 Nasal 3.5L Cannula Intake & Output 06/05 1600 06/05 0800 06/05 0000 Intake Total 1040 250 Output Total 400 350 700 Balance -400 690 -450 Intake, IV 800 Intake, Oral 240 250 Output, Urine 400 350 700 Patient 129.274 kg Weight Physical Exam General Appearance: Alert, Oriented X3, Cooperative, No Acute Distress Skin: No Rashes, No Breakdown, status post left hand carpal tunnel release HEENT: Atraumatic, PERRLA Neck: Supple, No JVD Lymphatic: Cervical nl Cardiovascular: Normal S1, Normal S2 Lungs: Normal Air Movement Abdomen: Normal Bowel Sounds, Soft, No Tenderness Extremities: No Clubbing, No Cyanosis, b/l pe Vascular: Pulses Symmetrical Current Medications: Current Medications Sig/Roge Start time Last Medication Dose Route Stop Time Status Admin Acetaminophen 650 MG Q4P PRN 02/28 1500 AC 02/28 PO 1554 Albuterol Sulfate 2 PUF BID 02/25 220 AC 03/02 INH 1019 Apixaban 5 MG BID 02/25 2200 AC 03/02 PO 1018 Aspirin 81 MG DAILY 02/26 1000 AC 03/02 PO 1018 Atorvastatin Calcium 20 MG 1700 02/26 1700 AC 03/01 PO 1733 Bisacodyl 10 MG ONCE PRN 02/28 1045 AC CO Ceftazidime 2,000 MG Q12 03/02 2200 AC IV Ceftazidime 2,000 MG Q12 02/28 2200 DC 03/02 Dextrose/Water 50 ML IV 1018 Docusate Sodium 100 MG BID 02/28 1045 AC 03/02 PO 1018 Insulin Aspart Prota 42 UNIT 0800 & 1700 03/02 1700 AC 70%/Aspart 30% SC Insulin Aspart Prota 40 UNIT 0800 & 1700 03/01 1700 DC 03/02 70%/Aspart 30% SC 1018 Insulin Human Isoph/ 40 UNITS 0800 / 0800 DC 03/01 Insulin Regular SC 1008 Isosorbide 30 MG DAILY 02/26 1000 AC 03/02 Mononitrate PO 1018 Losartan Potassium 25 MG DAILY 02/26 1000 AC 03/02 PO 1018 Metoprolol Tartrate 50 MG BID 02/25 2200 AC 03/02 PO 1018 Ondansetron HCl 4 MG Q8P PRN 02/25 2100 AC IV Patient Medication 1 ED .STK-MED ONE 03/02 1409 DC Teaching ED 03/02 1410 Potassium Chloride 20 MEQ DAILY 02/26 1000 AC 03/02 PO 1018 Sodium Chloride 1,000 ML Q13H 03/01 1645 DC 03/01 IV 03/02 0544 1733 Vancomycin HCl 1,500 MG DAILY@1800 02/28 1800 AC 03/01 Sodium Chloride 250 ML IV 1734 Last 24 Hrs of Lab/Chu Results Last 24 Hrs of Labs/Mics: Laboratory Tests 03/02/ 0610: Anion Gap 10, Estimated GFR 49 L, BUN/Creatinine Ratio 35.7 H, CBC w Diff NO MAN DIFF REQ, RBC 4.08 L, MCV 78.8 L, MCH 24.7 L, RDW 19.3 H, MPV 10.6 H, Gran % 88.2 H, Lymphocytes % 3.4 L, Monocytes % 8.2, Eosinophils % 0.2, Basophils % 0 L, Absolute Granulocytes 14.9 H, Absolute Lymphocytes 0.6 L, Absolute Monocytes 1.4 H, Absolute Eosinophils 0, Absolute Basophils 0, PUBS MCHC 31.4 L Assessment/Plan Assessment: Brad is 81 year old male with a history of stage III diastolic congestive heart failure, hypertension, type 2 diabetes mellitus, dyslipidemia, PVD, carotid artery disease and coronary artery disease s/p non-ST elevation [place]. He also has a history of PAF treated with Apixaban. The patient is s/p angioplasty to his LAD performed in 1997, status post a permanent pacemaker for heart block. At present, he came in for elective left carpal tunnel release 5/. He was admitted for observation due to inability of patient to safely mobilize after LEFT CTR. He required general anesthesia for surgery and although his CTR was brief and uncomplicated he has been unable to elevate independently from a chair postoperatively which appears to be mostly due to worsened weakness in the lower extremities. ON POD#4, Patient reported sudden onset confusion likely due to delirum. Vitals with stable WBC 18,000, hemoglobin 11.2, hematocrit 35, platelets 154 bun 46 and creatinine 1.4 UA was clear Chest x-ray showed bilateral pulmonary opacities representing pneumonia and small bilateral pleural effusions He was admitted to medical service for treatment of pneumonia Hospital acquired pneumonia He was admitted for observation due to inability of patient to safely mobilize after LEFT CTR. He required general anesthesia for surgery and although his CTR was brief and uncomplicated he has been unable to elevate independently from a chair postoperatively which appears to be mostly due to worsened weakness in the lower extremities. ON POD#4, Patient reported sudden onset confusion likely due to delirum. Vitals with stable WBC 18,000 AND UA was clear. Chest x-ray showed bilateral pulmonary opacities representing pneumonia and small bilateral pleural effusions. * He was admitted to general medicine floor for further management of pneumonia * Monitoring vitals every shift * Monitoring fever, chills, shortness of breath, cough, phlegm production * Maintain oxygen saturation above 90% * Provide supplemental oxygen * Continue antibiotics ceftaz and vancomycin day 3 * The total respiratory care * Monitor leukocytosis * Follow blood culture * Follow-up sputum culture * Swallow evaluation to rule out aspiration pneumonia * Will get noncontrast CT chest if there is no improvement of pneumonia KEISHA on CKD Acute kidney injury with increased creatinine 1.4. Most possibly prerenal from dehydration and infection. * Home medication Bumex 2 mg twice a day-for stage III diastolic congestive heart failure and lower extremity swelling * Please hold Bumex for now because of increased creatinine * Gentle hydration * Repeat creatinine 1.3 * Follow-up BEP Conditioning * pt/ot on board * Recommended short-term rehabilitation diabetes mellitus Insulin aspart 42 units subcutaneous twice a day Hypertension Continued metoprolol home dose Continued losartan (valsartan at home) Paroxysmal atrial fibrillation Continued home dose of eliqus 5 mg twice a day Coronary artery disease Continued aspirin, statins Continued imdur Hyperlipidemia Continued statins constipation Dulcolax and senna when necessary DVT prophylaxis - eliqus Diabetic diet- CC3 Pain pathway Tylenol Full code Problem List: 1. S/P carpal tunnel release Pain Ratin Pain Location: N/A Pain Goal: Remain pain free Pain Plan: TYLINOL Tomorrow's Labs & Rationales: CbC in the setting of pneumonia and infection
[2017-03-02 08:15] LABS: ABSOLUTE BASOPHIL COUNT 0 /CUMM (0.0-0.2); ABSOLUTE EOSINOPHIL COUNT 0 /CUMM (0.0-0.7); ABSOLUTE GRANULOCYTE CT 14.9 /CUMM (1.4-6.5); ABSOLUTE LYMPH COUNT 0.6 /CUMM (1.2-3.4); ABSOLUTE MONOCYTE COUNT 1.4 /CUMM (0.10-0.60); BASOPHIL % 0 % (0.0-2.0); EOSINOPHIL % 0.2 % (0-5); HEMATOCRIT 32.1 % (42-52); MEAN CORPUSCULAR HGB 24.7 PG (27.0-31.0); MEAN CORPUSCULAR HGB CONC 31.4 G/DL (33.0-37.0); MEAN CORPUSCULAR VOLUME 78.8 FL (80.0-94.0); MEAN PLATELET VOLUME 10.6 FL (7.4-10.4); PLATELET COUNT 150 /CUMM (130-400); RBC DISTRIBUTION WIDTH 19.3 % (11.5-14.5); RED BLOOD CELL CT 4.08 /CUMM (4.70-6.10); WHITE BLOOD CELL COUNT 16.8 /CUMM (4.8-10.8)
[2017-03-02 09:46] LABS: GRANULOCYTE % 88.2 % (42.2-75.2)
--- NOTE | 2017-03-02 12:56 | PN- Att Addend ---
Attending Addendum Attending Brief Note Patient seen and examined, did not participate much in conversation. But says he is dong ok. Vital Signs Date Time Temp Pulse Resp B/P B/P Pulse O2 O2 Flow FiO2 Mean Ox Delivery Rate 03/02 1018 60 136/60 03/02 1018 60 136/60 03/02 1018 60 136/60 / 0949 Nasal 3.5L Cannula 03/02 0800 Nasal 3.5L Cannula 03/02 0656 97.8 60 16 136/60 95 Nasal 3.5L Cannula / 0600 97.8 60 16 130/60 /05 0000 93 Nasal 3.5L Cannula / 2233 60 152/62 /04 2227 98.6 60 16 152/62 93 Nasal Cannula / 2200 98.6 60 16 152/62 / 2000 97.8 60 20 160/60 /04 1900 97.8 60 20 160/60 92 Nasal 3.5L Cannula / 1800 97.6 60 20 130/68 /04 1600 Nasal 3.5L Cannula / 1600 97.6 60 20 130/68 06/04 1446 97.6 60 20 130/68 95 Nasal 3.5L Cannula on exam: awake, nad. cv; s1, s2, rrr resp; decreaed bs at bases., abd; soft, nt, bs+ ext; trace edema. ms: + noa wrap on left wrist. Laboratory Tests 03/02 0610 Chemistry Sodium (137 - 145 mmol/L) 136 L Potassium (3.5 - 5.1 mmol/L) 4.0 Chloride (98 - 107 mmol/L) 97 L Carbon Dioxide (22 - 30 mmol/L) 29 Anion Gap (5 - 16) 10 BUN (9 - 20 mg/dL) 50 H Creatinine (0.7 - 1.2 mg/dL) 1.4 H Estimated GFR (>60 ml/min) 49 L BUN/Creatinine Ratio (7 - 25 %) 35.7 H Hematology CBC w Diff NO MAN DIFF REQ WBC (4.8 - 10.8 /CUMM) 16.8 H RBC (4.70 - 6.10 /CUMM) 4.08 L Hgb (14.0 - 18.0 G/DL) 10.1 L Hct (42 - 52 %) 32.1 L MCV (80.0 - 94.0 FL) 78.8 L MCH (27.0 - 31.0 PG) 24.7 L RDW (11.5 - 14.5 %) 19.3 H Plt Count (130 - 400 /CUMM) 150 MPV (7.4 - 10.4 FL) 10.6 H Gran % (42.2 - 75.2 %) 88.2 H Lymphocytes % (20.5 - 51.1 %) 3.4 L Monocytes % (1.7 - 9.3 %) 8.2 Eosinophils % (0 - 5 %) 0.2 Basophils % (0.0 - 2.0 %) 0 L Absolute Granulocytes (1.4 - 6.5 /CUMM) 14.9 H Absolute Lymphocytes (1.2 - 3.4 /CUMM) 0.6 L Absolute Monocytes (0.10 - 0.60 /CUMM) 1.4 H Absolute Eosinophils (0.0 - 0.7 /CUMM) 0 Absolute Basophils (0.0 - 0.2 /CUMM) 0 PUBS MCHC (33.0 - 37.0 G/DL) 31.4 L A/P: 81 y/o m with pmh sig for history of type 2 diabetes mellitus, dyslipidemia , PVD, carotid artery disease and coronary artery disease s/p non-ST elevation [place]. He also has a history of PAF treated with Apixaban who is s/p carpel tunnel release, now has developed suspected gramm neg/mrsa pna. Patient has developed delirium during the hospital stay likely 2/2 to infection/pneumonia. Patient currently getting treated with broad spectrum abx. WBC is gradually improving. Will continue presnt abx and [place] coverage if cx remain neg. F/U swallow eval. Post op care per ortho. Increase insulin to 42 units. Continue all other current meds. DVT px; Eliquis.
[2017-03-02 14:04] VITALS: BP 126/58
[2017-03-02 22:53] VITALS: BP 142/100
--- NOTE | 2017-03-03 06:56 | PN- Housestaff ---
MARCUS GRIFFIN,MIGUEL 03/03/17 0656: Subjective Follow-up For: Hospital acquired pneumonia Acute kidney injury Deconditioning Status post carpal tunnel release Complaints: no complaints Subjective: Patient seen and examined at bedside this AM. He is alert and oriented without distress. No acute events reported overnight. Patient reports he slept well, is tolerating his diet well and is in minimal pain post-operatively. He denies shortness of breath, wheezing or fever/chills. He reports he does have slight pain in his left knee which is chronic and a 2/10. Vital signs stable with Tmax 98.3. Review of Systems Constitutional: Denies: chills, malaise. EENTM: Denies: visual changes. Cardiovascular: Denies: chest pain. Respiratory: Reports: cough. Denies: short of breath, wheezing. Gastrointestinal: Denies: abdominal pain, nausea, vomiting. Genitourinary: Denies: dysuria. Musculoskeletal: Reports: joint pain. Skin: Denies: rash. Neurological/Psychological: Denies: headache, numbness. Hematologic/Endocrine: Denies: bruising, bleeding. Immunologic/Allergic: Denies: splenectomy. Objective Last 24 Hrs of Vital Signs/I&O Vital Signs Date Time Temp Pulse Resp B/P B/P Pulse O2 O2 Flow FiO2 Mean Ox Delivery Rate 03/03 0722 98.2 63 20 143/56 98 Nasal 3.5L Cannula 03/03 0000 Nasal 3.5L Cannula 03/02 2253 98.3 64 20 142/100 94 Nasal 3.5L Cannula 03/02 2234 64 142/100 06/ 1404 97.9 59 18 126/58 95 Nasal 4.0L Cannula 03/02 1400 94 Nasal 3.5L Cannula 03/02 1018 60 136/60 /05 1018 60 136/60 06/05 1018 60 136/60 /05 0949 Nasal 3.5L Cannula Intake & Output 03/03 1600 06 0800 03/03 0000 Intake Total 240 540 Output Total 350 Balance -110 540 Intake, IV 300 Intake, Oral 240 240 Number 0 Bowel Movements Output, Urine 350 Physical Exam General Appearance: Alert, Oriented X3, Cooperative, No Acute Distress Skin: Left knee with healed scar; left hand in dry bandage. Fingers slightly more swollen than the right with normal movement of his fingers. Skin Temp/Moisture Exam: Warm/Dry HEENT: Atraumatic, PERRLA, EOMI, Slightly dry mucous membranes Neck: Supple, No JVD Lymphatic: Cervical nl Cardiovascular: Regular Rate, Normal S1, Normal S2 Lungs: Normal Air Movement Abdomen: Normal Bowel Sounds, Soft, No Tenderness Neurological: Strength at 5/5 X4 Ext, Normal Tone Extremities: No Clubbing, No Cyanosis, Chronic skin changes bilateral LE Vascular: Pulses Symmetrical Current Medications: Current Medications Sig/Roge Start time Last Medication Dose Route Stop Time Status Admin Acetaminophen 650 MG Q4P PRN 02/28 1500 AC 02/28 PO 1554 Albuterol Sulfate 2 PUF BID 02/25 220 AC 03/02 INH 2232 Apixaban 5 MG BID 02/25 220 AC 03/02 PO 2231 Aspirin 81 MG DAILY 02/26 1000 AC 03/02 PO 1018 Atorvastatin Calcium 20 MG 1700 02/26 1700 AC 03/02 PO 1835 Bisacodyl 10 MG ONCE PRN 02/28 1045 AC 03/02 AR 1447 Ceftazidime 2,000 MG Q12 03/02 2200 AC 03/02 IV 2231 Ceftazidime 2,000 MG Q12 02/28 2200 DC 03/02 Dextrose/Water 50 ML IV 1018 Docusate Sodium 100 MG BID 02/28 1045 AC 03/02 PO 2231 Insulin Aspart Prota 42 UNIT 0800 & 1700 03/02 1700 AC 03/02 70%/Aspart 30% SC 1835 Insulin Aspart Prota 40 UNIT 0800 & 1700 03/01 1700 DC 03/02 70%/Aspart 30% SC 1018 Isosorbide 30 MG DAILY 02/26 1000 AC 03/02 Mononitrate PO 1018 Losartan Potassium 25 MG DAILY 02/26 1000 AC 03/02 PO 1018 Metoprolol Tartrate 50 MG BID 02/25 2200 AC 03/02 PO 2234 Ondansetron HCl 4 MG Q8P PRN 02/25 2100 AC IV Patient Medication 1 ED .STK-MED ONE 03/02 1409 DC Teaching ED 03/02 1410 Potassium Chloride 20 MEQ DAILY 02/26 1000 AC 03/02 PO 1018 Vancomycin HCl 1,500 MG DAILY@1800 02/28 1800 AC 03/02 Sodium Chloride 250 ML IV 1835 Last 24 Hrs of Lab/Chu Results Last 24 Hrs of Labs/Mics: Laboratory Tests 03/03/17 0605: Sodium Pending, Potassium Pending, Chloride Pending, Carbon Dioxide Pending, Anion Gap Pending, BUN Pending, Creatinine Pending, BUN/Creatinine Ratio Pending , CBC w Diff Pending, WBC Pending, RBC Pending, Hgb Pending, Hct Pending, MCV Pending, MCH Pending, RDW Pending, Plt Count Pending, MPV Pending, PUBS MCHC Pending Orders Radiology Findings: CXR: IMPRESSION: Bilateral pulmonary opacities can represent pneumonia. Small bilateral pleural effusions. Mild pulmonary venous congestion. Assessment/Plan Assessment: Brad is an 81 year old caucaisan male with a PMH stage III diastolic congestive heart failure, HTN, type 2 diabetes mellitus, DLD, PVD, carotid artery disease, coronary artery disease s/p non-ST elevation [place], PAF treated with apixaban, angioplasty to his LAD performed in 1997 and permanent pacemaker for heart block. At present, Brad came in for elective left carpal tunnel release on 02/25/17 after which he was unable to safely mobilize. He required general anesthesia for surgery and although his CTR was brief and uncomplicated, he has been unable to elevate independently from a chair postoperatively which appears to be mostly due to worsened weakness in bilateral lower extremities. On POD#4, Brad reported sudden onset confusion likely due to delirum. Vitals were stable. Labs showed WBC 18,000, H&H11.2/ 35, plt 154, BUN/cre 46/ 1.4. UA was clear. Chest x-ray showed bilateral pulmonary opacities representing pneumonia and small bilateral pleural effusions. He was admitted to the general medical floor under the medical service and the following is his management: 1. Hospital acquired pneumonia (Concern for gram negative/MRSA pneumonia) * Chest x-ray showed bilateral pulmonary opacities representing pneumonia and small bilateral pleural effusions. * Closely monitor vitals, check for fever, chills, shortness of breath, cough, phlegm production * Today, noted worsening of WBC count to 17.2 off of steroids, though no fever appreciated in the last 24 hours * Maintain oxygen saturation above 90%, currently requiring 3.5 L O2 via NC * Continue empiric vancomycin and ceftazadime pending culture results (day #4 antibiotics) * Resent LRC today as previous one was cancelled * Obtain Chest CT without IV contrast today to further evaluate pulmonary infiltrates * TRCs * Swallow evaluation showed patient is low risk for aspiration and his diet has been advanced; thus unlikely to be aspiration PNA * ID consult placed today, follow up recommendations 2. KEISHA on CKD * Acute kidney injury with increased creatinine to 1.4. Likely prerenal from dehydration and underlying infection. * Home medication Bumex 2 mg BID for stage III diastolic congestive heart failure and lower extremity swelling is ON HOLD, continue to hold until improvement in renal function appreciated. * Patient is s/p 1 L NS yesterday; he eating 75-100% of oral diet thus we will hold off on further hydration via IVF and encourage PO intake * Follow-up BEP in AM to monitor for improvement 3. Deconditioning * PT and OT consults placed, patient maximum assist of 3 * Recommended short-term rehabilitation upon discharge * Continue mobilization 4. Diabetes mellitus type 2 * Insulin aspart 42 units subcutaneous twice a day 5. Hypertension * Continued metoprolol 50 mg PO BID (home dose) * Continued losartan 25 mg PO daily (valsartan at home) * Vital signs Q shift 6. Paroxysmal atrial fibrillation * Continued home eliquis 5 mg BID * Stable, chronic 7. Coronary artery disease, HLD * Continued aspirin 81 mg PO daily, atorvastatin 20 mg PO daily * Continued imdur 30 mg PO daily 8. Constipation * Dulcolax and senna when necessary FULL CODE DVTP: Eliqus Diabetic diet: CC3 Pain pathway: Tylenol Problem List: 1. S/P carpal tunnel release 2. Need for assistance due to unsteady gait 3. Hyperglycemia 4. Anemia 5. Stasis dermatitis of both legs 6. Volume overload 7. Chronic CHF 8. Hypertension Pain Ratin Pain Location: Left knee Pain Goal: Remain pain free Pain Plan: Tylenol for mild pain. Tomorrow's Labs & Rationales: CBC (worsening leukocytosis) BEP (renal dysfunction) REDD GREENWOOD MD 03/03/17 1304: Attending MD Review Statement Attending Statement Attending MD Statement: examined this patient, discuss w/resident/PA/VICE CHANCELLOR, agreed w/resident/PA/VICE CHANCELLOR, discussed with family, reviewed EMR data (avail), discussed with nursing, discussed with case mgmt, reviewed images, amended to note Attending Assessment/Plan: Patient seen and examined, he seems to be awake, alert and oriented 3 but his is concerned that he's confused. Apparently she called in the morning and patient was talking about some trees and drains. Leukocytosis is worse again today. Patient remains afebrile. Vital Signs Date Time Temp Pulse Resp B/P B/P Pulse O2 O2 Flow FiO2 Mean Ox Delivery Rate 03/03 938 63 143/56 03/03 0938 63 143/56 03/03 0938 63 143/56 03/03 0800 95 Nasal 3.5L Cannula 03/03 0722 98.2 63 20 143/56 98 Nasal 3.5L Cannula 03/03 0000 Nasal 3.5L Cannula 03/02 2253 98.3 64 20 142/100 94 Nasal 3.5L Cannula 03/02 2234 64 142/100 06/05 1404 97.9 59 18 126/58 95 Nasal 4.0L Cannula 03/02 1400 94 Nasal 3.5L Cannula on exam; aox3, nad. cv; s1,s2, rrr resp; clear abd: soft, nt, bs+ ext; no edema. Laboratory Tests 03/03 605 Chemistry Sodium (137 - 145 mmol/L) 136 L Potassium (3.5 - 5.1 mmol/L) 4.3 Chloride (98 - 107 mmol/L) 98 Carbon Dioxide (22 - 30 mmol/L) 29 Anion Gap (5 - 16) 9 BUN (9 - 20 mg/dL) 57 H Creatinine (0.7 - 1.2 mg/dL) 1.4 H Estimated GFR (>60 ml/min) 49 L BUN/Creatinine Ratio (7 - 25 %) 40.7 H Hematology CBC w Diff NO MAN DIFF REQ WBC (4.8 - 10.8 /CUMM) 17.2 H RBC (4.70 - 6.10 /CUMM) 4.11 L Hgb (14.0 - 18.0 G/DL) 10.2 L Hct (42 - 52 %) 32.0 L MCV (80.0 - 94.0 FL) 77.9 L MCH (27.0 - 31.0 PG) 24.7 L RDW (11.5 - 14.5 %) 19.2 H Plt Count (130 - 400 /CUMM) 165 MPV (7.4 - 10.4 FL) 9.6 Gran % (42.2 - 75.2 %) 89.6 H Lymphocytes % (20.5 - 51.1 %) 2.6 L Monocytes % (1.7 - 9.3 %) 7.6 Eosinophils % (0 - 5 %) 0.1 Basophils % (0.0 - 2.0 %) 0.1 Absolute Granulocytes (1.4 - 6.5 /CUMM) 15.4 H Absolute Lymphocytes (1.2 - 3.4 /CUMM) 0.5 L Absolute Monocytes (0.10 - 0.60 /CUMM) 1.3 H Absolute Eosinophils (0.0 - 0.7 /CUMM) 0 Absolute Basophils (0.0 - 0.2 /CUMM) 0 PUBS MCHC (33.0 - 37.0 G/DL) 31.7 L A/P: 81 y/o m with pmh sig for history of type 2 diabetes mellitus, dyslipidemia , PVD, carotid artery disease and coronary artery disease s/p non-ST elevation [place]. He also has a history of PAF treated with Apixaban who is s/p carpel tunnel release, now has developed suspected gramm neg/mrsa pna. Patient has developed delirium during the hospital stay likely 2/2 to infection/pneumonia. Patient still requiring oxygen but his white blood cell count is not improving. So far he has been kept on ceftaz edema as well as when Comycin. We will get a CT chest without contrast to see if there is any worsening of pneumonia or if there is any evidence of pneumonia. Please obtain infectious disease consult. So far cultures remained negative except that his urine culture is growing gram- negative rods but UA looks unimpressive. Patient's thinks that he's confused but he looks awake, alert and oriented Sometimes infectious process can lead to mild confusion. I reassured his and told her that we are getting infectious disease. Continue other than medications, avoid narcotics and benzos. DVT px: ELiquis.
[2017-03-03 07:22] VITALS: BP 143/56
[2017-03-03 08:35] LABS: ABSOLUTE BASOPHIL COUNT 0 /CUMM (0.0-0.2); ABSOLUTE EOSINOPHIL COUNT 0 /CUMM (0.0-0.7); ABSOLUTE GRANULOCYTE CT 15.4 /CUMM (1.4-6.5); ABSOLUTE LYMPH COUNT 0.5 /CUMM (1.2-3.4); ABSOLUTE MONOCYTE COUNT 1.3 /CUMM (0.10-0.60); BASOPHIL % 0.1 % (0.0-2.0); EOSINOPHIL % 0.1 % (0-5); MEAN CORPUSCULAR HGB 24.7 PG (27.0-31.0); MEAN CORPUSCULAR HGB CONC 31.7 G/DL (33.0-37.0); MEAN CORPUSCULAR VOLUME 77.9 FL (80.0-94.0); MEAN PLATELET VOLUME 9.6 FL (7.4-10.4); PLATELET COUNT 165 /CUMM (130-400); RBC DISTRIBUTION WIDTH 19.2 % (11.5-14.5); RED BLOOD CELL CT 4.11 /CUMM (4.70-6.10); WHITE BLOOD CELL COUNT 17.2 /CUMM (4.8-10.8)
--- NOTE | 2017-03-03 09:30 | NUR ---
NURSING NOTE: RECIEVED CALL FROM PTS , STATES "MY CALLED ME AND TOLD ME HE WAS ON THE FARM." 0800AM PT NOTED TO BE AWAKE, A/OX3 BUT FORGETFUL AT TIMES, BED ALARM IN PLACE, RN WENT INTO ROOM AFTER HANGING UP PHONE WITH , PT ASKED WHEN HE WAS HE STATED "HOSPITAL AND I WANT TO GET OUT OF HERE SOON, ITS BEEN TOO LONG." MIGUEL ACETYLENE OPERATOR MADE AWARE, AND TO CALL FOR UPDATE, CALLED BY RN AND UPDATED, BED ALARM REMAINS IN PLACE, PT HAS BEEN USING CALL [facility] THIS SHIFT FOR URINAL AND PHONE ASSISTANCE.
[2017-03-03 09:56] LABS: GRANULOCYTE % 89.6 % (42.2-75.2)
--- NOTE | 2017-03-03 13:25 | NUR ---
NURSING NOTE: PT LEFT FLOOR VIA STRETCHER WITH DISTRIBUTION FOR CT SCAN OF CHEST, PT AWAKE, FORGETFUL, COOPERATIVE AT THIS TIME, 3.5L NC, TICKET TO RIDE COMPLETE, AWAIT RETURN TO FLOOR
--- NOTE | 2017-03-03 13:45 | NUR ---
NURSING NOTE: PT BACK TO FLOOR VIA STRETCHER WITH DISTRIBUTION FROM CT SCAN, SETTLED INTO BED, BED ALARM IN PLACE, PT AWAKE, A/FORGETFUL DENIES PAIN, AT BEDSIDE, DATA VISUALIZATION DEVELOPER MIGUEL CALLED TO GIVE RESULTS OF CT SCAN TO PT/ WHEN RESULTED. L HAND REMAINS EDEMATOUS, +CAP REFILL, ELENA WRAP IN PLACE; ARM ON PILLOW. OCCAS NON PROD COUGH NOTED; SPECIMIN CUP AT BEDSIDE IF PT ABLE TO PRODUCE SPUTUM, IV PATENT, SKIN OTHERWISE INTACT. NEEDS IN REACH, SFATEY MAINTAINED.
--- NOTE | 2017-03-03 14:00 | NUR ---
PT NOT SEEN BY OT, PT OFF THE FLOOR.
--- NOTE | 2017-03-03 14:04 | CT SCAN REPORT ---
EXAMINATION: CT CHEST WITHOUT CONTRAST CLINICAL INFORMATION: 81-year-old male with history of postoperative fever. Pulmonary opacities, possible pneumonia, an small pleural effusions on chest radiograph; evaluate pulmonary infiltrates. COMPARISON: CXR from 02/28/2017. TECHNIQUE: Multidetector volumetric CT imaging of the chest was done. Axial MIP volume rendering provided. Sagittal and coronal reformatted images were obtained. DLP: 1020 mGy-cm FINDINGS: LUNGS AND PLEURA: Images are partially degraded by respiratory motion. The upper lobes have slightly heterogeneous, patchy groundglass attenuation. Multiple small centrilobular nodular opacities in both upper lobes, largest measuring up to 0.5 cm in size. Subpleural linear opacities of mild scarring at lung apices. No evidence of interlobular septal thickening within the upper lobes. Moderate bilateral pleural effusions produce compressive atelectasis in each lower lobe. MEDIASTINUM: Cardiomegaly, three-vessel coronary artery atherosclerotic calcification and calcified mitral valve annulus. Left prepectoral cardiac pacemaker with transvenous leads extending to the right atrial appendage and apex of the right ventricle. No pericardial effusion. The atherosclerotic thoracic aorta and great vessels are normal in size. The pulmonary artery trunk is mildly dilated at 3.3 cm diameter, which suggests possibility of pulmonary arterial hypertension. The esophagus and thyroid gland are unremarkable. LYMPHATICS: No pathologic sized axillary or hilar lymph nodes. Multiple lymph nodes are present within the mediastinum, largest measuring up to 10-12 m short axis dimension. UPPER ABDOMEN: Atherosclerotic calcification of the visualized abdominal aorta and branch vessels. OSSEOUS STRUCTURES: No suspicious lesions within the degenerated spine. IMPRESSION: 1. Mild, patchy ground glass attenuation within upper lobes is nonspecific and could represent pneumonitis and/or edema. Small nodular opacities measuring up to 0.5 cm are present within both upper lobes, as well, likely representing infectious/inflammatory changes. 2. Cardiomegaly and coronary artery atherosclerotic disease. 3. Pulmonary artery trunk is dilated to 3.3 cm diameter, which suggests possibility of pulmonary arterial hypertension. 4. Moderate pleural effusions cause compressive atelectasis in each lower lobe. 5. Mild mediastinal lymphadenopathy is present -- likely reactive to the pulmonary disease.
--- NOTE | 2017-03-03 14:07 | NUR ---
PHYSICAL THERAPY- ATTEMPTED TO SEE PT THIS PM; PT OFF THE FLOOR FOR CT SCAN. WILL FOLLOW APPROPRIATE.
[2017-03-03 14:27] VITALS: BP 122/61
[2017-03-03 14:36] VITALS: BP 110/66
--- NOTE | 2017-03-03 14:40 | NUR ---
NURSING NOTE: PT RESTLESS IN BED, STATES "I WANT TO GET UP AND GO HOME IM SICK OF THIS SCENE." PT GIVEN URINAL; VOIDED 200ML. PT DENIES PAIN WHEN ASKED. AT BEDSIDE, PT SWEARING, MIGUEL VELAZQUEZ [employer] DIPPER CALLED AND TO SPEAK WITH PT. BED ALARM REMAINS IN PLACE AND WORKING.
--- NOTE | 2017-03-03 15:15 | NUR ---
NURSING NOTE: REPORT GIVEN TO NEXT SHIFT RN, DR ARTEAGA AT BEDSIDE. PT REMAINS AWAKE, A.FORGETFUL, BED ALARM IN USE. NO ATTEMPTS OOB AT THIS TIME. AT BEDSIDE, NEEDS IN REACH.
--- NOTE | 2017-03-03 16:22 | Cons- Infect Disease ---
General Information and HPI Consulting Request Date of Consult: 03/03/17 Requested By: BERNADETTE GRIFFIN,JULIUS Hodgson Reason for Consult: Persistent leukocytosis Source of Information: patient, family, old records Exam Limitations: clinical condition History of Present Illness: This is an 81-year-old man with a history of diabetes, peripheral vascular disease, paroxysmal atrial fibrillation, maintained on Eliquis, coronary artery disease, CHF, status post pacemaker, obstructive sleep apnea, diverticulitis and BPH, admitted on February 25 after an elective left carpal tunnel release, with Cefazolin prophylaxis, because of the inability to safely mobilize after the surgery. On admission he was afebrile. Laboratory data revealed a white blood cell count of 10,000, BUN/creatinine 34 and 1.1. He was stable until February 28 when he spiked a fever to 103.2, with further evaluation revealing a white blood cell count of 18,000, a BUN/creatinine of 42 and 1.4, urinalysis 10-15 RBCs, and a chest x-ray revealing bilateral pulmonary opacities with mild pulmonary vascular congestion. He was begun on Vancomycin and Ceftazidime with defervescence by the evening but with a persistent leukocytosis. His mental status has apparently been waxing and waning. At present he does report a cough , which is mostly dry, with no chest pain or shortness of breath. He has had no diarrhea or dysuria. Allergies/Medications Allergies: Coded Allergies: piperacillin (Mild, RASH 12/15/15) tazobactam (Mild, RASH 12/15/15) morphine (Intermediate, HALLUCINATIONS 12/15/15) heparin (SOMETHING WITH HIS PLATELETS 12/15/15) Home Med List: Albuterol Sulfate (Proair Hfa) 90 MCG HFA.AER.AD 2 PUFF PO BID BREATHING PROBLEMS (Reported) Apixaban (Eliquis) 5 MG TAB 1 TAB PO BID BLOOD THINNER Ascorbic Acid/Copper/Vitamin (Preservision Areds) 1 SGL SGL 1 SGL PO BID EYE HEALTH (Reported) Aspirin (Ecotrin) 81 MG ECT 1 TAB PO DAILY HEART HEALTH (Reported) Bumetanide 2 MG TABLET 1 TAB PO BID Fluid Retention Cholecalciferol (D-3) 1,000 IU CAP 1 TAB PO DAILY BONE HEALTH (Reported) Insulin NPL/Insulin Lispro (Humalog Mix 75-25 Vial) 100 UNIT/ML (75-25) VIAL 45 UNITS SC 8AM diabetes Isosorbide Mononitrate (Isosorbide Mononitrate ER) 60 MG TAB.ER.24H 0.5 TAB PO DAILY CAD (Reported) Metoprolol Tartrate (Lopressor) 50 MG TABLET 1 TAB PO BID CAD (Reported) Potassium Chloride (Klor-Con M10) [address] PAC PO DAILY SUPPLEMENT ( Reported) Simvastatin (Zocor 40MG Tab) 40 MG TAB 1 TAB PO QPM CHOL (Reported) Valsartan (Diovan) 80 MG TABLET 1 TAB PO DAILY HTN (Reported) Vit C/E/Zn/Coppr/Lutein/Zeaxan (Preservision Areds 2 Softgel) 250-200-40 CAPSULE MACULAR DEGENERATION (Reported) Past History Medical History Blood Transfusion Hx: Yes Neurological: peripheral neuropathy EENT: CATARACT diabetic retinopathy Cardiovascular: AFIB (paroxysmal), CAD (status post angioplasty), CHF, hyperlipidemia, myocardial infarction, syncope, systolic CHF, STENT, PACER AFIB ,CHOL, HTN STENTS LCW PM permanent pacemaker for heart block peripheral vascular diseaase peripheral vascular disease s/p angioplasty Respiratory: LYNDSEY Gastrointestinal: diverticulitis Hepatic: NONE Renal: benign prost hyperplasia Musculoskeletal: sciatica, L KNEE REPLACEMENT OSTEOMYELITIS osteomyelitis, osteomyelitis of the left foot Psychiatric: NONE Endocrine: IDDM with diabetic neuropathy diabetic retinopathy Blood Disorders: NONE Cancer(s): NONE 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 spouse Services at Home: None Primary Language: Belarusian Smoking Status: Former Smoker Functional Ability ADLs Independent: dressing, eating, toileting, bathing. Ambulation: walker Review of Systems Review of Systems All Other Systems: Reviewed and Negative Exam & Diagnostic Data Last 24 Hrs of Vital Signs/I&O Vital Signs Date Time Temp Pulse Resp B/P B/P Pulse O2 O2 Flow FiO2 Mean Ox Delivery Rate 03/03 1436 98.8 90 20 110/66 98 Nasal 1.0L Cannula 03/03 1427 98.1 61 18 122/61 92 Nasal 3.0L Cannula 03/03 0938 63 143/56 03/03 0938 63 143/56 03/03 0938 63 143/56 03/03 0800 95 Nasal 3.5L Cannula 03/03 0722 98.2 63 20 143/56 98 Nasal 3.5L Cannula 03/03 0000 Nasal 3.5L Cannula 03/02 2253 98.3 64 20 142/100 94 Nasal 3.5L Cannula 03/02 2234 64 142/100 Intake & Output 03/03 1600 06 0800 06 0000 Intake Total 1000 240 540 Output Total 700 350 Balance 300 -110 540 Intake, IV 100 300 Intake, Oral 900 240 240 Number 0 0 Bowel Movements Output, Urine 700 350 Physical Exam Other Physical Findings: He is lethargic but arousable, confused and disoriented, but in no acute distress. He is afebrile. Skin reveals no rash. HEENT exam is negative. Neck is supple with no adenopathy. Lungs decreased breath sounds both bases. Heart regular rhythm with no murmur. Abdomen is obese, soft, nontender with positive bowel sounds. Back no CVA tenderness. Extremities left wrist incision clean, with no erythema or drainage; left upper extremity edema; chronic venous stasis changes both lower extremities; left foot plantar wound, with no surrounding erythema or drainage. Neuro is without focality. Last 24 Hours of Lab Results: Laboratory Tests 03/03 06 Chemistry Sodium (137 - 145 mmol/L) 136 L Potassium (3.5 - 5.1 mmol/L) 4.3 Chloride (98 - 107 mmol/L) 98 Carbon Dioxide (22 - 30 mmol/L) 29 Anion Gap (5 - 16) 9 BUN (9 - 20 mg/dL) 57 H Creatinine (0.7 - 1.2 mg/dL) 1.4 H Estimated GFR (>60 ml/min) 49 L BUN/Creatinine Ratio (7 - 25 %) 40.7 H Hematology CBC w Diff NO MAN DIFF REQ WBC (4.8 - 10.8 /CUMM) 17.2 H RBC (4.70 - 6.10 /CUMM) 4.11 L Hgb (14.0 - 18.0 G/DL) 10.2 L Hct (42 - 52 %) 32.0 L MCV (80.0 - 94.0 FL) 77.9 L MCH (27.0 - 31.0 PG) 24.7 L RDW (11.5 - 14.5 %) 19.2 H Plt Count (130 - 400 /CUMM) 165 MPV (7.4 - 10.4 FL) 9.6 Gran % (42.2 - 75.2 %) 89.6 H Lymphocytes % (20.5 - 51.1 %) 2.6 L Monocytes % (1.7 - 9.3 %) 7.6 Eosinophils % (0 - 5 %) 0.1 Basophils % (0.0 - 2.0 %) 0.1 Absolute Granulocytes (1.4 - 6.5 /CUMM) 15.4 H Absolute Lymphocytes (1.2 - 3.4 /CUMM) 0.5 L Absolute Monocytes (0.10 - 0.60 /CUMM) 1.3 H Absolute Eosinophils (0.0 - 0.7 /CUMM) 0 Absolute Basophils (0.0 - 0.2 /CUMM) 0 PUBS MCHC (33.0 - 37.0 G/DL) 31.7 L Last 24 Hours of Chu Results: Blood cultures February 28 negative Urine culture February 28 approximately 10,000 colonies of Citrobacter resistant to Ampicillin Diagnostic Data Recent Imaging Findings: CT of the chest March 03 revealed patchy groundglass attenuation in both upper lobes, with multiple small centrilobular nodular opacities; moderate bilateral pleural effusions with compressive atelectasis in both lower lobes; multiple lymph nodes within the mediastinum Assessment/Plan Assessment/Plan Impression: This is an 81-year-old man with diabetes, peripheral vascular disease, coronary artery disease, CHF, paroxysmal atrial fibrillation, BPH, obstructive sleep apnea admitted on February 25 after an elective left carpal tunnel release because of difficulty in mobilizing, found initially to be afebrile with a normal white blood cell count, but with the development of a fever and leukocytosis with bilateral patchy pulmonary opacities on chest x-ray and CT with a persistent leukocytosis despite empiric antibiotics. The most likely cause of his fever and leukocytosis is pneumonia, possibly secondary to aspiration in the postop setting, though one would have expected him to have responded to the empiric antibiotics, which are quite broad. His antibiotic regimen could be adjusted, for example to cover anaerobes and Legionella, though the latter would be somewhat unusual in the hospital. He does have moderate bilateral pleural effusions, though an empyema seems unlikely. His surgical incision appears clean, with no erythema or drainage to suggest infection. His left upper extremity swelling is likely related to his recent surgery. A DVT could be considered, though he is on Eliquis. The positive urine culture likely represent contamination as his urinalysis revealed no white blood cells, though his elevated BUN/creatinine suggests the possibility of urinary retention and a prostatic process, such as an abscess, could be considered. His fluctuating mental status is of unclear etiology. He is on no new medications, and a KETTLE ROOM HELPER infection seems unlikely. Suggestion: 1. Attempt to obtain sputum for culture 2. Urine for Legionella antigen 3. Bladder scan to rule out urinary retention 4. Add liver enzymes to his recent blood work 5. Doppler of the left upper extremity 6. Further evaluation, including bilateral thoracenteses and CT of the abdomen and pelvis if white blood cell count remains elevated 7. Discontinue Vancomycin and Ceftazidime 8. Begin Unasyn 3 g IV every 8 hours Consult Acknowledgment - Thank you for your consult request.
--- NOTE | 2017-03-03 18:00 | NUR ---
PT IS A/OX3, BUT CONFUSED AT TIMES, REQUESTING THAT THE WINDOWS BE SHUT AND THINKING THAT HE'S TALKING ON THE PHONE WITH HIS WHEN HE IS NOT. HAS EMPTIED HIS WATER PITCHER ON FLOOR TWICE. THE PITCHER WILL BE KEPT OUT OF REACH AND WATER WILL BE OFFERED HOURLY. MST AWARE. CHARGE NURSE AWARE.
--- NOTE | 2017-03-03 18:58 | Discharge Summary ---
Visit Information Visit Dates Admission Date: 02/25/17 Hospital Course Course Attending Physician: Dr. Barraza Primary Care Physician: NEGAR GRIFFIN,WAYLON Segal Consulting Request: Consulting Specialty: Infectious Disease Hospital Course: This is an 81 year old caucaisan male with a PMH stage III diastolic congestive heart failure, HTN, type 2 diabetes mellitus, DLD, PVD, carotid artery disease, coronary artery disease s/p non-ST elevation PR, PAF treated with apixaban, angioplasty to his LAD performed in 1997 and permanent pacemaker for heart block , s/p elective left carpal tunnel release on 02/25/17 after which he was unable to safely mobilize. He required general anesthesia for surgery and although his CTR was brief and uncomplicated, he has been unable to elevate independently from a chair postoperatively which appeared to be mostly due to worsened weakness in bilateral lower extremities. He was transterred to floor for PT eval and placement. POD#4, he reported sudden onset confusion likely due to delirum. The following problems were addressed during the course of his hospital stay: #Hospital acquired pneumonia (Concern for gram negative/MRSA pneumonia) Chest x-ray showed bilateral pulmonary opacities representing pneumonia and small bilateral pleural effusions. Swallow evaluation showed patient is low risk for aspiration and his diet has been advanced; thus unlikely to be aspiration PNA. Received TRCs. Was maintained on empiric vancomycin and ceftazadime pending culture results until 03/03/17 when developed worsening of WBC count to 17.2 off of steroids w/o any fever. ID was consulted who recommended to DC previous ABs and start the patient on IV Unasyn. Also to atempt to obtain sputum for culture, check urine for Legionella antigen, Bladder scan to rule out urinary retention, Doppler of the left upper extremity, Further evaluation, including bilateral thoracenteses and CT of the abdomen and pelvis if white blood cell count remains elevated #KEISHA on CKD Acute kidney injury with increased creatinine to 1.4. Likely prerenal from dehydration and underlying infection. Home medication Bumex 2 mg BID for stage III diastolic congestive heart failure and lower extremity swelling were held received IVF and PO intake was encouraged PO * Follow-up BEP to monitor for improvement #Deconditioning: PT and OT consults placed, patient maximum assist of 3. Recommended short-term rehabilitation upon discharge * Continue mobilization # Diabetes mellitus type 2: Accucheks, maintained on Insulin Novolog Mix 7 42 units subcutaneous twice a day. #Hypertension:Remained well controlled. Continued metoprolol 50 mg PO BID (home dose), losartan 25 mg PO daily (valsartan at home) #Paroxysmal atrial fibrillation: Stable, chronic. Continued home eliquis 5 mg BID #Coronary artery disease, HLD: Continued aspirin 81 mg PO daily, atorvastatin 20 mg PO daily imdur 30 mg PO daily #Constipation Dulcolax and senna when necessary #Code status: FULL CODE #DVTP: Eliqus Allergies: Coded Allergies: piperacillin (Mild, RASH 12/15/15) tazobactam (Mild, RASH 12/15/15) morphine (Intermediate, HALLUCINATIONS 12/15/15) heparin (SOMETHING WITH HIS PLATELETS 12/15/15) Disposition Summary Disposition Principal Diagnosis: Hospital acquired pneumonia Additional Diagnosis: KEISHA on CKD s/p elective left carpal tunnel release on 02/25/17 Discharge Disposition: SNF Discharge Instructions General Discharge Information Code Status: Full Code Patient's Diet: Diabetic/cardiac Patient's Activity: As tolerated Follow-Up Instructions/Appts: Follow up with PCP, Safety Sealer, Ortho within a week of discharge. Medications at Discharge Discharge Medications: Continue taking these medications: Simvastatin (Zocor 40MG Tab) 40 MG TAB 1 Tablet ORAL Every night Qty = 90 Comments: Last Taken:08/21/15 Time:5 PM Valsartan (Diovan) 80 MG TABLET 1 Tablet ORAL DAILY Comments: Last Taken: 10/12/16 Time: 10 AM Potassium Chloride (Klor-Con M10) [address] Packet ORAL DAILY Qty = 90 Comments: Last Taken:08/22/15 Time:1020 AM Apixaban (Eliquis) 5 MG TAB 1 Tablet ORAL TWICE DAILY Qty = 60 Comments: Last Taken:08/22/15 Time:1020 AM Aspirin (Ecotrin) 81 MG ECT 1 Tablet ORAL DAILY Comments: Last Taken:08/22/15 Time:1020 AM Cholecalciferol (D-3) 1,000 IU CAP 1 Tablet ORAL DAILY Comments: NOT GIVEN IN HOSPITAL Ascorbic Acid/Copper/Vitamin (Preservision Areds) 1 SGL SGL 1 SGL ORAL TWICE DAILY Comments: NOT GIVEN IN HOSPITAL Insulin NPL/Insulin Lispro (Humalog Mix 75-25 Vial) 100 UNIT/ML (75-25) VIAL 45 Units Inject into fatty tissue DAILY @8AM Days = 30 Comments: Last Taken: 10/12/16 Time: 11:30 AM NOVOLOG & LEVEMIR GIVEN Isosorbide Mononitrate (Isosorbide Mononitrate ER) 60 MG TAB.ER.24H 0.5 Tablet ORAL DAILY Qty = 90 Comments: Last Taken: 10/12/16 Time: 10 AM Albuterol Sulfate (Proair Hfa) 90 MCG HFA.AER.AD 2 PUFF ORAL TWICE DAILY Qty = 9 Comments: NOT GIVEN IN HOSPITAL Bumetanide (Bumetanide) 2 MG TABLET 1 Tablet ORAL TWICE DAILY Qty = 60 Metoprolol Tartrate (Lopressor) 50 MG TABLET 1 Tablet ORAL TWICE DAILY Vit C/E/Zn/Coppr/Lutein/Zeaxan (Preservision Areds 2 Softgel) 250-200-40 CAPSULE TWICE DAILY
[2017-03-03 22:00] VITALS: BP 112/66
--- NOTE | 2017-03-04 05:52 | ULTRASOUND REPORT ---
EXAMINATION: DUPLEX VENOUS ULTRASOUND OF THE left UPPER EXTREMITY. CLINICAL HISTORY: Swollen left upper extremity after carpal tunnel release COMPARISON: None. TECHNIQUE: Grayscale, color and Doppler ultrasound of the deep veins of the left upper extremity were performed. FINDINGS: The left internal jugular, subclavian and axillary veins demonstrate normal color Doppler flow suggesting patency. The left brachial and basilic veins are easily compressible and demonstrate normal color Doppler flow suggesting patency. The left cephalic vein is easily compressible suggesting patency. IMPRESSION: No thrombus identified within the veins of the left upper extremity. If clinical symptoms persist, consider repeat evaluation in 5-7 days.
--- NOTE | 2017-03-04 06:43 | PN- Housestaff ---
MIGUEL VELAZQUEZ MD 03/04/17 0643: Subjective Follow-up For: Hospital acquired pneumonia Acute kidney injury Deconditioning Status post carpal tunnel release Subjective: Patient seen and examined at bedside this AM. He was more altered and unable to respond to questioning. ROS thus unable to be obtained. Vital signs completely stable and patient afebrile. Leukocytosis persists but improved slightly from yesterday. We will continue to follow ID recommendations and continue Unasyn for now pending culture results. Stat ABG obtained and showed hypercapnia for which he was placed on BiPAP and a pulmonary consult was placed. Review of Systems Constitutional: Reports: see HPI. Objective Last 24 Hrs of Vital Signs/I&O Vital Signs Date Time Temp Pulse Resp B/P B/P Pulse O2 O2 Flow FiO2 Mean Ox Delivery Rate 03/04 1154 60 96 03/04 1139 24 95 Nasal 3.5L Cannula 03/04 1100 22 84 Room Air 03/04 1023 Nasal 3.5L Cannula 03/04 1015 Nasal 3.5L Cannula 03/04 0824 61 150/80 03/04 0800 95 Nasal 3.5L Cannula 03/04 0735 98.4 60 20 156/82 94 Nasal 3.0L Cannula 03/04 0000 Nasal 3.5L Cannula 03/03 2323 63 112/66 0606 2200 98.1 63 21 112/66 92 Nasal 4.0L Cannula 03/03 1600 96 Nasal 3.5L Cannula 03/03 1436 98.8 90 20 110/66 98 Nasal 1.0L Cannula 03/03 1427 98.1 61 18 122/61 92 Nasal 3.0L Cannula Intake & Output 03/04 1600 03/04 0800 03/04 0000 Intake Total 140 10 Output Total 300 325 Balance -160 -315 Intake, IV 140 10 Number 3 Bowel Movements Output, Urine 300 325 Physical Exam General Appearance: Lethargic, non-cooperative for questioning Skin: No Significant Lesion, Left hand slightly erythematous s/p carpal tunnel surgery, covered in dry, clean gauze HEENT: Atraumatic, PERRLA, Slightly dry mucous membranes Neck: Supple, No JVD Cardiovascular: Regular Rate, Normal S1, Normal S2 Lungs: Decreased breath sounds bilaterally Abdomen: Normal Bowel Sounds, Soft, No Tenderness Neurological: Normal Tone Extremities: No Clubbing, No Cyanosis Vascular: Pulses Symmetrical Current Medications: Current Medications Sig/Roge Start time Last Medication Dose Route Stop Time Status Admin Acetaminophen 650 MG Q4P PRN 02/28 1500 AC 02/28 PO 1554 Albuterol Sulfate 2 PUF BID 02/25 2200 AC 03/03 INH 2343 Ampicillin Sodium/ 3,000 MG Q8 03/03 2200 AC 03/04 Sulbactam Sodium IV 1343 Sodium Chloride 100 ML Apixaban 5 MG BID 02/25 2200 AC 03/04 PO 0818 Aspirin 81 MG DAILY 02/26 1000 AC 03/04 PO 0818 Atorvastatin Calcium 20 MG 1700 02/26 1700 AC 03/03 PO 1902 Bisacodyl 10 MG ONCE PRN 02/28 1045 AC 03/02 NH 1447 Ceftazidime 2,000 MG Q12 03/02 2200 DC 03/03 IV 0935 Docusate Sodium 100 MG BID 02/28 1045 AC 03/04 PO 0837 Insulin Aspart Prota 42 UNIT 0800 & 1700 03/02 1700 AC 03/03 70%/Aspart 30% SC 1902 Isosorbide 30 MG DAILY 02/26 1000 AC 03/04 Mononitrate PO 0818 Losartan Potassium 25 MG DAILY 02/26 1000 AC 03/04 PO 0837 Metoprolol Tartrate 50 MG BID 02/25 2200 AC 03/04 PO 0824 Ondansetron HCl 4 MG Q8P PRN 02/25 2100 AC IV Potassium Chloride 20 MEQ DAILY 02/26 1000 AC 03/04 PO 0825 Vancomycin HCl 1,500 MG DAILY@1800 02/28 1800 DC 03/02 Sodium Chloride 250 ML IV 1835 Last 24 Hrs of Lab/Chu Results Last 24 Hrs of Labs/Mics: Laboratory Tests 03/04/17 1028: pH 7.36, pCO2 55 H, pO2 75 L, HCO3 31 H, ABG O2 Sat (Measured) 95.0 L, P-50 (Temp Corrected) NO, Carboxyhemoglobin 0.9 L, O2 Concentration % 3.5L, Temperature 98.4, O2 Delivery Method NC, Phlebotomy Draw Site RIGHT RADIAL 03/04/17 0605: CBC w Diff NO MAN DIFF REQ, RBC 4.20 L, MCV 78.9 L, MCH 24.8 L, RDW 19.5 H, MPV 9.5, Gran % 85.8 H, Lymphocytes % 4.5 L, Monocytes % 8.7, Eosinophils % 0.8, Basophils % 0.2, Absolute Granulocytes 13.4 H, Absolute Lymphocytes 0.7 L , Absolute Monocytes 1.4 H, Absolute Eosinophils 0.1, Absolute Basophils 0, PUBS MCHC 31.4 L Microbiology 03/03 2345 LOWER RESP: Respiratory Culture - CAN Cancelled: NUMBER OF SQUAMOUS CELLS INDICATES POOR QUALITY SPECIMEN 03/03 2345 LOWER RESP: Gram Stain - CAN Cancelled: NUMBER OF SQUAMOUS CELLS INDICATES POOR QUALITY SPECIMEN 03/03 1738 URINE ROUT: Legionella Antigen - COMP Assessment/Plan Assessment: Brad is an 81 year old [place] male with a PMH stage III diastolic congestive heart failure, HTN, type 2 diabetes mellitus, DLD, PVD, carotid artery disease, coronary artery disease s/p non-ST elevation MS, PAF treated with apixaban, angioplasty to his LAD performed in 1997 and permanent pacemaker for heart block. At present, Brad came in for elective left carpal tunnel release on 02/25/17 after which he was unable to safely mobilize. He required general anesthesia for surgery and although his CTR was brief and uncomplicated, he has been unable to elevate independently from a chair postoperatively which appears to be mostly due to worsened weakness in bilateral lower extremities. On POD#4, Brad reported sudden onset confusion likely due to delirum. Vitals were stable. Labs showed WBC 18,000, H&H11.2/ 35, plt 154, BUN/cre 46/ 1.4. UA was clear. Chest x-ray showed bilateral pulmonary opacities representing pneumonia and small bilateral pleural effusions. He was admitted to the general medical floor under the medical service and the following is his management: 1. Hospital acquired pneumonia (Concern for gram negative/MRSA pneumonia) * Chest x-ray showed bilateral pulmonary opacities representing pneumonia and small bilateral pleural effusions. * Follow up chest CT showed patchy ground glass attenuation in the bilateral upper lobes that could represent pneumonitis or infectious changes * Closely monitor vitals, check for fever, chills, shortness of breath, cough, phlegm production * Patient has remained afebrile overnight with improving leukocytosis this AM * Patient had ABG done which showed CO2 retention at which point he was placed on BiPAP; continue to provide supplemental O2 to keep say >92% * Continue IV unasyn per ID recommendations * Follow up final culture results * Swallow evaluation showed patient is low risk for aspiration and his diet has been advanced * Continue to follow up ID recommendations 2. Acute hypoxic and hypercarbic respiratory failure * Noted O2 sat of 84% on room air and ABG with hypercarbia (CO2 52) * Consider secondary to ?underlying pneumonia in the setting of baseline LYNDSEY * Continue to provide supplemental O2 to maintain O2 sat >92%, BiPAP vs O2 via NC * Follow up ABG at 2 PM to monitor improvement on BiPAP * Pulm consult pending, follow up recommendations 3. Encephalopathy * Likely due to a combination of CO2 retention, underlying infection and hospital delirium * Avoid narcotics, diminish nursing intervention at night, consider rozerem at bedtime * Monitor closely and use BiPAP PRN to prevent CO2 retention * Continue to reorient patient * Consider head CT if patient persistently altered and consider neuro eval if indicated 4. KEISHA on CKD * Acute kidney injury with increased creatinine to 1.4. Likely prerenal from dehydration and underlying infection. * Home medication Bumex 2 mg BID for stage III diastolic congestive heart failure and lower extremity swelling is ON HOLD, continue to hold until improvement in renal function appreciated. * Hold further IVF for now, consider starting if patient is to be NPO on BiPAP for an extended period of time (caution with fluid overload in the setting of CHF) * Follow-up BEP in AM to monitor for improvement 5. Deconditioning * PT and OT consults placed, patient maximum assist of 3 * Recommended short-term rehabilitation upon discharge * Continue mobilization 6. Diabetes mellitus type 2 * Insulin aspart 42 units subcutaneous twice a day 7. Hypertension * Continued metoprolol 50 mg PO BID (home dose) * Continued losartan 25 mg PO daily (valsartan at home) * Vital signs Q shift 8. Paroxysmal atrial fibrillation * Continued home eliquis 5 mg BID * Stable, chronic 9. Coronary artery disease, HLD * Continued aspirin 81 mg PO daily, atorvastatin 20 mg PO daily * Continued imdur 30 mg PO daily 10. Constipation * Dulcolax and senna when necessary FULL CODE DVTP: Eliqus NPO while on BiPAP, CC3 diet otherwise Pain pathway: Tylenol Problem List: 1. S/P carpal tunnel release 2. Need for assistance due to unsteady gait 3. Anemia 4. Hyperglycemia 5. Stasis dermatitis of both legs 6. Chronic CHF Pain Ratin Pain Location: n/a Pain Goal: Remain pain free Pain Plan: Tylenol for mild pain, avoid narcotics/respiratory suppressants Tomorrow's Labs & Rationales: CBC (leukocytosis, anemia) BEP (KEISHA) Consulting Request: Consulting Specialty: Infectious Disease TIMO GRIFFIN,REDD 03/04/17 1234: Attending MD Review Statement Attending Statement Attending MD Statement: examined this patient, discuss w/resident/PA/LEAD MANUFACTURING ENGINEERING TECH, agreed w/resident/PA/LEAD MANUFACTURING ENGINEERING TECH, reviewed EMR data (avail), discussed with nursing, discussed with case mgmt, reviewed images, amended to note Attending Assessment/Plan: Patient seen and examined, he was very lethargic this morning. This was definitely a change in his mental state. His blood cell count is slightly better. He was switched to Unasyn as per infectious disease recommendations to cover possibility of aspiration. Vital Signs Date Time Temp Pulse Resp B/P B/P Pulse O2 O2 Flow FiO2 Mean Ox Delivery Rate 03/04 1154 60 96 03/04 1139 24 95 Nasal 3.5L Cannula 03/04 1100 22 84 Room Air 03/04 1023 Nasal 3.5L Cannula 03/04 1015 Nasal 3.5L Cannula 03/04 0824 61 150/80 03/04 0800 95 Nasal 3.5L Cannula 03/04 0735 98.4 60 20 156/82 94 Nasal 3.0L Cannula 03/04 0000 Nasal 3.5L Cannula 03/03 2323 63 112/66 03/03 2200 98.1 63 21 112/66 92 Nasal 4.0L Cannula 03/03 1600 96 Nasal 3.5L Cannula 03/03 1436 98.8 90 20 110/66 98 Nasal 1.0L Cannula 03/03 1427 98.1 61 18 122/61 92 Nasal 3.0L Cannula on exam; aox3, nad. cv; s1,s2, rrr resp; decreased bs overall. abd; soft, nt, bs+ ext; trace edema Laboratory Tests 03/04 03/04 1028 0605 Blood Gas pH (7.35 - 7.45 PH) 7.36 pCO2 (35 - 45 TORR) 55 H pO2 (80 - 100 TORR) 75 L HCO3 (21 - 28 MEQ/L) 31 H ABG O2 Sat (Measured) (>96.0 %) 95.0 L P-50 (Temp Corrected) NO Carboxyhemoglobin (1.5 - 5.0 %) 0.9 L O2 Concentration % 3.5L Temperature (97.0 - 100.0 FARH) 98.4 O2 Delivery Method IN Hematology CBC w Diff NO MAN DIFF REQ WBC (4.8 - 10.8 /CUMM) 15.6 H RBC (4.70 - 6.10 /CUMM) 4.20 L Hgb (14.0 - 18.0 G/DL) 10.4 L Hct (42 - 52 %) 33.1 L MCV (80.0 - 94.0 FL) 78.9 L MCH (27.0 - 31.0 PG) 24.8 L RDW (11.5 - 14.5 %) 19.5 H Plt Count (130 - 400 /CUMM) 177 MPV (7.4 - 10.4 FL) 9.5 Gran % (42.2 - 75.2 %) 85.8 H Lymphocytes % (20.5 - 51.1 %) 4.5 L Monocytes % (1.7 - 9.3 %) 8.7 Eosinophils % (0 - 5 %) 0.8 Basophils % (0.0 - 2.0 %) 0.2 Absolute Granulocytes (1.4 - 6.5 /CUMM) 13.4 H Absolute Lymphocytes (1.2 - 3.4 /CUMM) 0.7 L Absolute Monocytes (0.10 - 0.60 /CUMM) 1.4 H Absolute Eosinophils (0.0 - 0.7 /CUMM) 0.1 Absolute Basophils (0.0 - 0.2 /CUMM) 0 PUBS MCHC (33.0 - 37.0 G/DL) 31.4 L Miscellaneous Phlebotomy Draw Site RIGHT RADIAL A/P; 81 y/o m with pmh sig for history of type 2 diabetes mellitus, dyslipidemia , PVD, carotid artery disease and coronary artery disease s/p non-ST elevation MS. He also has a history of PAF treated with Apixaban who is s/p carpel tunnel release, now has developed suspected gramm neg/mrsa pna. Patient has developed delirium during the hospital stay likely 2/2 to infection/pneumonia. Patient had been lethargic this morning. We obtained blood gas and it shows no evidence of hypercarbia. I would recommend putting the patient on BiPAP as well as getting a pulmonology consult. Would consider CT head if mental status does not improve. Continue current antibiotics as discussed with infectious disease. Continue TRC nebs and other current medications. DVT prophylaxis: ELiquis. Likely will need rehab when ready for DC.
[2017-03-04 07:35] VITALS: BP 156/82
[2017-03-04 07:55] LABS: ABSOLUTE BASOPHIL COUNT 0 /CUMM (0.0-0.2); ABSOLUTE EOSINOPHIL COUNT 0.1 /CUMM (0.0-0.7); ABSOLUTE GRANULOCYTE CT 13.4 /CUMM (1.4-6.5); ABSOLUTE LYMPH COUNT 0.7 /CUMM (1.2-3.4); ABSOLUTE MONOCYTE COUNT 1.4 /CUMM (0.10-0.60); BASOPHIL % 0.2 % (0.0-2.0); EOSINOPHIL % 0.8 % (0-5); HEMATOCRIT 33.1 % (42-52); MEAN CORPUSCULAR HGB 24.8 PG (27.0-31.0); MEAN CORPUSCULAR HGB CONC 31.4 G/DL (33.0-37.0); MEAN CORPUSCULAR VOLUME 78.9 FL (80.0-94.0); MEAN PLATELET VOLUME 9.5 FL (7.4-10.4); PLATELET COUNT 177 /CUMM (130-400); RBC DISTRIBUTION WIDTH 19.5 % (11.5-14.5); WHITE BLOOD CELL COUNT 15.6 /CUMM (4.8-10.8)
[2017-03-04 09:15] LABS: GRANULOCYTE % 85.8 % (42.2-75.2)
--- NOTE | 2017-03-04 09:18 | NUR ---
0800: DURING ASSESSMENT PT LETHARGIC, DROWSY/AROUSABLE. ALERT TO SELF, CONFUSED. CLESAULO AT BEDSIDE AT 1820. VSS. PER MD, WILL CONTINUE TO WATCH PATIENT AND CALL MD IF PT BECOMES MORE LETHARGIC.
--- NOTE | 2017-03-04 11:14 | NUR ---
PT REMAINS LETHARGIC. ABG'S ORDERED WHICH SHOWED PT IS RETAINING C02. MD VELAZQUEZ NOTIFIED OF RESULTS. RESPIRATORY PAGED, PER RESPIRATORY PULMOMARY CONSULT NEEDED BEFORE PT CAN BE PLACED ON BIPAP. MD VELAZQUEZ AT BEDSIDE.
--- NOTE | 2017-03-04 11:30 | NUR ---
02 SAT 84% ON ROOM AIR. PT SATING 95% ON 3.5L
--- NOTE | 2017-03-04 11:55 | NUR ---
OT attempted to see patient on two occasions. First visit, patient would not open his eyes for therapy. When passive ranging was attempted, patient pulled away and would not participate.. Second attempt patient was asleep and could not be woken.
--- NOTE | 2017-03-04 13:26 | PN- Infect Dx ---
Subjective Subjective: Afebrile. He was noted to be very lethargic this morning, with ABG revealing CO2 retention, for which he has been placed on BiPAP. He is unable to provide any history at this time. Objective Last 24 Hrs of Vital Signs/I&O Vital Signs Date Time Temp Pulse Resp B/P B/P Pulse O2 O2 Flow FiO2 Mean Ox Delivery Rate 03/04 1154 60 96 03/04 1139 24 95 Nasal 3.5L Cannula 03/04 1100 22 84 Room Air 03/04 1023 Nasal 3.5L Cannula 03/04 1015 Nasal 3.5L Cannula 03/04 0824 61 150/80 03/04 0800 95 Nasal 3.5L Cannula 03/04 0735 98.4 60 20 156/82 94 Nasal 3.0L Cannula 03/04 0000 Nasal 3.5L Cannula 03/03 2323 63 112/66 03/03 2200 98.1 63 21 112/66 92 Nasal 4.0L Cannula 03/03 1600 96 Nasal 3.5L Cannula 03/03 1436 98.8 90 20 110/66 98 Nasal 1.0L Cannula 03/03 1427 98.1 61 18 122/61 92 Nasal 3.0L Cannula Intake & Output 03/04 1600 03/04 0800 03/04 0000 Intake Total 140 10 Output Total 300 325 Balance -160 -315 Intake, IV 140 10 Number 3 Bowel Movements Output, Urine 300 325 Physical Exam Other Physical Findings: He is minimally responsive, currently on BiPAP Lungs decreased breath sounds bilaterally Heart regular rhythm with no murmur Abdomen is obese, soft, with no obvious tenderness, positive bowel sounds Extremities left upper extremity swelling persists Neuro myoclonic jerks noted Results Last 24 Hours of Lab Results: Laboratory Tests 03/04 03/04 1028 0605 Blood Gas pH (7.35 - 7.45 PH) 7.36 pCO2 (35 - 45 TORR) 55 H pO2 (80 - 100 TORR) 75 L HCO3 (21 - 28 MEQ/L) 31 H ABG O2 Sat (Measured) (>96.0 %) 95.0 L P-50 (Temp Corrected) NO Carboxyhemoglobin (1.5 - 5.0 %) 0.9 L O2 Concentration % 3.5L Temperature (97.0 - 100.0 FARH) 98.4 O2 Delivery Method NC Hematology CBC w Diff NO MAN DIFF REQ WBC (4.8 - 10.8 /CUMM) 15.6 H RBC (4.70 - 6.10 /CUMM) 4.20 L Hgb (14.0 - 18.0 G/DL) 10.4 L Hct (42 - 52 %) 33.1 L MCV (80.0 - 94.0 FL) 78.9 L MCH (27.0 - 31.0 PG) 24.8 L RDW (11.5 - 14.5 %) 19.5 H Plt Count (130 - 400 /CUMM) 177 MPV (7.4 - 10.4 FL) 9.5 Gran % (42.2 - 75.2 %) 85.8 H Lymphocytes % (20.5 - 51.1 %) 4.5 L Monocytes % (1.7 - 9.3 %) 8.7 Eosinophils % (0 - 5 %) 0.8 Basophils % (0.0 - 2.0 %) 0.2 Absolute Granulocytes (1.4 - 6.5 /CUMM) 13.4 H Absolute Lymphocytes (1.2 - 3.4 /CUMM) 0.7 L Absolute Monocytes (0.10 - 0.60 /CUMM) 1.4 H Absolute Eosinophils (0.0 - 0.7 /CUMM) 0.1 Absolute Basophils (0.0 - 0.2 /CUMM) 0 PUBS MCHC (33.0 - 37.0 G/DL) 31.4 L Miscellaneous Phlebotomy Draw Site RIGHT RADIAL Urine Legionella antigen March 03 negative Last 24 Hours of Chu Results: Blood cultures 2 February 28 remain negative Recent Imaging Studies: Doppler of the left upper extremity March 03 negative Assessment/Plan Impression: Altered mental status, possibly secondary to CO2 retention, given ABG results, with patient now on BiPAP. He remains afebrile with white blood cell count decreased on Unasyn, Day 4 of treatment for presumed pneumonia possibly secondary to aspiration, status post left carpal tunnel release 3 days earlier. Suggestion: 1. Attempt to obtain sputum for culture 2. Bladder scan to rule out urinary retention 3. Await Pulmonary evaluation 4. Consider CT of the head and Neurology evaluation if his mental status does not improve 5. Further evaluation, including bilateral thoracenteses and CT of the abdomen and pelvis if white blood cell count remains elevated 6. Continue Unasyn
[2017-03-04 14:27] VITALS: BP 120/66
[2017-03-04 16:00] VITALS: BP 180/70
--- NOTE | 2017-03-04 16:03 | Cons- Pulmonary ---
General Information and HPI Consulting Request Date of Consult: 03/04/17 Requested By: kim Reason for Consult: Hypercapnic respiratory failure obtundation History of Present Illness: Patient is an 81-year-old gentleman admitted electively for carpal tunnel surgery who was subsequently developed obtundation was found to be hypercapnic with bilateral moderate-sized pleural effusions. Patient was on anticoagulation for atrial fibrillation. Patient was placed on BiPAP because of hypercarbia however his pH is normal suggesting a degree of chronicity. Patient had CT scan which suggested possible aspiration pneumonia and has been on Unasyn. Patient is presently unable to follow commands Allergies/Medications Allergies: Coded Allergies: piperacillin (Mild, RASH 12/15/15) tazobactam (Mild, RASH 12/15/15) morphine (Intermediate, HALLUCINATIONS 12/15/15) heparin (SOMETHING WITH HIS PLATELETS 12/15/15) Home Med List: Albuterol Sulfate (Proair Hfa) 90 MCG HFA.AER.AD 2 PUFF PO BID BREATHING PROBLEMS (Reported) Apixaban (Eliquis) 5 MG TAB 1 TAB PO BID BLOOD THINNER Ascorbic Acid/Copper/Vitamin (Preservision Areds) 1 SGL SGL 1 SGL PO BID EYE HEALTH (Reported) Aspirin (Ecotrin) 81 MG ECT 1 TAB PO DAILY HEART HEALTH (Reported) Bumetanide 2 MG TABLET 1 TAB PO BID Fluid Retention Cholecalciferol (D-3) 1,000 IU CAP 1 TAB PO DAILY BONE HEALTH (Reported) Insulin NPL/Insulin Lispro (Humalog Mix 75-25 Vial) 100 UNIT/ML (75-25) VIAL 45 UNITS SC 8AM diabetes Isosorbide Mononitrate (Isosorbide Mononitrate ER) 60 MG TAB.ER.24H 0.5 TAB PO DAILY CAD (Reported) Metoprolol Tartrate (Lopressor) 50 MG TABLET 1 TAB PO BID CAD (Reported) Potassium Chloride (Klor-Con M10) [address] PAC PO DAILY SUPPLEMENT ( Reported) Simvastatin (Zocor 40MG Tab) 40 MG TAB 1 TAB PO QPM CHOL (Reported) Valsartan (Diovan) 80 MG TABLET 1 TAB PO DAILY HTN (Reported) Vit C/E/Zn/Coppr/Lutein/Zeaxan (Preservision Areds 2 Softgel) 250-200-40 CAPSULE MACULAR DEGENERATION (Reported) Review of Systems Comments Unobtainable Past History Medical History Blood Transfusion Hx: Yes Neurological: peripheral neuropathy EENT: CATARACT diabetic retinopathy Cardiovascular: AFIB (paroxysmal), CHF, hyperlipidemia, syncope, STENT, PACER AFIB ,CHOL, HTN STENTS LCW PM permanent pacemaker for heart block peripheral vascular diseaase peripheral vascular disease s/p angioplasty Respiratory: LYNDSEY Gastrointestinal: diverticulitis Hepatic: NONE Renal: benign prost hyperplasia Musculoskeletal: sciatica, L KNEE REPLACEMENT OSTEOMYELITIS osteomyelitis Psychiatric: NONE Endocrine: IDDM with diabetic neuropathy diabetic retinopathy Blood Disorders: NONE Cancer(s): NONE 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 spouse Services at Home: None Primary Language: Indian Smoking Status: Former Smoker Functional Ability ADLs Independent: dressing, eating, toileting, bathing. Ambulation: walker Exam & Diagnostic Data Last 24 Hrs of Vital Signs/I&O Vital Signs Date Time Temp Pulse Resp B/P B/P Pulse O2 O2 Flow FiO2 Mean Ox Delivery Rate 03/04 1427 97.3 60 20 120/66 95 Nasal Cannula 03/04 1426 82 95 /07 1154 60 96 /07 1139 24 95 Nasal 3.5L Cannula 03/04 1100 22 84 Room Air / 1023 Nasal 3.5L Cannula 03/04 1015 Nasal 3.5L Cannula 03/04 0824 61 150/80 /07 0800 95 Nasal 3.5L Cannula / 0735 98.4 60 20 156/82 94 Nasal 3.0L Cannula / 0000 Nasal 3.5L Cannula 03/03 2323 63 112/66 06/06 2200 98.1 63 21 112/66 92 Nasal 4.0L Cannula 06 1600 96 Nasal 3.5L Cannula Intake & Output /07 1600 06/07 0800 06/07 0000 Intake Total 100 140 10 Output Total 300 325 Balance 100 -160 -315 Intake, IV 100 140 10 Number 3 Bowel Movements Output, Urine 300 325 HEENT exam shows equal pinpoint pupils HEENT exam shows no jugular venous distention exam of his chest shows diminished breath sounds are no wheezes cardiac exam shows a regular S1 and S2 without murmurs abdomen is soft nontender extremities have trace edema CT scan shows pulmonary infiltrates and moderate size pleural effusions with secondary volume loss there is evidence of improving leukocytosis. Arterial blood gases show a compensated respiratory acidosis suggesting a degree of chronicity Last 48 Hrs of Labs/Chu: Laboratory Tests 03/04/17 1401: pH 7.38, pCO2 52 H, pO2 80, HCO3 30 H, ABG O2 Sat (Measured) 95.0 L, P-50 ( Temp Corrected) YES, Carboxyhemoglobin 1.2 L, O2 Concentration % 30%, Temperature 98.4, Respiration Rate 12, O2 Delivery Method BIPAP, Vent Mode ST, Expiratory Pressure 6, Inspiratory Pressure 12, Phlebotomy Draw Site RIGHT RADIAL 03/04/17 1401: pH Pending, pCO2 Pending, pO2 Pending, HCO3 Pending, ABG O2 Sat (Measured) Pending, P-50 (Temp Corrected) Pending, Carboxyhemoglobin Pending, O2 Concentration % Pending, Temperature Pending, O2 Delivery Method Pending, Phlebotomy Draw Site Pending 03/04/17 1028: pH 7.36, pCO2 55 H, pO2 75 L, HCO3 31 H, ABG O2 Sat (Measured) 95.0 L, P-50 (Temp Corrected) NO, Carboxyhemoglobin 0.9 L, O2 Concentration % 3.5L, Temperature 98.4, O2 Delivery Method NC, Phlebotomy Draw Site RIGHT RADIAL 03/04/17 0605: CBC w Diff NO MAN DIFF REQ, RBC 4.20 L, MCV 78.9 L, MCH 24.8 L, RDW 19.5 H, MPV 9.5, Gran % 85.8 H, Lymphocytes % 4.5 L, Monocytes % 8.7, Eosinophils % 0.8, Basophils % 0.2, Absolute Granulocytes 13.4 H, Absolute Lymphocytes 0.7 L , Absolute Monocytes 1.4 H, Absolute Eosinophils 0.1, Absolute Basophils 0, PUBS MCHC 31.4 L 03/03/17 0605: Anion Gap 9, Estimated GFR 49 L, BUN/Creatinine Ratio 40.7 H, Calcium 9.3, Total Bilirubin 1.0, Direct Bilirubin 0.6 H, AST 60 H, ALT 55, Alkaline Phosphatase 85, Total Protein 6.0 L, Albumin 2.7 L, CBC w Diff NO MAN DIFF REQ , RBC 4.11 L, MCV 77.9 L, MCH 24.7 L, RDW 19.2 H, MPV 9.6, Gran % 89.6 H, Lymphocytes % 2.6 L, Monocytes % 7.6, Eosinophils % 0.1, Basophils % 0.1, Absolute Granulocytes 15.4 H, Absolute Lymphocytes 0.5 L, Absolute Monocytes 1.3 H, Absolute Eosinophils 0, Absolute Basophils 0, PUBS MCHC 31.7 L Microbiology 03/03 1738 URINE ROUT: Legionella Antigen - COMP Assessment/Plan Impression/Plan: 81-year-old gentleman admitted for elective carpal tunnel surgery who is had a reported more change in mental status has been found to be hypercarbic leukocytosis and fever he's being treated for presumed aspiration pneumonia. Concern is raised regarding his pinpoint pupils and obtundation in the setting of anticoagulation as to whether there could've been an intracranial bleed he's described to have significant muscle weakness raising the possibility of a contributing neuromuscular weakness as a cause for his hypercarbia though his effusions are large enough to also created degree of pulmonary restriction. These appear to be symmetrical and dependent making concern over empyema less likely Recommendations: Recommend head CT scan to exclude intracranial bleed as he is on anticoagulation. Obtain thyroid function testing. If head CT is negative obtain neurologic evaluation for possible muscle weakness. Change BiPAP settings 2 respiratory rate 24 IPAP 18 and EPAP 4 and obtain blood gas in 1 hour , though no pH is relatively normal suggesting there is a degree of chronicity. Because of 10 duration and need for BiPAP patient will be transferred to the ICU Consult Acknowledgment - Thank you for your consult request.
--- NOTE | 2017-03-04 16:14 | Transfer of Care Summary ---
Hospital Course Course Hospital Course: [place] 81 [place] with a PMH stage III diastolic congestive heart failure, HTN, type 2 diabetes mellitus, DLD, PVD, carotid artery disease, coronary artery disease s/p non-ST elevation DE, PAF treated with apixaban, angioplasty to his LAD performed in 1997 and permanent pacemaker for heart block. At present, Brad came in for elective left carpal tunnel release on 02/25/17 after which he was unable to safely mobilize. He required general anesthesia for surgery and although his CTR was brief and uncomplicated, he has been unable to elevate independently from a chair postoperatively which appears to be mostly due to worsened weakness in bilateral lower extremities. On POD#4, Brad reported sudden onset confusion likely due to delirum. Vitals were stable. Labs showed WBC 18,000, H&H11.2/ 35, plt 154, BUN/cre 46/ 1.4. UA was clear. Chest x-ray showed bilateral pulmonary opacities representing pneumonia and small bilateral pleural effusions. He was admitted to the general medical floor and the following was his course while there: 1. Hospital acquired PNA (concern for gram negative/MRSA pneumonia): Chest x-ray on admission showed bilateral pulmonary opacities representing pneumonia and small bilateral pleural effusions. Follow up chest CT showed patchy ground glass attenuation in the bilateral upper lobes that could represent pneumonitis or infectious changes. He was closely monitored, vital signs checked freuqently and he was monitored for worsening respiratory status. He was started on broad spectrum antibiotics and had a swallow evaluation showed patient is low risk for aspiration so his diet was advanced. ID was consulted and empiric IV antibiotics ceftazadime and vancomycin were switched to IV unasyn. LRC was sent and is pending. Patient has persistent leukocytosis but remains afebrile. Please continue to follow ID recommendations, monitor for fever/leukocytosis and tailor antibiotics once cultures return. 2. Acute hypoxic and hypercarbic respiratory failure: On 03/04/17, patient was noted to be more lethargic. Vital signs showed 84% on room air and patient was continued on O2 via nasal cannula. De to lethargy, ABG was obtained which showed CO2 retention and patient was placed on BiPAP. Pulmonary consult with Dr. Aida MD was placed and on his evaluation of the patient, he suggested transfering patient to the ICU for closer clinical monitoring. Please follow up Dr. Parra's recommendations and please continue BiPAP to improve CO2. 3. Encephalopathy: Patient was noted to be confused on 03/03/17 but on 03/04/17, Brad was lethargic and minimally conversant on questioning. ABG was obtained and showed CO2 retention. Encephalopathy likely represented combination of CO2 retention and underlying infection. Patient has been on no narcotics during this admission as he was only provided with tylenol for pain. Patient was placed on BiPAP and pulmonary consult was obtained. Utox was ordered and stat head CT was sent. TFTs were also sent. Please follow up these results. If head CT abnormal or clinical status worsens, consider neurology evaluation. 4. KEISHA on CKD: Acute kidney injury with increased creatinine to 1.4. Likely prerenal from dehydration and underlying infection. Home medication Bumex 2 mg BID for stage III diastolic congestive heart failure and lower extremity swelling is ON HOLD, continue to hold until improvement in renal function appreciated. Follow up AM BEP to monitor for improvement. Consider IVF overnight if remains NPO on BiPAP (however, caution with aggressive hydration due to history of heart failure). 5. Deconditioning: PT and OT consults placed from admission as patient had noted weakness after carpal tunnel surgery. Patient found to be a maximum assist of 3 and will require STR upon discharge. Continue working with PT. 6. DM type 2: Continue insulin aspart 42 units subcutaneous twice a day. 7. HTN: Continued metoprolol 50 mg PO BID (home dose) and losartan 25 mg PO daily (valsartan at home). Vital signs Q shift. 8. Paroxysmal atrial fibrillation: Continue home eliquis 5 mg PO BID. However, discontinue today as patient may need thoracentesis to improve respiratory funciton. If this is scheduled, discuss with attending about using heparin therapy in the mean time. 9. CAD, HLD: Patient continued on aspirin 81 mg PO daily, atorvastatin 20 mg PO daily, imdur 30 mg PO daily. 10. Constipation: Dulcolax and senna PRN. 11. Code Status: FULL 12. Diet: NPO for now, transition to CC3 once off BiPAP 13. DVTP: Eliquis Assessment/Plan: See above. Attending MD Review Statement Documenting Attending: TIMO GRIFFIN,REDD
--- NOTE | 2017-03-04 16:23 | NUR ---
PT ON BIPAP, MORE AROUSABLE BUT STILL LETHARGIC. DURING CHANGE OF SHIFT, MD HANNON AT BEDSIDE 1530 TO ASSESS PATIENT. PT IS DOWN FOR CAT SCAN AND BEING TRANFERRED TO CRITICAL CARE.
--- NOTE | 2017-03-04 17:13 | CT SCAN REPORT ---
EXAMINATION: CT HEAD WITHOUT CONTRAST CLINICAL INFORMATION: Altered mental status; question infarction or other intracranial pathology. COMPARISON: None. TECHNIQUE: Contiguous axial imaging was performed from the skull base to vertex without intravenous administration of contrast. DLP: 1268.04 mGy-cm FINDINGS: There is no evidence of acute intracranial hemorrhage or territorial infarction. No abnormal mass effect or midline shift is seen. Simons to white matter differentiation is well preserved. No extra-axial fluid collections are identified. The ventricles and sulci are commensurate with advanced age. There is mild patchy low attenuation change in the periventricular white matter spaces. The osseous structures and soft tissues are normal. There is moderately severe left frontal, ethmoid, maxillary and sphenoid sinusitis. The mastoid air cells are well-aerated. IMPRESSION: 1. No acute intracranial pathology. 2. There is mild patchy low attenuation change in the periventricular white matter spaces, commonly associated with chronic microangiopathy. 3. There is left paranasal sinusitis.
--- NOTE | 2017-03-04 17:21 | NUR ---
RECEIVED PT FROM FLOOR AFTER HAVING CT HEAD DONE. TELEPHONE REPORT RECEIVED FROM FLOOR RN. BEDSIDE UPDATE FROM NURSE HEDIS NURSE. PT IS AWAKE, ORIENTED. PLACED ON O2 N/C 2L BY RT. LUNG SOUNDS DIMINISHED. MONITOR PACING RHYTHM. PT IS VERY DIFFICULT TO TURN, CANNOT TURN ON HIS OWN, REQUIRES ASSIST OF 2 AND HE IS VERY RESISTIVE. HE HAS SKIN INTEGRITY ISSUES ON HIS SCROTUM AND COCCYX. HIS LEFT HAND HAS A POST OP SPLINT AND ELENA WRAP IN PLACE WHICH IS EXTREMELY TIGHT AND THE TOP OF HIS HAND IS DISCOLORED, EXTREMELY EDEMATOUS, PAINFUL AND HE HAS DECREASED CAP REFILL. NURSE HEDIS NURSE, ICU TEAM, AND SURGICAL PA CALLED TO BEDSIDE ELENA WRAP WAS REMOVED BY THIS RN AND PT FELT IMMIDIATE RELIEF. HIS HAND WAS THEN WRAPPED LOOSELY WITH ACEWRAP AND ELEVATED ON PILLOWS. AN ELENA WRAP BY THE SURGICAL PA.
--- NOTE | 2017-03-04 17:57 | NUR ---
UNABLE TO PALPATE PEDAL PULSES AR DOPPLAR PEDAL PULSES, ICU RESPIRATORY SCIENTIST NOTIFIED. LOWER LEGS ARE DISCOLORED. ALPS APPLIED PER .
--- NOTE | 2017-03-04 19:03 | NUR ---
NON MEDS ARE ON THE UNIT FOR THIS PATIENT. PHARMACY HAS BEEN NOTIFIED.
--- NOTE | 2017-03-04 19:07 | NUR ---
PTS ACCUCHECK IS 94 AND HE IS SCHEDULED FOR 70/30 INSULIN. ICU REPAIR MANAGER NOTIFIED AND THIS DOSE WILL BE HELD.
[2017-03-04 20:00] VITALS: BP 186/67
[2017-03-04 22:00] VITALS: BP 170/68
[2017-03-05] VITALS (9 sets, daily range): BP systolic 140–170; BP diastolic 49–85
--- NOTE | 2017-03-05 03:48 | NUR ---
REC'D PT IN BED ASLEEP @1999. AWAKE & URGENTLY WANT TO VOID. VOIDED APPROX 100CC & SPILLED ?INC OF URINE LG AMT. ORDERED FOR SOTO CATH BUT PT WAS REFUSING. PT VERY UPSET IN BEING IN THE HOSPITAL. CONFUSED AT TIMES. MISSING ON THE TIME/YEAR/DATE. SBP AUTO READING ON THE HIGH OF 190-220'S & RECHECK MANUALLY 160-170'S. WAITING FOR LOPRESSOR PO FROM PHARMACY. REASSURANCE GIVEN SEVERAL TIMES. PT HAS LCW PACER HR IN 60'S, ON 3LNC POX IN LOW 90'S, LS DIMINISHED THROUGHOUT THE LOBES. PT IS HAS DIFFICULTY T&P NEED 2 STAFF UNABLE TO HOLD WELL ON THE SIDE RAILS WHEN BEING TURNED ON THE SIDE. AT TIMES NON COMPLIANT W/CARE. ALSO DEMANDING WATER ONLY ALLLOWED W/MEDS. COUGHING AT FIRST STATES HE WAS DRY BUT LATER ON MARKIE PO FLUIDS. NPO AT THIS TIME. 2300 PO LOPRESSOR GIVEN SBP 170/MANUAL. PLACED ON BIPAP RATE 24/ FIO2 25%/ IPAP/EPAP 18/6. POX 93%. 20180 PT REMOVED THE FM OF THE BIPAP. RECOURAGE TO HAVE IT ON FEW MORE HOURS. HELD A FIST TO MY FACE & THREATING THE RN/MYSELF. REASSURANCE GIVEN & FINALLY ABLE TO PLACE THE BIPAP ON. 0300 PT REMOVED BIPAP ON. REFUSED TO HAVE IT ON. PLACED ON 3LNC POX 92-93%. REASSURANCE GIVEN. ABG DONE BY DR. BARBER W/RT ED SUPERVISING. DEMANDING SOME H2O AGAIN. GAVE A CUP FOR NOW BUT INFORM PT HAD TO GET MD TO CHANGE THE ORDER. DESATTING IN 88-89%, >FIO2 TO 4LNC POX NOW 93%. SETTLING TO BED. CONT TO MONITOR.
[2017-03-05 05:41] LABS: ABSOLUTE BASOPHIL COUNT 0 /CUMM (0.0-0.2); ABSOLUTE EOSINOPHIL COUNT 0.1 /CUMM (0.0-0.7); ABSOLUTE GRANULOCYTE CT 13.3 /CUMM (1.4-6.5); ABSOLUTE LYMPH COUNT 0.5 /CUMM (1.2-3.4); ABSOLUTE MONOCYTE COUNT 1.1 /CUMM (0.10-0.60); BASOPHIL % 0 % (0.0-2.0); EOSINOPHIL % 0.7 % (0-5); HEMATOCRIT 32.4 % (42-52); MEAN CORPUSCULAR HGB 24.7 PG (27.0-31.0); MEAN CORPUSCULAR HGB CONC 31.5 G/DL (33.0-37.0); MEAN CORPUSCULAR VOLUME 78.5 FL (80.0-94.0); MEAN PLATELET VOLUME 9.4 FL (7.4-10.4); PLATELET COUNT 214 /CUMM (130-400); RBC DISTRIBUTION WIDTH 19.4 % (11.5-14.5); RED BLOOD CELL CT 4.12 /CUMM (4.70-6.10)
[2017-03-05 06:44] LABS: GRANULOCYTE % 88.9 % (42.2-75.2)
--- NOTE | 2017-03-05 06:47 | RADIOLOGY REPORT ---
EXAMINATION: XR PORTABLE CHEST CLINICAL INFORMATION: Bilateral pleural effusions. Hypoxia. COMPARISON: 02/28/2017 TECHNIQUE: Portable frontal view of the chest was obtained. FINDINGS: Left chest wall pacer is unchanged. The lungs are well expanded. Small bilateral pleural effusions persist with increasing bibasilar opacities extending to the mid lung bilaterally. No pneumothorax. The cardiomediastinal silhouette is unchanged. IMPRESSION: Persistent small bilateral pleural effusions with increasing associated airspace opacities.
--- NOTE | 2017-03-05 07:25 | PN- Orthopedic ---
Surgical Brief Attending Note Brief Attending Note: PATIENT SEEN THIS AM. LEFT HAND EXAMINED. Incision is clean dry and intact. No evidence of infection. The splint and Edy bandage is removed and a Band-Aid was placed over the incision depending on the patient's length of stay in the hospital the sutures may be ready to come out by Thursday or Thursday. Medical care and input.
--- NOTE | 2017-03-05 07:34 | PN- Resident CRCU ---
NATALIE GRIFFIN,TATE 03/05/17 0733: Subjective HPI/CRCU Issues: Transferred to ICU last evening 03/04 4 hypercapnia with altered mental status requiring BiPAP. ABG on presentation at onset of altered mental status 7.8/52/ 850/30, post BiPaP 7.47/42/61/30. Mejia intact. 24 Hour Events: Seen and examined bedside. He wakes up to verbal stimuli is alert and oriented to person and place, he started asking for water. Acute overnight report of patient refusing BiPAP is noted, when seen on 3 L nasal cannula saturating at 95 %. Other vital signs stable with no other acute complaint. Objective Vital Signs & I&O Last 8 Hrs of Vitals and I&O: Vital Signs Date Time Temp Pulse Resp B/P B/P Pulse O2 O2 Flow FiO2 Mean Ox Delivery Rate 03/05 0600 60 30 170/67 / 0400 98.1 62 21 166/63 / 0400 93 Nasal 3.0L Cannula 03/05 0323 66 93 03/05 0200 62 34 160/70 / 0122 62 92 06/08 0000 97.4 60 24 143/85 06/08 0000 97.4 90 24 143/85 93 BIPAP 25% 06/ 0000 93 BIPAP 25% / 2304 70 93 06/ 2248 64 194/100 03/04 2200 61 28 170/68 /1999 97.4 68 19 186/67 / 2000 93 Nasal 3.0L Cannula 03/04 1800 93 Nasal 3.0L Cannula 03/04 1600 94 Nasal 2.0L Cannula 03/04 1600 98.8 92 18 180/70 94 Nasal 2.0L Cannula 03/04 1427 97.3 60 20 120/66 95 Nasal Cannula / 1426 82 95 Intake & Output 03/05 1600 06/08 0800 06/08 0000 Intake Total 220 220 Output Total 650 500 Balance -430 -280 Intake, IV 100 100 Intake, Oral 120 120 Number 0 0 Bowel Movements Output, Urine 650 500 Exam General Appearance: alert, awake, oriented to place and person Head: atraumatic, normal appearance Ears, Nose, Throat: Nasal canuli intct Neck: normal inspection, supple, full range of motion Respiratory: chest non-tender, lungs clear Cardiovascular: regular rate/rhythm Gastrointestinal: normal bowel sounds, soft, non-tender Extremities: normal inspection, normal capillary refill, normal range of motion, swelling of operated left wrist, improved from previous day, radial pulses intact. Mejia Date In: 03/05/17 Still Needed? Yes Current Medications: Current Medications Sig/Roge Start time Last Medication Dose Route Stop Time Status Admin Acetaminophen 650 MG Q4P PRN 02/28 1500 AC 06 PO 1554 Albuterol Sulfate 2 PUF Q12P PRN 03/04 2230 AC INH Ampicillin Sodium/ 3,000 MG Q8 03/03 2200 AC / Sulbactam Sodium IV 2114 Sodium Chloride 100 ML Aspirin 81 MG DAILY 02/26 1000 AC 06/08 PO 1000 Atorvastatin Calcium 20 MG 1700 02/26 1700 AC 03/05 PO 1708 Docusate Sodium 100 MG BID 02/28 1045 AC 03/05 PO 2114 Insulin Aspart 0 TIDAC 03/05 1700 AC / SC 1708 Insulin Aspart Prota 42 UNIT 0800 & 1700 03/02 1700 DC 03/03 70%/Aspart 30% SC 1902 Insulin Detemir 15 UNITS BID 03/05 2200 AC /08 SC 2114 Isosorbide 30 MG DAILY / 1000 AC 06/08 Mononitrate PO 1000 Losartan Potassium 25 MG DAILY / 1000 AC /08 PO 1000 Metoprolol Tartrate 50 MG BID 02/25 2200 AC / PO 2116 Ondansetron HCl 4 MG Q8P PRN 02/25 2100 AC IV Potassium Chloride 20 MEQ DAILY / 1000 AC 06/08 PO 1000 Impression/Plan Impression/Problem List Impression: This is a 81-year-old gentleman with a us medical history of diabetes, PVD, PAF managed with About, CAD, status post pacemaker, obstructive sleep apnea, diverticulitis, status post elective left carpal tunnel release POD #8, admitted after found not to be able to ambulate and was also found to have pneumonia on postoperative day 4 currently on Unasyn, on postoperative day 7 developed acute onset of altered mental status with ABGs remarkable for Hypercapnia, and CXR positive for small bilateral pleural effusion. She was started on BiPAP and due to his altered mental status he required close monitoring of the ICU. Problem List: 1. Altered mental status Pain Ratin Tomorrow's Labs & Rationales: icu bundle Plan Respiratory: Hypercapnia with CO2 52-55 from yesterdays ABG. His pH was noted to be normal to slightly elevated, which could point to chronic CO retention with compenation. He is currently being treated for pneumonia on Unasyn, chest x-ray show small bilateral pleural effusion. Refuses BiPAP last night and was put on 3 L nasal cannula which he is saturating well at 95%. His respiratory condition most likely is secondary to pneumonia versus small bilateral pleural effusion and obstructive sleep apnea. We'll continue to monitor respiratory status, will chest x-ray tomorrow morning and if pleural effusion is worsening with clinical signs of respiratory distress ,wIll have a low threshold for thoracentesis. Infectious Diseases: Currently on Unasyn on day 5, leukocytosis present but on abdominal tend. No fever or chills reported by the patient. We'll continue with Unasyn for 1 or 2 more days. Cardiovascular: Sinus rhythm rate control. Does have a history of paroxysmal A. fib managed with Apixaban. Suspicion has bilateral pleural effusion is a concern for possible CHF. However, patient does not have any other clinical signs such as JVD, edema, orthopnea to suggest CHF. Currently The mom has been held in anticipation for possible thoracentesis if worsening bilateral pleural effusion is seen tomorrow. 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 Hematology: Stable with down trending leukocytosis. No acute bleeding reported by the patient, hemoglobin and hematocrit stable. Off Anticoagulation for possible thoracocentesis. Metabolic: Diabetic with no reported overnight hypoglycemic events. However, previous days sugars show some elevation Carbohydrate diet started today. We'll switch NovoLog 70/30 name NovoLog sliding scale and started Levemir 15 units twice a day. Obtain with Accu-Cheks at 3 times daily before meals and bedtime. Alimentary: Past swollen test able to eat regular diet. Neurological: Mentation improved compared to yesterday. Possible etiology of acute mental status include infectious encephalopathy versus acute hospital delirium. Continue to monitor mental status and avoid any delirium tremens such as constipation and pain. DVT/Prophylaxis: mechanical, pharmacological Code Status: Full Code SANTI CHAIDEZ MD 03/05/17 0925: Attending MD Review Statement Attending Sign Off Attending Cosign Statement: I have: examined this patient, reviewed [employer] EMR data, personally reviewd images, discussd w/resident/PA/PHOTOGRAMMETRIC TECHNICIAN, discussed mgmt plan w/franco, discussed mgmt plan w/CM, discussed mgmt plan w/pt, agreed w/resident/PA/PHOTOGRAMMETRIC TECHNICIAN, amended to note. Other Findings: Santi Warner M.D. have examined this patient, reviewed available EMR data, personally reviewed images, discussed with resident/PA/PHOTOGRAMMETRIC TECHNICIAN, discussed management plan with housestaff and nursing staff, discussed managment plan all of healthcare providers, discussed management plan with patient and/or family, agreed with resident/PA/PHOTOGRAMMETRIC TECHNICIAN. The past history and parts of the chart have been autopopulated. TTS 40 min
--- NOTE | 2017-03-05 07:41 | Cons- Cardiology ---
General Information and HPI Consulting Request Date of Consult: 03/05/17 Requested By: BERNADETTE GRIFFIN,JULIUS Hodgson History of Present Illness: Brad is 81 year old male with a history of diabetes mellitus, dyslipidemia, PVD, carotid artery disease and coronary artery disease s/p non-ST elevation GA. He also has a history of PAF. The patient is s/p angioplasty to his LAD performed in 1997. Lastly this patient is status post a permanent pacemaker for heart block. Brad was admitted to [facility] for a carpal tunnel release procedure that went well. Post operatively the patient was very weak and was not able to stand or walk well. It should be noted that he did have a cough prior to the procedure. The patient was given some IV fluids and was becoming a bit more short of breath. This patient subsequently was noted to have an elevated WBC count and was obtunded. This was attributed to hypercapneic respiratory failure treated with BIPAP. At baseline this patient does feel shortness of breath with minimal exertion and needs to sleep in a reclining chair. He can walk about twently feet before becoming winded. He also has lower extremity edema that at times is severe but did improve with Bumex. This patient underwent a vascular procedure on his legs by Dr. Martinez a couple months ago with some borderline positive results. The patient's last echocardiogram showed a low normal EF of 50% with distal septal and apical akinesis and mild to moderate left ventricular hypertrophy with a restrictive filling pattern. There was mild right ventricular enlargement with moderate left atrial enlargment. Trace MR, AI, PI and mild TR is noted along with moderate pulmonary hypertension. To review of the patient's prior history, Brad has a history of atrial fibrillation, s/p cardioversion. Workup has included Holter monitor performed in 09/2007 which showed NSR with occasional PACs and PVCs with no recurrence of atrial fibrillation. In 1997, the patient underwent angioplasty of his LAD, as mentioned above. It should be noted that Brad underwent a left knee replacement complicated by what sounded like a non-ST elevation myocardial infarction. This occurred at [facility]. 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 In August of 2009, the patient was admitted with shortness of breath and a cough. He did rule in for another non-ST elevation GA. It was, at that time, he was discovered to have osteomyelitis with gram positive cocci in both blood and bone samples. In consideration of the above, I performed a repeat cardiac catheterization which showed a diffusely calcified left main with a 50% distal stenosis. The LAD harbored a 50% proximal stenosis followed by a 50% mid- stenosis. Luminal irregularities were noted in the previously placed stent. Left circumflex, however, had a 50% proximal stenosis of the obtuse marginal 3 branch. The right coronary artery is dominant and parents a diffusely diseased PDA., with perhaps, a focal 80% mid-stenosis. I felt the patient had questionable left main disease with non-obstructive coronary artery disease in the left LAD and circumflex. The PDA did have a significant stenosis; however, this disease was very distal and diffusely diseased narrow vessel. Therefore, medical therapy was pursued. The PDA had an 80% mid-stenosis and less than 2 mm in this location and I do not think it would get good angioplasty results. Allergies/Medications Allergies: Coded Allergies: piperacillin (Mild, RASH 12/15/15) tazobactam (Mild, RASH 12/15/15) morphine (Intermediate, HALLUCINATIONS 12/15/15) heparin (SOMETHING WITH HIS PLATELETS 12/15/15) Home Med List: Albuterol Sulfate (Proair Hfa) 90 MCG HFA.AER.AD 2 PUFF PO BID BREATHING PROBLEMS (Reported) Apixaban (Eliquis) 5 MG TAB 1 TAB PO BID BLOOD THINNER Ascorbic Acid/Copper/Vitamin (Preservision Areds) 1 SGL SGL 1 SGL PO BID EYE HEALTH (Reported) Aspirin (Ecotrin) 81 MG ECT 1 TAB PO DAILY HEART HEALTH (Reported) Bumetanide 2 MG TABLET 1 TAB PO BID Fluid Retention Cholecalciferol (D-3) 1,000 IU CAP 1 TAB PO DAILY BONE HEALTH (Reported) Insulin NPL/Insulin Lispro (Humalog Mix 75-25 Vial) 100 UNIT/ML (75-25) VIAL 45 UNITS SC 8AM diabetes Isosorbide Mononitrate (Isosorbide Mononitrate ER) 60 MG TAB.ER.24H 0.5 TAB PO DAILY CAD (Reported) Metoprolol Tartrate (Lopressor) 50 MG TABLET 1 TAB PO BID CAD (Reported) Potassium Chloride (Klor-Con M10) [address] PAC PO DAILY SUPPLEMENT ( Reported) Simvastatin (Zocor 40MG Tab) 40 MG TAB 1 TAB PO QPM CHOL (Reported) Valsartan (Diovan) 80 MG TABLET 1 TAB PO DAILY HTN (Reported) Vit C/E/Zn/Coppr/Lutein/Zeaxan (Preservision Areds 2 Softgel) 250-200-40 CAPSULE MACULAR DEGENERATION (Reported) Past History Medical History Blood Transfusion Hx: Yes Neurological: peripheral neuropathy EENT: CATARACT diabetic retinopathy Cardiovascular: AFIB (paroxysmal), CHF, hyperlipidemia, syncope, STENT, PACER AFIB ,CHOL, HTN STENTS LCW PM permanent pacemaker for heart block peripheral vascular diseaase peripheral vascular disease s/p angioplasty Respiratory: LYNDSEY Gastrointestinal: diverticulitis Hepatic: NONE Renal: benign prost hyperplasia Musculoskeletal: sciatica, L KNEE REPLACEMENT OSTEOMYELITIS osteomyelitis Psychiatric: NONE Endocrine: IDDM with diabetic neuropathy diabetic retinopathy Blood Disorders: NONE Cancer(s): NONE 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 spouse Services at Home: None Primary Language: Ecuadorean Smoking Status: Former Smoker Functional Ability ADLs Independent: dressing, eating, toileting, bathing. Ambulation: walker Exam & Diagnostic Data Vital Signs and I&O Vital Signs Date Time Temp Pulse Resp B/P B/P Pulse O2 O2 Flow FiO2 Mean Ox Delivery Rate 03/05 0600 60 30 170/67 /08 0400 98.1 62 21 166/63 06/08 0400 93 Nasal 3.0L Cannula 03/05 0323 66 93 06/08 0200 62 34 160/70 06/08 0122 62 92 06/08 0000 97.4 60 24 143/85 06/08 0000 97.4 90 24 143/85 93 BIPAP 25% 06/08 0000 93 BIPAP 25% /07 2304 70 93 06/07 2248 64 194/100 06/07 2200 61 28 170/68 06/1999 97.4 68 19 186/67 06/1999 93 Nasal 3.0L Cannula 03/04 1800 93 Nasal 3.0L Cannula 03/04 1600 94 Nasal 2.0L Cannula 03/04 1600 98.8 92 18 180/70 94 Nasal 2.0L Cannula 03/04 1427 97.3 60 20 120/66 95 Nasal Cannula / 1426 82 95 /07 1154 60 96 / 1139 24 95 Nasal 3.5L Cannula 03/04 1100 22 84 Room Air 03/04 1023 Nasal 3.5L Cannula 03/04 1015 Nasal 3.5L Cannula 03/04 0824 61 150/80 03/04 0800 95 Nasal 3.5L Cannula 03/04 0735 98.4 60 20 156/82 94 Nasal 3.0L Cannula Intake & Output 03/05 0800 06/08 0000 03/04 1600 03/04 0800 06 0000 03/03 1600 Intake Total 220 220 100 034 44 9549 Output Total 650 500 300 325 700 Balance -430 -280 100 -160 -315 300 Intake, IV 100 100 100 140 10 100 Intake, Oral 120 120 900 Number 0 0 3 0 Bowel Movements Output, Urine 650 500 300 325 700 Physical Exam: General: WD/ obese male in NAD; lethargic HEENT: NC/ AT, PERRL, EOMI Neck: no JVD, bilateral carotid bruit R>L Heart: regular rate and rhythm with 2/6 sytolic murmur at the RUSB and 2/6 sytolic murmur at the LUSB and apex Lungs: clear bilaterally Abdomen: soft, obese, NT, +ve bowel sounds Extremities: 1-2+ leg edema bilaterally with venous stasis changes bilaterally Assessment/Plan Assessment/Plan * This patient had hypercapneic respiratory failure that may have been due to a combination of medications and aspiration pneumonia. Earlier in the patient's hospital course he was given IV fluids that may have been a bit in excess resulting in worsening pleural effusions. At present, his pulmonary edema is minimal and there is no evidence of decompensated CHF. Hold off on restarting Bumex at this time. His other cardiac medications should be continued as currently prescribed. Consult Acknowledgment - Thank you for your consult request.
--- NOTE | 2017-03-05 10:03 | PN- Orthopedic ---
Subjective Subjective: no complaints of L hand or wrist pain. Objective Vital Signs and I&Os Vital Signs Date Time Temp Pulse Resp B/P B/P Pulse O2 O2 Flow FiO2 Mean Ox Delivery Rate 06/ 0600 60 30 170/67 / 0400 98.1 62 21 166/63 03/05 0400 93 Nasal 3.0L Cannula 03/05 0323 66 93 06/08 0200 62 34 160/70 06/08 0122 62 92 06/08 0000 97.4 60 24 143/85 06/08 0000 97.4 90 24 143/85 93 BIPAP 25% 06 0000 93 BIPAP 25% 03/04 2304 70 93 03/04 2248 64 194/100 03/04 2200 61 28 170/68 03/04 2000 97.4 68 19 186/67 03/04 2000 93 Nasal 3.0L Cannula 03/04 1800 93 Nasal 3.0L Cannula 03/04 1600 94 Nasal 2.0L Cannula 03/04 1600 98.8 92 18 180/70 94 Nasal 2.0L Cannula 03/04 1427 97.3 60 20 120/66 95 Nasal Cannula 03/04 1426 82 95 /07 1154 60 96 03/04 1139 24 95 Nasal 3.5L Cannula 03/04 1100 22 84 Room Air 03/04 1023 Nasal 3.5L Cannula 03/04 1015 Nasal 3.5L Cannula Intake & Output 03/05 1600 06/08 0800 06/08 0000 /07 1600 03/04 0800 / 0000 Intake Total 220 220 100 140 10 Output Total 650 500 300 325 Balance -430 -280 100 -160 -315 Intake, IV 100 100 100 140 10 Intake, Oral 120 120 Number 0 0 3 Bowel Movements Output, Urine 650 500 300 325 Physical Exam: awake and alert LUE- incision c/d/i, sutures in place. mild L hand and finger swelling, decreased ROM. nvi. Assessment/Plan Assessment/Plan POD #8 sp L carpal tunnel release encourage ROM L hand and fingers. elevate Daily dressing changes with Band-Aid Sutural removal in the next few days
--- NOTE | 2017-03-05 10:04 | NUR ---
OCCUPATIONAL THERAPY NOTE: CHART REVIEWED. PT TRANSFERRED TO ICU 2N TO DECLINE IN MEDICAL STATUS. OT IS ON HOLD. PLEASE RE-CONSULT FOR OT WHEN MEDICALLY STABLE AND APPROPRIATE. THANK YOU.
--- NOTE | 2017-03-05 10:52 | PN- Infect Dx ---
Subjective Subjective: Afebrile. He was moved to ICU yesterday afternoon for closer monitoring because of hypercarbic respiratory failure. He is more alert today and offers no complaints at this time. Objective Last 24 Hrs of Vital Signs/I&O Vital Signs Date Time Temp Pulse Resp B/P B/P Pulse O2 O2 Flow FiO2 Mean Ox Delivery Rate 03/05 0600 60 30 170/67 06/08 0400 98.1 62 21 166/63 03/05 0400 93 Nasal 3.0L Cannula 03/05 0323 66 93 03/05 0200 62 34 160/70 03/05 0122 62 92 06/08 0000 97.4 60 24 143/85 06/08 0000 97.4 90 24 143/85 93 BIPAP 25% 03/05 0000 93 BIPAP 25% 03/04 2304 70 93 03/04 2248 64 194/100 03/04 2200 61 28 170/68 03/04 2000 97.4 68 19 186/67 03/04 2000 93 Nasal 3.0L Cannula 03/04 1800 93 Nasal 3.0L Cannula 03/04 1600 94 Nasal 2.0L Cannula 03/04 1600 98.8 92 18 180/70 94 Nasal 2.0L Cannula 03/04 1427 97.3 60 20 120/66 95 Nasal Cannula 03/04 1426 82 95 07 1154 60 96 03/04 1139 24 95 Nasal 3.5L Cannula 03/04 1100 22 84 Room Air Intake & Output 03/05 1600 08 0800 /08 0000 Intake Total 220 220 Output Total 650 500 Balance -430 -280 Intake, IV 100 100 Intake, Oral 120 120 Number 0 0 Bowel Movements Output, Urine 650 500 Physical Exam Other Physical Findings: He appears more alert though remains confused, in no acute distress Lungs are clear with decreased breath sounds bilaterally Heart regular rhythm with no murmur Abdomen is obese, soft, nontender with positive bowel sounds Extremities chronic venous stasis changes both lower extremities, with minimal edema of the left leg Mejia catheter in place Results Last 24 Hours of Lab Results: Laboratory Tests 03/05 03/05 0600 0515 Chemistry Sodium (137 - 145 mmol/L) Cancelled 143 Potassium (3.5 - 5.1 mmol/L) Cancelled 4.5 Chloride (98 - 107 mmol/L) Cancelled 104 Carbon Dioxide (22 - 30 mmol/L) Cancelled 30 Anion Gap (5 - 16) Cancelled 8 BUN (9 - 20 mg/dL) Cancelled 50 H Creatinine (0.7 - 1.2 mg/dL) Cancelled 1.0 Estimated GFR (>60 ml/min) > 60 BUN/Creatinine Ratio Cancelled Glucose (65 - 99 mg/dL) 82 Calcium (8.4 - 10.2 mg/dL) 9.5 Phosphorus (2.5 - 4.5 mg/dL) 2.8 Magnesium (1.6 - 2.3 mg/dL) 2.5 H Total Bilirubin (0.2 - 1.3 mg/dL) 1.0 AST (17 - 59 U/L) 52 ALT (21 - 72 U/L) 65 Albumin (3.5 - 5.0 g/dL) 2.3 L Hematology CBC w Diff NO MAN DIFF REQ WBC (4.8 - 10.8 /CUMM) 15.0 H RBC (4.70 - 6.10 /CUMM) 4.12 L Hgb (14.0 - 18.0 G/DL) 10.2 L Hct (42 - 52 %) 32.4 L MCV (80.0 - 94.0 FL) 78.5 L MCH (27.0 - 31.0 PG) 24.7 L RDW (11.5 - 14.5 %) 19.4 H Plt Count (130 - 400 /CUMM) 214 MPV (7.4 - 10.4 FL) 9.4 Gran % (42.2 - 75.2 %) 88.9 H Lymphocytes % (20.5 - 51.1 %) 3.0 L Monocytes % (1.7 - 9.3 %) 7.4 Eosinophils % (0 - 5 %) 0.7 Basophils % (0.0 - 2.0 %) 0 L Absolute Granulocytes (1.4 - 6.5 /CUMM) 13.3 H Absolute Lymphocytes (1.2 - 3.4 /CUMM) 0.5 L Absolute Monocytes (0.10 - 0.60 /CUMM) 1.1 H Absolute Eosinophils (0.0 - 0.7 /CUMM) 0.1 Absolute Basophils (0.0 - 0.2 /CUMM) 0 PUBS MCHC (33.0 - 37.0 G/DL) 31.5 L 03/05 03/04 03/04 0300 1845 1622 Blood Gas pH (7.35 - 7.45 PH) 7.47 H pCO2 (35 - 45 TORR) 42 pO2 (80 - 100 TORR) 61 L HCO3 (21 - 28 MEQ/L) 30 H ABG O2 Sat (Measured) (>96.0 %) 92.0 L P-50 (Temp Corrected) Y Carboxyhemoglobin (1.5 - 5.0 %) 0.6 L O2 Concentration % 3 LPM Temperature (97.0 - 100.0 FARH) 97.4 O2 Delivery Method N/C Chemistry Free T4 Cancelled Miscellaneous Phlebotomy Draw Site RIGHT RADIAL Toxicology Urine Opiates Screen (>2000 NG/ML) < 100.00 Methadone Screen (>300 NG/ML) < 40 Barbiturate Screen (>200 NG/ML) < 60 Ur Phencyclidine Scrn (>25 NG/ML) < 6.00 Amphetamines Screen (>1000 NG/ML) < 100 U Benzodiazepines Scrn (>200 NG/ML) < 85 Urine Cocaine Screen (>300 NG/ML) < 50 Urine Cannabis Screen (>50 NG/ML) < 5.00 03/04 03/04 1401 1401 Blood Gas pH (7.35 - 7.45 PH) 7.38 Pending pCO2 (35 - 45 TORR) 52 H Pending pO2 (80 - 100 TORR) 80 Pending HCO3 (21 - 28 MEQ/L) 30 H Pending ABG O2 Sat (Measured) (>96.0 %) 95.0 L Pending P-50 (Temp Corrected) YES Pending Carboxyhemoglobin (1.5 - 5.0 %) 1.2 L Pending O2 Concentration % 30% Pending Temperature (97.0 - 100.0 FARH) 98.4 Pending Respiration Rate (BPM) 12 O2 Delivery Method BIPAP Pending Vent Mode ST Expiratory Pressure (CM H2O P) 6 Inspiratory Pressure (CM H2O P) 12 Miscellaneous Phlebotomy Draw Site RIGHT RADIAL Pending Last 24 Hours of Chu Results: Urine culture March 05 pending Sputum culture March 05 pending Recent Imaging Studies: Chest x-ray March 05, personally reviewed, reveals increasing bilateral opacities with small bilateral pleural effusions CT of the head March 04 left paranasal sinusitis Assessment/Plan Impression: Improved with increased level of alertness and with respiratory status also improved, though his chest x-ray reveals increasing bilateral opacities, suggesting either fluid or pneumonia, on Unasyn now Day 5 of empiric treatment for possible aspiration pneumonia 3 days status post left carpal tunnel release, with temperatures remaining normal but with persistent, though slightly decreasing, leukocytosis. His recent CT of the chest did reveal bilateral moderate pleural effusions and, though unlikely to be empyema, if his white blood cell count remains elevated or his respiratory status deteriorates thoracentesis may need to be considered. Suggestion: 1. Follow-up sputum and urine cultures sent today 2. Consider thoracentesis if white blood cell count remains elevated or respiratory status worsens 3. Continue Unasyn
--- NOTE | 2017-03-05 11:32 | NUR ---
PHYSICAL THERAPY- NOTE PT TRANSFER TO ICU 2* HYPERCAPNEIC RESP FAILURE. WILL DISCONTINUE P.T. PER PROTOCOL. RECOMMENDATION FOR OOB MOBILITY REMAINS DARCY LIFT ONLY AT THIS TIME.
--- NOTE | 2017-03-05 15:37 | Cons- Neurology ---
General Information and HPI Consulting Request Date of Consult: 03/05/17 Requested By: BERNADETTE GRIFFIN,JULIUS Hodgson History of Present Illness: 81-year-old male who presents with confusion Patient underwent an elective carpal tunnel surgery on the left wrist at February 25. Afterwards he was unable to walk and required hospitalization in hospital he developed pneumonia and progressive confusion There was no seizure activity and patient offered no complaint He was found to have carbon dioxide retention and required BiPAP He is currently on antibiotics. notes that he is still confused There was no focal weakness. There is no history of head trauma Allergies/Medications Allergies: Coded Allergies: piperacillin (Mild, RASH 12/15/15) tazobactam (Mild, RASH 12/15/15) morphine (Intermediate, HALLUCINATIONS 12/15/15) heparin (SOMETHING WITH HIS PLATELETS 12/15/15) Home Med List: Albuterol Sulfate (Proair Hfa) 90 MCG HFA.AER.AD 2 PUFF PO BID BREATHING PROBLEMS (Reported) Apixaban (Eliquis) 5 MG TAB 1 TAB PO BID BLOOD THINNER Ascorbic Acid/Copper/Vitamin (Preservision Areds) 1 SGL SGL 1 SGL PO BID EYE HEALTH (Reported) Aspirin (Ecotrin) 81 MG ECT 1 TAB PO DAILY HEART HEALTH (Reported) Bumetanide 2 MG TABLET 1 TAB PO BID Fluid Retention Cholecalciferol (D-3) 1,000 IU CAP 1 TAB PO DAILY BONE HEALTH (Reported) Insulin NPL/Insulin Lispro (Humalog Mix 75-25 Vial) 100 UNIT/ML (75-25) VIAL 45 UNITS SC 8AM diabetes Isosorbide Mononitrate (Isosorbide Mononitrate ER) 60 MG TAB.ER.24H 0.5 TAB PO DAILY CAD (Reported) Metoprolol Tartrate (Lopressor) 50 MG TABLET 1 TAB PO BID CAD (Reported) Potassium Chloride (Klor-Con M10) [address] PAC PO DAILY SUPPLEMENT ( Reported) Simvastatin (Zocor 40MG Tab) 40 MG TAB 1 TAB PO QPM CHOL (Reported) Valsartan (Diovan) 80 MG TABLET 1 TAB PO DAILY HTN (Reported) Vit C/E/Zn/Coppr/Lutein/Zeaxan (Preservision Areds 2 Softgel) 250-200-40 CAPSULE MACULAR DEGENERATION (Reported) Current Medications: Current Medications Sig/Roge Start time Last Medication Dose Route Stop Time Status Admin Acetaminophen 650 MG Q4P PRN 02/28 1500 AC 02/28 PO 1554 Albuterol Sulfate 2 PUF Q12P PRN 03/04 2230 AC INH Albuterol Sulfate 2 PUF BID 02/25 2200 DC 03/03 INH 2343 Ampicillin Sodium/ 3,000 MG Q8 03/03 2200 AC 03/05 Sulbactam Sodium IV 1451 Sodium Chloride 100 ML Apixaban 5 MG BID 02/25 2200 DC 03/04 PO 0818 Aspirin 81 MG DAILY 02/26 1000 AC 03/05 PO 1000 Atorvastatin Calcium 20 MG 1700 02/26 1700 AC 03/04 PO 2250 Bisacodyl 10 MG ONCE PRN 02/28 1045 DC 03/02 [place] 1447 Docusate Sodium 100 MG BID 02/28 1045 AC 03/05 PO 1000 Insulin Aspart 0 TIDAC 03/05 1700 AC SC Insulin Aspart Prota 42 UNIT 0800 & 1700 03/02 1700 DC 03/03 70%/Aspart 30% SC 1902 Insulin Detemir 15 UNITS BID 03/05 2200 AC SC Isosorbide 30 MG DAILY 02/26 1000 AC 03/05 Mononitrate PO 1000 Losartan Potassium 25 MG DAILY 02/26 1000 AC 03/05 PO 1000 Metoprolol Tartrate 50 MG BID 02/25 2200 AC 03/05 PO 1000 Ondansetron HCl 4 MG Q8P PRN 02/25 2100 AC IV Potassium Chloride 20 MEQ DAILY 02/26 1000 AC 03/05 PO 1000 Review of Systems Review of Systems: He offers no complaints No headache, occasional dizziness, no diplopia, no vertigo, intermittent shortness of breath, no chest pain, no vomiting, no history of incontinence, no focal weakness, he has numbness both hands, usually walks with a walker Other systems reviewed are negative Past History Medical History Blood Transfusion Hx: Yes Neurological: peripheral neuropathy EENT: CATARACT diabetic retinopathy Cardiovascular: AFIB (paroxysmal), CHF, hyperlipidemia, syncope, STENT, PACER AFIB ,CHOL, HTN STENTS LCW PM permanent pacemaker for heart block peripheral vascular diseaase peripheral vascular disease s/p angioplasty Respiratory: LYNDSEY Gastrointestinal: diverticulitis Hepatic: NONE Renal: benign prost hyperplasia Musculoskeletal: sciatica, L KNEE REPLACEMENT OSTEOMYELITIS osteomyelitis Psychiatric: NONE Endocrine: IDDM with diabetic neuropathy diabetic retinopathy Blood Disorders: NONE Cancer(s): NONE 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 spouse Services at Home: None Primary Language: Sierra Leonean Smoking Status: Former Smoker Functional Ability ADLs Independent: dressing, eating, toileting, bathing. Ambulation: walker Exam & Diagnostic Data Vital Signs and I&O Vital Signs Date Time Temp Pulse Resp B/P B/P Pulse O2 O2 Flow FiO2 Mean Ox Delivery Rate 03/05 1000 60 166/60 03/05 1000 60 166/60 03/05 1000 60 166/60 03/05 0600 60 30 170/67 03/05 0400 98.1 62 21 166/63 03/05 0400 93 Nasal 3.0L Cannula 03/05 0323 66 93 03/05 0200 62 34 160/70 03/05 0122 62 92 / 0000 97.4 60 24 143/85 06/ 0000 97.4 90 24 143/85 93 BIPAP 25% 03/05 0000 93 BIPAP 25% 03/04 2304 70 93 03/04 2248 64 194/100 03/04 2200 61 28 170/68 03/04 2000 97.4 68 19 186/67 03/04 2000 93 Nasal 3.0L Cannula 03/04 1800 93 Nasal 3.0L Cannula 03/04 1600 94 Nasal 2.0L Cannula 03/04 1600 98.8 92 18 180/70 94 Nasal 2.0L Cannula Intake & Output 03/05 1600 08 0800 08 0000 Intake Total 220 220 Output Total 650 500 Balance -430 -280 Intake, IV 100 100 Intake, Oral 120 120 Number 0 0 Bowel Movements Output, Urine 650 500 Physical Exam: On exam, mildly confused Not to place , able to follow commands Mild dysarthria Extremities full, pupils equal and reactive, fundi could not evaluate, visual flynn grossly intact, no facial weakness or facial sensory loss, palate and shoulders intact, hearing grossly intact Mild rigidity upper and lower extremities, gross motor strength intact Asterixis bilaterally No significant sensory loss to touch and noxious stimuli Deep tendon reflexes hypoactive throughout According to functions intact Gait not assessed; patient at bedrest Last 48 Hours of Lab Results: Laboratory Tests 03/05 03/05 0600 0515 Chemistry Sodium (137 - 145 mmol/L) Cancelled 143 Potassium (3.5 - 5.1 mmol/L) Cancelled 4.5 Chloride (98 - 107 mmol/L) Cancelled 104 Carbon Dioxide (22 - 30 mmol/L) Cancelled 30 Anion Gap (5 - 16) Cancelled 8 BUN (9 - 20 mg/dL) Cancelled 50 H Creatinine (0.7 - 1.2 mg/dL) Cancelled 1.0 Estimated GFR (>60 ml/min) > 60 BUN/Creatinine Ratio Cancelled Glucose (65 - 99 mg/dL) 82 Calcium (8.4 - 10.2 mg/dL) 9.5 Phosphorus (2.5 - 4.5 mg/dL) 2.8 Magnesium (1.6 - 2.3 mg/dL) 2.5 H Total Bilirubin (0.2 - 1.3 mg/dL) 1.0 AST (17 - 59 U/L) 52 ALT (21 - 72 U/L) 65 Albumin (3.5 - 5.0 g/dL) 2.3 L Hematology CBC w Diff NO MAN DIFF REQ WBC (4.8 - 10.8 /CUMM) 15.0 H RBC (4.70 - 6.10 /CUMM) 4.12 L Hgb (14.0 - 18.0 G/DL) 10.2 L Hct (42 - 52 %) 32.4 L MCV (80.0 - 94.0 FL) 78.5 L MCH (27.0 - 31.0 PG) 24.7 L RDW (11.5 - 14.5 %) 19.4 H Plt Count (130 - 400 /CUMM) 214 MPV (7.4 - 10.4 FL) 9.4 Gran % (42.2 - 75.2 %) 88.9 H Lymphocytes % (20.5 - 51.1 %) 3.0 L Monocytes % (1.7 - 9.3 %) 7.4 Eosinophils % (0 - 5 %) 0.7 Basophils % (0.0 - 2.0 %) 0 L Absolute Granulocytes (1.4 - 6.5 /CUMM) 13.3 H Absolute Lymphocytes (1.2 - 3.4 /CUMM) 0.5 L Absolute Monocytes (0.10 - 0.60 /CUMM) 1.1 H Absolute Eosinophils (0.0 - 0.7 /CUMM) 0.1 Absolute Basophils (0.0 - 0.2 /CUMM) 0 PUBS MCHC (33.0 - 37.0 G/DL) 31.5 L 03/05 03/04 03/04 0300 1845 1622 Blood Gas pH (7.35 - 7.45 PH) 7.47 H pCO2 (35 - 45 TORR) 42 pO2 (80 - 100 TORR) 61 L HCO3 (21 - 28 MEQ/L) 30 H ABG O2 Sat (Measured) (>96.0 %) 92.0 L P-50 (Temp Corrected) Y Carboxyhemoglobin (1.5 - 5.0 %) 0.6 L O2 Concentration % 3 LPM Temperature (97.0 - 100.0 FARH) 97.4 O2 Delivery Method N/C Chemistry Free T4 Cancelled Miscellaneous Phlebotomy Draw Site RIGHT RADIAL Toxicology Urine Opiates Screen (>2000 NG/ML) < 100.00 Methadone Screen (>300 NG/ML) < 40 Barbiturate Screen (>200 NG/ML) < 60 Ur Phencyclidine Scrn (>25 NG/ML) < 6.00 Amphetamines Screen (>1000 NG/ML) < 100 U Benzodiazepines Scrn (>200 NG/ML) < 85 Urine Cocaine Screen (>300 NG/ML) < 50 Urine Cannabis Screen (>50 NG/ML) < 5.00 03/04 03/04 03/04 1401 1401 1028 Blood Gas pH (7.35 - 7.45 PH) 7.38 Pending 7.36 pCO2 (35 - 45 TORR) 52 H Pending 55 H pO2 (80 - 100 TORR) 80 Pending 75 L HCO3 (21 - 28 MEQ/L) 30 H Pending 31 H ABG O2 Sat (Measured) (>96.0 %) 95.0 L Pending 95.0 L P-50 (Temp Corrected) YES Pending NO Carboxyhemoglobin (1.5 - 5.0 %) 1.2 L Pending 0.9 L O2 Concentration % 30% Pending 3.5L Temperature (97.0 - 100.0 FARH) 98.4 Pending 98.4 Respiration Rate (BPM) 12 O2 Delivery Method BIPAP Pending NC Vent Mode ST Expiratory Pressure (CM H2O P) 6 Inspiratory Pressure (CM H2O P) 12 Miscellaneous Phlebotomy Draw Site RIGHT RADIAL Pending RIGHT RADIAL 03/04 605 Hematology CBC w Diff NO MAN DIFF REQ WBC (4.8 - 10.8 /CUMM) 15.6 H RBC (4.70 - 6.10 /CUMM) 4.20 L Hgb (14.0 - 18.0 G/DL) 10.4 L Hct (42 - 52 %) 33.1 L MCV (80.0 - 94.0 FL) 78.9 L MCH (27.0 - 31.0 PG) 24.8 L RDW (11.5 - 14.5 %) 19.5 H Plt Count (130 - 400 /CUMM) 177 MPV (7.4 - 10.4 FL) 9.5 Gran % (42.2 - 75.2 %) 85.8 H Lymphocytes % (20.5 - 51.1 %) 4.5 L Monocytes % (1.7 - 9.3 %) 8.7 Eosinophils % (0 - 5 %) 0.8 Basophils % (0.0 - 2.0 %) 0.2 Absolute Granulocytes (1.4 - 6.5 /CUMM) 13.4 H Absolute Lymphocytes (1.2 - 3.4 /CUMM) 0.7 L Absolute Monocytes (0.10 - 0.60 /CUMM) 1.4 H Absolute Eosinophils (0.0 - 0.7 /CUMM) 0.1 Absolute Basophils (0.0 - 0.2 /CUMM) 0 PUBS MCHC (33.0 - 37.0 G/DL) 31.4 L Imaging/Other Studies: CT BRAIN 1. No acute intracranial pathology. 2. There is mild patchy low attenuation change in the periventricular white matter spaces, commonly associated with chronic microangiopathy. 3. There is left paranasal sinusitis. Assessment/Plan Assessment: Encephalopathy, likely related to CO2 retention No evidence of cerebrovascular event Recommendations: If not previously done so, obtain TSH and B12 level Physical therapy Continue pulmonary management and serial CO2 levels Consult Acknowledgment - Thank you for your consult request.
[2017-03-06] VITALS: BP 120/64
--- NOTE | 2017-03-06 06:59 | RADIOLOGY REPORT ---
EXAMINATION: XR PORTABLE CHEST CLINICAL INFORMATION: Bilateral pleural effusions. Hypoxia. COMPARISON: 03/05/2017 TECHNIQUE: Portable frontal view of the chest was obtained. FINDINGS: Left chest wall dual-lead pacer is unchanged. Multiple cardiac leads overlie the chest. Low lung volumes. Persistent small bilateral pleural effusions with associated airspace opacity. Opacities now extend towards the upper lungs bilaterally, and increased from previous. No pneumothorax. The cardiomediastinal silhouette remains prominent. IMPRESSION: Persistent small bilateral pleural effusions. Worsening bilateral airspace opacities could be associated with increasing associated interstitial edema.
--- NOTE | 2017-03-06 07:18 | PN- Resident CRCU ---
Subjective HPI/CRCU Issues: Day 3 of ICU, transferred from [facility]. Being followed for: Acute respiratory failure with hypercapnia Acute encepaholpathy HAP POD #10 left wrist carpel tunnel decompression 24 Hour Events: Seen and examined at bedside. Awake and Alert. Oriented to place only and appears intermittently confused. Continues to refuse BiPaP. Currently on 3L NC. VS stable, No acute telemtry events (paced rythm). Mejia intact,day 4. Objective Vital Signs & I&O Last 8 Hrs of Vitals and I&O: Laboratory Tests 03/06 03/06 1010 0341 Blood Gas pH (7.35 - 7.45 PH) 7.34 L pCO2 (35 - 45 TORR) 56 H pO2 (80 - 100 TORR) 72 L HCO3 (21 - 28 MEQ/L) 31 H ABG O2 Sat (Measured) (>96.0 %) 93.0 L P-50 (Temp Corrected) N Carboxyhemoglobin (1.5 - 5.0 %) 0.6 L O2 Concentration % 3LPM O2 Delivery Method NC Chemistry Sodium (137 - 145 mmol/L) 143 Potassium (3.5 - 5.1 mmol/L) 4.9 Chloride (98 - 107 mmol/L) 103 Carbon Dioxide (22 - 30 mmol/L) 31 H Anion Gap (5 - 16) 9 BUN (9 - 20 mg/dL) 49 H Creatinine (0.7 - 1.2 mg/dL) 1.0 Estimated GFR (>60 ml/min) > 60 Glucose (65 - 99 mg/dL) 189 H Calcium (8.4 - 10.2 mg/dL) 9.7 Phosphorus (2.5 - 4.5 mg/dL) 3.9 Magnesium (1.6 - 2.3 mg/dL) 2.7 H Total Bilirubin (0.2 - 1.3 mg/dL) 1.0 AST (17 - 59 U/L) 42 ALT (21 - 72 U/L) 58 Albumin (3.5 - 5.0 g/dL) 2.5 L Miscellaneous Phlebotomy Draw Site RIGHT RADIAL Vital Signs Date Time Temp Pulse Resp B/P B/P Pulse O2 O2 Flow FiO2 Mean Ox Delivery Rate 03/06 907 62 158/70 03/06 905 62 15870 03/06 905 62 15803/06 0800 97.9 60 22 156/74 / 0800 97.9 60 20 156/74 95 Nasal 3.0L Cannula 03/06 0800 94 Nasal 3.0L Cannula 03/06 0600 64 22 / 0400 68 22 / 0200 65 22 06/ 0000 98.2 64 22 120/64 06/ 0000 92 Nasal 3.0L Cannula / 0000 98.2 64 22 120/64 92 Nasal 3.0L Cannula 03/05 2246 95 Nasal 3.0L Cannula 03/05 2116 70 156/74 / 1800 62 24 / 1600 97.8 60 22 142/60 / 1600 97.8 60 22 142/60 92 Nasal 3.0L Cannula 03/05 1600 92 Nasal 3.0L Cannula 03/05 1400 58 22 148/49 Intake & Output 03/06 1600 09 0800 / 0000 Intake Total 200 630 Output Total 400 700 Balance -200 -70 Intake, IV 100 150 Intake, Oral 100 480 Output, Urine 400 700 Exam General Appearance: awake, mildly lethargic Head: atraumatic, normal appearance Respiratory: decreased breath sounds b/l. Cardiovascular: regular rate/rhythm Gastrointestinal: normal bowel sounds, soft, non-tender Extremities: no edema Cranial Nerves: normal speech Skin: intact Current Medications: Current Medications Sig/Roge Start time Last Medication Dose Route Stop Time Status Admin Acetaminophen 650 MG Q4P PRN 02/28 1500 AC 02/28 PO 1554 Albuterol Sulfate 2 PUF Q12P PRN 03/04 2230 AC INH Ampicillin Sodium/ 3,000 MG Q8 03/03 2200 DC 03/06 Sulbactam Sodium IV 0543 Sodium Chloride 100 ML Apixaban 5 MG BID 03/06 1000 AC 03/06 PO 1107 Aspirin 81 MG DAILY 02/26 1000 AC / PO 0907 Atorvastatin Calcium 20 MG 1700 / 1700 AC / PO 1708 Docusate Sodium 100 MG BID / 1045 AC / PO 0908 Insulin Aspart 0 TIDAC 03/05 1700 AC 03/06 SC 1136 Insulin Aspart Prota 42 UNIT 0800 & 1700 / 1700 DC 03/03 70%/Aspart 30% SC 1902 Insulin Detemir 15 UNITS BID 03/05 2200 AC 03/06 SC 0903 Isosorbide 30 MG DAILY 02/26 1000 AC / Mononitrate PO 0905 Losartan Potassium 25 MG DAILY 02/26 1000 AC 03/06 PO 0905 Metoprolol Tartrate 50 MG BID 02/25 2200 AC 03/06 PO 0907 Ondansetron HCl 4 MG Q8P PRN 02/25 2100 AC IV Potassium Chloride 20 MEQ DAILY 02/26 1000 AC / PO 1000 Impression/Plan Impression/Problem List Impression: This is a 81-year-old gentleman with a us medical history of diabetes, PVD, PAF managed with About, CAD, status post pacemaker, obstructive sleep apnea, diverticulitis, status post elective left carpal tunnel release POD #8, admitted after found not to be able to ambulate and was also found to have pneumonia on postoperative day 4 currently on Unasyn, on postoperative day 7 developed acute onset of altered mental status with ABGs remarkable for Hypercapnia, and CXR positive for small bilateral pleural effusion. She was started on BiPAP and due to his altered mental status he required close monitoring of the ICU. Plan Respiratory Acute resp failure wth hypercapnia with a hx of LYNDSEY and 5 day old hospital acquired PNA being treated wih unasyn. Refuses BiPAP last night and was put on 3 L nasal cannula which he is saturating well at 95%. Repeat CXR shows worsening opacification and persistent interstitial edema, b/l pleural effusion appears unchanged. Fluid positive-600mls. Bumex still on hold per cardiology. Infectious Diseases: leukocytosis present but on downward trend. No fever or chills reported by the patient. Will stop Unasyn today. Cardiovascular: Sinus rhythm rate control. Does have a history of paroxysmal A. fib managed with Apixaban. Suspicion has bilateral pleural effusion is a concern for possible CHF. repeat CXR show stable pleural effusions, there is increased interstitial edema.Restarting apixaban. Hematology Stable with down trending leukocytosis. No acute bleeding reported by the patient, hemoglobin and hematocrit stable. Off Anticoagulation for possible thoracocentesis. Metabolic: Diabetic on insulin. No reported overnight hypoglycemic events. Yesterday blood glucose averaging 200s, with morning fasting at 199 today. Will increased levemir from 15 bid to 20 bid. Will continue with accuchecks. Alimentary: Passsed swallow test able to eat regular diet. Neurological: Intermittent episodes of worsening menation. Possible etiology of acute mental status include infectious encephalopathy versus acute hospital delirium. Neurology consulted and reccomended continuing current plan. Continue to monitor mental status and avoid any delirium tremens such as constipation and pain. DVT/Prophylaxis: mechanical, pharmacological Problem List: 1. Altered mental status Pain Ratin Tomorrow's Labs & Rationales: ICU Plan DVT/Prophylaxis: mechanical, pharmacological Code Status: Full Code
[2017-03-06 08:00] VITALS: BP 156/74
--- NOTE | 2017-03-06 08:38 | PN- Pulmonary ---
Subjective HPI/Critical Care Issues: pt seen and examined telemetry hold CXR with small bilateral effusions mildly hypertensive saturating well on 3LNC @ 95% afebrile Objective Current Medications: Current Medications Sig/Roge Start time Last Medication Dose Route Stop Time Status Admin Acetaminophen 650 MG Q4P PRN 06 1500 AC 06 PO 1554 Albuterol Sulfate 2 PUF Q12P PRN 03/04 2230 AC INH Ampicillin Sodium/ 3,000 MG Q8 03/03 2200 AC 03/06 Sulbactam Sodium IV 0543 Sodium Chloride 100 ML Aspirin 81 MG DAILY 02/26 1000 AC 06/08 PO 1000 Atorvastatin Calcium 20 MG 1700 02/26 1700 AC 06/08 PO 1708 Docusate Sodium 100 MG BID 02/28 1045 AC 03/05 PO 2114 Insulin Aspart 0 TIDAC 03/05 1700 AC 03/05 SC 1708 Insulin Aspart Prota 42 UNIT 0800 & 1700 03/02 1700 DC 03/03 70%/Aspart 30% SC 1902 Insulin Detemir 15 UNITS BID 03/05 2200 AC 03/05 SC 2114 Isosorbide 30 MG DAILY 02/26 1000 AC / Mononitrate PO 1000 Losartan Potassium 25 MG DAILY 02/26 1000 AC 06/08 PO 1000 Metoprolol Tartrate 50 MG BID 02/25 2200 AC 03/05 PO 2116 Ondansetron HCl 4 MG Q8P PRN 02/25 2100 AC IV Potassium Chloride 20 MEQ DAILY 02/26 1000 AC / PO 1000 Vital Signs & I&O Last 24 Hrs of Vitals and I&O: Vital Signs Date Time Temp Pulse Resp B/P B/P Pulse O2 O2 Flow FiO2 Mean Ox Delivery Rate 03/06 0800 97.9 60 22 156/74 03/06 0800 97.9 60 20 156/74 95 Nasal 3.0L Cannula 03/06 0600 64 22 03/06 0400 68 22 03/06 0200 65 22 03/06 0000 98.2 64 22 120/64 03/06 0000 92 Nasal 3.0L Cannula 03/06 0000 98.2 64 22 120/64 92 Nasal 3.0L Cannula 03/05 2246 95 Nasal 3.0L Cannula 03/05 2116 70 156/74 03/05 1800 62 24 03/05 1600 97.8 60 22 142/60 03/05 1600 97.8 60 22 142/60 92 Nasal 3.0L Cannula 03/05 1600 92 Nasal 3.0L Cannula 03/05 1400 58 22 148/49 03/05 1200 98.5 62 22 140/64 /08 1000 60 166/60 06/08 1000 60 166/60 06/08 1000 60 166/60 /08 1000 68 22 166/65 Intake & Output 03/06 1600 03/06 0800 06 0000 Intake Total 200 630 Output Total 400 700 Balance -200 -70 Intake, IV 100 150 Intake, Oral 100 480 Output, Urine 400 700 Exam Other Physical Findings: gen awake, somewhat confused, but much improved heent ncat cvs s1, s2 lungs reduced bs at bases abd obese ext chronic venous changes Results Last 24 Hrs of Lab Results: Laboratory Tests 03/06/17 0341: Anion Gap 9, Estimated GFR > 60, Glucose 189 H, Calcium 9.7, Phosphorus 3.9, Magnesium 2.7 H, Total Bilirubin 1.0, AST 42, ALT 58, Albumin 2.5 L Impression/Plan Impression/Plan Impression/Plan: Impression 81 year old man * resolved hypercarbic respiratory failure that resulted in encephalopathy, now improved * leukocytosis * s/p left carpal tunnel release * likely underlying aspiration pneumonia Plan -patient is on eliquis which has been held due to consideration of thoracentesis , however he is improved and the effusions are quite small and chest x-ray findings may represent compressive atelectasis as well -there is concern about his leukocytosis being secondary to effusions, however the small and stable nature goes against an infected pleural process such as an empyema -the patient has had a concern for HIT in past and he requires anti-coagulation for a hx of PAF -in discussion with consultants, if all in agreement and a thoracentesis will not be performed, then eliquis should be restrated -would also check am ABG without bipap use, to ensure stability with his CO2 levels -sleep study can be considered if feasible as an outpatient -neurology, ID, orthopedics, cardiology consultation noted and agree Telemetry hold
--- NOTE | 2017-03-06 10:19 | PN- Infect Dx ---
Subjective Subjective: Afebrile without complaints. Objective Last 24 Hrs of Vital Signs/I&O Vital Signs Date Time Temp Pulse Resp B/P B/P Pulse O2 O2 Flow FiO2 Mean Ox Delivery Rate 03/06 907 62 158/70 03/06 905 62 158/70 03/06 0905 62 158/70 03/06 0800 97.9 60 22 156/74 03/06 0800 97.9 60 20 156/74 95 Nasal 3.0L Cannula 03/06 0600 64 22 03/06 0400 68 22 03/06 0200 65 22 03/06 0000 98.2 64 22 120/64 03/06 0000 92 Nasal 3.0L Cannula 03/06 0000 98.2 64 22 120/64 92 Nasal 3.0L Cannula 03/05 2246 95 Nasal 3.0L Cannula 03/05 2116 70 156/74 03/05 1800 62 24 03/05 1600 97.8 60 22 142/60 03/05 1600 97.8 60 22 142/60 92 Nasal 3.0L Cannula 03/05 1600 92 Nasal 3.0L Cannula 03/05 1400 58 22 148/49 03/05 1200 98.5 62 22 140/64 Intake & Output 03/06 1600 03/06 0800 03/06 0000 Intake Total 200 630 Output Total 400 700 Balance -200 -70 Intake, IV 100 150 Intake, Oral 100 480 Output, Urine 400 700 Physical Exam Other Physical Findings: He is lethargic but responsive, confused and disoriented, but in no acute distress Lungs are clear Heart regular rhythm with no murmur Abdomen is obese, soft, nontender with positive bowel sounds Extremities chronic venous stasis changes both lower extremities, with no cyanosis, clubbing or edema Mejia catheter remains in place Results Last 24 Hours of Lab Results: Laboratory Tests 03/06 0341 Chemistry Sodium (137 - 145 mmol/L) 143 Potassium (3.5 - 5.1 mmol/L) 4.9 Chloride (98 - 107 mmol/L) 103 Carbon Dioxide (22 - 30 mmol/L) 31 H Anion Gap (5 - 16) 9 BUN (9 - 20 mg/dL) 49 H Creatinine (0.7 - 1.2 mg/dL) 1.0 Estimated GFR (>60 ml/min) > 60 Glucose (65 - 99 mg/dL) 189 H Calcium (8.4 - 10.2 mg/dL) 9.7 Phosphorus (2.5 - 4.5 mg/dL) 3.9 Magnesium (1.6 - 2.3 mg/dL) 2.7 H Total Bilirubin (0.2 - 1.3 mg/dL) 1.0 AST (17 - 59 U/L) 42 ALT (21 - 72 U/L) 58 Albumin (3.5 - 5.0 g/dL) 2.5 L Last 24 Hours of Chu Results: Urine culture March 05 negative Recent Imaging Studies: Chest x-ray March 06, personally reviewed, reveals increasing bilateral airspace opacities associated with increasing interstitial edema Assessment/Plan Impression: Stable with respiratory status improved though chest x-ray reveals increasing bilateral opacities, suggesting the possibility of fluid overload, though his I' s and O's are stable. He continues to be encephalopathic for unclear reasons, with his recent CT of the head negative and with Neuro comments noted. He remains afebrile on Unasyn now Day 6 of empiric treatment for possible aspiration pneumonia 4 days after a left carpal tunnel release, with white blood cell count remaining elevated, though decreasing slowly. Have discussed possible thoracentesis with Pulmonary, but will defer given concern regarding issues with anticoagulation. Suggestion: 1. Further management of fluids per Cardiology 2. Consider need for BNP/repeat echocardiogram 3. Discontinue Unasyn and follow off antibiotics
[2017-03-06 16:00] VITALS: BP 142/70
--- NOTE | 2017-03-06 17:25 | NUR ---
Patient was noted to aspirate on thin liquids while this RN was feeding him dinner. He was also having difficulty chewing and swallowing whole foods- He was suctioned with the [place] at this time- O2 sats decreased to 88% on 4L nc and increased to 95% once he was placed on 6Lnc. Kamila from respiratory notified and at the bedside with this RN. Dr. Davis Saldana and Dr. Echevarria notified. Speech therapy at the bedside and swallow eval performed. Patients diet changed to a puree and honey thickened liquids. Pills to be crushed with applesauce or pudding. O2 sats now 94% on 4L nc, Dr. Raines in to see patient. Po Bumex given- Vitals stable. Will continue to closely monitor patient.
--- NOTE | 2017-03-06 20:04 | PN- Cardiology ---
Subjective Subjective: * No complaints. Patient is lethargic. * interstitial edema with small pleural effusions noted on chest X-ray * increased WBC count * paced rhythm with underlying atrial fibrillation Objective Vital Signs and I&Os Vital Signs Date Time Temp Pulse Resp B/P B/P Pulse O2 O2 Flow FiO2 Mean Ox Delivery Rate 03/06 1600 97.9 62 20 142/70 93 Nasal 4.0L Cannula 03/06 1600 93 Nasal 4.0L Cannula 03/06 1315 Nasal 3.5L Cannula 03/06 0907 62 158/70 03/06 0905 62 158/70 03/06 0905 62 158/70 03/06 0800 97.9 60 22 156/74 03/06 0800 97.9 60 20 156/74 95 Nasal 3.0L Cannula 03/06 0800 94 Nasal 3.0L Cannula 03/06 0600 64 22 03/06 0400 68 22 03/06 0200 65 22 03/06 0000 98.2 64 22 120/64 03/06 0000 92 Nasal 3.0L Cannula 03/06 0000 98.2 64 22 120/64 92 Nasal 3.0L Cannula 03/05 2246 95 Nasal 3.0L Cannula 03/05 2116 70 156/74 Intake & Output 03/06 1600 03/06 0800 / 0000 /08 1600 03/05 0800 03/05 0000 Intake Total 600 113 205 6688 220 220 Output Total 550 400 700 600 650 500 Balance 50 -200 -70 720 -430 -280 Intake, IV 100 150 140 100 100 Intake, Oral 600 282 387 7584 120 120 Number 0 0 0 Bowel Movements Output, Urine 550 400 700 600 650 500 Physical Exam: General: WD/ obese male in NAD; lethargic Neck: no JVD, bilateral carotid bruit R>L Heart: regular rate and rhythm with 2/6 sytolic murmur at the RUSB and 2/6 sytolic murmur at the LUSB and apex Lungs: clear bilaterally Extremities: 1-2+ leg edema bilaterally with venous stasis changes bilaterally Assessment/Plan Assessment/Plan * Restart Bumex at usual home dose. Follow BUN and creatinine. * Patient has LYNDSEY and would benefit from CPAP * pleural effusions are too small to perform thoracentesis. Restart Eliquis for stroke prophylaxis. * obtain an echocardiogram Continue telemetry? Yes
[2017-03-07] VITALS: BP 150/90
[2017-03-07 04:00] VITALS: BP 150/60
[2017-03-07 05:10] LABS: ABSOLUTE BASOPHIL COUNT 0 /CUMM (0.0-0.2); ABSOLUTE EOSINOPHIL COUNT 0.2 /CUMM (0.0-0.7); ABSOLUTE GRANULOCYTE CT 14.8 /CUMM (1.4-6.5); ABSOLUTE LYMPH COUNT 0.5 /CUMM (1.2-3.4); ABSOLUTE MONOCYTE COUNT 1.2 /CUMM (0.10-0.60); BASOPHIL % 0 % (0.0-2.0); EOSINOPHIL % 1.1 % (0-5); GRANULOCYTE % 89.1 % (42.2-75.2); MEAN CORPUSCULAR HGB 24.5 PG (27.0-31.0); MEAN CORPUSCULAR HGB CONC 30.9 G/DL (33.0-37.0); MEAN CORPUSCULAR VOLUME 79.2 FL (80.0-94.0); MEAN PLATELET VOLUME 9.2 FL (7.4-10.4); PLATELET COUNT 306 /CUMM (130-400); RBC DISTRIBUTION WIDTH 19.4 % (11.5-14.5); RED BLOOD CELL CT 4.54 /CUMM (4.70-6.10); WHITE BLOOD CELL COUNT 16.6 /CUMM (4.8-10.8)
[2017-03-07 08:00] VITALS: BP 180/64; BP 184/60
--- NOTE | 2017-03-07 08:37 | PN- Resident CRCU ---
Subjective HPI/CRCU Issues: * Day 4 of ICU, transferred from [facility]. * Being followed for: * Acute hypercapnic respiratory failure * Acute encepaholpathy * HAP * POD #11 left wrist carpel tunnel decompression Afebrile, elevated blood pressure, pulse WNL, saturating well on 5 L of oxygen. Patient is still lethargic and only responsive to painful stimuli. 24 Hour Events: No acute overnight events reported Objective Vital Signs & I&O Last 8 Hrs of Vitals and I&O: Vital Signs Date Time Temp Pulse Resp B/P B/P Pulse O2 O2 Flow FiO2 Mean Ox Delivery Rate 03/07 0935 65 184/60 03/07 0935 70 184/60 03/07 0935 73 184/60 03/07 0600 64 22 03/07 0400 64 24 150/60 03/07 0200 63 24 03/07 0000 97.4 63 20 150/90 03/07 0000 94 Nasal 4.0L Cannula 03/07 0000 97.4 63 20 150/90 94 Nasal 4.0L Cannula 03/06 2133 71 180/80 03/06 1600 97.9 62 20 142/70 93 Nasal 4.0L Cannula 03/06 1600 93 Nasal 4.0L Cannula 03/06 1315 Nasal 3.5L Cannula Intake & Output 03/07 1600 03/07 0800 03/07 0000 Intake Total 100 0 Output Total 1500 1200 Balance -1400 -1200 Intake, Oral 100 0 Number 0 Bowel Movements Output, Urine 1500 1200 Exam General Appearance: no apparent distress, lethargic Head: atraumatic, normal appearance Respiratory: normal breath sounds, no respiratory distress Cardiovascular: regular rate/rhythm Gastrointestinal: normal bowel sounds, soft, non-tender Extremities: normal inspection, no edema Current Medications: Current Medications Sig/Roge Start time Last Medication Dose Route Stop Time Status Admin Acetaminophen 650 MG Q4P PRN 02/28 1500 AC 02/28 PO 1554 Albuterol Sulfate 2 PUF Q12P PRN 03/04 2230 AC INH Ampicillin Sodium/ 3,000 MG Q8 03/03 2200 DC 03/06 Sulbactam Sodium IV 0543 Sodium Chloride 100 ML Apixaban 5 MG BID 03/06 1000 AC 03/07 PO 0918 Aspirin 81 MG DAILY 02/26 1000 AC 03/07 PO 0918 Atorvastatin Calcium 20 MG 1700 02/26 1700 AC 03/06 PO 1637 Bumetanide 2 MG BID 03/06 1327 AC 03/06 PO 2130 Docusate Sodium 100 MG BID 02/28 1045 AC 03/07 PO 0918 Guaifenesin 600 MG Q12 03/06 1645 AC 03/07 PO 0919 Insulin Aspart 0 TIDAC 03/05 1700 AC 03/07 SC 0935 Insulin Detemir 20 UNITS BID 03/07 2200 AC SC Insulin Detemir 18 UNITS BID 03/06 2200 DC 03/07 SC 0917 Insulin Detemir 15 UNITS BID 03/05 2200 DC 03/06 SC 0903 Isosorbide 30 MG DAILY 02/26 1000 AC 03/07 Mononitrate PO 0935 Losartan Potassium 25 MG DAILY 02/26 1000 AC 03/07 PO 0935 Metoprolol Tartrate 50 MG BID 02/25 2200 AC 03/07 PO 0935 Ondansetron HCl 4 MG Q8P PRN 02/25 2100 AC IV Potassium Chloride 20 MEQ DAILY 02/26 1000 AC 03/05 PO 1000 Impression/Plan Impression/Problem List Impression: This is a 81-year-old gentleman with a us medical history of diabetes, PVD, PAF managed with About, CAD, status post pacemaker, obstructive sleep apnea, diverticulitis, status post elective left carpal tunnel release POD #8, admitted after found not to be able to ambulate and was also found to have pneumonia on postoperative day 4 currently on Unasyn, on postoperative day 7 developed acute onset of altered mental status with ABGs remarkable for Hypercapnia, and CXR positive for small bilateral pleural effusion. She was started on BiPAP and due to his altered mental status he required close monitoring of the ICU. Respiratory Acute hypoxic hypercapnic respiratory failure. Hx of LYNDSEY. Had questionable pneumonia which he was treated with 6 days of Unasyn last days being 03/06/17. Patient has been refusing his BiPAP. last ABG this Am showed compensated respiratory acidosis. Repeated CXR this am shows persistent pulmonary edema and pleural effusions - similar compared to 03/06/2017. * Continue Bumex twice a day * We will reassess urine output after Bumex, may add one time furosemide. * We will discuss the need for thoracocentesis if diuresis is not enough * We will try to use nocturnal BiPAP if the patient agreed Infectious Diseases: Leukocytosis increased to 16.6 from 15 yesterday. However this most likely because of concentration effect given the fact that all still lines increased. * Unasyn was DC'd yesterday given the low likelihood of pneumonia. Cardiovascular: Sinus rhythm rate control. Does have a history of paroxysmal A. fib managed with Apixaban. Suspicion has bilateral pleural effusion is a concern for possible CHF. repeat CXR show stable pleural effusions and pulmonary edema compared to yesterday * Continue apixaban. * Continue metoprolol 50 mg twice a day Hematology Stable Metabolic: Diabetic on insulin. No reported overnight hypoglycemic events. Yesterday blood glucose averaging 200s. levemir increased from 15 bid to 20 bid. * Continue with accuchecks. * Continue insulin Alimentary: Passsed swallow test able to eat regular diet. Neurological: Intermittent episodes of worsening menation. Possible etiology of acute mental status include infectious encephalopathy versus acute hospital delirium. Neurology consulted and reccomended continuing current plan. Continue to monitor mental status and avoid any delirium tremens such as constipation and pain. Full Code Regular diet DVT prophylaxis apixaban Problem List: 1. S/P carpal tunnel release Pain Ratin Tomorrow's Labs & Rationales: ICU bundle and CBC Plan DVT/Prophylaxis: mechanical, pharmacological Code Status: Full Code
--- NOTE | 2017-03-07 09:19 | PN- Pulmonary ---
Subjective HPI/Critical Care Issues: Patient remains lethargic on nasal oxygen. decision has been made to not pursue thoracentesis. Objective Current Medications: Current Medications Sig/Roge Start time Last Medication Dose Route Stop Time Status Admin Acetaminophen 650 MG Q4P PRN 02/28 1500 AC 02/28 PO 1554 Albuterol Sulfate 2 PUF Q12P PRN 03/04 2230 AC INH Ampicillin Sodium/ 3,000 MG Q8 03/03 2200 DC 03/06 Sulbactam Sodium IV 0543 Sodium Chloride 100 ML Apixaban 5 MG BID 03/06 1000 AC 03/06 PO 2130 Aspirin 81 MG DAILY 02/26 1000 AC 03/06 PO 0907 Atorvastatin Calcium 20 MG 1700 02/26 1700 AC 03/06 PO 1637 Bumetanide 2 MG BID 03/06 1327 AC 03/06 PO 2130 Docusate Sodium 100 MG BID 02/28 1045 AC 03/06 PO 0908 Guaifenesin 600 MG Q12 03/06 1645 AC PO Insulin Aspart 0 TIDAC 03/05 1700 AC 03/06 SC 1637 Insulin Detemir 18 UNITS BID 03/06 2200 AC 03/06 SC 2130 Insulin Detemir 15 UNITS BID 03/05 2200 DC 03/06 SC 0903 Isosorbide 30 MG DAILY 02/26 1000 AC 03/06 Mononitrate PO 0905 Losartan Potassium 25 MG DAILY 02/26 1000 AC 03/06 PO 0905 Metoprolol Tartrate 50 MG BID 02/25 2200 AC 03/06 PO 2133 Ondansetron HCl 4 MG Q8P PRN 02/25 2100 AC IV Potassium Chloride 20 MEQ DAILY 02/26 1000 AC 03/05 PO 1000 Vital Signs & I&O Last 24 Hrs of Vitals and I&O: Vital Signs Date Time Temp Pulse Resp B/P B/P Pulse O2 O2 Flow FiO2 Mean Ox Delivery Rate 03/07 0600 64 22 03/07 0400 64 24 150/60 03/07 0200 63 24 03/07 0000 97.4 63 20 150/90 03/07 0000 94 Nasal 4.0L Cannula 03/07 0000 97.4 63 20 150/90 94 Nasal 4.0L Cannula 03/06 2133 71 180/80 03/06 1600 97.9 62 20 142/70 93 Nasal 4.0L Cannula 03/06 1600 93 Nasal 4.0L Cannula 03/06 1315 Nasal 3.5L Cannula Intake & Output 03/07 1600 03/07 0800 03/07 0000 Intake Total 100 0 Output Total 1500 1200 Balance -1400 -1200 Intake, Oral 100 0 Number 0 Bowel Movements Output, Urine 1500 1200 Saturation 4 L 94% exam of his chest shows diminished breath sounds with occasional crackles there are no wheezes cardiac exam shows regular S1 and S2 without murmurs Impression/Plan Impression/Plan Impression/Plan: 81-year-old gentleman admitted for elective carpal tunnel surgery who is had a reported more change in mental status has been found to be hypercarbic leukocytosis and fever he's being treated for presumed aspiration pneumonia and an element of congestive heart failure. Repeat arterial blood gases show a compensated respiratory acidosis Recommendations: correct hypernatremia nocturnal bipap st 20 11/01.review direction of care in view of persistant lethargy
--- NOTE | 2017-03-07 10:26 | RADIOLOGY REPORT ---
EXAMINATION: XR PORTABLE CHEST CLINICAL INFORMATION: Follow-up pleural effusions. COMPARISON: 03/06/2017 TECHNIQUE: Portable frontal view of the chest was obtained. FINDINGS: [id number] sized bilateral pleural effusions are not appreciably changed compared to 03/06/2017. Pulmonary vessels appear congested and somewhat indistinct. The hazy opacity of each hemithorax probably represents a combination of the posteriorly layering pleural effusions and lung disease (i.e., persistent pulmonary edema and/or pneumonitis). There is stable enlargement of the cardiac silhouette. The dual-chamber cardiac pacing leads are in their expected positions. IMPRESSION: Cardiomegaly. Radiographic findings suggestive of congestive heart failure with persistent pulmonary edema and pleural effusions -- similar compared to 03/06/2017.
[2017-03-07 14:10] VITALS: BP 162/78
[2017-03-07 17:07] VITALS: BP 146/53
--- NOTE | 2017-03-07 17:22 | PN- Cardiology ---
Subjective Subjective: * Patient remains confused with no specific complaints. * currently appropriately pacing in the ventricle with underlying atrial fibrillation. * chest X-ray consistent with CHF Objective Vital Signs and I&Os Vital Signs Date Time Temp Pulse Resp B/P B/P Pulse O2 O2 Flow FiO2 Mean Ox Delivery Rate 03/07 1707 98.6 63 20 146/53 91 Non 4.0L ReBreather 03/07 1410 64 162/78 94 Nasal 5.0L Cannula 03/07 1350 63 95 03/07 0935 65 184/60 03/07 0935 70 184/60 03/07 0935 73 184/60 03/07 0800 97.8 64 26 180/64 03/07 0800 97.8 80 26 184/60 92 Nasal 5.0L Cannula 03/07 0800 87 Nasal 3.0L Cannula 03/07 0600 64 22 03/07 0400 64 24 150/60 03/07 0200 63 24 03/07 0000 97.4 63 20 150/90 03/07 0000 94 Nasal 4.0L Cannula 03/07 0000 97.4 63 20 150/90 94 Nasal 4.0L Cannula 03/06 2133 71 180/80 Intake & Output 03/07 1600 10 0800 /10 0000 /09 1600 03/06 0800 03/06 0000 Intake Total 480 100 0 600 200 630 Output Total 1200 1500 1200 550 400 700 Balance -720 -1400 -1200 50 -200 -70 Intake, IV 100 150 Intake, Oral 480 100 0 600 100 480 Number 0 Bowel Movements Output, Urine 1200 1500 1200 550 400 700 Physical Exam: General: WD/ obese male in NAD; awake and confused Neck: no JVD, bilateral carotid bruit R>L Heart: regular rate and rhythm with 2/6 sytolic murmur at the RUSB and 2/6 sytolic murmur at the LUSB and apex Lungs: clear bilaterally Extremities: 1+ leg edema bilaterally with venous stasis changes bilaterally Assessment/Plan Assessment/Plan * Continue Bumex at 2mg BID. Follow BUN and creatinine. * Patient has LYNDSEY and would benefit from CPAP * pleural effusions are too small to perform thoracentesis. Restart Eliquis for stroke prophylaxis. * obtain an echocardiogram Continue telemetry? Yes
--- NOTE | 2017-03-07 22:16 | NUR ---
AT 1700 [T HAD [address] BEAT RUN OF [address] DR OCONNELL MADE AWARE. PT DID NOT EXHIBIT ANY S/S DISTRESS. NO FURTHER EPISODES.
[2017-03-07 22:48] VITALS: BP 140/50
--- NOTE | 2017-03-08 07:55 | PN- Infect Dx ---
Subjective Subjective: Afebrile without complaints. He was noted to aspirate with thin liquids last evening with dinner. Objective Last 24 Hrs of Vital Signs/I&O Vital Signs Date Time Temp Pulse Resp B/P B/P Pulse O2 O2 Flow FiO2 Mean Ox Delivery Rate 03/08 0320 71 91 03/08 0033 61 93 03/08 0000 Nasal 5.0L Cannula 03/07 2300 63 95 03/07 2248 98.1 64 20 140/50 91 03/07 2149 70 138/72 03/07 1707 98.6 63 20 146/53 91 Non 4.0L ReBreather 03/07 1600 Nasal 5.0L Cannula 03/07 1410 64 162/78 94 Nasal 5.0L Cannula 03/07 1350 63 95 03/07 0935 65 184/60 03/07 0935 70 184/60 03/07 0935 73 184/60 03/07 0800 97.8 64 26 180/64 03/07 0800 97.8 80 26 184/60 92 Nasal 5.0L Cannula 03/07 0800 87 Nasal 3.0L Cannula Intake & Output 03/08 0800 03/08 0000 03/07 1600 Intake Total 120 360 480 Output Total 1250 1900 1200 Balance -1130 -1540 -720 Intake, Oral 120 360 480 Output, Urine 1250 1900 1200 Physical Exam Other Physical Findings: He is awake and alert but confused and disoriented Lungs are clear Heart regular rhythm with no murmur Abdomen is obese, soft, nontender with positive bowel sounds Extremities chronic venous stasis changes both lower extremities Mejia catheter remains in place Results Last 24 Hours of Lab Results: Laboratory Tests 03/07 03/07 0635 0356 Blood Gas pH (7.35 - 7.45 PH) 7.36 pCO2 (35 - 45 TORR) 56 H pO2 (80 - 100 TORR) 61 L HCO3 (21 - 28 MEQ/L) 31 H ABG O2 Sat (Measured) (>96.0 %) 91.0 L P-50 (Temp Corrected) N Carboxyhemoglobin (1.5 - 5.0 %) 0.8 L O2 Concentration % 3L O2 Delivery Method N/C Chemistry Sodium (137 - 145 mmol/L) 148 H Potassium (3.5 - 5.1 mmol/L) 4.3 Chloride (98 - 107 mmol/L) 104 Carbon Dioxide (22 - 30 mmol/L) 34 H Anion Gap (5 - 16) 10 BUN (9 - 20 mg/dL) 49 H Creatinine (0.7 - 1.2 mg/dL) 1.0 Estimated GFR (>60 ml/min) > 60 Glucose (65 - 99 mg/dL) 184 H Calcium (8.4 - 10.2 mg/dL) 9.9 Phosphorus (2.5 - 4.5 mg/dL) 3.6 Magnesium (1.6 - 2.3 mg/dL) 2.4 H Total Bilirubin (0.2 - 1.3 mg/dL) 0.9 AST (17 - 59 U/L) 35 ALT (21 - 72 U/L) 60 Albumin (3.5 - 5.0 g/dL) 2.6 L Hematology CBC w Diff NO MAN DIFF REQ WBC (4.8 - 10.8 /CUMM) 16.6 H RBC (4.70 - 6.10 /CUMM) 4.54 L Hgb (14.0 - 18.0 G/DL) 11.1 L Hct (42 - 52 %) 36.0 L MCV (80.0 - 94.0 FL) 79.2 L MCH (27.0 - 31.0 PG) 24.5 L RDW (11.5 - 14.5 %) 19.4 H Plt Count (130 - 400 /CUMM) 306 MPV (7.4 - 10.4 FL) 9.2 Gran % (42.2 - 75.2 %) 89.1 H Lymphocytes % (20.5 - 51.1 %) 2.8 L Monocytes % (1.7 - 9.3 %) 7.0 Eosinophils % (0 - 5 %) 1.1 Basophils % (0.0 - 2.0 %) 0 L Absolute Granulocytes (1.4 - 6.5 /CUMM) 14.8 H Absolute Lymphocytes (1.2 - 3.4 /CUMM) 0.5 L Absolute Monocytes (0.10 - 0.60 /CUMM) 1.2 H Absolute Eosinophils (0.0 - 0.7 /CUMM) 0.2 Absolute Basophils (0.0 - 0.2 /CUMM) 0 PUBS MCHC (33.0 - 37.0 G/DL) 30.9 L Miscellaneous Phlebotomy Draw Site RIGHT RADIAL 03/06 1010 Blood Gas pH (7.35 - 7.45 PH) 7.34 L pCO2 (35 - 45 TORR) 56 H pO2 (80 - 100 TORR) 72 L HCO3 (21 - 28 MEQ/L) 31 H ABG O2 Sat (Measured) (>96.0 %) 93.0 L P-50 (Temp Corrected) N Carboxyhemoglobin (1.5 - 5.0 %) 0.6 L O2 Concentration % 3LPM O2 Delivery Method NC Miscellaneous Phlebotomy Draw Site RIGHT RADIAL Last 24 Hours of Chu Results: Urine culture March 05 negative Recent Imaging Studies: Chest x-ray March 08 reveals decreased markings bilaterally Assessment/Plan Impression: Remains confused with increasing oxygen requirements though his chest x-ray has improved with a significant diuresis suggesting his respiratory distress was likely secondary to fluid overload. He continues to be encephalopathic for unclear reasons, with his recent CT of the head negative. He remains afebrile with white blood cell count increased slightly yesterday of unclear etiology, now off antibiotics after a nearly one week course of antibiotics for presumed aspiration pneumonia. Suggestion: 1. Further management of fluid overload per Cardiology 2. Follow speech therapy recommendations 3. Continue to follow off antibiotics
[2017-03-08 08:00] VITALS: BP 140/62
[2017-03-08 08:28] VITALS: BP 140/62
--- NOTE | 2017-03-08 08:36 | PN- Housestaff ---
JOHN ROBLES 03/08/17 0836: Subjective Follow-up For: - Acute hypoxic and hypercarbic respiratory failure 2/2 HCAP (concern for gram negative/MRSA pneumonia) - Encephalopathy - KEISHA on CKD - Paroxysmal atrial fibrillation - POD #12 left wrist carpel tunnel decompression Complaints: no complaints Tele-Events Since Last Visit: Single paced 63-73 Subjective: Patient seen and examined at bedside. He is resting comfortably, offers no complaints. Review of Systems Constitutional: Denies: chills, fever. Cardiovascular: Denies: chest pain, palpitations. Respiratory: Denies: cough, short of breath. Gastrointestinal: Reports: constipation. Denies: abdominal pain, nausea, vomiting. Genitourinary: Reports: no symptoms. Musculoskeletal: Reports: no symptoms. Neurological/Psychological: Denies: headache, numbness. Objective Last 24 Hrs of Vital Signs/I&O Vital Signs Date Time Temp Pulse Resp B/P B/P Pulse O2 O2 Flow FiO2 Mean Ox Delivery Rate 03/08 0828 99.3 74 20 140/62 95 Nasal 5.0L Cannula 03/08 0320 71 91 03/08 0033 61 93 03/08 0000 Nasal 5.0L Cannula 03/07 2300 63 95 03/07 2248 98.1 64 20 140/50 91 03/07 2149 70 138/72 03/07 1707 98.6 63 20 146/53 91 Non 4.0L ReBreather 03/07 1600 Nasal 5.0L Cannula 03/07 1410 64 162/78 94 Nasal 5.0L Cannula 03/07 1350 63 95 03/07 0935 65 184/60 03/07 0935 70 184/60 03/07 0935 73 184/60 Intake & Output 03/08 1600 03/08 0800 03/08 0000 Intake Total 120 360 Output Total 1250 1900 Balance -1130 -1540 Intake, Oral 120 360 Output, Urine 1250 1900 Physical Exam General Appearance: Alert, No Acute Distress HEENT: Atraumatic, PERRLA, EOMI, dry mucous membranes Neck: Supple, No JVD Cardiovascular: Regular Rate, Normal S1, Normal S2 Lungs: decreased breath sounds Abdomen: Normal Bowel Sounds, Soft, No Tenderness Extremities: b/l chronic venous stasis changes. Vascular: Normal Pulses, Pulses Symmetrical Current Medications: Current Medications Sig/Roge Start time Last Medication Dose Route Stop Time Status Admin Acetaminophen 650 MG Q4P PRN 02/28 1500 AC 02/28 PO 1554 Albuterol Sulfate 2 PUF Q12P PRN 03/04 2230 AC INH Apixaban 5 MG BID 03/06 1000 AC 03/07 PO 2149 Aspirin 81 MG DAILY 02/26 1000 AC 03/07 PO 0918 Atorvastatin Calcium 20 MG 1700 02/26 1700 AC 03/07 PO 1809 Bumetanide 2 MG BID 03/06 1327 AC 03/07 PO 2149 Docusate Sodium 100 MG DAILY 03/07 1607 AC 03/07 PO 1810 Docusate Sodium 100 MG BID 02/28 1045 DC 03/07 PO 0918 Furosemide 20 MG ONCE ONE 03/07 1415 DC 03/07 IV 03/07 1416 1415 Guaifenesin 600 MG Q12 03/06 1645 AC 03/07 PO 2149 Insulin Aspart 0 TIDAC 03/05 1700 AC 03/07 SC 1810 Insulin Detemir 20 UNITS BID 03/07 2200 AC 03/07 SC 2150 Insulin Detemir 18 UNITS BID 03/06 2200 DC 03/07 SC 0917 Isosorbide 30 MG DAILY 02/26 1000 AC 03/07 Mononitrate PO 0935 Losartan Potassium 25 MG DAILY 02/26 1000 AC 03/07 PO 0935 Metoprolol Tartrate 50 MG BID 02/25 2200 AC 03/07 PO 2149 Ondansetron HCl 4 MG Q8P PRN 02/25 2100 AC IV Polyethylene Glycol 17 GM DAILY 03/07 1607 AC PO Potassium Chloride 20 MEQ DAILY 02/26 1000 AC 03/07 PO 1120 Senna 187 MG AT BEDTIME 03/07 2200 AC 03/07 PO 2149 Last 24 Hrs of Lab/Chu Results Last 24 Hrs of Labs/Mics: Laboratory Tests 03/08/17 0641: Sodium Pending, Potassium Pending, Chloride Pending, Carbon Dioxide Pending, Anion Gap Pending, BUN Pending, Creatinine Pending, Glucose Pending, Calcium Pending, Phosphorus Pending, Magnesium Pending, Total Bilirubin Pending, AST Pending, ALT Pending, Albumin Pending, CBC w Diff Pending, WBC Pending, RBC Pending, Hgb Pending, Hct Pending, MCV Pending, MCH Pending, RDW Pending, Plt Count Pending, MPV Pending, PUBS [facility] Pending Orders Fingersticks (last 24 hrs): 233, 229, 223, 199, 198 Assessment/Plan Assessment: Brad is an 81 year old caucaisan male with a PMH stage III diastolic congestive heart failure, HTN, type 2 diabetes mellitus, DLD, PVD, carotid artery disease, coronary artery disease s/p non-ST elevation AL, PAF treated with apixaban, angioplasty to his LAD performed in 1997 and permanent pacemaker for heart block. Brad came in for elective left carpal tunnel release on after which he was unable to safely mobilize. He required general anesthesia for surgery and although his CTR was brief and uncomplicated, he was unable to elevate independently from a chair postoperatively which appears to be mostly due to worsened weakness in bilateral lower extremities. On POD#4, Brad reported sudden onset confusion likely due to delirum. Vitals were stable. Labs showed WBC 18,000, H&H11.2/ 35, plt 154, BUN/cre 46/ 1.4. UA was clear. Chest x-ray showed bilateral pulmonary opacities representing pneumonia and small bilateral pleural effusions. He was admitted to the general medical floor under the medical service and was transferred to the unit for NIV as he was in acute respiratory failure and subsequently downgraded to [facility]. Assessment and Plan: # Acute hypoxic and hypercarbic respiratory failure 2/2 HCAP versus CHF * Continues to have high oxygen requirments and is on NIV at bedtime. * Hx of LYNDSEY. Had questionable pneumonia which he was treated with 6 days of Unasyn last days being 03/06/17. * F/U CXR this am. Previosu CXR showed persistent pulmonary edema and pleural effusions - similar compared to 03/06/2017. * Continue Bumex twice a day * Continue to monitor off Abx given concern for aspiration PNA (patient was on Unasyn) * ID on board F/U recommendations # Encephalopathy * Likely due to a combination of CO2 retention, underlying infection and hospital delirium * Avoid narcotics, diminish nursing intervention at night, consider rozerem at bedtime * Monitor closely and use BiPAP PRN to prevent CO2 retention * Continue to reorient patient * Consider head CT if patient persistently altered and consider neuro eval if indicated # Deconditioning * PT and OT consults placed, patient maximum assist of 3 * Recommended short-term rehabilitation upon discharge * Continue mobilization # Diabetes mellitus type 2 * levemir 20 units BID, and Novolog sliding scale. # Hypertension * Continued metoprolol 50 mg PO BID * Continued losartan 25 mg PO daily (valsartan at home) * Vital signs Q shift # Paroxysmal atrial fibrillation * Continue home eliquis 5 mg BID * Stable, chronic # Coronary artery disease, HLD * Continued aspirin 81 mg PO daily, atorvastatin 20 mg PO daily * Continued imdur 30 mg PO daily, Metoprolol 50mg BID, Cozaar 25mg daily # Constipation * Dulcolax and senna when necessary FULL CODE DVTP: Eliqus NPO while on BiPAP, CC3 diet otherwise on Puree and honey thick diet Pain pathway: Tylenol Problem List: 1. Altered mental status 2. Hypercapnia Pain Ratin Pain Location: n/a Pain Goal: Remain pain free Pain Plan: tyelnol Tomorrow's Labs & Rationales: CBC, BEP - leukocytosis, Na Consulting Request: Consulting Specialty: Infectious Disease DAVID HOWELL MD 03/08/17 1125: Attending MD Review Statement Attending Statement Attending MD Statement: examined this patient, discuss w/resident/PA/VESSEL WELDER, agreed w/resident/PA/VESSEL WELDER, reviewed EMR data (avail) Attending Assessment/Plan: 81M PMH stage III diastolic congestive heart failure, HTN, type 2 diabetes mellitus, DLD, PVD, carotid artery disease, coronary artery disease s/p non-ST elevation AL, PAF treated with apixaban, angioplasty to his LAD performed in 1997 and permanent pacemaker for heart block with carpal tunnel release surgery and general anesthesia, post-op course complicated by generalized weakness and inability to ambulate followed by metabolic encephalopathy and aspiration pneumonia. Patient is confused and unable to give a proper history. BP mildly elevated, afebrile, vitals stable. Labs show slowly increasing hypernatremia, normal renal function, cultures NGTD. Plan - Continue on telemetry - Continue Bumex per Cardiology - Monitor fluid status, I/O, daily weights - Nocturnal BiPAP - Continue to monitor off of antibiotics - Follow cultures - Follow pulmonary and ID recommendations - Aspiration precautions - Continue home medications - DVT PPx - Continue Bumex per Cardiology - Monitor fluid status, I/O, daily weights - Nocturnal BiPAP - Continue to monitor off of antibiotics - Follow cultures - Follow pulmonary and ID recommendations - Aspiration precautions - Continue home medications - DVT PPx
[2017-03-08 09:46] LABS: ABSOLUTE BASOPHIL COUNT 0 /CUMM (0.0-0.2); ABSOLUTE EOSINOPHIL COUNT 0.1 /CUMM (0.0-0.7); ABSOLUTE GRANULOCYTE CT 12.5 /CUMM (1.4-6.5); ABSOLUTE LYMPH COUNT 0.6 /CUMM (1.2-3.4); ABSOLUTE MONOCYTE COUNT 1.1 /CUMM (0.10-0.60); BASOPHIL % 0.2 % (0.0-2.0); HEMATOCRIT 36.2 % (42-52); MEAN CORPUSCULAR HGB 24.6 PG (27.0-31.0); MEAN CORPUSCULAR HGB CONC 31.2 G/DL (33.0-37.0); MEAN CORPUSCULAR VOLUME 78.9 FL (80.0-94.0); MEAN PLATELET VOLUME 9.3 FL (7.4-10.4); PLATELET COUNT 296 /CUMM (130-400); RBC DISTRIBUTION WIDTH 19.2 % (11.5-14.5); RED BLOOD CELL CT 4.58 /CUMM (4.70-6.10)
--- NOTE | 2017-03-08 09:56 | PN- Cardiology ---
Subjective Subjective: * Patient is awake but confused. He states "there is a problem with all these kids." * ventricular paced rhythm * WBC count is 16.6 Objective Vital Signs and I&Os Vital Signs Date Time Temp Pulse Resp B/P B/P Pulse O2 O2 Flow FiO2 Mean Ox Delivery Rate 03/08 0909 160/90 03/08 0909 74 160/90 03/08 0908 74 160/90 03/08 0828 99.3 74 20 140/62 95 Nasal 5.0L Cannula 03/08 0320 71 91 03/08 0033 61 93 03/08 0000 Nasal 5.0L Cannula 03/07 2300 63 95 03/07 2248 98.1 64 20 140/50 91 03/07 2149 70 138/72 03/07 1707 98.6 63 20 146/53 91 Non 4.0L ReBreather 03/07 1600 Nasal 5.0L Cannula 03/07 1410 64 162/78 94 Nasal 5.0L Cannula 03/07 1350 63 95 Intake & Output 03/08 1600 03/08 0800 03/08 0000 03/07 1600 03/07 0800 03/07 0000 Intake Total 120 360 480 100 0 Output Total 1250 1900 1200 1500 1200 Balance -1130 -1540 -720 -1400 -1200 Intake, Oral 120 360 480 100 0 Number 0 Bowel Movements Output, Urine 1250 1900 1200 1500 1200 Physical Exam: General: WD/ obese male in NAD; awake and confused Neck: no JVD, bilateral carotid bruit R>L Heart: regular rate and rhythm with 2/6 sytolic murmur at the RUSB and 2/6 sytolic murmur at the LUSB and apex Lungs: clear bilaterally Extremities: No leg edema with venous stasis changes bilaterally Assessment/Plan Assessment/Plan * Continue Bumex at 2mg BID. Follow BUN and creatinine. BUN is a bit elevated. Check a chest X-ray tomorrow. * obtain an echocardiogram Continue telemetry? Yes
--- NOTE | 2017-03-08 10:04 | PN- Pulmonary ---
Subjective HPI/Critical Care Issues: Patient is alert but remains confused on supplemental oxygen Objective Current Medications: Current Medications Sig/Roge Start time Last Medication Dose Route Stop Time Status Admin Acetaminophen 650 MG Q4P PRN 02/28 1500 AC 02/28 PO 1554 Albuterol Sulfate 2 PUF Q12P PRN 03/04 2230 AC INH Apixaban 5 MG BID 03/06 1000 AC 03/08 PO 0909 Aspirin 81 MG DAILY 02/26 1000 AC 03/08 PO 0907 Atorvastatin Calcium 20 MG 1700 02/26 1700 AC 03/07 PO 1809 Bumetanide 2 MG BID 03/06 1327 AC 03/08 PO 0909 Docusate Sodium 100 MG DAILY 03/07 1607 AC 03/07 PO 1810 Docusate Sodium 100 MG BID 02/28 1045 DC 03/07 PO 0918 Furosemide 20 MG ONCE ONE 03/07 1415 DC 03/07 IV 03/07 1416 1415 Guaifenesin 600 MG Q12 03/06 1645 AC 03/08 PO 0908 Insulin Aspart 0 TIDAC 03/05 1700 AC 03/08 SC 0904 Insulin Detemir 20 UNITS BID 03/07 2200 AC 03/08 SC 0907 Insulin Detemir 18 UNITS BID 03/06 2200 DC 03/07 SC 0917 Isosorbide 30 MG DAILY 02/26 1000 AC 03/08 Mononitrate PO 0908 Losartan Potassium 25 MG DAILY 02/26 1000 AC 03/08 PO 0909 Metoprolol Tartrate 50 MG BID 02/25 2200 AC 03/08 PO 0909 Ondansetron HCl 4 MG Q8P PRN 02/25 2100 AC IV Polyethylene Glycol 17 GM DAILY 03/07 1607 AC PO Potassium Chloride 20 MEQ DAILY 02/26 1000 AC 03/07 PO 1120 Senna 187 MG AT BEDTIME 03/07 2200 AC 03/07 PO 2149 Vital Signs & I&O Last 24 Hrs of Vitals and I&O: Vital Signs Date Time Temp Pulse Resp B/P B/P Pulse O2 O2 Flow FiO2 Mean Ox Delivery Rate 03/08 0909 160/90 03/08 0909 74 160/90 03/08 09 74 160/90 03/08 0828 99.3 74 20 140/62 95 Nasal 5.0L Cannula 03/08 0320 71 91 03/08 0033 61 93 06/11 0000 Nasal 5.0L Cannula 03/07 2300 63 95 03/07 2248 98.1 64 20 140/50 91 03/07 2149 70 138/72 03/07 1707 98.6 63 20 146/53 91 Non 4.0L ReBreather 03/07 1600 Nasal 5.0L Cannula 03/07 1410 64 162/78 94 Nasal 5.0L Cannula 03/07 1350 63 95 Intake & Output 03/08 1600 03/08 0800 03/08 0000 Intake Total 120 360 Output Total 1250 1900 Balance -1130 -1540 Intake, Oral 120 360 Output, Urine 1250 1900 Since saturation by liters 95% exam of his chest shows occasional rhonchi cardiac exam shows regular S1 and S2 without murmurs Impression/Plan Impression/Plan Impression/Plan: 81-year-old gentleman admitted for elective carpal tunnel surgery who is had a reported more change in mental status has been found to be hypercarbic leukocytosis and fever he's being treated for presumed aspiration pneumonia and an element of congestive heart failure. Repeat arterial blood gases show a compensated respiratory acidosis. Patient was noted to aspirate yesterday. Recommendations: correct hypernatremia nocturnal bipap st 20 11/01.review direction of care and CODE STATUS. Taper FiO2 his saturations allow. Continue negative fluid balance as renal function allows
[2017-03-08 10:36] LABS: WHITE BLOOD CELL COUNT 14.4 /CUMM (4.8-10.8)
--- NOTE | 2017-03-08 14:49 | Transfer of Care Summary ---
Hospital Course Course Hospital Course: Please refer to Transfer of care from 03/04 for patients hospital course from admission 02/25 to tranfer to ICU on 03/04. Pt stayed at ICU for 4 days and was transferred to [facility] on 03/08/17. Assessment/Plan: In brief, this is an 81 yo gentleman with a past medical history who presented for an elective left carpal tunnel release and was admitted due to failure to ambulate. His hospital stay was complicated with hospital-acquired pneumonia on POD#4 and altered mental status with hypercarbia on POD #8 requiring ICU transfer. Patient's ICU stay lasted 4 days before being transferred to Telemetry. The following issues were addressed: #Altered mental status Possibly multifactorial with hypercapnia, pneumonia and hospital delirium. Patient mentation remained altered throughout the ICU stay with some intermittent lucid episodes. CT obtained was unremarkable for any acute intracranial pathology. #Acute hypoxic and hypercapnic respiratory failure On March 04 patient was noted to have increased altered mental status and an ABG obtained 7.8/52/58/30. Decision was made to transfer him to ICU based on pulmonology recommendation with patient being started on BiPAP. Subsequent ABGs obtained showed improvement in CO2, however patient was noncompliant and kept on intermittently refusing BiPAP. Pt was maintained on 4 L nasal cannula saturating above 92%. #Bilateral pleural effusion Initial plan was to have a thoracentesis if follow-up chest x-ray on March 05 showed an interval increment and with persistent respiratory distress. His apixaban was held afer / morning dose, and due to a history of HIT, heparin bridge was not used. However repeat chest x-ray did not show a significant increment on the pleural effusions and therefore thoracentesis was held, and APIXABAN restarted on 03/06. #Hospital acquired pneumonia Patient completed for antibody course with Unasyn on 03/05. #history of paroxysmal A. fib Continue on apixaban.
--- NOTE | 2017-03-08 14:57 | RADIOLOGY REPORT ---
EXAMINATION: XR PORTABLE CHEST CLINICAL INFORMATION: Follow-up pleural effusions and comment on infiltrates. COMPARISON: CXR from 03/06/2017 and 03/07/2017 TECHNIQUE: Portable frontal view of the chest was obtained. FINDINGS: Again noted is the large cardiac silhouette, diffuse groundglass pulmonary opacities (likely cardiogenic pulmonary edema) and small pleural effusions. Cardiac pacing leads remain in their expected positions. No evidence of pneumothorax or other significant interval change. IMPRESSION: 1. Small bilateral pleural effusions remain similar in appearance compared to 03/07/2017. 2. Also, the bilateral diffuse pulmonary opacities (likely pulmonary edema) have not significantly changed.
[2017-03-08 15:59] VITALS: BP 148/50
[2017-03-09] VITALS (7 sets, daily range): BP systolic 130–186; BP diastolic 58–70
--- NOTE | 2017-03-09 07:26 | PN- Housestaff ---
ANISH GRIFFIN,CARMELA 03/09/17 0726: Subjective Follow-up For: Acute Hypoxic/Hypercarbic respiratory Failure HCAP KEISHA on CKD P. AFib Left wrist carpal tunnel decompression Subjective: Patient seen and examined. He is seen sitting upright in bed resting comfortably maintained on supplemental oxygen via nasal cannula. He appears to be in no acute distress. He is oriented only to self; he does not recall place, month, year, or president. He is pleasant and appears confused; he offers no new subjective complaints. Additionally he denies any headache, fever, chills, chest pain/discomfort, shortness of breath, nausea, vomiting, diarrhea. Review of Systems Constitutional: Reports: see HPI. Objective Last 24 Hrs of Vital Signs/I&O Vital Signs Date Time Temp Pulse Resp B/P B/P Pulse O2 O2 Flow FiO2 Mean Ox Delivery Rate 03/09 2101 69 180/70 03/09 2050 63 180/70 03/09 2000 65 03/09 1800 64 03/09 1623 97.5 61 20 186/58 95 03/09 1600 97.5 61 20 186/58 03/09 1600 95 Nasal 5.0L Cannula 03/09 1057 72 168/64 03/09 1056 72 168/64 03/09 1055 68 168/64 03/09 0800 70 20 164/68 03/09 0800 95 Nasal 5.0L Cannula 03/09 0759 97.4 69 18 164/68 94 Nasal 5.0L Cannula 03/09 0053 98.6 65 20 130/60 95 CPAP 03/09 0023 64 92 03/09 0015 62 95 03/09 0000 80 20 130/60 03/09 0000 94 Nasal 5.0L Cannula Intake & Output 03/09 1600 12 0800 06 0000 Intake Total 480 50 360 Output Total 400 1600 1350 Balance 80 -1550 -990 Intake, Oral 480 50 360 Number 0 Bowel Movements Output, Urine 400 1600 1350 Physical Exam General Appearance: Alert, Cooperative, No Acute Distress Other Physical Findings: General- well developed, obese elderly man in no acute distress HEENT- NCAT, PERRL, EOMI, anicteric sclera, moist mucous membranes Chest- S1, S2 w/o m/g/r Lungs- CTA bilaterally Abdomen- Soft, nontender, nondistended, bowel sounds intact Neuro- Awake and alert, oriented only to person, CN II - XII grossly intact, speech slow but fluent, strenght 5/5 in bilateral upper extremities Ext- normal pulses, no cyanosis/clubbing/edema Current Medications: Current Medications Sig/Roge Start time Last Medication Dose Route Stop Time Status Admin Acetaminophen 650 MG Q4P PRN 02/28 1500 AC 02/28 PO 1554 Albuterol Sulfate 2 PUF Q12P PRN 03/04 2230 AC INH Apixaban 5 MG BID 03/06 1000 AC 03/09 PO 2101 Aspirin 81 MG DAILY 02/26 1000 AC 03/09 PO 1055 Atorvastatin Calcium 20 MG 1700 02/26 1700 AC 03/09 PO 2101 Bisacodyl 10 MG Q12P PRN 03/08 1245 AC 03/08 HI 1545 Bumetanide 2 MG BID 03/06 1327 AC 03/09 PO 2101 Dextrose/Water 1,000 ML ONCE ONE 03/09 1630 AC 03/09 IV 03/10 0549 1716 Docusate Sodium 100 MG DAILY 03/07 1607 AC 03/09 PO 1056 Guaifenesin 600 MG Q12 03/06 1645 AC 03/09 PO 2101 Insulin Aspart 0 TIDAC 03/05 1700 AC 03/09 SC 1716 Insulin Detemir 20 UNITS BID 03/07 2200 AC 03/09 SC 2132 Isosorbide 30 MG DAILY 02/26 1000 AC 03/09 Mononitrate PO 1056 Losartan Potassium 25 MG DAILY 02/26 1000 AC 03/09 PO 1057 Metoprolol Tartrate 50 MG BID 02/25 2200 AC 03/09 PO 2101 Ondansetron HCl 4 MG Q8P PRN 02/25 2100 AC IV Polyethylene Glycol 17 GM DAILY 03/07 1607 AC 03/09 PO 1055 Potassium Chloride 20 MEQ DAILY 02/26 1000 AC 03/09 PO 1057 Senna 187 MG AT BEDTIME 03/07 2200 AC 03/09 PO 2101 Sodium Phosphate 1 UNIT DAILY PRN 03/09 1630 AC HI Sodium Phosphate 1 UNIT ONCE ONE 03/09 1415 DC 03/09 HI 03/09 1416 1900 Last 24 Hrs of Lab/Chu Results Last 24 Hrs of Labs/Mics: Laboratory Tests 03/09/17 0710: Anion Gap 13, Estimated GFR > 60, BUN/Creatinine Ratio 48.9 H, Magnesium 1.9, CBC w Diff MAN DIFF ORDERED, RBC 5.15, MCV 78.5 L, MCH 24.3 L, RDW 19.2 H, MPV 9.3, Gran % 86.5 H, Lymphocytes % 5.5 L, Monocytes % 6.9, Eosinophils % 1.0, Basophils % 0.1, Absolute Granulocytes 12.6 H, Absolute Lymphocytes 0.8 L , Absolute Monocytes 1.0 H, Absolute Eosinophils 0.1, Absolute Basophils 0, Platelet Estimate VERIFIED BY SMEAR, Hypochromic-Microcytic 1+, Poikilocytosis 1 +, Anisocytosis 1+, Microcytic Cells 1+, Ovalocytes 1+, PUBS MCHC 30.9 L Assessment/Plan Assessment: Patient continues to remain confused, only oriented to himself. He remains off antibiotics with persistent leukocytosis. Repeat chest X-ray on 03/08 was suggestive of pulmonary edema. He is continued on Bumex for diuresis, which may be the cause of his hypernatremia. TTE demonstrated findings suggestive of valvular vegetations; however this was observed on previous echocardiogram. Imaging is to be reviewed by cardiology; patient may require BETH to further assess this finding. Patient has an elevated white count without fever for unclear reasons. Problem List: #Healthcare Acquire Pneumonia, off antibiotics #Leukocytosis #Hypernatremia #IDDM #CAD #P. Atrial Fibrillation, on Eliquis #Benign prostatic hypertrophy #LYNDSEY Plan: -Telemetry -Aspiration precautions -Follow off antibiotics -D5W 1L ONCE -Bumex 2mg PO BID -Novolog/Levemir/Fingersticks -Eliquis/Aspirin/Atorvastatin/Metoprolol -Bowel Regimen -Echo: Normal left ventricular size with moderate left ventricular hypertrrophy. Overall normal systolic function with no obvious regional wall motion abnormalities. The ejection fraction is visually estimated at 60%. -CXR 03/08/17: small effusion unchanged from 03/07 and bilateral diffuse pulmonary opacities likely escrow representative of pulmonary edema -Cardiology following -ID following -Neurology following -Ortho following -Pulm following -Daily BEP for hypernatremia -Daily CBC for leukocytosis -DVT PPx -FULL CODE Problem List: 1. Altered mental status Pain Ratin Pain Location: None Pain Goal: Remain pain free Pain Plan: See assessment Tomorrow's Labs & Rationales: BEP-hypernatremia CBC-leukocytosis Consulting Request: Consulting Specialty: Infectious Disease MYA GRIFFIN,MIKE 03/09/17 1259: Attending MD Review Statement Attending Statement Attending MD Statement: examined this patient, discuss w/resident/PA/SOFTWARE TEST ANALYST, agreed w/resident/PA/SOFTWARE TEST ANALYST, discussed with family, reviewed EMR data (avail), discussed with nursing, discussed with case mgmt, amended to note Attending Assessment/Plan: Patient seen and examined. Lethargic but not in any acute respiratory distress. Responds to simple commands. is present at the bedside and states that mental status is improving. Was able to tolerate modified diet with assistance. Denied any pain. On examination patient is lethargic. Lungs are clear bilaterally. Heart sounds are irregular. Abdomen is soft and nontender with normal bowel sounds. He has trace peripheral edema. Problems: 1. Acute hypercarbic/hypoxic respiratory failure. 2. Pneumonia; likely secondary to aspiration 3. Metabolic encephalopathy; resolved 4. Markedly deconditioned; likely will require short-term rehabilitation upon discharge 5. Insulin-dependent diabetes mellitus 6. Paroxysmal atrial fibrillation 7. Coronary artery disease 8. Constipation Plan: -Weaned off oxygen supplementation as tolerated. Hold off further antibiotic therapy per recommendations of the ID service. Follow-up with the pulmonology service regarding recommendations for BiPAP therapy. -Mental status is improving. Continue supportive care. - If His mental status continues to improve recommend reevaluation by the speech therapist for upgrading of his diet. -Blood glucose levels are in the low 200s. Continue insulin regimen with sliding scale coverage. -Physical therapy follow-up as tolerated. Discharge planning to half-way facility. -The transthoracic echocardiogram report states that vegetations unable to be ruled out. The ID service is recommending a transesophageal echocardiogram. Please follow-up with the cardiology service to determine if this is needed. - Continue anticoagulation -Begin Fleet Enema for his ongoing constipation.
--- NOTE | 2017-03-09 07:54 | PN- Pulmonary ---
Subjective HPI/Critical Care Issues: Awake and conversant this morning. Chest x-ray continues to show what is believed to be pulmonary edema. He continues to have effective diuresis. Hypernatremia persists Objective Current Medications: Current Medications Sig/Roge Start time Last Medication Dose Route Stop Time Status Admin Acetaminophen 650 MG Q4P PRN 02/28 1500 AC 02/28 PO 1554 Albuterol Sulfate 2 PUF Q12P PRN 03/04 2230 AC INH Apixaban 5 MG BID 03/06 1000 AC 03/08 PO 2057 Aspirin 81 MG DAILY 02/26 1000 AC 03/08 PO 09 Atorvastatin Calcium 20 MG 1700 02/26 1700 AC 03/08 PO 1806 Bisacodyl 10 MG Q12P PRN 03/08 1245 AC 03/08 VT 1545 Bumetanide 2 MG BID 03/06 1327 AC 03/08 PO 2057 Docusate Sodium 100 MG DAILY 03/07 1607 AC 03/07 PO 1810 Furosemide 20 MG ONCE ONE 03/08 1245 DC 03/08 IV 03/08 1246 1310 Guaifenesin 600 MG Q12 03/06 1645 AC 03/08 PO 2057 Insulin Aspart 0 TIDAC 03/05 1700 AC 03/08 SC 180 Insulin Detemir 20 UNITS BID 03/07 2200 AC 03/08 SC 205 Isosorbide 30 MG DAILY 02/26 1000 AC 03/08 Mononitrate PO 09 Losartan Potassium 25 MG DAILY 02/26 1000 AC 03/08 PO 09 Metoprolol Tartrate 50 MG BID 02/25 2200 AC 03/08 PO 2057 Ondansetron HCl 4 MG Q8P PRN 02/25 2100 AC IV Polyethylene Glycol 17 GM DAILY 03/07 1607 AC PO Potassium Chloride 20 MEQ DAILY 02/26 1000 AC 03/07 PO 1120 Senna 187 MG AT BEDTIME 03/07 220 AC 03/08 PO 2057 Vital Signs & I&O Last 24 Hrs of Vitals and I&O: Vital Signs Date Time Temp Pulse Resp B/P B/P Pulse O2 O2 Flow FiO2 Mean Ox Delivery Rate 03/09 0053 98.6 65 20 130/60 95 CPAP 03/09 0023 64 92 03/09 0015 62 95 03/09 0000 80 20 130/60 03/09 0000 94 Nasal 5.0L Cannula 06/11 2142 61 94 06/11 2058 65 128/60 03/08 1600 Nasal 5.0L Cannula 03/08 1559 98.4 90 20 148/50 93 03/08 1200 98.7 03/08 0909 160/90 03/08 0909 74 160/90 03/08 0908 74 160/90 03/08 0828 99.3 74 20 140/62 95 Nasal 5.0L Cannula 03/08 0800 99.3 74 20 140/62 03/08 0800 95 Nasal 5.0L Cannula Intake & Output 03/09 0800 03/09 0000 03/08 1600 Intake Total 50 360 120 Output Total 1600 1350 1450 Balance -1550 -990 -1330 Intake, Oral 50 360 120 Output, Urine 1600 1350 1450 Since saturation 5 L 95% exam of his chest shows diminished breath sounds are no wheezes cardiac exam shows regular S1 and S2 without murmurs Impression/Plan Impression/Plan Impression/Plan: 81-year-old gentleman admitted for elective carpal tunnel surgery who is had a reported more change in mental status has been found to be hypercarbic leukocytosis and fever he's being treated for presumed aspiration pneumonia and an element of congestive heart failure. Repeat arterial blood gases show a compensated respiratory acidosis. Patient was noted to aspirate yesterday. Increase free water. Taper FiO2 his saturations allow. Patient will need short -term rehabilitation Recommendations: correct hypernatremia nocturnal bipap st 20 11/01.review direction of care and CODE STATUS. Taper FiO2 his saturations allow. Continue negative fluid balance as renal function allows
--- NOTE | 2017-03-09 08:13 | ECHOCARDIOGRAM REPORT ---
DAPHNEY MUNROE Age: 81 : 1935 Gender: M Exam Date: 03/08/2017 14:00 Exam Location: [address] Ht (in): 78 Wt (lb): 285 BSA: 2.70 BP: 160 / 90 Ordering Physician: MINGO HOLT MD Referring Physician: Joel Raines MD, PhD Technologist: Angélica Galicia [facility] Room Number: 188 Indications: STRUCTURAL HEART DISEASE Rhythm: Atrial fibrillation Technical Quality: technically limited FINDINGS Left Ventricle Normal left ventricular size with moderate left ventricular hypertrrophy. Overall normal systolic function with no obvious regional wall motion abnormalities. The ejection fraction is visually estimated at 60%. Right Ventricle The right ventricle is mildly enlarged with normal function. A pacemaker lead is noted. Right Atrium The right atrium is normal in size. Left Atrium The left atrium is mildly enlarged. The interatrial septum is intact. Mitral Valve The mitral valve is thickened with decreased leaflet excursion. A vegetation cannot be excluded. Mild mitral stenosis is noted. There is no mitral regurgitation. Aortic Valve Structurally normal aortic valve without significant sclerosis or stenosis. There is no aortic regurgitation. Tricuspid Valve The tricuspid valve is normal in structure and function. There is mild tricuspid regurgitation. Pulmonary artery systolic pressure is elevated to 69mmHg. Pulmonic Valve Structurally normal pulmonic valve. There is mild pulmonic regurgitation. Pericardium Normal pericardium without effusion. No pleural effusion. Great Vessels Normal aortic root dimension. The aortic arch and great vessels are well seen and are normal. CONCLUSIONS 1. Normal EF of 60%. 2. Moderate left ventricluar hypertrophy. 3. Severe left atrial enlargement. 4. Mild right ventricular enlargment. 5. 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 6. Mild to moderate mitral stenosis with a possible vegetation. Consider a BETH. 7. Mild tricuspid regurgitation. 8. Mild pulmonic regurgitation. 9. Sever pulmonary hypertension. Joel Raines M.D. (Electronically Signed) Final Date: 09 March 2017 08:12 MEASUREMENTS (Male / Female) Normal Values 2D ECHO LV Diastolic Diameter PLAX 4.2 cm 4.2 - 5.9 / 3.9 - 5.3 cm LV Systolic Diameter PLAX 2.8 cm 2.1 - 4.0 cm LV Fractional Shortening PLAX 33.3 % 25 - 46 % LV Ejection Fraction 2D Teich 62.4 % IVS Diastolic Thickness 1.6 cm LVPW Diastolic Thickness 1.6 cm LV Relative Wall Thickness 0.8 RV Internal Dim ED PLAX 4.0 cm 1.9 - 3.8 cm LVOT Diameter 2.3 cm Aortic Root Diameter 3.4 cm LA Systolic Diameter LX 5.1 cm 3.0 - 4.0 / 2.7 - 3.8 cm LA Volume 84.0 cm 18 - 58 / 22 - 52 cm Ascending Aorta Diameter 3.2 cm DOPPLER AV Peak Velocity 171.0 cm/s AV Peak Gradient 11.7 mmHg AV Mean Velocity 123.0 cm/s AV Mean Gradient 7.0 mmHg AV Velocity Time Integral 36.2 cm LVOT Peak Velocity 104.0 cm/s LVOT Peak Gradient 4.3 mmHg LVOT Mean Velocity 78.9 cm/s LVOT Mean Gradient 3.0 mmHg LVOT Velocity Time Integral 23.6 cm LVOT Stroke Volume 98.1 cm AV Area Cont Eq vti 2.7 cm AV Area Cont Eq pk 2.5 cm MV Peak Velocity 218.0 cm/s MV Peak Gradient 19.0 mmHg MV Mean Velocity 108.5 cm/s MV Mean Gradient 6.0 mmHg Mitral E Point Velocity 215.0 cm/s MV PHT Velocity 224.0 cm/s MV Deceleration [place] 507.0 cm/s MV Pressure Half Time 132.5 ms MV Area PHT 1.7 cm MV Deceleration Time 264.0 ms TR Peak Velocity 402.0 cm/s TR Peak Gradient 64.6 mmHg Right Atrial Pressure 5.0 mmHg Pulmonary Artery Systolic Pressu 69.6 mmHg Right Ventricular Systolic Press 69.6 mmHg PV Peak Velocity 112.0 cm/s PV Peak Gradient 5.0 mmHg PV Mean Velocity 75.6 cm/s PV Mean Gradient 3.0 mmHg PV Velocity Time Integral 22.4 cm LV E' Lateral Velocity 5.3 cm/s Mitral E to LV E' Lateral Ratio 40.9 LV E' Septal Velocity 6.3 cm/s Mitral E to LV E' Septal Ratio 33.9
[2017-03-09 08:49] LABS: ABSOLUTE BASOPHIL COUNT 0 /CUMM (0.0-0.2); ABSOLUTE EOSINOPHIL COUNT 0.1 /CUMM (0.0-0.7); ABSOLUTE GRANULOCYTE CT 12.6 /CUMM (1.4-6.5); ABSOLUTE LYMPH COUNT 0.8 /CUMM (1.2-3.4); BASOPHIL % 0.1 % (0.0-2.0); GRANULOCYTE % 86.5 % (42.2-75.2); HEMATOCRIT 40.4 % (42-52); MEAN CORPUSCULAR HGB 24.3 PG (27.0-31.0); MEAN CORPUSCULAR HGB CONC 30.9 G/DL (33.0-37.0); MEAN CORPUSCULAR VOLUME 78.5 FL (80.0-94.0); MEAN PLATELET VOLUME 9.3 FL (7.4-10.4); PLATELET COUNT 328 /CUMM (130-400); RBC DISTRIBUTION WIDTH 19.2 % (11.5-14.5); RED BLOOD CELL CT 5.15 /CUMM (4.70-6.10); WHITE BLOOD CELL COUNT 14.6 /CUMM (4.8-10.8)
--- NOTE | 2017-03-09 11:09 | PN- Infect Dx ---
Subjective Subjective: Afebrile. He complains of pain in the right knee. He has not had a bowel movement for 6 days. Objective Last 24 Hrs of Vital Signs/I&O Vital Signs Date Time Temp Pulse Resp B/P B/P Pulse O2 O2 Flow FiO2 Mean Ox Delivery Rate 03/09 1057 72 168/64 03/09 1056 72 168/64 03/09 1055 68 168/64 03/09 0800 70 20 164/68 03/09 0800 95 Nasal 5.0L Cannula 03/09 0759 97.4 69 18 164/68 94 Nasal 5.0L Cannula 03/09 0053 98.6 65 20 130/60 95 CPAP 03/09 0023 64 92 03/09 0015 62 95 03/09 0000 80 20 130/60 03/09 0000 94 Nasal 5.0L Cannula 03/08 2142 61 94 03/08 2058 65 128/60 03/08 1600 Nasal 5.0L Cannula 03/08 1559 98.4 90 20 148/50 93 03/08 1200 98.7 Intake & Output 03/09 1600 03/09 0800 03/09 0000 Intake Total 50 360 Output Total 1600 1350 Balance -1550 -990 Intake, Oral 50 360 Output, Urine 1600 1350 Physical Exam Other Physical Findings: He is more awake and responsive this morning and appears less confused and disoriented Lungs decreased breath sounds bilaterally Heart regular rhythm with a 2/6 systolic ejection murmur Abdomen is obese, soft, nontender with positive bowel sounds Extremities bilateral knee swelling, with some limitation to range of motion, with no erythema; chronic venous stasis changes both lower extremities; left wrist incision clean, with no inflammation; decreased edema left upper extremity Mejia catheter remains in place Results Last 24 Hours of Lab Results: Laboratory Tests 03/09 0710 Chemistry Sodium (137 - 145 mmol/L) 155 H Potassium (3.5 - 5.1 mmol/L) 3.7 Chloride (98 - 107 mmol/L) 103 Carbon Dioxide (22 - 30 mmol/L) 39 H Anion Gap (5 - 16) 13 BUN (9 - 20 mg/dL) 44 H Creatinine (0.7 - 1.2 mg/dL) 0.9 Estimated GFR (>60 ml/min) > 60 BUN/Creatinine Ratio (7 - 25 %) 48.9 H Magnesium (1.6 - 2.3 mg/dL) 1.9 Hematology CBC w Diff MAN DIFF ORDERED WBC (4.8 - 10.8 /CUMM) 14.6 H RBC (4.70 - 6.10 /CUMM) 5.15 Hgb (14.0 - 18.0 G/DL) 12.5 L Hct (42 - 52 %) 40.4 L MCV (80.0 - 94.0 FL) 78.5 L MCH (27.0 - 31.0 PG) 24.3 L RDW (11.5 - 14.5 %) 19.2 H Plt Count (130 - 400 /CUMM) 328 MPV (7.4 - 10.4 FL) 9.3 Gran % (42.2 - 75.2 %) 86.5 H Lymphocytes % (20.5 - 51.1 %) 5.5 L Monocytes % (1.7 - 9.3 %) 6.9 Eosinophils % (0 - 5 %) 1.0 Basophils % (0.0 - 2.0 %) 0.1 Absolute Granulocytes (1.4 - 6.5 /CUMM) 12.6 H Segmented Neutrophils (42.2 - 75.2 %) Pending Absolute Lymphocytes (1.2 - 3.4 /CUMM) 0.8 L Absolute Monocytes (0.10 - 0.60 /CUMM) 1.0 H Absolute Eosinophils (0.0 - 0.7 /CUMM) 0.1 Absolute Basophils (0.0 - 0.2 /CUMM) 0 PUBS MCHC (33.0 - 37.0 G/DL) 30.9 L Last 24 Hours of Chu Results: No recent cultures Recent Imaging Studies: Echocardiogram March 08 reveals mild to moderate mitral stenosis with a possible vegetation Assessment/Plan Impression: Appears somewhat improved with less confusion and increased responsiveness, though he remains oxygen dependent, with O2 requirements increased over the last 2 days, most likely secondary to fluid overload, with a significant diuresis over the past several days. He remains afebrile but white blood cell count remains elevated of unclear etiology, now off antibiotics after nearly one week of treatment for presumed aspiration pneumonia. He does have bilateral knee swelling, but am not suspicious of a septic joint at this time. Have discussed the Echo findings of a possible vegetation on the mitral valve with Cardiology, who will review the previous echo. He does not have any manifestations of endocarditis, and his blood cultures were negative. Suggestion: 1. Further management of fluid overload per Cardiology 2. Consider BETH based on the review of his previous echocardiogram 3. Continue aspiration precautions 4. Further management of his constipation per Medicine 5. Continue to follow off antibiotics
--- NOTE | 2017-03-09 14:32 | NUR ---
wound care: requested by nursing staff to evaluate pt for skin alteration sustained while in pt - staff reports having seen pt with left leg wedged against siderail, causing skin tear like abrasion to lateral knee - present at bedside - pt noted with a 3x2 cm scabbed area brown/red discoloration no active drng noted - - no c/o voiced - recommendation: no topical tx indicated at this time - monitor knee qs for deterioration - apply pillows to renaldo lateratl legs to prevent contact with siderail
--- NOTE | 2017-03-09 15:35 | Discharge Summary ---
Visit Information Visit Dates Admission Date: 02/25/17 Discharge Date: 03/12/17 Hospital Course Course Attending Physician: MIKE ROQUE M.D Primary Care Physician: WAYLON BILLS MD Consulting Request: 1 Consulting Specialty: Cardiology Consulting Request: 2 Consulting Specialty: Neurology Consulting Request: 3 Consulting Specialty: Orthopedics Consulting Request: 4 Consulting Specialty: Pulmonary Disease Hospital Course: Brad is an 81 year old caucaisan male with a PMH of stage III diastolic congestive heart failure, HTN, T2DM, DLD, PVD, CAD s/p PCI with stent to his LAD performed in 1997 and permanent pacemaker for heart block, PAF on Apixaban, alcohol dependence, 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 Plan of care was to discharge the patient to acute rehabilitation facility where he could obtain more aggressive physical therapy with goals to regain his strength. However, his postoperative course was complicated by respiratory failure and altered mentation. The following problems were addressed during the hospital stay: # Acute hypoxic and hypercarbic respiratory failure This was multifactorial 2/2 HCAP/ aspiration PNA/CHF exacerabtion. On POD#4, Brad reported sudden onset confusion likely due to delirum, and endorsed productive cough. His vitals at the time were stable, and labs showed leukocytosis with WBC 18,000, H&H11.2/ 35, BUN/Cr 46/1.4. UA was clear. A chest x-ray was done which showed bilateral pulmonary opacities representing pneumonia and small bilateral pleural effusions. He was started on braod spectrum ABx for HCAP. He was closely monitored, vital signs checked frequently and he was monitored for worsening respiratory status. He was started on broad spectrum antibiotics and had a swallow evaluation which showed patient is low risk for aspiration so his diet was advanced. On 03/04/17, he was noted to be more lethargic. Vital signs showed 84% on room air and patient was continued on O2 via nasal cannula. Due to lethargy, ABG was obtained which showed CO2 retention and patient was placed on BiPAP. Pulmonary consult was also obtained with Dr. Parra, as patient developed hypercarbia and required NIV. He was transferred to the ICU on 03/05/17 for closer monitoring and subsequently downgraded to Telemetry on 03/08/17. ID was consulted and empiric IV antibiotics ceftazadime and vancomycin were switched to IV unasyn of whichh he completed a course on 05/14. Cardiology consult was also obatined with Dr. Raines for pulmonary venous congestion and b/l pleural effsuions on CXR. Cardiology did not deem that his symptoms were 2/2 CHF. An echocardiogram was obtained which showed normal LVEF, with no RWMA. However, it did show mild to moderate mitral stenosis with a possible vegetation (which was present on his previous Echos). However he underwent a BETH which revealed No vegetations. Severe spontaneous echo contrast seen in the left atrium. Spontaneous echo contrast seen in the left atrial appendage. Small patent foramen ovale. # Encephalopathy - Possibly multifactorial with hypercapnia, pneumonia, and hospital delirium ppts from being on opiods. Patient mentation remained altered throughout the hospital stay with some intermittent lucid episodes. CT head was also obtained for cocern of IC bleed as he was on AC. It was unremarkable for any acute intracranial pathology. In view of his alcohol dependence he was also adminsitered high dose IV thiamine. His mentation continued to improve, albeit, gradually. # KEISHA on CKD This was likely prerenal from dehydration and underlying infection. Home medication Bumex 2 mg BID for stage III diastolic congestive heart failure and lower extremity swelling was held transiently, until improvement in renal function was appreciated. #Hypernatremia His Na levels continued to rise and this was thought to be 2/2 decreased PO intake in addition to being on Bumex. He was administered IVFs and Bumex was held. His hypernatremia subsequently improved. # Deconditioning -PT and OT consults placed from admission as patient had noted weakness after carpal tunnel surgery. Patient found to be a maximum assist of 3 and will require STR upon discharge. #T2DM - He was continued on insulin aspart 42 units subcutaneous twice a day. # HTN He was continued on Metoprolol 50 mg PO BID (home dose) and Losartan 25 mg PO daily (valsartan at home). # Paroxysmal atrial fibrillation He was continued on eliquis 5 mg PO BID. # CAD s/p stent and HLD Patient continued on aspirin 81 mg PO daily, atorvastatin 20 mg PO daily, Imdur 30 mg PO daily. #Right Knee pain Patient endorsed right knee pain, and going through previosu records revealed that he had had c/o of it in the past. An X ray of the knee was obtained which showed small joint effusion, and significant patellofemoral arthritis. A serum uric acid was also obtained whcih was 9.1. However he did not seem to have an acute flare of gout and so decision to treat him for gout was withehld. He should have a repeat uric acid in one week. #Constipation - He was on Dulcolax and Senna PRN, and required fleet enema. # DVT prophylaxis - He was on Eliquis. Complications: Please see above. Allergies: Coded Allergies: piperacillin (Mild, RASH 12/15/15) tazobactam (Mild, RASH 12/15/15) morphine (Intermediate, HALLUCINATIONS 12/15/15) heparin (SOMETHING WITH HIS PLATELETS 12/15/15) Significant Procedures: SERVICE DATE: 02/28/17-1458 EXAM TYPE: RAD - XRY-PORTABLE CHEST XRAY FINDINGS: Stable mild cardiomegaly. The mediastinal silhouette is unremarkable. Atherosclerotic calcifications of aortic arch noted. A left subclavian dual-lead cardiac pacer in place, with leads projecting over the right atrium and right ventricle, unchanged in position. Mild pulmonary venous congestion noted. There are pulmonary opacities in the retrocardiac lung, right infrahilar and left lower lobe with obscuration of the left diaphragmatic border. Blunting of bilateral costophrenic angles and represent some degree of pleural effusions. No pneumothorax. IMPRESSION: Bilateral pulmonary opacities can represent pneumonia. Small bilateral pleural effusions. Mild pulmonary venous congestion. SERVICE DATE: 03/03/17- EXAM TYPE: CAT - CT CHEST WO IV CONTRAST FINDINGS: LUNGS AND PLEURA: Images are partially degraded by respiratory motion. The upper lobes have slightly heterogeneous, patchy groundglass attenuation. Multiple small centrilobular nodular opacities in both upper lobes, largest measuring up to 0.5 cm in size. Subpleural linear opacities of mild scarring at lung apices. No evidence of interlobular septal thickening within the upper lobes. Moderate bilateral pleural effusions produce compressive atelectasis in each lower lobe. MEDIASTINUM: Cardiomegaly, three-vessel coronary artery atherosclerotic calcification and calcified mitral valve annulus. Left prepectoral cardiac pacemaker with transvenous leads extending to the right atrial appendage and apex of the right ventricle. No pericardial effusion. The atherosclerotic thoracic aorta and great vessels are normal in size. The pulmonary artery trunk is mildly dilated at 3.3 cm diameter, which suggests possibility of pulmonary arterial hypertension. The esophagus and thyroid gland are unremarkable. LYMPHATICS: No pathologic sized axillary or hilar lymph nodes. Multiple lymph nodes are present within the mediastinum, largest measuring up to 10-12 m short axis dimension. UPPER ABDOMEN: Atherosclerotic calcification of the visualized abdominal aorta and branch vessels. OSSEOUS STRUCTURES: No suspicious lesions within the degenerated spine. IMPRESSION: 1. Mild, patchy ground glass attenuation within upper lobes is nonspecific and could represent pneumonitis and/or edema. Small nodular opacities measuring up to 0.5 cm are present within both upper lobes, as well, likely representing infectious/inflammatory changes. 2. Cardiomegaly and coronary artery atherosclerotic disease. 3. Pulmonary artery trunk is dilated to 3.3 cm diameter, which suggests possibility of pulmonary arterial hypertension. 4. Moderate pleural effusions cause compressive atelectasis in each lower lobe. 5. Mild mediastinal lymphadenopathy is present -- likely reactive to the pulmonary disease. SERVICE DATE: 03/03/17- EXAM TYPE: US - US-DUPLEX VENOUS EXTREM UNI FINDINGS: The left internal jugular, subclavian and axillary veins demonstrate normal color Doppler flow suggesting patency. The left brachial and basilic veins are easily compressible and demonstrate normal color Doppler flow suggesting patency. The left cephalic vein is easily compressible suggesting patency. IMPRESSION: No thrombus identified within the veins of the left upper extremity. If clinical symptoms persist, consider repeat evaluation in 5-7 days. SERVICE DATE: 03/04/17-2574 EXAM TYPE: CAT - CT HEAD WO IV CONTRAST FINDINGS: There is no evidence of acute intracranial hemorrhage or territorial infarction. No abnormal mass effect or midline shift is seen. Simons to white matter differentiation is well preserved. No extra-axial fluid collections are identified. The ventricles and sulci are commensurate with advanced age. There is mild patchy low attenuation change in the periventricular white matter spaces. The osseous structures and soft tissues are normal. There is moderately severe left frontal, ethmoid, maxillary and sphenoid sinusitis. The mastoid air cells are well-aerated. IMPRESSION: 1. No acute intracranial pathology. 2. There is mild patchy low attenuation change in the periventricular white matter spaces, commonly associated with chronic microangiopathy. 3. There is left paranasal sinusitis. SERVICE DATE: 03/05/17-0500 EXAM TYPE: RAD - XRY-PORTABLE CHEST XRAY FINDINGS: Left chest wall pacer is unchanged. The lungs are well expanded. Small bilateral pleural effusions persist with increasing bibasilar opacities extending to the mid lung bilaterally. No pneumothorax. The cardiomediastinal silhouette is unchanged. IMPRESSION: Persistent small bilateral pleural effusions with increasing associated airspace opacities. SERVICE DATE: 03/06/17- EXAM TYPE: RAD - XRY-PORTABLE CHEST XRAY FINDINGS: Left chest wall dual-lead pacer is unchanged. Multiple cardiac leads overlie the chest. Low lung volumes. Persistent small bilateral pleural effusions with associated airspace opacity. Opacities now extend towards the upper lungs bilaterally, and increased from previous. No pneumothorax. The cardiomediastinal silhouette remains prominent. IMPRESSION: Persistent small bilateral pleural effusions. Worsening bilateral airspace opacities could be associated with increasing associated interstitial edema. SERVICE DATE: 03/07/17-599 EXAM TYPE: RAD - XRY-PORTABLE CHEST XRAY FINDINGS: [id number] sized bilateral pleural effusions are not appreciably changed compared to 03/06/2017. Pulmonary vessels appear congested and somewhat indistinct. The hazy opacity of each hemithorax probably represents a combination of the posteriorly layering pleural effusions and lung disease (i.e., persistent pulmonary edema and/or pneumonitis). There is stable enlargement of the cardiac silhouette. The dual-chamber cardiac pacing leads are in their expected positions. IMPRESSION: Cardiomegaly. Radiographic findings suggestive of congestive heart failure with persistent pulmonary edema and pleural effusions -- similar compared to 03/06/2017. SERVICE DATE: 03/08/17- EXAM TYPE: CARD - ECHOCARDIOGRAM FINDINGS Left Ventricle Normal left ventricular size with moderate left ventricular hypertrrophy. Overall normal systolic function with no obvious regional wall motion abnormalities. The ejection fraction is visually estimated at 60%. Right Ventricle The right ventricle is mildly enlarged with normal function. A pacemaker lead is noted. Right Atrium The right atrium is normal in size. Left Atrium The left atrium is mildly enlarged. The interatrial septum is intact. Mitral Valve The mitral valve is thickened with decreased leaflet excursion. A vegetation cannot be excluded. Mild mitral stenosis is noted. There is no mitral regurgitation. Aortic Valve Structurally normal aortic valve without significant sclerosis or stenosis. There is no aortic regurgitation. Tricuspid Valve The tricuspid valve is normal in structure and function. There is mild tricuspid regurgitation. Pulmonary artery systolic pressure is elevated to 69mmHg. Pulmonic Valve Structurally normal pulmonic valve. There is mild pulmonic regurgitation. Pericardium Normal pericardium without effusion. No pleural effusion. Great Vessels Normal aortic root dimension. The aortic arch and great vessels are well seen and are normal. CONCLUSIONS 1. Normal EF of 60%. 2. Moderate left ventricluar hypertrophy. 3. Severe left atrial enlargement. 4. Mild right ventricular enlargment. 5. 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 6. Mild to moderate mitral stenosis with a possible vegetation. Consider a BETH. 7. Mild tricuspid regurgitation. 8. Mild pulmonic regurgitation. 9. Sever pulmonary hypertension. Joel Raines M.D. (Electronically Signed) Final Date: 09 March 2017 08:12 SERVICE DATE: 03/08/17-0500 EXAM TYPE: RAD - XRY-PORTABLE CHEST XRAY FINDINGS: Again noted is the large cardiac silhouette, diffuse groundglass pulmonary opacities (likely cardiogenic pulmonary edema) and small pleural effusions. Cardiac pacing leads remain in their expected positions. No evidence of pneumothorax or other significant interval change. IMPRESSION: 1. Small bilateral pleural effusions remain similar in appearance compared to 03/07/2017. 2. Also, the bilateral diffuse pulmonary opacities (likely pulmonary edema) have not significantly changed. SERVICE DATE: 03/10/17- EXAM TYPE: RAD - XRY-PORTABLE CHEST XRAY FINDINGS: Again noted are findings of cardiomegaly, congested indistinct pulmonary vessels, and hazy bilateral pulmonary opacities. The pulmonary opacities likely represent persistent pulmonary edema, although there may be some haziness caused by posterior layering of a the bilateral pleural effusions. The pleural effusions remain similar in size compared to the prior exam. No pneumothorax or other significant interval change. IMPRESSION: Cardiogenic pulmonary edema, small pleural effusions and bibasilar atelectasis remain similar in appearance compared to 03/08/2017. SERVICE DATE: 03/11/17- EXAM TYPE: CARD - TRANSESOPHAGEAL ECHO FINDINGS Left Ventricle Left ventricle grossly normal size. Moderate concentric left ventricular hypertrophy. No obvious regional wall motion abnormalities. Normal left ventricular ejection fraction. Right Ventricle Mild right ventricular dilatation. Catheter/pacemaker wire in the right ventricular cavity. Spontaneous contrast noted in right ventricle. Right Atrium Normal right atrial size. Catheter/pacemaker wire in the right atrial cavity. Spontaneous contrast noted in right atrium. Left Atrium Mild left atrial dilatation. Severe spontaneous echo contrast seen in the left atrium. LA Appendage Normal left atrial appendage. Spontaneous echo contrast seen in the left atrial appendage. IA Septum Small patent foramen ovale. Mitral Valve Mitral valve thickened. Mild mitral stenosis. Aortic Valve Trileaflet and mildly sclerotic aortic valve. No aortic valve stenosis or regurgitation. Tricuspid Valve Structurally normal tricuspid valve. [id number] tricuspid regurgitation. Pulmonic Valve Pulmonic valve not well visualized, grossly normal. Pericardium No pericardial effusion. Great Vessels Normal size aortic root and proximal ascending aorta. CONCLUSIONS Left ventricle grossly normal size. Moderate concentric left ventricular hypertrophy. Normal left ventricular ejection fraction. Mild right ventricular dilatation. Catheter/pacemaker wire in the right ventricular cavity. Spontaneous contrast noted in right ventricle. Normal right atrial size. Catheter/pacemaker wire in the right atrial cavity. Spontaneous contrast noted in right atrium. Mild left atrial dilatation. Severe spontaneous echo contrast seen in the left atrium. Spontaneous echo contrast seen in the left atrial appendage. Small patent foramen ovale. Mild mitral stenosis. Fdyv-hh-toiygegj tricuspid regurgitation. Nino Jacobs M.D. (Electronically Signed) Final Date: 12 March 2017 11:17 SERVICE DATE: 03/11/17-1425 EXAM TYPE: RAD - XRY-KNEE COMPLETE RIGHT FINDINGS: There is evidence of significant arthritis of the patellofemoral joint. Juxta-articular sclerosis and marginal spur formation is evident. The femoral tibial compartments are relatively well preserved. Diffuse arterial vascular calcifications are seen in the distal right thigh. Vascular calcifications are also seen at the trifurcation of the proximal left calf. There is a small joint effusion. IMPRESSION: 1. Significant patellofemoral arthritis. 2. Small joint effusion. 3. No fracture. Disposition Summary Disposition Principal Diagnosis: Left wrist carpal tunnel decompression Acute Hypoxic/Hypercarbic respiratory Failure Encephalopathy Hypernatremia HCAP Additional Diagnosis: P. AFib CKD T2DM Alcohol Dependence Discharge Disposition: SNF Discharge Instructions General Discharge Information Code Status: Full Code Patient's Diet: Diabetic (Mechanical soft and nectar thick) Patient's Activity: As tolerated Follow-Up Instructions/Appts: Please follow up with your primary care physican in one week. Please follow up with your levelman in one week. Drewe follow up iwth your dental service chief on one week. Please follow up with your orthopedic surgeon in one week. Medications at Discharge Discharge Medications: Stop taking the following medications: Bumetanide (Bumetanide) 2 MG TABLET ORAL TWICE DAILY Qty = 60 Continue taking these medications: Valsartan (Diovan) 80 MG TABLET 1 Tablet ORAL DAILY Comments: Last Taken: NOT GIVEN AT HOSPITAL Time: Insulin NPL/Insulin Lispro (Humalog Mix 75-25 Vial) 100 UNIT/ML (75-25) VIAL 45 Units Inject into fatty tissue DAILY @8AM Days = 30 Comments: Last Taken: 10/12/16 Time: 11:30 AM NOVOLOG & LEVEMIR GIVEN Isosorbide Mononitrate (Isosorbide Mononitrate ER) 60 MG TAB.ER.24H 0.5 Tablet ORAL DAILY Qty = 90 Comments: Last Taken: NOT GIVEN AT HOSPITAL Time: Albuterol Sulfate (Proair Hfa) 90 MCG HFA.AER.AD 2 PUFF ORAL TWICE DAILY Qty = 9 Comments: NOT GIVEN IN HOSPITAL Metoprolol Tartrate (Lopressor) 50 MG TABLET 1 Tablet ORAL TWICE DAILY Comments: Last Taken: NOT GIVEN AT HOSPITAL Time: Vit C/E/Zn/Coppr/Lutein/Zeaxan (Preservision Areds 2 Softgel) 250-200-40 CAPSULE TWICE DAILY Start taking the following new medications: Bumetanide (Bumetanide) 1 MG TABLET 1 Milligram ORAL TWICE DAILY Qty = 120 No Refills Comments: Last Taken: 03/12/17 Time: 1200 Copies To: RUBIO GRIFFIN,BERT Segal; VITALIY GRIFFIN,NINO .; NATAN GRIFFIN,JOEL Worthington; NEGAR GRIFFIN,WAYLON Segal; DENYS GRIFFIN PhD,JOEL Devi Attending MD Review Statement Documenting Attending: MIKE ROQUE M.D Other Findings: I have reviewed the discharge summaary. Time: 10 AM Albuterol Sulfate (Proair Hfa) 90 MCG HFA.AER.AD 2 PUFF ORAL TWICE DAILY Qty = 9 Comments: NOT GIVEN IN HOSPITAL Metoprolol Tartrate (Lopressor) 50 MG TABLET 1 Tablet ORAL TWICE DAILY Vit C/E/Zn/Coppr/Lutein/Zeaxan (Preservision Areds 2 Softgel) 250-200-40 CAPSULE TWICE DAILY Start taking the following new medications: Bumetanide (Bumetanide) 1 MG TABLET 1 Milligram ORAL TWICE DAILY Qty = 120 No Refills Copies To: RUBIO GRIFFIN,BERT Segal; VITALIY GRIFFIN,NINO H.; NATAN GRIFFIN,JOEL Fonseca.; NEGAR GRIFFIN,WAYLON Meeks.; DENYS GRIFFIN PhD,JOEL Devi Attending MD Review Statement Documenting Attending: MIKE ROQUE M.D
--- NOTE | 2017-03-09 17:33 | PN- Cardiology ---
Subjective Subjective: * rBad remains confused and is minimally verbal. * persistently elevated WBC count * Echo shows moderate mitral stenosis and a vegetation cannot be excluded * ventricular paced rhythm Objective Vital Signs and I&Os Vital Signs Date Time Temp Pulse Resp B/P B/P Pulse O2 O2 Flow FiO2 Mean Ox Delivery Rate 03/09 1623 97.5 61 20 186/58 95 03/09 1057 72 168/64 03/09 1056 72 168/64 03/09 1055 68 168/64 03/09 0800 70 20 164/68 03/09 0800 95 Nasal 5.0L Cannula 03/09 0759 97.4 69 18 164/68 94 Nasal 5.0L Cannula 03/09 0053 98.6 65 20 130/60 95 CPAP 03/09 0023 64 92 03/09 0015 62 95 03/09 0000 80 20 130/60 03/09 0000 94 Nasal 5.0L Cannula 03/08 2142 61 94 03/08 2058 65 128/60 Intake & Output 03/09 1600 03/09 0800 03/09 0000 03/08 1600 03/08 0800 03/08 0000 Intake Total 480 50 360 120 120 360 Output Total 400 1600 1350 1450 1250 1900 Balance 80 -1550 -990 -1330 -1130 -1540 Intake, Oral 480 50 360 120 120 360 Number 0 Bowel Movements Output, Urine 400 1600 1350 1450 1250 1900 Physical Exam: General: WD/ obese male in NAD; awake and confused Neck: no JVD, bilateral carotid bruit R>L Heart: regular rate and rhythm with 2/6 sytolic murmur at the RUSB and 2/6 sytolic murmur at the LUSB and apex Lungs: clear bilaterally Extremities: No leg edema with venous stasis changes bilaterally Assessment/Plan Assessment/Plan * Continue Bumex at 2mg BID. He does have an increase sodium consistent with dehydration but will continue diuretics for now since his chest X-ray still shows some edema. Follow BUN and creatinine. BUN is a bit elevated. * We will plan on a BTEH to reassess for a mitral valve vegetation verses chronic calcification of the mitral valve annulus and will reassess the degree of mitral stenosis. Continue telemetry? Yes
[2017-03-10 01:13] VITALS: BP 160/60
--- NOTE | 2017-03-10 07:23 | PN- Housestaff ---
ANISH GRIFFIN,CARMELA 03/10/17 0723: Subjective Follow-up For: Acute Hypoxic/Hypercarbic respiratory Failure Altered Mental Status Hypernatremia Hypokalemia HCAP KEISHA on CKD P. AFib Left wrist carpal tunnel decompression Tele-Events Since Last Visit: Paced HR 60's Subjective: Patient seen and examined. He is seen lying flat in bed resting comfortably maintained on supplemental oxygen via nasal cannula. His Pat is at bedside. Patient is lethargic and somnolent, subjective complaints are unobtainable. Review of systems is unobtainable. Review of Systems Constitutional: Reports: see HPI. Objective Last 24 Hrs of Vital Signs/I&O Vital Signs Date Time Temp Pulse Resp B/P B/P Pulse O2 O2 Flow FiO2 Mean Ox Delivery Rate 03/10 1033 61 146/70 03/10 1033 61 146/70 03/10 1033 61 146/70 03/10 0811 96.5 61 20 146/70 97 BIPAP 03/10 0800 BIPAP 03/10 0113 97.8 70 20 160/60 95 Nasal Cannula 03/10 0043 59 95 03/10 0000 94 BIPAP 03/09 2235 61 93 03/09 2200 60 03/09 2101 69 180/70 03/09 2050 63 180/70 03/09 2000 65 03/09 1800 64 03/09 1623 97.5 61 20 186/58 95 03/09 1600 97.5 61 20 186/58 03/09 1600 95 Nasal 5.0L Cannula Intake & Output 03/10 1600 03/10 0800 03/10 0000 Intake Total 525 Output Total 1000 1250 Balance -1000 -725 Intake, IV 225 Intake, Oral 300 Number 1 Bowel Movements Output, Urine 1000 1250 Physical Exam General Appearance: No Acute Distress Other Physical Findings: General- well developed, obese elderly man in no acute distress HEENT- NCAT, PERRL, EOMI, anicteric sclera, moist mucous membranes, nasal cannula in place Chest- S1, S2 w/o m/g/r Lungs- CTA bilaterally Abdomen- Soft, nontender, nondistended, bowel sounds intact Neuro- Somnolent/lethargic, CN II - XII grossly intact Ext- normal pulses, no cyanosis/clubbing/edema Current Medications: Current Medications Sig/Roge Start time Last Medication Dose Route Stop Time Status Admin Acetaminophen 650 MG Q4P PRN 02/28 1500 AC 02/28 PO 1554 Albuterol Sulfate 2 PUF Q12P PRN 03/04 2230 AC INH Apixaban 5 MG BID 03/06 1000 AC 03/10 PO 1033 Aspirin 81 MG DAILY 02/26 1000 AC 03/10 PO 1033 Atorvastatin Calcium 20 MG 1700 02/26 1700 AC 03/09 PO 2101 Bisacodyl 10 MG Q12P PRN 03/08 1245 AC 03/08 ME 1545 Bumetanide 2 MG BID 03/06 1327 DC 03/09 PO 2101 Dextrose/Water 1,000 ML Q10H 03/10 0930 AC 03/10 IV 0921 Dextrose/Water 1,000 ML ONCE ONE 03/09 1630 DC 03/09 IV 03/10 0549 1716 Docusate Sodium 100 MG DAILY 03/07 1607 AC 03/09 PO 1056 Guaifenesin 600 MG Q12 03/06 1645 AC 03/09 PO 2101 Insulin Aspart 0 TIDAC 03/05 1700 AC 03/09 SC 1716 Insulin Detemir 20 UNITS BID 03/07 2200 AC 03/10 SC 1033 Isosorbide 30 MG DAILY 02/26 1000 AC 03/10 Mononitrate PO 1033 Losartan Potassium 25 MG DAILY 02/26 1000 AC 03/10 PO 1033 Metoprolol Tartrate 50 MG BID 02/25 2200 AC 03/10 PO 1033 Ondansetron HCl 4 MG Q8P PRN 02/25 2100 AC IV Polyethylene Glycol 17 GM DAILY 03/07 1607 AC 03/09 PO 1055 Potassium Chloride 40 MEQ ONCE ONE 03/10 1145 PO 03/10 1146 Potassium Chloride 20 MEQ BID 03/10 1139 AC PO 03/10 2201 Potassium Chloride 20 MEQ DAILY 02/26 1000 AC 03/10 PO 1033 Senna 187 MG AT BEDTIME 03/07 2200 AC 03/09 PO 2101 Sodium Phosphate 1 UNIT DAILY PRN 03/09 1630 AC ME Sodium Phosphate 1 UNIT ONCE ONE 03/09 1415 DC 03/09 ME 03/09 1416 1900 Last 24 Hrs of Lab/Chu Results Last 24 Hrs of Labs/Mics: Laboratory Tests 03/10/17 0740: Anion Gap 6, Estimated GFR > 60, BUN/Creatinine Ratio 45.6 H, Serum Osmolality 334 H, CBC w Diff NO MAN DIFF REQ, RBC 5.08, MCV 78.7 L, MCH 24.2 L, RDW 19.4 H, MPV 9.1, Gran % 83.6 H, Lymphocytes % 6.2 L, Monocytes % 6.4, Eosinophils % 3.7, Basophils % 0.1, Absolute Granulocytes 10.0 H, Absolute Lymphocytes 0.7 L, Absolute Monocytes 0.8 H, Absolute Eosinophils 0.4, Absolute Basophils 0, PUBS MCHC 30.7 L Assessment/Plan Assessment: Patient continues to remain somnolent and confused. His WBC count reamins elevated without any obvious source of infection, he remains afebrile and off antibiotics. Sodium remains elevated despite being given one liter of D5W yesterday, bumex is held and patient is continued on D5W with often serum chemistries to avoid overcorrection. Patient is to be kept NPO overnight in anticipation of a BETH tomorrow morning. Swallow and PT reassessment pending, these may potentially post poned should his mental status remain altered. Problem List: #Healthcare Acquire Pneumonia, off antibiotics #Altered Mental Status #Leukocytosis #Hypernatremia #Hypokalemia #IDDM #CAD #P. Atrial Fibrillation, on Eliquis #Benign prostatic hypertrophy #LYNDSEY Plan: -Telemetry -Aspiration precautions -Follow off antibiotics -D5W @ 100mL/hr -Bumex on hold -Novolog/Levemir/Fingersticks -Eliquis/Aspirin/Atorvastatin/Metoprolol -Bowel Regimen -Echo: Normal left ventricular size with moderate left ventricular hypertrrophy. Overall normal systolic function with no obvious regional wall motion abnormalities. The ejection fraction is visually estimated at 60%. -CXR 03/08/17: small effusion unchanged from 03/07 and bilateral diffuse pulmonary opacities likely physician relations representative of pulmonary edema -Cardiology following -ID following -Neurology following -Ortho following -Pulm following -Daily BEP for hypernatremia -Daily CBC for leukocytosis -Diabetic Diet (Puree/Honey) -DVT PPx -FULL CODE Problem List: 1. Altered mental status 2. Congestive Heart Failure Pain Ratin Pain Location: None Pain Goal: Remain pain free Pain Plan: See assessment Tomorrow's Labs & Rationales: BEP-hypernatremia/hypokalemia CBC-leukocytosis Consulting Request: Consulting Specialty: Infectious Disease MYA GRIFFIN,MIKE 03/10/17 1330: Attending MD Review Statement Attending Statement Attending MD Statement: examined this patient, discuss w/resident/PA/RECREATION LEADER, agreed w/resident/PA/RECREATION LEADER, reviewed EMR data (avail), discussed with nursing, discussed with case mgmt, amended to note Attending Assessment/Plan: Patient seen and examined. Case discussed with at bedside. No events on telemetry overnight. He is extremely lethargic but responds to simple questioning. He is insistent on drinking regular water however he has not been cleared for this by the speech therapist. As his staff reports that he occasionally coughs even when taken thickened liquid. His oral intake remains extremely poor. Staff reports that he did not take any breakfast this morning. His diminished oral intake is evident on his labs with worsening hypernatremia as well as his persistent prerenal azotemia. He has been continued on his Bumex 2 mg twice daily which he takes at home. Echocardiogram shows normal ejection fraction with no obvious wall motion abnormalities. He does have severe pulmonary hypertension severe left atrial enlargement. There is also concern for redictation on his stenotic mitral valve. On examination lungs are clear bilaterally. Abdomen is soft and nontender. He has trace pedal edema. Recommendations: -Recommend calorie counts. -Community Service Patrol Officer evaluation. - is totally against placing an NG tube for temporary feeding. -He is scheduled to undergo BETH tomorrow to rule out vegetation. -Continue physical therapy as tolerated for his markedly deconditioning. -We will reevaluate nutritional needs with the following calorie count. -Recommend holding diuretics for now until his intake improves. Patient has a negative fluid balance of about 10 L over the past 5 days.
[2017-03-10 08:11] VITALS: BP 146/70
--- NOTE | 2017-03-10 08:43 | PN- Cardiology ---
Subjective Subjective: * No complaints or issues reported. Currently on Bipap. * ventricular paced rhythm * persistent elevation of WBC count Objective Vital Signs and I&Os Vital Signs Date Time Temp Pulse Resp B/P B/P Pulse O2 O2 Flow FiO2 Mean Ox Delivery Rate 03/10 0811 96.5 61 20 146/70 97 BIPAP 03/10 0113 97.8 70 20 160/60 95 Nasal Cannula 03/10 0043 59 95 03/10 0000 94 BIPAP 03/09 2235 61 93 03/09 2200 60 03/09 2101 69 180/70 03/09 2050 63 180/70 03/09 2000 65 03/09 1800 64 03/09 1623 97.5 61 20 186/58 95 03/09 1600 97.5 61 20 186/58 03/09 1600 95 Nasal 5.0L Cannula 03/09 1057 72 168/64 03/09 1056 72 168/64 03/09 1055 68 168/64 Intake & Output 03/10 1600 03/10 0800 03/10 0000 03/09 1600 03/09 0800 03/09 0000 Intake Total 525 480 50 360 Output Total 1000 0391 341 5039 1350 Balance -1000 -725 80 -1550 -990 Intake, IV 225 Intake, Oral 300 480 50 360 Number 1 0 Bowel Movements Output, Urine 1000 4062 846 5311 1350 Physical Exam: General: WD/ obese male in NAD; awake and confused Neck: no JVD, bilateral carotid bruit R>L Heart: regular rate and rhythm with 2/6 sytolic murmur at the RUSB and 2/6 sytolic murmur at the LUSB and apex Lungs: clear bilaterally Extremities: No leg edema with venous stasis changes bilaterally Assessment/Plan Assessment/Plan * Continue Bumex at 2mg BID. He demonstrated an increased serum sodium yesterday with todays labs pending. Repeat chest X-ray. Follow BUN and creatinine. BUN is a bit elevated. * We will plan on a BETH to reassess for a mitral valve vegetation verses chronic calcification of the mitral valve annulus and will reassess the degree of mitral stenosis. This will be done tomorrow. Keep NPO except medications after midnight. Continue telemetry? Yes
[2017-03-10 08:48] LABS: ABSOLUTE BASOPHIL COUNT 0 /CUMM (0.0-0.2); ABSOLUTE EOSINOPHIL COUNT 0.4 /CUMM (0.0-0.7); ABSOLUTE LYMPH COUNT 0.7 /CUMM (1.2-3.4); ABSOLUTE MONOCYTE COUNT 0.8 /CUMM (0.10-0.60); BASOPHIL % 0.1 % (0.0-2.0); EOSINOPHIL % 3.7 % (0-5); MEAN CORPUSCULAR HGB 24.2 PG (27.0-31.0); MEAN CORPUSCULAR HGB CONC 30.7 G/DL (33.0-37.0); MEAN CORPUSCULAR VOLUME 78.7 FL (80.0-94.0); MEAN PLATELET VOLUME 9.1 FL (7.4-10.4); PLATELET COUNT 298 /CUMM (130-400); RBC DISTRIBUTION WIDTH 19.4 % (11.5-14.5); RED BLOOD CELL CT 5.08 /CUMM (4.70-6.10)
[2017-03-10 10:07] LABS: GRANULOCYTE % 83.6 % (42.2-75.2)
--- NOTE | 2017-03-10 14:35 | RADIOLOGY REPORT ---
EXAMINATION: XR PORTABLE CHEST CLINICAL INFORMATION: Hypoxemia. Pulmonary edema follow-up. COMPARISON: CXR from 03/07/2017 and 03/08/2017 TECHNIQUE: Portable frontal view of the chest was obtained. FINDINGS: Again noted are findings of cardiomegaly, congested indistinct pulmonary vessels, and hazy bilateral pulmonary opacities. The pulmonary opacities likely represent persistent pulmonary edema, although there may be some haziness caused by posterior layering of a the bilateral pleural effusions. The pleural effusions remain similar in size compared to the prior exam. No pneumothorax or other significant interval change. IMPRESSION: Cardiogenic pulmonary edema, small pleural effusions and bibasilar atelectasis remain similar in appearance compared to 03/08/2017.
[2017-03-10 15:30] VITALS: BP 152/70
[2017-03-11 00:34] VITALS: BP 160/52
--- NOTE | 2017-03-11 04:53 | PN- Housestaff ---
ANISH GRIFFIN,CARMELA 03/11/17 0453: Subjective Follow-up For: Acute Hypoxic/Hypercarbic respiratory Failure Altered Mental Status Hypernatremia Hypokalemia HCAP EKISHA on CKD P. AFib Left wrist carpal tunnel decompression Tele-Events Since Last Visit: Paced Rhythm HR 59-61 No events Subjective: Patient seen and examined. He is seen lying flat in bed resting comfortably maintained on supplemental oxygen via nasal cannula. He appears to be in no acute distress. He is somnolent and lethargic and is not participating in the interview. When asked if he had any pain he opens his eyes and looks confused, and falls back asleep. Review of systems is unobtainable. Review of Systems Constitutional: Reports: see HPI. Objective Last 24 Hrs of Vital Signs/I&O Vital Signs Date Time Temp Pulse Resp B/P B/P Pulse O2 O2 Flow FiO2 Mean Ox Delivery Rate 03/11 1600 96 Nasal 4.0L Cannula 03/11 1545 60 140/50 03/11 1544 60 140/50 03/11 1544 60 140/50 03/11 1506 98.1 61 20 140/50 96 Nasal 4.0L Cannula 03/11 0931 Nasal 3.5L Cannula 03/11 0825 97.5 60 22 160/58 95 Nasal Cannula 03/11 0800 95 Nasal 5.0L Cannula 03/11 0044 59 95 03/11 0034 98.2 59 23 160/52 98 03/11 0000 95 BIPAP 40% 03/10 2316 60 94 03/10 2050 60 148/56 Intake & Output 03/11 1600 03/11 0800 03/11 0000 Intake Total 0 800 1480 Output Total 350 400 400 Balance -568 965 6573 Intake, IV 800 1000 Intake, Oral 0 0 480 Output, Urine 350 400 400 Physical Exam General Appearance: Alert, Oriented X3, Cooperative, No Acute Distress Other Physical Findings: General- well developed, obese elderly man in no acute distress HEENT- NCAT, PERRL, EOMI, anicteric sclera, moist mucous membranes, nasal cannula in place Chest- S1, S2 w/o m/g/r Lungs- CTA bilaterally Abdomen- Soft, nontender, nondistended, bowel sounds intact Neuro- Somnolent/lethargic, CN II - XII grossly intact Ext- normal pulses, no cyanosis/clubbing/edema Current Medications: Current Medications Sig/Roge Start time Last Medication Dose Route Stop Time Status Admin Acetaminophen 650 MG Q4P PRN 02/28 1500 AC 02/28 PO 1554 Albuterol Sulfate 2 PUF Q12P PRN 03/04 2230 AC INH Apixaban 5 MG BID 03/06 1000 AC 03/11 PO 1544 Aspirin 81 MG DAILY 02/26 1000 AC 03/11 PO 1544 Atorvastatin Calcium 20 MG 1700 02/26 1700 AC 03/11 PO 1552 Bisacodyl 10 MG Q12P PRN 03/08 1245 AC 03/08 CO 1545 Dextrose/Water 1,000 ML Q10H 03/10 0930 AC 03/11 IV 0537 Docusate Sodium 100 MG DAILY 03/07 1607 AC 03/11 PO 1544 Fentanyl Citrate 100 MCG .STK-MED ONE 03/11 1140 DC IM 03/11 1141 Guaifenesin 600 MG Q12 03/06 1645 AC 03/10 PO 2049 Ibuprofen 400 MG Q6P PRN 03/11 1615 AC PO Insulin Aspart 0 TIDAC 03/11 1700 AC SC Insulin Aspart 0 TIDAC 03/05 1700 DC 03/10 SC 1726 Insulin Detemir 20 UNITS BID 03/11 2200 AC SC Insulin Detemir 10 UNITS BID 03/11 1015 DC 03/11 SC 1051 Insulin Detemir 20 UNITS BID 03/07 2200 DC 03/10 SC 2050 Insulin Human Regular 0 Q6 03/11 1200 DC SC Isosorbide 30 MG DAILY 02/26 1000 AC 03/11 Mononitrate PO 1544 Losartan Potassium 25 MG DAILY 02/26 1000 AC 03/11 PO 1544 Metoprolol Tartrate 50 MG BID 02/25 2200 AC 03/11 PO 1545 Ondansetron HCl 4 MG Q8P PRN 02/25 2100 AC IV Polyethylene Glycol 17 GM DAILY 03/07 1607 AC 03/11 PO 1545 Potassium Chloride 10 MEQ Q1H 03/11 1615 DC 03/11 IV 03/11 1716 1822 Potassium Chloride 10 MEQ .STK-MED ONE 03/11 0143 DC IV 03/11 0144 Potassium Chloride 10 MEQ .STK-MED ONE 03/11 0012 DC IV 03/11 0013 Potassium Chloride 10 MEQ Q1H 03/10 2330 DC 03/11 IV 03/11 0031 0143 Potassium Chloride 20 MEQ DAILY 02/26 1000 AC 03/10 PO 1033 Senna 187 MG AT BEDTIME 03/07 2200 AC 03/10 PO 2050 Sodium Phosphate 1 UNIT DAILY PRN 03/09 1630 AC CO Last 24 Hrs of Lab/Chu Results Last 24 Hrs of Labs/Mics: Laboratory Tests 03/11/17 0650: CBC w Diff NO MAN DIFF REQ, RBC 4.55 L, MCV 78.9 L, MCH 24.5 L, RDW 19.8 H, MPV 9.4, Gran % 79.5 H, Lymphocytes % 8.4 L, Monocytes % 5.8, Eosinophils % 6.1 H, Basophils % 0.2, Absolute Granulocytes 9.6 H, Absolute Lymphocytes 1.0 L, Absolute Monocytes 0.7 H, Absolute Eosinophils 0.7, Absolute Basophils 0, PUBS MCHC 31.1 L 03/11/17 0622: Anion Gap 7, Estimated GFR > 60, BUN/Creatinine Ratio 43.3 H 03/10/172021: Anion Gap 6, Estimated GFR > 60, BUN/Creatinine Ratio 40.0 H, Magnesium 1.9 Assessment/Plan Assessment: Patient continues to remain confused. White blood cell count remains elevated for unclear reasons, he remains afebrile off of antibiotics. Serum sodium is correcting appropriately with intravenous D5W. Patient was NPO overnight for a BETH this morning. Bumex remains on hold. Patient is an anticipated discharge to short term rehabilitation tomorrow. X-ray of patients knee was obtained because he was reportedly complaining of pain; the imagin study identified severe arthritis. Problem List: #Healthcare Acquire Pneumonia, off antibiotics #Altered Mental Status #Leukocytosis #Hypernatremia #Hypokalemia #IDDM #CAD #P. Atrial Fibrillation, on Eliquis #Benign prostatic hypertrophy #LYNDSEY Plan: -Telemetry -Aspiration precautions -Follow off antibiotics -D5W @ 100mL/hr -Bumex on hold -Novolog/Levemir/Fingersticks -Eliquis/Aspirin/Atorvastatin/Metoprolol -Bowel Regimen -Echo: Normal left ventricular size with moderate left ventricular hypertrrophy. Overall normal systolic function with no obvious regional wall motion abnormalities. The ejection fraction is visually estimated at 60%. -CXR 03/08/17: small effusion unchanged from 03/07 and bilateral diffuse pulmonary opacities likely digital sales representative of pulmonary edema -Cardiology following -ID following -Neurology following -Ortho following -Pulm following -Daily BEP for hypernatremia -Daily CBC for leukocytosis -Diabetic Diet (Puree/Honey) -DVT PPx -FULL CODE Problem List: 1. Altered mental status Pain Ratin Pain Location: Knee Pain Goal: Remain pain free Pain Plan: See assessment Tomorrow's Labs & Rationales: CBC/BEP/Uric Acid Consulting Request: 1 Consulting Specialty: Infectious Disease Consulting Request: 2 Consulting Specialty: Cardiology Consulting Request: 3 Consulting Specialty: Pulmonary Disease MIKE ROQUE MD 03/11/17 1509: Attending MD Review Statement Attending Statement Attending MD Statement: examined this patient, discuss w/resident/PA/EGG PROCESSING SUPERVISOR, agreed w/resident/PA/EGG PROCESSING SUPERVISOR, reviewed EMR data (avail), discussed with nursing, discussed with case mgmt, amended to note Attending Assessment/Plan: Patient seen and examined. Resting comfortably not in acute distress. Complains of thirst and is insistent on drinking regular water. I did explain to him in detail the need to be placed on thickened liquid. Denies chest pain. Denies shortness of breath. He is afebrile hemodynamically stable. Has had no events on telemetry. He has complained of right knee pain on and off. X-ray was obtained that shows significant arthritis and small joint effusion. No fracture. Lungs are clear bilaterally. Heart sounds are regular with 2/6 systolic normal. Lungs are clear bilaterally. He has no peripheral edema. [place] were removed by the surgical service today. Surgical site is intact with no evidence of infection. He is afebrile and hemodynamically stable. His white cell count is trending down. Problems: 1. Acute hypercarbic/hypoxic respiratory failure. 2. Pneumonia; likely secondary to aspiration 3. Metabolic encephalopathy; resolved 4. Markedly deconditioned; likely will require short-term rehabilitation upon discharge 5. Insulin-dependent diabetes mellitus 6. Paroxysmal atrial fibrillation 7. Coronary artery disease 8. Hypernatremia 9. Dysphagia 10. Degenerative joint disease of the right knee. 11. Status post left carpal tunnel surgery. Recommendations: -He is metabolic encephalopathy appears to be resolving. He is becoming more alert and conversing more. His diet is slowly being advanced by the speech therapist. He however remains on thickened fluid. -Patient continues to complain of thirst requesting to drink regular water. He is most likely volume depleted as evidenced by severe hypernatremia. -Calorie count was done yesterday. He is documented to have completed 75%, 50% and 25% of his meals. -Hypernatremia continues to improve with holding of his diuretic therapy and fluid hydration. Continue IV fluids with caution. -Respiratory status is stable. He is afebrile. He doesn't have increasing oxygen requirement. -Scheduled to undergo BETH today for further evaluation of what appears to be chronic vegetations. -Continue physical therapy as tolerated. -Following his BETH if cleared by the cardiology service patient may be discharged to SNF for short-term rehabilitation. -Pain management for his right knee osteoarthritis with ibuprofen as needed. Check uric acid level, however patient does not carry history of gout has not received treatment for this in the past. -Anticipate discharge tomorrow if cleared by the cardiology service and sodium is back to normal.
[2017-03-11 08:19] LABS: ABSOLUTE BASOPHIL COUNT 0 /CUMM (0.0-0.2); ABSOLUTE EOSINOPHIL COUNT 0.7 /CUMM (0.0-0.7); ABSOLUTE GRANULOCYTE CT 9.6 /CUMM (1.4-6.5); ABSOLUTE MONOCYTE COUNT 0.7 /CUMM (0.10-0.60); BASOPHIL % 0.2 % (0.0-2.0); EOSINOPHIL % 6.1 % (0-5); GRANULOCYTE % 79.5 % (42.2-75.2); MEAN CORPUSCULAR HGB 24.5 PG (27.0-31.0); MEAN CORPUSCULAR HGB CONC 31.1 G/DL (33.0-37.0); MEAN CORPUSCULAR VOLUME 78.9 FL (80.0-94.0); MEAN PLATELET VOLUME 9.4 FL (7.4-10.4); PLATELET COUNT 287 /CUMM (130-400); RBC DISTRIBUTION WIDTH 19.8 % (11.5-14.5); RED BLOOD CELL CT 4.55 /CUMM (4.70-6.10); WHITE BLOOD CELL COUNT 12.1 /CUMM (4.8-10.8)
--- NOTE | 2017-03-11 08:20 | PN- Pulmonary ---
Subjective HPI/Critical Care Issues: Patient remains weak minimally mobile continues to require supplemental oxygen. Chest x-ray is felt to continue to represent. Hypernatremia is slowly improving. BETH is scheduled for today. Objective Current Medications: Current Medications Sig/Roge Start time Last Medication Dose Route Stop Time Status Admin Acetaminophen 650 MG Q4P PRN 02/28 1500 AC 02/28 PO 1554 Albuterol Sulfate 2 PUF Q12P PRN 03/04 2230 AC INH Apixaban 5 MG BID 03/06 1000 AC 03/10 PO 2050 Aspirin 81 MG DAILY 02/26 1000 AC 03/10 PO 1033 Atorvastatin Calcium 20 MG 1700 02/26 1700 AC 03/10 PO 1726 Bisacodyl 10 MG Q12P PRN 03/08 1245 AC 03/08 NJ 1545 Bumetanide 2 MG BID 03/06 1327 DC 03/09 PO 2101 Dextrose/Water 1,000 ML Q10H 03/10 0930 AC 03/11 IV 0537 Docusate Sodium 100 MG DAILY 03/07 1607 AC 03/09 PO 1056 Guaifenesin 600 MG Q12 03/06 1645 AC 03/10 PO 2049 Insulin Aspart 0 TIDAC 03/05 1700 AC 03/10 SC 1726 Insulin Detemir 20 UNITS BID 03/07 2200 AC 03/10 SC 2050 Isosorbide 30 MG DAILY 02/26 1000 AC 03/10 Mononitrate PO 1033 Losartan Potassium 25 MG DAILY 02/26 1000 AC 03/10 PO 1033 Metoprolol Tartrate 50 MG BID 02/25 2200 AC 03/10 PO 2050 Ondansetron HCl 4 MG Q8P PRN 02/25 2100 AC IV Patient Medication 1 ED .STK-MED ONE 03/10 1411 DC Teaching ED 03/10 1412 Polyethylene Glycol 17 GM DAILY 03/07 1607 AC 03/09 PO 1055 Potassium Chloride 10 MEQ .STK-MED ONE 03/11 0012 DC IV 03/11 0013 Potassium Chloride 10 MEQ Q1H 03/10 2330 DC 03/11 IV 03/11 0031 0143 Potassium Chloride 10 MEQ Q1H 03/10 1345 DC 03/10 IV 03/10 1446 2010 Potassium Chloride 40 MEQ ONCE ONE 03/10 1145 DC PO 03/10 1146 Potassium Chloride 20 MEQ BID 03/10 1139 DC PO 06/13 2201 Potassium Chloride 20 MEQ DAILY 02/26 1000 AC 03/10 PO 1033 Senna 187 MG AT BEDTIME 03/07 2200 AC 03/10 PO 2049 Sodium Phosphate 1 UNIT DAILY PRN 03/09 1630 AC NJ Thiamine HCl 100 MG ONCE ONE 03/10 1400 DC 03/10 Sodium Chloride 100 ML IV 03/10 1411 2301 Vital Signs & I&O Last 24 Hrs of Vitals and I&O: Vital Signs Date Time Temp Pulse Resp B/P B/P Pulse O2 O2 Flow FiO2 Mean Ox Delivery Rate 03/11 0044 59 95 03/11 0034 98.2 59 23 160/52 98 03/11 0000 95 BIPAP 40% 03/10 2316 60 94 03/10 2050 60 148/56 03/10 1600 Nasal 5.0L Cannula 03/10 1530 97.4 59 16 152/70 98 Nasal 5.0L Cannula 03/10 1033 61 146/70 03/10 1033 61 146/70 03/10 1033 61 146/70 Intake & Output 03/11 1600 03/11 0800 03/11 0000 Intake Total 800 1480 Output Total 400 400 Balance 400 1080 Intake, IV 800 1000 Intake, Oral 0 480 Output, Urine 400 400 Oxygen saturation 95% on nasal oxygen exam of his chest shows decreased breath sounds are no wheezes cardiac exam shows regular S1 and S2 without murmurs Impression/Plan Impression/Plan Impression/Plan: 81-year-old gentleman admitted for elective carpal tunnel surgery who is had a reported more change in mental status has been found to be hypercarbic leukocytosis and fever he's being treated for presumed aspiration pneumonia and an element of congestive heart failure. Repeat arterial blood gases show a compensated respiratory acidosis. Patient was noted to aspirate yesterday. Increase free water. Taper FiO2 his saturations allow. Patient will need short -term rehabilitation. Patient's overall status remains essentially unchanged. We will discuss direction of his care and current CODE STATUS. Recommendations: correct hypernatremia nocturnal bipap st 20 11/01.review direction of care and CODE STATUS. Taper FiO2 his saturations allow. Continue negative fluid balance as renal function allows. Await results of BETH
[2017-03-11 08:25] VITALS: BP 160/58
--- NOTE | 2017-03-11 08:59 | NUR ---
HOLDING MORNING MEDS UNTIL AFTER BETH. SPOKE WITH DR. OCONNELL AND RN FROM IR. BECAUSE PATIENT TAKES MANY MEDS CRUSHED WITH A SIGNIFICANT AMOUNT OF APPLE SAUCE WILL WAIT UNTIL AFTER BETH TO GIVE MEDS.
--- NOTE | 2017-03-11 10:25 | NUR ---
PHYSICAL THERAPY: ATTMEPTED TO SEE P.T. THIS A.M. Pt SCHEDULED FOR BETH AT 11 AM, PER RN, WILL HOLD P.T. FOR TODAY AND F/U APPROPRIATE.
--- NOTE | 2017-03-11 11:38 | PN- Infect Dx ---
Subjective Subjective: Afebrile without complaints. He does admit to some knee discomfort. Objective Last 24 Hrs of Vital Signs/I&O Vital Signs Date Time Temp Pulse Resp B/P B/P Pulse O2 O2 Flow FiO2 Mean Ox Delivery Rate 03/11 0931 Nasal 3.5L Cannula 03/11 0825 97.5 60 22 160/58 95 Nasal Cannula 03/11 0800 95 Nasal 5.0L Cannula 03/11 0044 59 95 03/11 0034 98.2 59 23 160/52 98 03/11 0000 95 BIPAP 40% 03/10 2316 60 94 03/10 2050 60 148/56 03/10 1600 Nasal 5.0L Cannula 03/10 1530 97.4 59 16 152/70 98 Nasal 5.0L Cannula Intake & Output 03/11 1600 03/11 0800 03/11 0000 Intake Total 800 1480 Output Total 400 400 Balance 400 1080 Intake, IV 800 1000 Intake, Oral 0 480 Output, Urine 400 400 Physical Exam Other Physical Findings: He appears comfortable, more awake and alert than previously, and in no acute distress Lungs are clear Heart regular rhythm with a 2/6 systolic ejection murmur Abdomen is obese, soft, nontender with positive bowel sounds Extremities mild edema of the right knee with mild limitation to range of motion , with no erythema or tenderness; left knee with good range of motion with no overlying inflammation Results Last 24 Hours of Lab Results: Laboratory Tests 03/11 03/11 03/10 0650 0622 2021 Chemistry Sodium (137 - 145 mmol/L) 149 H 150 H Potassium (3.5 - 5.1 mmol/L) 3.2 L 3.1 L Chloride (98 - 107 mmol/L) 99 98 Carbon Dioxide (22 - 30 mmol/L) 43 H 46 H Anion Gap (5 - 16) 7 6 BUN (9 - 20 mg/dL) 39 H 40 H Creatinine (0.7 - 1.2 mg/dL) 0.9 1.0 Estimated GFR (>60 ml/min) > 60 > 60 BUN/Creatinine Ratio (7 - 25 %) 43.3 H 40.0 H Magnesium (1.6 - 2.3 mg/dL) 1.9 Hematology CBC w Diff NO MAN DIFF REQ WBC (4.8 - 10.8 /CUMM) 12.1 H RBC (4.70 - 6.10 /CUMM) 4.55 L Hgb (14.0 - 18.0 G/DL) 11.2 L Hct (42 - 52 %) 36.0 L MCV (80.0 - 94.0 FL) 78.9 L MCH (27.0 - 31.0 PG) 24.5 L RDW (11.5 - 14.5 %) 19.8 H Plt Count (130 - 400 /CUMM) 287 MPV (7.4 - 10.4 FL) 9.4 Gran % (42.2 - 75.2 %) 79.5 H Lymphocytes % (20.5 - 51.1 %) 8.4 L Monocytes % (1.7 - 9.3 %) 5.8 Eosinophils % (0 - 5 %) 6.1 H Basophils % (0.0 - 2.0 %) 0.2 Absolute Granulocytes (1.4 - 6.5 /CUMM) 9.6 H Absolute Lymphocytes (1.2 - 3.4 /CUMM) 1.0 L Absolute Monocytes (0.10 - 0.60 /CUMM) 0.7 H Absolute Eosinophils (0.0 - 0.7 /CUMM) 0.7 Absolute Basophils (0.0 - 0.2 /CUMM) 0 PUBS MCHC (33.0 - 37.0 G/DL) 31.1 L 03/10 1425 Chemistry Sodium (137 - 145 mmol/L) 152 H Potassium (3.5 - 5.1 mmol/L) 3.2 L Chloride (98 - 107 mmol/L) 100 Carbon Dioxide (22 - 30 mmol/L) 48 H Anion Gap (5 - 16) 4 L BUN (9 - 20 mg/dL) 41 H Creatinine (0.7 - 1.2 mg/dL) 0.9 Estimated GFR (>60 ml/min) > 60 BUN/Creatinine Ratio (7 - 25 %) 45.6 H Last 24 Hours of Chu Results: No recent cultures Recent Imaging Studies: Chest x-ray March 10, personally reviewed, reveals cardiogenic pulmonary edema with small pleural effusions and bibasilar atelectasis Assessment/Plan Impression: Overall improved with patient more alert and responsive and with perhaps some improvement in his respiratory distress with recent diuresis. He remains afebrile with white blood cell count decreased, though still mildly elevated, off antibiotics with no evidence of any active infection. He does have bilateral knee swelling, right greater than left, and was noted to have an elevated uric acid 12.5 on an admission 6 months ago, at which time he complained of left knee pain; therefore would rule out underlying gout. He is scheduled for a BETH later today to further evaluate the possible mitral valve vegetation noted on his recent Echo, though he does not have any manifestations of endocarditis and his blood cultures have been negative. Suggestion: 1. Further management of pulmonary edema per Cardiology 2. Await EBTH 3. X-ray of the right knee and consider treatment or prophylaxis for gout 4. Continue aspiration precautions 5. Continue to follow off antibiotics
--- NOTE | 2017-03-11 14:45 | RADIOLOGY REPORT ---
EXAMINATION: XR KNEE, RIGHT CLINICAL INFORMATION: Right knee pain. COMPARISON: None TECHNIQUE: Four views of the right knee. FINDINGS: There is evidence of significant arthritis of the patellofemoral joint. Juxta-articular sclerosis and marginal spur formation is evident. The femoral tibial compartments are relatively well preserved. Diffuse arterial vascular calcifications are seen in the distal right thigh. Vascular calcifications are also seen at the trifurcation of the proximal left calf. There is a small joint effusion. IMPRESSION: 1. Significant patellofemoral arthritis. 2. Small joint effusion. 3. No fracture.
--- NOTE | 2017-03-11 14:53 | PN- Orthopedic ---
Subjective Subjective: POD #14. Denies any left hand pain, numbness, or tingling. Objective Vital Signs and I&Os Vital Signs Date Time Temp Pulse Resp B/P B/P Pulse O2 O2 Flow FiO2 Mean Ox Delivery Rate 03/11 0931 Nasal 3.5L Cannula 03/11 0825 97.5 60 22 160/58 95 Nasal Cannula 03/11 0800 95 Nasal 5.0L Cannula 03/11 0044 59 95 03/11 0034 98.2 59 23 160/52 98 03/11 0000 95 BIPAP 40% 03/10 2316 60 94 03/10 2050 60 148/56 03/10 1600 Nasal 5.0L Cannula 03/10 1530 97.4 59 16 152/70 98 Nasal 5.0L Cannula Intake & Output 03/11 1600 03/11 0800 06 0000 06 1600 03/10 0800 03/10 0000 Intake Total 800 1480 917.5 525 Output Total 400 478 897 3304 1250 Balance 400 1080 317.5 -1000 -725 Intake, IV 800 1000 737.5 225 Intake, Oral 0 480 180 300 Number 1 1 Bowel Movements Output, Urine 400 038 622 4376 1250 Physical Exam: Awake. Lying in bed in NAD LUE- incision c/d/i, sutures in place. Sutures removed at the bedside. Steri strips applied and then band aid. Mild L hand and finger swelling. Adequate ROM. NVI. Assessment/Plan Assessment/Plan 81 y/o male POD # 14 s/p L carpal tunnel release. Sutures removed at the bedside. Patient tolerated procedure well. - Encourage ROM L hand and fingers. - Elevate - Daily dressing changes with Band-Aid - Medical management as per hospitalist - Follow up with Dr. Mae as scheduled Core Measures/Miscellaneous Mejia Catheter Date In: 03/05/17 Venous Thromboembolism VTE Risk Factors: Age > 40, Surgery VTE Contraindications: No Contraindications VTE Diagnosis: No VTE Type: NONE VTE Confirmed by (Test): NONE Beta Cesar Is Beta Cesar a Home Med? Yes If Yes, Was This Ordered Today? Yes Antibiotics Is Patient on Antibiotics? No
[2017-03-11 15:06] VITALS: BP 140/50
[2017-03-11 21:43] VITALS: BP 140/50
[2017-03-12 00:21] VITALS: BP 138/62
--- NOTE | 2017-03-12 07:06 | PN- Housestaff ---
Assessment/Plan Assessment: Patient continues to remain confused. White blood cell count remains elevated for unclear reasons, he remains afebrile off of antibiotics. Serum sodium is correcting appropriately with intravenous D5W. Patient was NPO overnight for a BETH this morning. Bumex remains on hold. Patient is an anticipated discharge to short term rehabilitation tomorrow. X-ray of patients knee was obtained because he was reportedly complaining of pain; the imagin study identified severe arthritis. Problem List: #Healthcare Acquire Pneumonia, off antibiotics #Altered Mental Status #Leukocytosis #Hypernatremia #Hypokalemia #IDDM #CAD #P. Atrial Fibrillation, on Eliquis #Benign prostatic hypertrophy #LYNDSEY Plan: -Telemetry -Aspiration precautions -Follow off antibiotics -D5W @ 100mL/hr -Bumex on hold -Novolog/Levemir/Fingersticks -Eliquis/Aspirin/Atorvastatin/Metoprolol -Bowel Regimen -Echo: Normal left ventricular size with moderate left ventricular hypertrrophy. Overall normal systolic function with no obvious regional wall motion abnormalities. The ejection fraction is visually estimated at 60%. -CXR 03/08/17: small effusion unchanged from 03/07 and bilateral diffuse pulmonary opacities likely teleservices representative of pulmonary edema -Cardiology following -ID following -Neurology following -Ortho following -Pulm following -Daily BEP for hypernatremia -Daily CBC for leukocytosis -Diabetic Diet (Puree/Honey) -DVT PPx -FULL CODE Consulting Request: Consulting Specialty: Orthopedics
--- NOTE | 2017-03-12 07:15 | PN- Housestaff ---
Subjective Follow-up For: Acute Hypoxic/Hypercarbic respiratory Failure Altered Mental Status Hypernatremia Hypokalemia HCAP KEISHA on CKD P. AFib Left wrist carpal tunnel decompression Subjective: Patient seen and examined. He is seen lying flat in bed resting comfortably maintained on supplemental oxygen via nasal cannula. He appears to be in no acute distress. He is oriented to person and place, and believes it is March. He states he feels fine and denies any pain, offering no new subjective complaints. Additionally he denies any fever, chills, chest pain, palpitations, shortness of breath, nausea, vomitnig, diarrhea. Review of Systems Constitutional: Reports: see HPI. Objective Last 24 Hrs of Vital Signs/I&O Vital Signs Date Time Temp Pulse Resp B/P B/P Pulse O2 O2 Flow FiO2 Mean Ox Delivery Rate 03/12 1400 98.1 65 20 110/50 03/12 0834 65 110/50 03/12 0832 65 110/50 03/12 0832 65 110/50 03/12 0824 98.1 65 20 110/50 93 Nasal 4.0L Cannula 03/12 0800 93 Nasal 4.0L Cannula Intake & Output 03/13 0800 03/13 0000 03/12 1600 Intake Total 540 Output Total 375 Balance 165 Intake, IV 300 Intake, Oral 240 Output, Urine 375 Physical Exam General Appearance: Alert, Cooperative, No Acute Distress Other Physical Findings: General- well developed, obese elderly man in no acute distress HEENT- NCAT, PERRL, EOMI, anicteric sclera, moist mucous membranes, nasal cannula in place Chest- S1, S2 w/o m/g/r Lungs- CTA bilaterally Abdomen- Soft, nontender, nondistended, bowel sounds intact Neuro- Somnolent/lethargic, CN II - XII grossly intact Ext- normal pulses, no cyanosis/clubbing/edema Current Medications: Current Medications Sig/Roge Start time Last Medication Dose Route Stop Time Status Admin Acetaminophen 650 MG Q4P PRN 02/28 1500 DCD 02/28 PO 1554 Albuterol Sulfate 2 PUF Q12P PRN 03/04 2230 DCD INH Apixaban 5 MG BID 03/06 1000 DCD 03/12 PO 0832 Aspirin 81 MG DAILY 02/26 1000 DCD 03/12 PO 0832 Atorvastatin Calcium 20 MG 1700 02/26 1700 DCD 03/11 PO 1552 Bisacodyl 10 MG Q12P PRN 03/08 1245 DCD 03/08 OK 1545 Bumetanide 1 MG BID 03/12 1044 DCD 03/12 PO 1209 Docusate Sodium 100 MG DAILY 03/07 1607 DCD 03/11 PO 1544 Guaifenesin 600 MG Q12 03/06 1645 DCD 03/12 PO 0832 Ibuprofen 400 MG Q6P PRN 03/11 1615 DCD PO Insulin Aspart 0 TIDAC 03/11 1700 DCD 03/12 SC 0828 Insulin Detemir 20 UNITS BID 03/11 2200 DCD 03/12 SC 0829 Isosorbide 30 MG DAILY 02/26 1000 DCD 03/12 Mononitrate PO 0832 Losartan Potassium 25 MG DAILY 02/26 1000 DCD 03/12 PO 0834 Metoprolol Tartrate 50 MG BID 02/25 2200 DCD 03/12 PO 0832 Ondansetron HCl 4 MG Q8P PRN 02/25 2100 DCD IV Polyethylene Glycol 17 GM DAILY 03/07 1607 DCD 03/12 PO 0829 Potassium Chloride 10 MEQ Q1H 03/12 1115 DC 03/12 IV 03/12 1216 1427 Potassium Chloride 20 MEQ DAILY 02/26 1000 DCD 03/12 PO 0829 Senna 187 MG AT BEDTIME 03/07 2200 DCD 03/10 PO 2050 Sodium Phosphate 1 UNIT DAILY PRN 03/09 1630 DCD OK Assessment/Plan Assessment: Patient is more lucid today with his sodium improving appropriately while on intravenous D5W. Leukocytosis has been improving as well, he remains afebrile off of antibiotics. Patient is tolerating small amounts of his meals, for which his Bumex is to be restarted at half the dose. BETH report still pending. Patient is to be discharged to short term rehabilitation today; he is to follow up with his various specialists as an outpatient for further medical/medication management. Uric acid was found to be elevated, however patients knee pain is chronic. He does not appears to be in an acute flair. NSAIDs are to be avoid as he is on anticoagulation. Problem List: #Healthcare Acquire Pneumonia, off antibiotics #Altered Mental Status #Leukocytosis #Hypernatremia #Hypokalemia #IDDM #CAD #P. Atrial Fibrillation, on Eliquis #Benign prostatic hypertrophy #LYNDSEY Plan: -Telemetry -Aspiration precautions -Follow off antibiotics -D5W discontinued -Bumex restarted at 1mg PO BID, advance to previous dose when tolerating full oral intake -Novolog/Levemir/Fingersticks -Eliquis/Aspirin/Atorvastatin/Metoprolol -Bowel Regimen -Echo: Normal left ventricular size with moderate left ventricular hypertrrophy. Overall normal systolic function with no obvious regional wall motion abnormalities. The ejection fraction is visually estimated at 60%. 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 Altered mental status Pain Ratin Pain Location: Knee Pain Goal: Remain pain free Pain Plan: See assessment Tomorrow's Labs & Rationales: None Consulting Request: Consulting Specialty: Orthopedics
--- NOTE | 2017-03-12 08:04 | PN- Pulmonary ---
Subjective HPI/Critical Care Issues: Patient seems more alert and focused. BETH results are pending. Oxygenation is improved. Objective Current Medications: Current Medications Sig/Roge Start time Last Medication Dose Route Stop Time Status Admin Acetaminophen 650 MG Q4P PRN 02/28 1500 AC 02/28 PO 1554 Albuterol Sulfate 2 PUF Q12P PRN 03/04 2230 AC INH Apixaban 5 MG BID 03/06 1000 AC 03/11 PO 1544 Aspirin 81 MG DAILY 02/26 1000 AC 03/11 PO 1544 Atorvastatin Calcium 20 MG 1700 02/26 1700 AC 03/11 PO 1552 Bisacodyl 10 MG Q12P PRN 03/08 1245 AC 03/08 DE 1545 Dextrose/Water 1,000 ML Q10H 03/10 0930 DC 03/11 IV 2046 Docusate Sodium 100 MG DAILY 03/07 1607 AC 03/11 PO 1544 Fentanyl Citrate 100 MCG .STK-MED ONE 03/11 1140 DC IM 03/11 1141 Guaifenesin 600 MG Q12 03/06 1645 AC 03/10 PO 2049 Ibuprofen 400 MG Q6P PRN 03/11 1615 AC PO Insulin Aspart 0 TIDAC 03/11 1700 AC SC Insulin Aspart 0 TIDAC 03/05 1700 DC 03/10 SC 1726 Insulin Detemir 20 UNITS BID 03/11 2200 AC 03/11 SC 2147 Insulin Detemir 10 UNITS BID 03/11 1015 DC 03/11 SC 1051 Insulin Detemir 20 UNITS BID 03/07 2200 DC 03/10 SC 2050 Insulin Human Regular 0 Q6 03/11 1200 DC SC Isosorbide 30 MG DAILY 02/26 1000 AC 03/11 Mononitrate PO 1544 Ketamine HCl 50 MG .STK-MED ONE 03/11 1321 DC IM 03/11 1322 Losartan Potassium 25 MG DAILY 02/26 1000 AC 03/11 PO 1544 Metoprolol Tartrate 50 MG BID 02/25 2200 AC 03/11 PO 1545 Ondansetron HCl 4 MG Q8P PRN 02/25 2100 AC IV Polyethylene Glycol 17 GM DAILY 03/07 1607 AC 03/11 PO 1545 Potassium Chloride 10 MEQ Q1H 03/11 1615 DC 03/11 IV 03/11 1716 1822 Potassium Chloride 20 MEQ DAILY 02/26 1000 AC 03/10 PO 1033 Senna 187 MG AT BEDTIME 03/07 2200 AC 03/10 PO 2049 Sodium Phosphate 1 UNIT DAILY PRN 03/09 1630 AC DE Vital Signs & I&O Last 24 Hrs of Vitals and I&O: Vital Signs Date Time Temp Pulse Resp B/P B/P Pulse O2 O2 Flow FiO2 Mean Ox Delivery Rate 03/12 0114 64 96 03/12 0021 98.6 18 138/62 95 03/12 0000 92 Nasal 4.0L Cannula 03/11 2242 59 96 03/11 2157 60 140/50 03/11 2143 60 140/50 03/11 1600 96 Nasal 4.0L Cannula 03/11 1545 60 140/50 03/11 1544 60 140/50 03/11 1544 60 140/50 03/11 1506 98.1 61 20 140/50 96 Nasal 4.0L Cannula 03/11 0931 Nasal 3.5L Cannula 03/11 0825 97.5 60 22 160/58 95 Nasal Cannula Intake & Output 03/12 1600 03/12 0800 03/12 0000 Intake Total 570 840 Output Total 300 250 Balance 270 590 Intake, IV 450 600 Intake, Oral 120 240 Number 0 Bowel Movements Output, Urine 300 250 Oxygen saturation 4 L 96% exam of his chest shows rare rhonchi cardiac exam shows a regular S1 and S2 without murmurs Impression/Plan Impression/Plan Impression/Plan: 81-year-old gentleman admitted for elective carpal tunnel surgery who is had a reported more change in mental status has been found to be hypercarbic leukocytosis and fever he's being treated for presumed aspiration pneumonia and an element of congestive heart failure. Repeat arterial blood gases show a compensated respiratory acidosis. Patient was noted to aspirate yesterday. Increase free water. Taper FiO2 his saturations allow. Patient will need short -term rehabilitation. Respiratory status is slowly improving with decreased FiO2 and increased saturations. Recommendations: correct hypernatremia nocturnal bipap st 20 11/01. Taper FiO2 his saturations allow. Continue negative fluid balance as renal function allows. Await results of BETH Taper FiO2 to 3 L
[2017-03-12 08:24] VITALS: BP 110/50
[2017-03-12 08:40] LABS: ABSOLUTE BASOPHIL COUNT 0 /CUMM (0.0-0.2); ABSOLUTE EOSINOPHIL COUNT 0.6 /CUMM (0.0-0.7); ABSOLUTE GRANULOCYTE CT 9.3 /CUMM (1.4-6.5); ABSOLUTE MONOCYTE COUNT 0.7 /CUMM (0.10-0.60); BASOPHIL % 0.2 % (0.0-2.0); EOSINOPHIL % 4.9 % (0-5); GRANULOCYTE % 79.8 % (42.2-75.2); HEMATOCRIT 34.7 % (42-52); MEAN CORPUSCULAR HGB 24.2 PG (27.0-31.0); MEAN CORPUSCULAR HGB CONC 30.9 G/DL (33.0-37.0); MEAN CORPUSCULAR VOLUME 78.4 FL (80.0-94.0); MEAN PLATELET VOLUME 9.4 FL (7.4-10.4); PLATELET COUNT 256 /CUMM (130-400); RBC DISTRIBUTION WIDTH 19.3 % (11.5-14.5); RED BLOOD CELL CT 4.43 /CUMM (4.70-6.10); WHITE BLOOD CELL COUNT 11.6 /CUMM (4.8-10.8)
--- NOTE | 2017-03-12 11:17 | ECHOCARDIOGRAM REPORT ---
DAPHNEY MUNROE Age: 81 : Gender: M Exam Date: 03/11/2017 11:42 Exam Location: [address] Ht (in): 78 Wt (lb): 285 BSA: 2.70 BP: 160 / 52 Ordering Physician: CARMELA OCONNELL MD Referring Physician: CARMELA OCONNELL MD Technologist: Piotr Kulkarni [facility] Room Number: 188-1 Indications: VALVULAR DISEASE Rhythm: Other Technical Quality: Technically difficult study Medications TIVA Ease of Transducer Insertion Difficult Complications None Technical Difficulty FINDINGS Left Ventricle Left ventricle grossly normal size. Moderate concentric left ventricular hypertrophy. No obvious regional wall motion abnormalities. Normal left ventricular ejection fraction. Right Ventricle Mild right ventricular dilatation. Catheter/pacemaker wire in the right ventricular cavity. Spontaneous contrast noted in right ventricle. Right Atrium Normal right atrial size. Catheter/pacemaker wire in the right atrial cavity. Spontaneous contrast noted in right atrium. Left Atrium Mild left atrial dilatation. Severe spontaneous echo contrast seen in the left atrium. LA Appendage Normal left atrial appendage. Spontaneous echo contrast seen in the left atrial appendage. IA Septum Small patent foramen ovale. Mitral Valve Mitral valve thickened. Mild mitral stenosis. Aortic Valve Trileaflet and mildly sclerotic aortic valve. No aortic valve stenosis or regurgitation. Tricuspid Valve Structurally normal tricuspid valve. [id number] tricuspid regurgitation. Pulmonic Valve Pulmonic valve not well visualized, grossly normal. Pericardium No pericardial effusion. Great Vessels Normal size aortic root and proximal ascending aorta. CONCLUSIONS Left ventricle grossly normal size. Moderate concentric left ventricular hypertrophy. Normal left ventricular ejection fraction. Mild right ventricular dilatation. Catheter/pacemaker wire in the right ventricular cavity. Spontaneous contrast noted in right ventricle. Normal right atrial size. Catheter/pacemaker wire in the right atrial cavity. Spontaneous contrast noted in right atrium. Mild left atrial dilatation. Severe spontaneous echo contrast seen in the left atrium. Spontaneous echo contrast seen in the left atrial appendage. Small patent foramen ovale. Mild mitral stenosis. Lkqi-[id number] tricuspid regurgitation. Nathan Jacobs M.D. (Electronically Signed) Final Date: 12 March 2017 11:17 MEASUREMENTS (Male / Female) Normal Values DOPPLER MV Peak Velocity 115.5 cm/s MV Peak Gradient 5.3 mmHg MV Mean Velocity 64.1 cm/s MV Mean Gradient 2.0 mmHg MV PHT Velocity 119.0 cm/s MV Deceleration [place] 249.5 cm/s MV Pressure Half Time 143.1 ms MV Area PHT 1.5 cm
--- NOTE | 2017-03-12 11:18 | PN- Infect Dx ---
Subjective Subjective: Afebrile without complaints Objective Last 24 Hrs of Vital Signs/I&O Vital Signs Date Time Temp Pulse Resp B/P B/P Pulse O2 O2 Flow FiO2 Mean Ox Delivery Rate 03/12 0834 65 110/50 03/12 0832 65 110/50 03/12 0832 65 110/50 03/12 0824 98.1 65 20 110/50 93 Nasal 4.0L Cannula 03/12 0114 64 96 03/12 0021 98.6 18 138/62 95 03/12 0000 92 Nasal 4.0L Cannula 03/11 2242 59 96 03/11 2157 60 140/50 03/11 2143 60 140/50 03/11 1600 96 Nasal 4.0L Cannula 03/11 1545 60 140/50 03/11 1544 60 140/50 03/11 1544 60 140/50 03/11 1506 98.1 61 20 140/50 96 Nasal 4.0L Cannula Intake & Output 03/12 1600 03/12 0800 03/12 0000 Intake Total 570 840 Output Total 300 250 Balance 270 590 Intake, IV 450 600 Intake, Oral 120 240 Number 0 Bowel Movements Output, Urine 300 250 Physical Exam Other Physical Findings: He appears comfortable, more awake and appropriate, in no acute distress Lungs are clear Heart regular rhythm with no murmur Extremities decreased swelling over the right knee, with increased range of motion and with no erythema or tenderness; chronic venous stasis changes both lower extremities Mejia catheter remains in place Results Last 24 Hours of Lab Results: Laboratory Tests 03/12 03/11 0620 2135 Chemistry Sodium (137 - 145 mmol/L) 146 H 144 Potassium (3.5 - 5.1 mmol/L) 3.4 L 3.8 Chloride (98 - 107 mmol/L) 97 L 97 L Carbon Dioxide (22 - 30 mmol/L) 44 H 42 H Anion Gap (5 - 16) 5 5 BUN (9 - 20 mg/dL) 40 H 42 H Creatinine (0.7 - 1.2 mg/dL) 1.0 1.0 Estimated GFR (>60 ml/min) > 60 > 60 BUN/Creatinine Ratio (7 - 25 %) 40.0 H 42.0 H Uric Acid (3.5 - 8.5 mg/dL) 9.1 H Hematology CBC w Diff NO MAN DIFF REQ WBC (4.8 - 10.8 /CUMM) 11.6 H RBC (4.70 - 6.10 /CUMM) 4.43 L Hgb (14.0 - 18.0 G/DL) 10.7 L Hct (42 - 52 %) 34.7 L MCV (80.0 - 94.0 FL) 78.4 L MCH (27.0 - 31.0 PG) 24.2 L RDW (11.5 - 14.5 %) 19.3 H Plt Count (130 - 400 /CUMM) 256 MPV (7.4 - 10.4 FL) 9.4 Gran % (42.2 - 75.2 %) 79.8 H Lymphocytes % (20.5 - 51.1 %) 8.9 L Monocytes % (1.7 - 9.3 %) 6.2 Eosinophils % (0 - 5 %) 4.9 Basophils % (0.0 - 2.0 %) 0.2 Absolute Granulocytes (1.4 - 6.5 /CUMM) 9.3 H Absolute Lymphocytes (1.2 - 3.4 /CUMM) 1.0 L Absolute Monocytes (0.10 - 0.60 /CUMM) 0.7 H Absolute Eosinophils (0.0 - 0.7 /CUMM) 0.6 Absolute Basophils (0.0 - 0.2 /CUMM) 0 PUBS MCHC (33.0 - 37.0 G/DL) 30.9 L Last 24 Hours of Chu Results: No recent cultures Recent Imaging Studies: X-ray of the right knee March 11 reveals significant patellofemoral arthritis with a small joint effusion BETH March 11 negative for any vegetations Assessment/Plan Impression: Overall improved with temperatures remaining normal and white blood cell count continuing to decrease off antibiotics with no evidence of any active infection. His respiratory status also appears to be improving, though he is still on oxygen. His repeat uric acid is elevated, suggesting that he may have gout, which may explain some of his chronic right knee pain. Suggestion: 1. Remove Mejia catheter 2. Further management for treatment/prophylaxis of gout per Medicine 3. Continue to follow off antibiotics
--- NOTE | 2017-03-12 11:43 | PN- Att Addend ---
Attending Addendum Attending Brief Note Patient seen and examined. Resting comfortably and not in any acute distress. No issues overnight. He is less lethargic, remains oriented 3. Conversing appropriately. Fortunately his sodium level is back to normal however he does continue to insist on drinking regular water. He is tolerating his meals as reported by nursing staff. He remains afebrile and hemodynamically stable off antibiotic therapy. He denies any knee pain. Recommendations: -Follow-up with the cardiology service for results of the BETH done yesterday. -No need for further antibiotic therapy per recommendations of the ID service. -Resume diuretic therapy with Bumex however start at 1 mg twice daily. Dose may be increased upon discharge in his oral intake continues to improve and he continues to tolerate this medication. -Patient is medically stable to be discharged and will be discharged to long-term facility per recommendations of the physical therapist. -Imaging shows evidence of arthritis in the right knee. Avoid NSAID therapy since patient is already on anticoagulation therapy. reports thatb this is chronic and followed by his orthopedic service. he gets intra-articular injections, the last does was in December. He will follow up as an out-pt. He has no hx of gout.
[2017-03-12] MEDS ORDERED: BUMETANIDE1 M1 PO (13:02)
--- NOTE | 2017-03-12 13:42 | PN- Cardiology ---
Subjective Subjective: * Patient denies any complaints but remains slow to respond. * underlying atrial fibrillation with a ventricular paced rhythm * potassium 3.4 * INR is 2.43 * Mildly increased WBC count without active infection Objective Vital Signs and I&Os Vital Signs Date Time Temp Pulse Resp B/P B/P Pulse O2 O2 Flow FiO2 Mean Ox Delivery Rate 03/12 0834 65 110/50 03/12 0832 65 110/50 03/12 0832 65 110/50 03/12 0824 98.1 65 20 110/50 93 Nasal 4.0L Cannula 03/12 0800 93 Nasal 4.0L Cannula 03/12 0114 64 96 03/12 0021 98.6 18 138/62 95 03/12 0000 92 Nasal 4.0L Cannula 03/11 2242 59 96 03/11 2157 60 140/50 03/11 2143 60 140/50 03/11 1600 96 Nasal 4.0L Cannula 03/11 1545 60 140/50 03/11 1544 60 140/50 03/11 1544 60 140/50 03/11 1506 98.1 61 20 140/50 96 Nasal 4.0L Cannula Intake & Output 03/12 1600 03/12 0800 03/12 0000 03/11 1600 03/11 0800 03/11 0000 Intake Total 570 840 0 800 1480 Output Total 375 300 250 350 400 400 Balance -375 270 590 -448 852 5136 Intake, IV 450 828 041 4247 Intake, Oral 120 240 0 0 480 Number 0 Bowel Movements Output, Urine 375 300 250 350 400 400 Physical Exam: General: WD/ obese male in NAD; awake and confused Neck: no JVD, bilateral carotid bruit R>L Heart: regular rate and rhythm with 2/6 sytolic murmur at the RUSB and 2/6 sytolic murmur at the LUSB and apex Lungs: clear bilaterally Extremities: No leg edema with venous stasis changes bilaterally Assessment/Plan Assessment/Plan * Continue Bumex at 2mg PO BID. Replete potassium. We will reassess he need for this level of diuresis during follow up. Continue to monitor his BUN, creatinine and potassium. In consideration of his mitral stenosis, he will need adequate diuresis to avoid pulmonary edema. * At least mild mitral stenosis is measured by BETH however the right cardiac chambers and left atrium are showing evidence of slow flow. This along with his clinical presentation are suggestive of more severe Mitral stenosis. 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 We will think about this more seriously if the patient's mental status improves. Continue telemetry? No
[2017-03-12 14:00] VITALS: BP 110/50
[2017-03-12] MEDS ORDERED: ELIQUIS5 M1 PO (21:34)
== END 2017-03-12 15:20 | DRG 40 ==
LOC: DELPENDDIS → STS 02:19 → ENRESERV 18:46 → CRI 18:53 → 2NB 18:53 → 1NO 18:53 → 2NB 18:53 → CANRESERV 21:55 → ENRESERV 21:55 → CMPBEDREQ 23:10 → 2NB 02-26 08:59 → ENPENDDIS 02-28 10:48 → CRI 03-04 16:29 → 1NO 03-07 14:57 → ENPENDDIS 03-12 13:03 → 1NO 03-12 15:20
PROVIDERS: Internal Medicine; Internal Medicine Infectious Disease; Internal Medicine Interventional Cardiology; Physician Assistant; Physician Assistant Surgical; Student in an Organized Health Care Education/Training Program; ADMIT Orthopaedic Surgery Foot and Ankle Surgery
PROC: 01N50ZZ Release Median Nerve, Open Approach (ICD-10-PCS; principal; 2017-02-25)
PROC: B246ZZ4 Ultrasonography of Right and Left Heart, Transesophageal (ICD-10-PCS; 2017-03-11)
DX: E11.42 Type 2 diabetes mellitus with diabetic polyneuropathy (principal); J96.01 Acute respiratory failure with hypoxia; J69.0 Pneumonitis due to inhalation of food and vomit; G93.40 Encephalopathy, unspecified; E87.0 Hyperosmolality and hypernatremia; I13.0 Hypertensive heart and chronic kidney disease with heart failure and stage 1 through stage 4 chronic kidney disease, or unspecified chronic kidney disease; I50.32 Chronic diastolic (congestive) heart failure; T88.59XA Other complications of anesthesia, initial encounter; G56.02 Carpal tunnel syndrome, left upper limb; N18.9 Chronic kidney disease, unspecified; I25.10 Atherosclerotic heart disease of native coronary artery without angina pectoris; E86.0 Dehydration; E11.319 Type 2 diabetes mellitus with unspecified diabetic retinopathy without macular edema; I48.0 Paroxysmal atrial fibrillation; Z87.891 Personal history of nicotine dependence; I73.9 Peripheral vascular disease, unspecified; E78.5 Hyperlipidemia, unspecified; Z95.0 Presence of cardiac pacemaker
CPT/HCPCS: 1NP; 2NBP; 6040; CCU; 36415; 73562-RT; 80307; 81001; 82436; 87040; 87070; 87086; 87449; 93306; 93325; 97110-GO; 97116-GO; 97161-GP; 97164-GP; 97165-GO; 97168-GO; 97530-GO; 97530-GP; G0378; G8978-GP; G8979-GP; J0690; J0713; J1815; J1940; J3370; J3490; J7040; J7060

== ENCOUNTER 2017-03-12 20:49 | Observation (INO) | payer OTHER, MEDICARE ==
[~2017-03-12] VITALS: Ht 198.1 cm; Wt 123.8 kg
[2017-03-12] MEDS ORDERED: ELIQUIS5 M1 PO (21:34)
--- NOTE | 2017-03-12 21:51 | NUR ---
HAVE ATTEMPTED IV W/O SUCCESS. NO BRUISING OR BLEEDING FROM INSERTION SITE. ALPHONSO RAM RN IS INFORMED FOR HIS ATTEMPT.
--- NOTE | 2017-03-12 21:51 | NUR ---
SARAH FROM [facility] D/T THINKS HE WAS D/C'D FROM THIS FACILITY TOO EARLY TODAY AFTER ELECTIVE SURGICAL PROCEDURE. PT IS NOTED TO HAVE DELERIUM PRIOR TO SURGICAL ADMISSION AND IS CURRENTLY THE SAME HE WAS PRIOR TO PROCEDURE ACCORDING TO HIS DISCHARGE SUMMARY.
--- NOTE | 2017-03-12 22:04 | NUR ---
20G IV ESTABLISHED IN [facility]. BLOOD SAMPLES OBTAINED AND SENT TO LAB (SST, LAV, BLUE)
[2017-03-12 22:10] LABS: ABSOLUTE BASOPHIL COUNT 0 /CUMM (0.0-0.2); ABSOLUTE EOSINOPHIL COUNT 0.5 /CUMM (0.0-0.7); ABSOLUTE GRANULOCYTE CT 10.4 /CUMM (1.4-6.5); ABSOLUTE LYMPH COUNT 0.9 /CUMM (1.2-3.4); ABSOLUTE MONOCYTE COUNT 0.7 /CUMM (0.10-0.60); BASOPHIL % 0 % (0.0-2.0); EOSINOPHIL % 4.3 % (0-5); GRANULOCYTE % 83.1 % (42.2-75.2); HEMATOCRIT 37.1 % (42-52); MEAN CORPUSCULAR HGB 24.2 PG (27.0-31.0); MEAN CORPUSCULAR HGB CONC 30.9 G/DL (33.0-37.0); MEAN CORPUSCULAR VOLUME 78.2 FL (80.0-94.0); MEAN PLATELET VOLUME 9.1 FL (7.4-10.4); PLATELET COUNT 244 /CUMM (130-400); RBC DISTRIBUTION WIDTH 19.2 % (11.5-14.5); RED BLOOD CELL CT 4.74 /CUMM (4.70-6.10); WHITE BLOOD CELL COUNT 12.6 /CUMM (4.8-10.8)
[2017-03-12 22:16] LABS: PT 21.8 SEC (9.4-12.5)
--- NOTE | 2017-03-12 22:39 | RADIOLOGY REPORT ---
EXAMINATION: XR PORTABLE CHEST CLINICAL INFORMATION: Confusion. Hypoxia. Recent CHF. COMPARISON: Chest x-ray 03/10/2017 TECHNIQUE: Portable frontal view of the chest was obtained. 10:19 PM FINDINGS: Heart size enlarged. Pacemaker lead in right atrium and right ventricle. There is pulmonary vascular congestion with interstitial edema and bilateral pleural effusions. Congestive heart failure severity similar to chest x-ray of 03/10/2017. IMPRESSION: Congestive heart failure unchanged since chest x-ray 03/10/2017.
--- NOTE | 2017-03-12 22:39 | CT SCAN REPORT ---
EXAMINATION: CT HEAD WITHOUT CONTRAST CLINICAL INFORMATION: Confusion. Agitation. Slurred speech. Currently on warfarin. COMPARISON: Noncontrast head CT 03/04/2017. TECHNIQUE: Contiguous axial imaging was performed from the skull base to vertex without intravenous administration of contrast. DLP: 578 mGy-cm FINDINGS: Diffuse motion abnormality degrades image quality, limiting evaluation for acute intracranial abnormality. Redemonstrated is generalized parenchymal volume loss with proportional prominence of the sulci and ventricles. No acute intracranial hemorrhage, mass or mass effect or abnormal extra-axial fluid collections are identified. However, smaller intraparenchymal hematomas or extra-axial fluid collections may be missed on this examination given the aforementioned exam limitations. There are no focal areas of hypoattenuation within a vascular distribution to suggest acute ischemia. However, evaluation for acute ischemia is somewhat limited given motion abnormality. No acute calvarial abnormality is identified. Evaluation of the paranasal sinuses demonstrates moderate mucosal thickening of the left maxillary sinus. There is patchy opacification of the left anterior ethmoid air cells. The remaining imaged paranasal sinuses and mastoid air cells are well aerated. IMPRESSION: 1. Limited exam secondary to diffuse motion abnormality, which degrades image quality. No acute intracranial hemorrhage or abnormal extra-axial fluid collections. However, please note that smaller intracranial hemorrhages and extra-axial fluid collections may be missed on this examination given the aforementioned exam limitations. 2. No focal areas of hypoattenuation to suggest acute transcortical ischemia. However, please note that evaluation for ischemia is somewhat limited given motion abnormality. Consider sedation and repeat head CT. 3. Paranasal sinus disease, as described above.
--- NOTE | 2017-03-12 23:01 | NUR ---
URINE TRIO SENT TO LAB.
--- NOTE | 2017-03-13 00:26 | ED AMS/SEIZURE/WEAK/DIZZY ---
History of Present Illness General Chief Complaint: Altered Mental Status Stated Complaint: SOB/CONFUSION/AGGITATION Source: family, old records, EMS Exam Limitations: clinical condition, confusion Vital Signs & Intake/Output Vital Signs & Intake/Output Vital Signs Date Time Temp Pulse Resp B/P B/P Pulse O2 O2 Flow FiO2 Mean Ox Delivery Rate 03/13 0351 65 95 03/12 2328 97.7 85 20 174/74 89 Nasal 4.0L Cannula 03/129 Nasal 3.0L Cannula 03/124 96.9 87 16 123/62 90 Nasal 4.0L Cannula ED Intake and Output 03/13 0000 03/12 1200 Intake Total Output Total Balance Patient 275 lb Weight Weight Estimated Measurement Method Allergies Coded Allergies: piperacillin (Mild, RASH 12/15/15) tazobactam (Mild, RASH 12/15/15) morphine (Intermediate, HALLUCINATIONS 12/15/15) heparin (SOMETHING WITH HIS PLATELETS 12/15/15) Reconcile Medications Albuterol Sulfate (Proair Hfa) 90 MCG HFA.AER.AD 2 PUFF PO BID BREATHING PROBLEMS (Reported) Apixaban (Eliquis) 5 MG TABLET 1 TAB PO BID BLOOD THINNER (Reported) Aspirin (Ecotrin*) 81 MG TABLET.DR 1 TAB PO DAILY HEART/BLOOD (Reported) Bumetanide 1 MG TABLET 1 MG PO BID FLUID OVERLOAD Insulin NPL/Insulin Lispro (Humalog Mix 75-25 Vial) 100 UNIT/ML (75-25) VIAL 45 UNITS SC 8AM diabetes Isosorbide Mononitrate (Isosorbide Mononitrate ER) 60 MG TAB.ER.24H 0.5 TAB PO DAILY CAD (Reported) Metoprolol Tartrate (Lopressor) 50 MG TABLET 1 TAB PO BID CAD (Reported) Potassium Chloride (Klor-Con M10) 10 MEQ TAB.ER.PRT 1 TAB PO DAILY SUPPLEMENT (Reported) Simvastatin (Zocor*) 40 MG TABLET 1 TAB PO QPM CHOLESTEROL (Reported) Valsartan (Diovan) 80 MG TABLET 1 TAB PO DAILY HTN (Reported) Vit C/E/Zn/Coppr/Lutein/Zeaxan (Preservision Areds 2 Softgel) 250-200-40 CAPSULE MACULAR DEGENERATION (Reported) Core Measure Meds Pre-Hospital aspirin, eliquis Triage Note: BIBA FROM [facility] D/T THINKS HE WAS D/C'D FROM THIS FACILITY TOO EARLY TODAY AFTER ELECTIVE SURGICAL PROCEDURE. PT IS NOTED TO HAVE DELERIUM PRIOR TO SURGICAL ADMISSION AND IS CURRENTLY THE SAME HE WAS PRIOR TO PROCEDURE ACCORDING TO HIS DISCHARGE SUMMARY. Triage Nurses Notes Reviewed? yes Onset: Just prior to arrival Duration: hour(s):, constant, continues in ED Timing: recent history Severity: severe No Modifying Factors: none HPI: 6 hours prior to admission patient was transferred to [facility] for rehabilitation. Prior to admission his spouse noted in to be confused having slowed mentation hoarse voice agitated with increased work of breathing. Was no fever chills nausea vomiting diarrhea abdominal pain chest pain headache dysuria rash bleeding. Past History Travel History Traveled to [facility] past 21 day No Medical History Any Pertinent Medical History? see below for history Neurological: peripheral neuropathy EENT: CATARACT diabetic retinopathy Cardiovascular: AFIB (paroxysmal), CHF, hyperlipidemia, syncope, STENT, PACER AFIB ,CHOL, HTN STENTS LCW PM permanent pacemaker for heart block peripheral vascular diseaase peripheral vascular disease s/p angioplasty Respiratory: LYNDSEY Gastrointestinal: diverticulitis Hepatic: NONE Renal: benign prost hyperplasia Musculoskeletal: sciatica, L KNEE REPLACEMENT OSTEOMYELITIS osteomyelitis Psychiatric: NONE Endocrine: IDDM with diabetic neuropathy diabetic retinopathy Blood Disorders: NONE Cancer(s): NONE 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 No Review of Systems Review of Systems Constitutional: Reports: no symptoms. EENTM: Reports: no symptoms. Respiratory: Reports: see HPI, short of breath. Cardiovascular: Reports: no symptoms. GI: Reports: no symptoms. Genitourinary: Reports: no symptoms. Musculoskeletal: Reports: no symptoms. Skin: Reports: no symptoms. Neurological/Psychological: Reports: see HPI, confusion. Hematologic/Endocrine: Reports: no symptoms. Immunologic/Allergic: Reports: no symptoms. All Other Systems: Reviewed and Negative Physical Exam Physical Exam General Appearance: well developed/nourished, awake, lethargic, mild distress, obese Head: atraumatic, normal appearance Eyes: Bilateral: normal appearance, PERRL, EOMI. Ears, Nose, Throat: normal pharynx, normal ENT inspection Neck: normal inspection, supple, full range of motion, no midline tenderness Respiratory: normal breath sounds, chest non-tender, no respiratory distress, quiet respiration, decreased breath sounds, crackles Cardiovascular: regular rate/rhythm, normal peripheral pulses, norml femoral pulses equa Peripheral Pulses: 4+ carotid (R), 4+ carotid (L) Gastrointestinal: normal bowel sounds, soft, non-tender, no organomegaly Back: normal inspection, normal range of motion Extremities: normal range of motion, no ligament instability Neurologic/Psych: awake, depressed affect, motor weakness, slurred speech Reflexes: 2+: bicep (R), bicep (L). Skin: intact, warm/dry Lymphatic: no anterior cervical carlos Core Measures ACS in differential dx? Yes ASA ordered for poss ACS? No-ACS ruled out CVA/TIA Diagnosis: No Severe Sepsis Present: No Septic Shock Present: No Progress Differential Diagnosis: CVA/stroke, drug intoxication, electrolyte imbalance, hypoglycemia, hypoxia Plan of Care: Orders Procedure Date/time Status CBC WITHOUT DIFFERENTIAL 03/14 06 Active BASIC ELECTROLYTES PLUS BUN&CR 03/14 06 Active Regular Diet 03/13 B Active LOWER RESPIRATORY CULTURE 03/13 0201 Active BLOOD CULTURE 03/13 0201 Active TRC EVALUATION (GEN) 03/13 0200 Active PT Evaluate & Treat 03/13 0200 Active Pathway - chart 03/13 0200 Active House Staff 03/13 0200 Active Code Status 03/13 0200 Active OXYGEN SETUP (GEN) 03/13 0034 Active Saline Lock 03/[address] in observation 03/13 0034 Active Vital Signs 03/13 0034 Active Activity/Ambulation 03/13 0034 Active Code Status 03/13 0034 Complete Patient Data 03/13 0016 Active BIPAP 03/13 UNK Active VTE Mechanical Prophylaxis 03/13 UNK Active Vital Signs 03/13 UNK Active NIH Stroke Scale 03/13 UNK Active Intake & Output 03/13 UNK Active FingerStick- Glucose 03/13 UNK Active Activity/Ambulation 03/13 UNK Active Mejia, Insertion/Removal/Asses 03/12 2248 Active CULTURE,URINE 03/12 2248 Active URINALYSIS 03/12 211 Complete ARTERIAL BLOOD GAS (GEN) 03/12 2118 Complete TROPONIN LEVEL 03/12 2118 Complete PROTHROMBIN TIME 03/12 2118 Complete MAGNESIUM 03/12 2118 Complete COMPREHENSIVE METABOLIC PANEL 03/12 2118 Complete CBC WITHOUT DIFFERENTIAL 03/12 2118 Complete B-TYPE NATRIURETIC PEP (BNP) 03/12 2118 Complete EKG 03/12 2056 Active Current Medications Sig/Roge Start time Last Medication Dose Stop Time Status Admin Atorvastatin Calcium 20 MG 1700 03/13 1700 AC (Lipitor) Apixaban 5 MG BID 03/13 1000 AC (Eliquis) Aspirin Buffered 81 MG DAILY 03/13 1000 AC (Ecotrin) Isosorbide 30 MG DAILY 03/13 1000 AC Mononitrate (Imdur) Losartan Potassium 25 MG DAILY 03/13 1000 AC (Cozaar) Metoprolol Tartrate 50 MG BID 03/13 1000 AC (Lopressor) Potassium Chloride 20 MEQ DAILY 03/13 1000 AC (Klor) Insulin Aspart 0 TIDAC 03/13 0800 AC (NovoLOG) Albuterol Sulfate 2 PUF Q4-6 PRN PRN 03/13 0204 AC (Ventolin) Acetaminophen 650 MG Q6P PRN 03/13 0200 AC (Tylenol) Acetaminophen 1,000 MG Q6P PRN 03/13 0200 AC (Ofirmev) Laboratory Tests 03/12/17 2256: Urinalysis LIGHT H, Urine Color YEL, Urine Clarity CLEAR, Urine pH 6.5, Ur Specific [place] 1.010, Urine Protein TRACE H, Urine Ketones NEG, Urine Nitrite NEG, Urine Bilirubin NEG, Urine Urobilinogen 1.0, Ur Leukocyte Esterase NEG, Ur Microscopic SEDIMENT EXAMINED, Urine RBC 5-10 H, Ur Epithelial Cells RARE, Hyaline Casts RARE H, Urine Mucus FEW, Urine Hemoglobin MOD H, Urine Glucose NEG 03/12/17 2200: Anion Gap 6, Estimated GFR > 60, BUN/Creatinine Ratio 44.4 H, Glucose 138 H, Calcium 9.3, Magnesium 1.9, Total Bilirubin 0.9, AST 57, ALT 62, Alkaline Phosphatase 87, Troponin I 0.04, [id number] Pept 4050 H, Total Protein 6.4, Albumin 2.5 L, Globulin 3.9, Albumin/Globulin Ratio 0.6 L, PT 21.8 H, INR 2.09 H, CBC w Diff NO MAN DIFF REQ, RBC 4.74, MCV 78.2 L, MCH 24.2 L, RDW 19.2 H, MPV 9.1, Gran % 83.1 H, Lymphocytes % 7.3 L, Monocytes % 5.3, Eosinophils % 4.3, Basophils % 0 L, Absolute Granulocytes 10.4 H, Absolute Lymphocytes 0.9 L, Absolute Monocytes 0.7 H, Absolute Eosinophils 0.5, Absolute Basophils 0, PUBS MCHC 30.9 L 03/12/175: pH 7.50 H, pCO2 50 H, pO2 61 L, HCO3 39 H, ABG O2 Sat (Measured) 91.0 L, P- 50 (Temp Corrected) N, Carboxyhemoglobin 0.9 L, O2 Concentration % 4L, Temperature 97.0, O2 Delivery Method NC, Phlebotomy Draw Site RIGHT BRACHIAL Microbiology 03/13 201 LOWER RESP: Respiratory Culture - COLB 03/13 201 LOWER RESP: Gram Stain - COLB 03/13 201 BLOOD: Blood Culture - COLB 03/13 201 BLOOD: Blood Culture - COLB 03/12 2256 URINE ROUT: Urine Culture - RECD Diagnostic Imaging: Viewed by Me: Radiology Read, CT Scan. Discussed w/RAD: Radiology Read, CT Scan. Radiology Impression: no acute abnormality CXR Impression: CHF Initial ED EKG: AFIB, nonspecific ST T wave chg Prior EKG: unchanged Rhythm Strip: atrial fibrillation Departure Departure Disposition: STILL A PATIENT Condition: Stable Clinical Impression Primary Impression: CHF (congestive heart failure) Qualifiers: Congestive heart failure type: unspecified congestive heart failure type Congestive heart failure chronicity: acute on chronic Qualified Code: I50.9 - Heart failure, unspecified Secondary Impressions: Altered mental status Qualifiers: Altered mental status type: unspecified Qualified Code: R41.82 - Altered mental status, unspecified Referrals: NEGAR GRIFFIN,WAYLON Segal (PCP/Family) Departure Forms: Customer Survey General Discharge Information Observation Note Spoke With: JOZEF GRIFFIN,NIGEL Physician Advisor Notified: OTIS COTTRELL DO Place Patient In: Non-ED OBS Care Area Rationale for Observation: My rational for observation is as follows patient with acute confusional state unable to follow directions with increased work of breathing oxygen demand requiring reevaluation by pulmonary cardiology physical therapy.
--- NOTE | 2017-03-13 00:35 | History & Physical ---
SLICK GRIFFIN,[facility] 03/13/17 0035: General Information and HPI MD Statement: I have seen and personally examined DAPHNEY MUNROE and documented this H&P. The patient is a 81 year old M who presented with a patient stated chief complaint of [confusion]. 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 Previously he was admitted to for an elective carpal tunnel syndrome surgery complicated by acute delirium and confusion and weakness on both lower extremities. Patient developed fever and SOB during his stay and was found to have pneumonia, he also underwent BETH during the hospital course and per his , he became more confused and hallucinating after the BETH, he was discharged yesterday to [facility] but continued to have confusion and hallucinations, also was found to have SO2 of 73 -74% in the facility per his , therefore she brought him to the ED again. Of note, patient had a rutledge catheter in place during admission which was taken out before discharge, however patient did not void after rutledge was discontinued. Patient is alert but not oriented to place and unable to hold meaningful conversation and occasionally has hallucinations. Per his he has not been eating or drinking well, has been having occasional coughs with brownish phlegm, no SOB, no chest pain, palpitation, dizziness or LOC. According to his patient was sharp and clear before the surgery. Allergies/Medications Allergies: Coded Allergies: piperacillin (Mild, RASH 12/15/15) tazobactam (Mild, RASH 12/15/15) morphine (Intermediate, HALLUCINATIONS 12/15/15) heparin (SOMETHING WITH HIS PLATELETS 12/15/15) Home Med list Albuterol Sulfate (Proair Hfa) 90 MCG HFA.AER.AD 2 PUFF PO BID BREATHING PROBLEMS (Reported) Apixaban (Eliquis) 5 MG TABLET 1 TAB PO BID BLOOD THINNER (Reported) Aspirin (Ecotrin*) 81 MG TABLET.DR 1 TAB PO DAILY HEART/BLOOD (Reported) Bumetanide 1 MG TABLET 1 MG PO BID FLUID OVERLOAD Insulin NPL/Insulin Lispro (Humalog Mix 75-25 Vial) 100 UNIT/ML (75-25) VIAL 45 UNITS SC 8AM diabetes Isosorbide Mononitrate (Isosorbide Mononitrate ER) 60 MG TAB.ER.24H 0.5 TAB PO DAILY CAD (Reported) Metoprolol Tartrate (Lopressor) 50 MG TABLET 1 TAB PO BID CAD (Reported) Potassium Chloride (Klor-Con M10) 10 MEQ TAB.ER.PRT 1 TAB PO DAILY SUPPLEMENT (Reported) Simvastatin (Zocor*) 40 MG TABLET 1 TAB PO QPM CHOLESTEROL (Reported) Valsartan (Diovan) 80 MG TABLET 1 TAB PO DAILY HTN (Reported) Vit C/E/Zn/Coppr/Lutein/Zeaxan (Preservision Areds 2 Softgel) 250-200-40 CAPSULE MACULAR DEGENERATION (Reported) Past History Travel History Traveled to [place] past 21 day No Medical History Neurological: peripheral neuropathy EENT: CATARACT diabetic retinopathy Cardiovascular: AFIB (paroxysmal), CHF, hyperlipidemia, syncope, STENT, PACER AFIB ,CHOL, HTN STENTS LCW PM permanent pacemaker for heart block peripheral vascular diseaase peripheral vascular disease s/p angioplasty Respiratory: LYNDSEY Gastrointestinal: diverticulitis Hepatic: NONE Renal: benign prost hyperplasia Musculoskeletal: sciatica, L KNEE REPLACEMENT OSTEOMYELITIS osteomyelitis Psychiatric: NONE Endocrine: IDDM with diabetic neuropathy diabetic retinopathy Blood Disorders: NONE Cancer(s): NONE [employer] RANGER/Reproductive: NONE History of MRSA: Yes History of VRE: No History of CDIFF: No Pneumonia Vaccine: 06/28/07 Surgical History Surgical History: left knee replacement status post pacemaker Past Family/Social History Family History Relations & Conditions if any Relation not specified for: *No pertinent family history Psychosocial History Who Do You Live With? spouse Services at Home: None Primary Language: Kyrgyz Functional Ability ADLs Independent: dressing, eating, toileting, bathing. Ambulation: walker Review of Systems Review of Systems Constitutional: Reports: weakness. Denies: chills, fever. EENTM: Reports: no symptoms. Cardiovascular: Denies: chest pain, palpitations, peripheral edema, syncope. Respiratory: Reports: cough, sputum production (chronic). GI: Denies: abdominal pain, changes in stool. Genitourinary: Reports: hesitation (has not voided since discharge). Musculoskeletal: Reports: no symptoms. Skin: Reports: change in skin color. Neurological/Psychological: Reports: confusion, weakness. Hematologic/Endocrine: Reports: no symptoms. Exam & Diagnostic Data Last 24 Hrs of Vital Signs/I&O Vital Signs Date Time Temp Pulse Resp B/P B/P Pulse O2 O2 Flow FiO2 Mean Ox Delivery Rate 03/128 97.7 85 20 174/74 89 Nasal 4.0L Cannula 03/12 2119 Nasal 3.0L Cannula 03/12 2054 96.9 87 16 123/62 90 Nasal 4.0L Cannula Intake & Output 03/13 0800 03/13 0000 03/12 1600 Intake Total Output Total Balance Patient 124.738 kg Weight Weight Estimated Measurement Method Physical Exam General Appearance Alert, No Acute Distress, oriented to person and partially to time but not to place. following commands partially but not completly. Skin venous stasis ulcers on both lower extremities, blister liket lesion developed after surgery on the tip of the left middle finger Skin Temp/Moisture Exam: Warm/Dry Sepsis Skin Exam (color): Normal for Ethnicity HEENT Atraumatic, EOMI, dry mucous membranes Neck Supple Cardiovascular Normal S1, Normal S2, No Murmurs Lungs Clear to Auscultation, Normal Air Movement Abdomen Soft, No Tenderness Neurological inciherent speech for the most part, fluent. cranial nerves grossly normal. 4+/5 forces on the left upper and 5/5 onthe right upper extremities, 4/5 forces on both lower extremities. Extremities No Edema Vascular Pulses Symmetrical Sepsis Peripheral Pulse Location: Dorsalis Pedis Sepsis Peripheral Pulse Exam: Normal Sepsis Cap Refill Exam: <2 Sec Last 24 Hrs of Labs/Chu: Laboratory Tests 03/12/176: Urinalysis LIGHT H, Urine Color YEL, Urine Clarity CLEAR, Urine pH 6.5, Ur Specific [place] 1.010, Urine Protein TRACE H, Urine Ketones NEG, Urine Nitrite NEG, Urine Bilirubin NEG, Urine Urobilinogen 1.0, Ur Leukocyte Esterase NEG, Ur Microscopic SEDIMENT EXAMINED, Urine RBC 5-10 H, Ur Epithelial Cells RARE, Hyaline Casts RARE H, Urine Mucus FEW, Urine Hemoglobin MOD H, Urine Glucose NEG 03/12/17 2200: Anion Gap 6, Estimated GFR > 60, BUN/Creatinine Ratio 44.4 H, Glucose 138 H, Calcium 9.3, Magnesium 1.9, Total Bilirubin 0.9, AST 57, ALT 62, Alkaline Phosphatase 87, Troponin I 0.04, Epl-B-Umaratyvccx Pept 4050 H, Total Protein 6.4, Albumin 2.5 L, Globulin 3.9, Albumin/Globulin Ratio 0.6 L, PT 21.8 H, INR 2.09 H, CBC w Diff NO MAN DIFF REQ, RBC 4.74, MCV 78.2 L, MCH 24.2 L, RDW 19.2 H, MPV 9.1, Gran % 83.1 H, Lymphocytes % 7.3 L, Monocytes % 5.3, Eosinophils % 4.3, Basophils % 0 L, Absolute Granulocytes 10.4 H, Absolute Lymphocytes 0.9 L, Absolute Monocytes 0.7 H, Absolute Eosinophils 0.5, Absolute Basophils 0, PUBS MCHC 30.9 L 03/12/172124: pH 7.50 H, pCO2 50 H, pO2 61 L, HCO3 39 H, ABG O2 Sat (Measured) 91.0 L, P- 50 (Temp Corrected) N, Carboxyhemoglobin 0.9 L, O2 Concentration % 4L, Temperature 97.0, O2 Delivery Method NC, Phlebotomy Draw Site RIGHT BRACHIAL Microbiology 03/13 201 LOWER RESP: Respiratory Culture - ORD 03/13 201 LOWER RESP: Gram Stain - ORD 03/13 201 BLOOD: Blood Culture - ORD 03/13 201 BLOOD: Blood Culture - ORD 03/12 2256 URINE ROUT: Urine Culture - RECD Diagnostic Data EKG Results rate 63, Afib, T wave inversions in V4-V6 CXR Results SERVICE DATE: 03/12/17 EXAM TYPE: RAD - XRY-PORTABLE CHEST XRAY EXAMINATION: XR PORTABLE CHEST CLINICAL INFORMATION: Confusion. Hypoxia. Recent CHF. COMPARISON: Chest x-ray 03/10/2017 TECHNIQUE: Portable frontal view of the chest was obtained. 10:19 PM FINDINGS: Heart size enlarged. Pacemaker lead in right atrium and right ventricle. There is pulmonary vascular congestion with interstitial edema and bilateral pleural effusions. Congestive heart failure severity similar to chest x-ray of 03/10/2017. IMPRESSION: Congestive heart failure unchanged since chest x-ray 03/10/2017. DICTATED BY: MENA FINE MD DATE/TIME DICTATED:03/12/172233 BOILER SHOP SUPERVISOR:GLEN DATE/TIME TRANSCRIBED:03/12/172233 Other Results EXAM TYPE: CAT - CT HEAD WO IV CONTRAST EXAMINATION: CT HEAD WITHOUT CONTRAST CLINICAL INFORMATION: Confusion. Agitation. Slurred speech. Currently on warfarin. COMPARISON: Noncontrast head CT 03/04/2017. TECHNIQUE: Contiguous axial imaging was performed from the skull base to vertex without intravenous administration of contrast. DLP: 578 mGy-cm FINDINGS: Diffuse motion abnormality degrades image quality, limiting evaluation for acute intracranial abnormality. Redemonstrated is generalized parenchymal volume loss with proportional prominence of the sulci and ventricles. No acute intracranial hemorrhage, mass or mass effect or abnormal extra-axial fluid collections are identified. However, smaller intraparenchymal hematomas or extra-axial fluid collections may be missed on this examination given the aforementioned exam limitations. There are no focal areas of hypoattenuation within a vascular distribution to suggest acute ischemia. However, evaluation for acute ischemia is somewhat limited given motion abnormality. No acute calvarial abnormality is identified. Evaluation of the paranasal sinuses demonstrates moderate mucosal thickening of the left maxillary sinus. There is patchy opacification of the left anterior ethmoid air cells. The remaining imaged paranasal sinuses and mastoid air cells are well aerated. IMPRESSION: 1. Limited exam secondary to diffuse motion abnormality, which degrades image quality. No acute intracranial hemorrhage or abnormal extra-axial fluid collections. However, please note that smaller intracranial hemorrhages and extra-axial fluid collections may be missed on this examination given the aforementioned exam limitations. 2. No focal areas of hypoattenuation to suggest acute transcortical ischemia. However, please note that evaluation for ischemia is somewhat limited given motion abnormality. Consider sedation and repeat head CT. 3. Paranasal sinus disease, as described above. 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 Problem list: 1. Acute delirious state hypoxia, rule out ACS, infections, PE * CT of the head negative for acute intracranial pathology. Most likely etiology : elderly patient with multiple comorbidities, polypharmacy, undergoing several procedures requiring anesthesia/sedation, lately BETH was done (on 03/11/2017) under sedation with propofol. * serial troponin and EKG * check D-dimer, if (+) will do doppler US of LE * monitor vital sings, panculture if develops fever * 1:1 sitter * physical therapy * hold diuretics to avoid dehydration * monitor electrolytes and replete as needed 2. Acute hypoxemic respiratory failure * CXR: Congestive heart failure unchanged since chest x-ray 03/10/2017 * Avoid sedating medications * O2 supplementation as needed * TRC/Nebs 3. History of hypertension, CAD * Continue metoprolol 50 mg BID, losartan 25 mg daily, imdur 30 mg daily 4. History of DM * Accuchecks TID AC/ HS * Novolog insulin SS Hospers thick liquids and puree diet DVT prophylaxis with Eliquis Full code As Ranked By This Provider Problem List: 1. Congestive Heart Failure 2. Diabetes 3. Renal insufficiency 4. Hypertension 5. Stasis dermatitis of both legs 6. Altered mental status Qualifiers Altered mental status type: unspecified Qualified Code: R41.82 - Altered mental status, unspecified 7. S/P carpal tunnel release 8. Need for assistance due to unsteady gait Core Measures/Miscellaneous Acute Coronary Syndrome ACS Diagnosis: No Cerebrovascular Accident CVA/TIA Diagnosis: No Congestive Heart Failure CHF Diagnosis: Yes Date of most recent Echo: 03/11/17 Last Known EF %: 60 VTE (View Protocol) VTE Risk Factors: Acute medical illness, Age > 40 No [facility] VTE prophylaxis d/t: VTE low risk, No contraindications No VTE Pharm Prophylaxis d/t: VTE low risk, No contraindications VTE Diagnosis: No VTE Type: NONE VTE Confirmed by (Test): NONE Sepsis (View Protocol) Severe Sepsis Present: No Septic Shock Septic Shock Present: No Miscellaneous Documentation Attending Case Discussed With: NIGEL HASKINS MD Primary Care Physician: WAYLON NUNEZ MD Patient sees these Specialists Dr. 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 The patient was subsequently sent to [facility] ED the same day for further evaluation. The whole scenario likely represents worsening of ongoing delirium, likely secondary to unfamiliar surroundings at the short-term rehabilitation facility and and urinary retention, as the patient's stated she was unable to void after Rutledge catheter was taken out upon discharge. This current episode of worsening mentation started after the patient received propofol for his BETH done on 03/11/2017. 1. Prolonged delirium: Panculture to rule out infection. Follow proper orientation protocols, to avoid disorientation in unfamiliar environments. Regular family visits for cognition. Avoid any opiate or benzodiazepine. Avoid urinary retention or constipation. Mobilization with physical therapy. Avoid dehydration or volume depletion. Total respiratory care, avoid hypoxemia. Proper management of any pain symptoms with non-opioid medications, to prevent any opioid related delirium. CT scan reviewed, no evidence of hemorrhage or acute ischemia. Continue neurochecks every 4 hours. Continue aspirin and statin. Prolonged leg weakness, critical illness myopathy, may check CK. Maintain adequate hydration, ambulation with physical therapy. May take weeks to months to improve to baseline. 2. Acute hypoxemic respiratory failure: Hypercarbia noted, chronic. Encourage BiPAP use. TRC. Avoid sedating medications. 3. History of atrial fibrillation: EKG reviewed, rate controlled A. fib. Continue rate control with metoprolol 50 mg twice a day and Eliquis for anticoagulation. 4. History of hypertension: Continue current antihypertensive regimen. Full code. Pureed diet with nectar thick liquids. Eliquis- DVT prophylaxis. NIGEL HASKINS 03/13/17 0333: Attending MD Review Statement Attending Statement Attending MD Statement: examined this patient, discuss w/resident/PA/FREEZER WORKER, agreed w/resident/PA/FREEZER WORKER, discussed with family, reviewed EMR data (avail), reviewed images, amended to note Attending Assessment/Plan: CC: Hallucinations, agitation, low oxygen saturation PMH: HFpEF, HTN, DM, HLD, CAD S/P PCI, PVD, S/P pacemaker, paroxysmal A. fib, peripheral neuropathy Patient was recently admitted for elective left carpal tunnel release, after which patient was unable to ambulate so was admitted to medical service. Patient was found to have worsening bilateral lower extremity weakness probably secondary to deconditioning and anesthesia with underlying neuropathy, acute hypoxic and hypercapnic respiratory failure secondary to pneumonia, heart failure, delirium, hypernatremia. He was treated with broad-spectrum antibiotics and he underwent swallow evaluation and his diet was changed. He was also placed on BiPAP. 2-D echo was obtained which showed mitral stenosis with possible vegetation, so BETH was obtained which showed no vegetations. Patient mentation was waxing and waning during hospitalization. Patient was complaining of right knee pain which was evaluated with x-ray, was found to have small effusion and osteoarthritis. Patient was on Rutledge catheter which was discontinued just before discharge. Patient went to SNF and was persistently agitated, hallucinating. At one point he was hypoxic to 74% so his brought him to ER out of concern. According to patient was not doing very well after recent BETH. Patient did not urinate after going to facility, Rutledge catheter was placed again in ER. Vitals: Afebrile, pulse in 80s, RR 20, blood pressure 123/62, saturating 90% on 4 L. On exam: Patient is on sitting to some questions but speech is incoherent, hallucinating, follows instructions, oriented to . CVS: S1-S2, irregular RS: Difficult to examine because of patient's posture and noncooperative. Abdomen: Obese, soft, bowel sounds present. Chronic venous stasis changes bilateral lower extremity, right cough tender to touch, scar of knee replacement left side , right knee is not tender or erythematous , mildly elevated JVD, peripheral pulses perfusion normal Labs: WBC 12.6, neutrophils 83%, hemoglobin 11.5, platelet 244, sodium 146, potassium 4.0, chloride 98, bicarbonate 42, BUN 40, creatinine 0.9, glucose 138, calcium 9.3, LFT unremarkable, proBNP 4050, albumin 2.5. INR 2.09 UA unremarkable AB.50/50/61/[address] head: 1. Limited exam secondary to diffuse motion abnormality, which degrades image quality. No acute intracranial hemorrhage or abnormal extra-axial fluid collections. However, please note that smaller intracranial hemorrhages and extra-axial fluid collections may be missed on this examination given the aforementioned exam limitations. 2. No focal areas of hypoattenuation to suggest acute transcortical ischemia. However, please note that evaluation for ischemia is somewhat limited given motion abnormality. Consider sedation and repeat head CT. 3. Paranasal sinus disease, as described above. CXR: Congestive heart failure unchanged since chest x-ray 03/10/2017. A and P 81-year-old male with multiple comorbidities and recent prolonged hospitalization, and resolving delirium, discharged to SNF, came back in few hours for worsening hallucinations, agitation and transient hypoxia. Comparative to recent hospitalization, his labs are in similar range except mild CO2 retention and metabolic alkalosis. imaging is unchanged for infiltrates. Patient follows some instructions but actively hallucinating. This appears hospital acquired delirium, with acute worsening. He has multiple risk factors including recent surgery, multiple comorbidities, history of alcohol, recent infection, possible urinary retention, recent anesthetic use. He would benefit from observation for 24-48 hours, ruling out new infections, ruling out acute coronary syndrome, DVT, BiPAP treatment for hypoxia. + Delirium + ? Urinary retention + Rule out infections + Rule out ACS + Rule out VTE + HFpEF, HTN, DM, HLD, CAD S/P PCI, PVD, S/P pacemaker, paroxysmal A. fib, peripheral neuropathy - Place in observation on telemetry to rule out arrhythmias ACS - Blood culture, urine culture - Continue nighttime BiPAP at previous settings - Check d-dimer, DVT Doppler bilateral lower extremity deep d-dimer elevated - One-on-one sitter - Hold diuretic (patient appears dehydrated, no IV fluids at this time) - Continue diet with consistency suggested in recent swallow evaluation - Consult Dr. Han patient is known to him - Serial EKG, troponin - High dose thiamine - Avoid benzodiazepines - DVT prophylaxis with Lovenox
--- NOTE | 2017-03-13 01:00 | NUR ---
EVALUATED BY HOUSESTAFF
--- NOTE | 2017-03-13 04:30 | NUR ---
PLACED ON HOSPITAL BED PLACED ON BI-PAP BY RT
--- NOTE | 2017-03-13 05:00 | NUR ---
PATIENT TURNED AND REPOSITIONED W/ SUPPORTIVE PILLOWS PLACED UNDER LEGS AND UNDER L BUTTOCKS.
--- NOTE | 2017-03-13 06:36 | NUR ---
REPEAT BLOODWORK AND EKG IN PROGRESS.
--- NOTE | 2017-03-13 06:49 | NUR ---
IPOC INITIATED AND UTD. ALPS AND CRYSTAL FLAT GRINDER REMAIN IN PLACE.
--- NOTE | 2017-03-13 06:55 | NUR ---
BLOODWORK OBTAINED AND SENT TO LAB (AV, SST X2, BLUE, FIRST SET OF BLOOD CULTURES).
--- NOTE | 2017-03-13 07:00 | NUR ---
SECOND SET BLOOD CULTURES OBTAINED AND SENT TO LAB.
--- NOTE | 2017-03-13 07:39 | NUR ---
ASSUMED CARE OF PT WHO IS ON BIPAP AND TOLERATING WELL. PT TAKEN OFF BIPAP FOR BREAKFAST TRAY. PLACED ON 3LNC O2 SATS 94%. PT IS MOUTH BREATHING. PT DECLINED BREAKFAST. RT CALLED TO PUT PT BACK ON BIPAP
--- NOTE | 2017-03-13 07:50 | NUR ---
RT AT BEDSIDE PLACED PT BACK ON BIPAP.
[2017-03-13 08:08] LABS: ABSOLUTE BASOPHIL COUNT 0 /CUMM (0.0-0.2); ABSOLUTE EOSINOPHIL COUNT 0.4 /CUMM (0.0-0.7); ABSOLUTE GRANULOCYTE CT 8.4 /CUMM (1.4-6.5); ABSOLUTE MONOCYTE COUNT 0.7 /CUMM (0.10-0.60); BASOPHIL % 0.5 % (0.0-2.0); GRANULOCYTE % 79.9 % (42.2-75.2); HEMATOCRIT 34.5 % (42-52); MEAN CORPUSCULAR HGB 24.2 PG (27.0-31.0); MEAN CORPUSCULAR HGB CONC 31.1 G/DL (33.0-37.0); MEAN CORPUSCULAR VOLUME 77.9 FL (80.0-94.0); MEAN PLATELET VOLUME 9.5 FL (7.4-10.4); PLATELET COUNT 209 /CUMM (130-400); RED BLOOD CELL CT 4.42 /CUMM (4.70-6.10); WHITE BLOOD CELL COUNT 10.5 /CUMM (4.8-10.8)
[2017-03-13 08:12] VITALS: BP 131/60
[2017-03-13 08:23] VITALS: BP 140/80
--- NOTE | 2017-03-13 09:31 | NUR ---
PT UNABLE TO SWALLOW WATER FOR THIS RN. PT C/O MOUTH BEING DRY. ATTEMPT TO HAVE PT TAKE SIP OF WATER WITH STRAW, PT UNABLE TO SIP OUT OF CUP ALSO. MD FLORES PAGED TO MAKE AWARE
--- NOTE | 2017-03-13 10:16 | NUR ---
DR ROQUE AT BEDSIDE. AWARE THAT NO PO MEDS WERE GIVEN D/T PT UNABLE TO SWALLOW FOR THIS FRUIT OR NUT FARM WORKER
--- NOTE | 2017-03-13 11:26 | NUR ---
REPORT RECEIVED FROM MANDIE HAIR; PT CARE ASSUMED
--- NOTE | 2017-03-13 11:47 | NUR ---
PHYSICAL THERAPY: Consult received. Chart reviewed. Pt known to this P.T. department. At this time pt should be a Hiram lift OOB- if medically stable and able to tolerate. Also at this time, acute skilled PT is not indicated. Pt will req skilled PT at a subacute level post hosptial stay to address deficits and functional limitations appropriately. Thank you.
--- NOTE | 2017-03-13 11:48 | PN- Att Addend ---
Attending Addendum Attending Brief Note Patient seen and examined. Was initially admitted 02/25/2017 for elective carpal tunnel surgery. Subsequently developed delirium and hypercapnic/hypoxic respiratory failure presumed to be secondary to aspiration pneumonia. Was managed with antibiotic therapy initially. He was continued on his diuretic therapy with Bumex 2 mg twice daily. His encephalopathy continued as in to be secondary to his respiratory failure/ aspiration pneumonia. His oral intake was very poor. His diet was downgraded by the speech therapist. He was continued on his Bumex and developed persistent hyponatremia. This is poor oral intake his diuretic therapy was held, he did receive gentle hydration with eventual improvement of his sodium level. Respiratory status remained stable even off antibiotic therapy. His mental status eventually improved and diet was gently upgraded. Was able to answer simple questions and maintain simple conversation. was in agreement that mental status had improved. His Bumex was resumed at lower dose and he was discharged yesterday. Patient was brought back to the emergency room yesterday soon after discharge with complaints of confusion per nursing staff. He was reported to be hypoxic at the facility. In the emergency room he was found with altered mentation and was placed on BiPAP therapy. This morning patient is being taken on BiPAP therapy. He is maintaining saturation of 95-96% on 4 L of oxygen. He is afebrile and hemodynamically stable. Gen. exam; lethargic, confused, answers to name, answers questions inappropriately. Neurologic: Moves all extremities spontaneously and to command with no focal deficit. HEENT: Anicteric, no pallor Neck: No jugular venous distention. Heart: S1-S2 regular Lungs: Diminished air entry bilaterally but no added sounds. Abdomen: Soft, nontender with normal bowel sounds. Extremities: No pedal edema. Wrinkled skin bilaterally. Chronic venous changes. Laboratory Tests 03/13/17 0655: Troponin I 0.08 03/13/17 0655: Anion Gap 2 L, Estimated GFR > 60, BUN/Creatinine Ratio 40.0 H, D-Dimer High Sensitivty 643 H, CBC w Diff NO MAN DIFF REQ, RBC 4.42 L, MCV 77.9 L, MCH 24.2 L, RDW 19.0 H, MPV 9.5, Gran % 79.9 H, Lymphocytes % 9.1 L, Monocytes % 6.5, Eosinophils % 4.0, Basophils % 0.5, Absolute Granulocytes 8.4 H, Absolute Lymphocytes 1.0 L, Absolute Monocytes 0.7 H, Absolute Eosinophils 0.4, Absolute Basophils 0, PUBS MCHC 31.1 L 03/12/172255: Urinalysis LIGHT H, Urine Color YEL, Urine Clarity CLEAR, Urine pH 6.5, Ur Specific [place] 1.010, Urine Protein TRACE H, Urine Ketones NEG, Urine Nitrite NEG, Urine Bilirubin NEG, Urine Urobilinogen 1.0, Ur Leukocyte Esterase NEG, Ur Microscopic SEDIMENT EXAMINED, Urine RBC 5-10 H, Ur Epithelial Cells RARE, Hyaline Casts RARE H, Urine Mucus FEW, Urine Hemoglobin MOD H, Urine Glucose NEG 03/12/17 2200: Anion Gap 6, Estimated GFR > 60, BUN/Creatinine Ratio 44.4 H, Glucose 138 H, Calcium 9.3, Magnesium 1.9, Total Bilirubin 0.9, AST 57, ALT 62, Alkaline Phosphatase 87, Troponin I 0.04, [id number] Pept 4050 H, Total Protein 6.4, Albumin 2.5 L, Globulin 3.9, Albumin/Globulin Ratio 0.6 L, PT 21.8 H, INR 2.09 H, CBC w Diff NO MAN DIFF REQ, RBC 4.74, MCV 78.2 L, MCH 24.2 L, RDW 19.2 H, MPV 9.1, Gran % 83.1 H, Lymphocytes % 7.3 L, Monocytes % 5.3, Eosinophils % 4.3, Basophils % 0 L, Absolute Granulocytes 10.4 H, Absolute Lymphocytes 0.9 L, Absolute Monocytes 0.7 H, Absolute Eosinophils 0.5, Absolute Basophils 0, PUBS MCHC 30.9 L 03/12/175: pH 7.50 H, pCO2 50 H, pO2 61 L, HCO3 39 H, ABG O2 Sat (Measured) 91.0 L, P- 50 (Temp Corrected) N, Carboxyhemoglobin 0.9 L, O2 Concentration % 4L, Temperature 97.0, O2 Delivery Method NC, Phlebotomy Draw Site RIGHT BRACHIAL Microbiology 03/13 0700 BLOOD: Blood Culture - RECD 03/13 06 BLOOD: Blood Culture - RECD 03/13 201 LOWER RESP: Respiratory Culture - COLB 03/13 201 LOWER RESP: Gram Stain - COLB 03/12 2256 URINE ROUT: Urine Culture - RES Problems: 1. Acute hypoxic respiratory failure 2. Metabolic encephalopathy 3. Mild to moderate mitral stenosis. 4. Severe pulmonary hypertension. Normal ejection fraction. 5. Urinary retention status post discontinuation of Mejia catheter after prolonged hospital stay. 6. Recurrent hypernatremia 7. Coronary artery disease status post ND in the past. 8. Carotid artery disease. 9. Chronic left knee pain. Plan: -Altered mental status appears to be secondary to metabolic encephalopathy. Patient's condition improve with conservative management during the last admission. No acute pathology noted on head CT. -Keep nothing by mouth for now. Maintain aspiration precautions. Neuro watch every 4 hours. -On physical exam patient does not appear volume overloaded. His elevated sodium level and the urine would suggest volume depletion. Chest x-ray however is being read as showing CHF. It is noted that the chest x-ray is unchanged his last admission. -Recommend consulting the cardiology and nephrology service regarding managing his fluids status and electrolyte abnormalities. -Leukocytosis is resolved on last labs revealed hemoglobin level is stable. He has a microcytic anemia. Repeat stool guaiac. -We mental status improves discontinue Mejia catheter and perform straight catheterization Protocol as needed.
[2017-03-13 12:16] VITALS: BP 172/90; BP 196/79
--- NOTE | 2017-03-13 12:30 | NUR ---
UPON ENTERIG PT ROOM FOR ASSESSMENT AND MEDICATION, PT NOTED TO BE DISROBED; UNABLE TO ANSWER WHY. IV TO RAC ALSO PULLED. BLOOD GLUCOSE MEASURED 165; 1 UNIT NOVOLOG GIVEN. PT REORIENTED & RE-DRESSED. ASSISTANCE REQUESTED FOR VENOUS ACCESS.
--- NOTE | 2017-03-13 13:39 | Cons- Nephrology ---
General Information and HPI Consulting Request Date of Consult: 03/13/17 Requested By: MIKE ROQUE M.D Reason for Consult: Hypernatremia History of Present Illness: The patient is an 81-year-old gentleman with an extensive and complex past medical history as noted below and a recent 2 week hospitalization here at [place] from 12/26 through yesterday 03/12. He had been admitted for elective left carpal tunnel surgery but his course was complicated by mental status changes and severe weakness following the surgery, especially in his lower extremities, thought to be related to his general anesthesia. He is known to have a severe pre-existing peripheral neuropathy and had been walker-dependent for ambulation. His course was also marked by hypoxic/hypercarbic respiratory failure thought to be secondary to HCAP and less likely CHF although he was treated with both antibiotics and diuretics. He also developed hypernatremia with a serum sodium as high as 156 on 03/10 coming down to 146 at time of discharge following administration of IV fluids. A transthoracic echocardiogram showed normal LVEF with a possible mitral valve vegetation but this could not be confirmed on BETH. He is now readmitted with confusion and hypoxia and found to have a serum sodium of 148 as well as a chest x-ray showing CHF, thereby prompting this consultation request. BUN is elevated at 40 but essentially unchanged from the recent past, creatinine at 1.0 which appears to be his baseline. His discharge medications included bumetanide and valsartan. Of note is that his serum bicarbonate level was 45 with an arterial blood gas showing a PCO2 of 50, bicarbonate of 39 and a pH of 7.50 - consistent with a metabolic alkalosis. Past medical history is positive for hypertension, type 2 diabetes mellitus, hyperlipidemia, stage III diastolic congestive heart failure, peripheral vascular disease, coronary artery disease status post stenting to his LAD in 1997, permanent pacemaker for heart block, paroxysmal atrial fibrillation on apixaban, alcohol dependence and peripheral neuropathy. Medications: See below Allergies: Morphine, Tazobactam, piperacillin, heparin Family history: Negative for any known kidney disease Social history: Normally lives with his spouse and according to her has been relatively independent although he used a walker for ambulation Allergies/Medications Allergies: Coded Allergies: piperacillin (Mild, RASH 12/15/15) tazobactam (Mild, RASH 12/15/15) morphine (Intermediate, HALLUCINATIONS 12/15/15) heparin (SOMETHING WITH HIS PLATELETS 12/15/15) Home Med List: Albuterol Sulfate (Proair Hfa) 90 MCG HFA.AER.AD 2 PUFF PO BID BREATHING PROBLEMS (Reported) Apixaban (Eliquis) 5 MG TABLET 1 TAB PO BID BLOOD THINNER (Reported) Aspirin (Ecotrin*) 81 MG TABLET.DR 1 TAB PO DAILY HEART/BLOOD (Reported) Bumetanide 1 MG TABLET 1 MG PO BID FLUID OVERLOAD Insulin NPL/Insulin Lispro (Humalog Mix 75-25 Vial) 100 UNIT/ML (75-25) VIAL 45 UNITS SC 8AM diabetes Isosorbide Mononitrate (Isosorbide Mononitrate ER) 60 MG TAB.ER.24H 0.5 TAB PO DAILY CAD (Reported) Metoprolol Tartrate (Lopressor) 50 MG TABLET 1 TAB PO BID CAD (Reported) Potassium Chloride (Klor-Con M10) 10 MEQ TAB.ER.PRT 1 TAB PO DAILY SUPPLEMENT (Reported) Simvastatin (Zocor*) 40 MG TABLET 1 TAB PO QPM CHOLESTEROL (Reported) Valsartan (Diovan) 80 MG TABLET 1 TAB PO DAILY HTN (Reported) Vit C/E/Zn/Coppr/Lutein/Zeaxan (Preservision Areds 2 Softgel) 250-200-40 CAPSULE MACULAR DEGENERATION (Reported) Review of Systems Review of Systems: Review of Systems Constitutional: Reports: weakness. Denies: chills, fever. EENTM: Reports: no symptoms. Cardiovascular: Denies: chest pain, palpitations, peripheral edema, syncope. Respiratory: Reports: cough, sputum production (chronic). GI: Denies: abdominal pain, changes in stool. Genitourinary: Reports: hesitation (has not voided since discharge). Musculoskeletal: Reports: no symptoms. Skin: Reports: change in skin color. Neurological/Psychological: Reports: confusion, weakness. Hematologic/Endocrine: Reports: no symptoms. Past History Travel History Traveled to [place] past 21 day No Medical History Neurological: peripheral neuropathy EENT: CATARACT diabetic retinopathy Cardiovascular: AFIB (paroxysmal), CHF, hyperlipidemia, syncope, STENT, PACER AFIB ,CHOL, HTN STENTS LCW PM permanent pacemaker for heart block peripheral vascular diseaase peripheral vascular disease s/p angioplasty Respiratory: LYNDSEY Gastrointestinal: diverticulitis Hepatic: NONE Renal: benign prost hyperplasia Musculoskeletal: sciatica, L KNEE REPLACEMENT OSTEOMYELITIS osteomyelitis Psychiatric: NONE Endocrine: IDDM with diabetic neuropathy diabetic retinopathy Blood Disorders: NONE Cancer(s): NONE 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 spouse Services at Home: None Primary Language: Sammarinese Smoking Status: Unknown If Ever Smoked Functional Ability ADLs Independent: dressing, eating, toileting, bathing. Ambulation: walker Exam & Diagnostic Data Vital Signs and I&O Vital Signs Date Time Temp Pulse Resp B/P B/P Pulse O2 O2 Flow FiO2 Mean Ox Delivery Rate 03/13 1014 98.1 69 20 140/80 03/13 1014 98.1 69 20 140/80 03/13 1014 98.1 69 20 140/80 16 0855 95 16 0823 98.1 69 20 140/80 95 16 0812 98.6 62 20 131/60 95 BIPAP 40% 03/13 0719 98.6 62 20 131/60 95 BIPAP 40% 03/13 0606 63 95 16 0351 65 95 03/12 2328 97.7 85 20 174/74 89 Nasal 4.0L Cannula 03/12 2119 Nasal 3.0L Cannula 03/12 2054 96.9 87 16 123/62 90 Nasal 4.0L Cannula Intake & Output 03/13 1600 03/13 0400 03/12 1600 03/12 0400 03/11 1600 03/11 0400 Intake Total Output Total 600 Balance -600 Output, Urine 600 Patient 275 lb 275 lb Weight Weight Estimated Measurement Method Physical Exam: General: Elderly white male, awake, nonverbal and not responding to my questions or commands, mouth breathing, in NAD Skin: No rash or jaundice, turgor poor HEENT: Conjunctivae pink, sclerae anicteric, mucous membranes dry Neck: Without masses or thyromegaly, no supraclavicular or cervical adenopathy Chest: Clear anterolaterally Heart: Regular rate and rhythm without S3 or rub Abdomen: Obeses, soft and nontender without palpable masses or organomegaly Extremities: Without edema albeit with chronic stasis changes in both pretibial regions Neuro: No focal findings, no asterixis or myoclonus; mental status as noted above Assessment/Plan Assessment/Recommendations Assessment: 81-year-old gentleman with a multitude of comorbidities as described above including recent pulmonary and neurologic issues following elective carpal tunnel surgery, thought to be on the basis of general anesthesia effect and pneumonia/?CHF for which he was treated with antibiotics and diuretics. He became hypernatremic which was improving following IV fluids and by the time he was discharged his sodium was down from 156->146. He now comes back from short- term rehabilitation on the same day he was discharged with altered mental status , hypoxia, an abnormal chest x-ray suggesting CHF and worsening hypernatremia again. Electrolytes and arterial blood gases indicate a metabolic alkalosis which is likely on the basis of diuretic-induced ECF volume contraction. I am not convinced he is in CHF although I share your concern regarding his chest x- ray appearance and high pro- BNP. Nevertheless, he clearly needs more free water. Recommendations: 1. Mejia catheter 2. IV D5W at 75 mL per hour 3. Hold diuretics for the moment. Should he become hypoxic again, then reinstitution of diuretic therapy and perhaps intubation all need to be strongly considered. Would ask Pulmonary and Cardiology to become involved again. Thank you. We will follow along with you.
--- NOTE | 2017-03-13 14:24 | NUR ---
PT TURNED AND REPOSITIONED. AT BEDSIDE AT THIS TIME. LABS SENT AND NEW IV PLACED INTO LEFT WRIST.
[2017-03-13 14:31] LABS: ABSOLUTE BASOPHIL COUNT 0.1 /CUMM (0.0-0.2); ABSOLUTE EOSINOPHIL COUNT 0.5 /CUMM (0.0-0.7); ABSOLUTE GRANULOCYTE CT 9.7 /CUMM (1.4-6.5); ABSOLUTE LYMPH COUNT 0.9 /CUMM (1.2-3.4); ABSOLUTE MONOCYTE COUNT 0.6 /CUMM (0.10-0.60); BASOPHIL % 0.7 % (0.0-2.0); EOSINOPHIL % 4.3 % (0-5); GRANULOCYTE % 81.8 % (42.2-75.2); HEMATOCRIT 37.3 % (42-52); MEAN CORPUSCULAR HGB 24.2 PG (27.0-31.0); MEAN CORPUSCULAR HGB CONC 31.1 G/DL (33.0-37.0); MEAN CORPUSCULAR VOLUME 77.7 FL (80.0-94.0); MEAN PLATELET VOLUME 10.4 FL (7.4-10.4); PLATELET COUNT 214 /CUMM (130-400); WHITE BLOOD CELL COUNT 11.9 /CUMM (4.8-10.8)
--- NOTE | 2017-03-13 14:39 | NUR ---
PT HAS BED ASSIGNMENT 172-1. RN NOTIFIED.
--- NOTE | 2017-03-13 15:20 | PN- Pulmonary ---
Subjective HPI/Critical Care Issues: Patient was sent back to the emergency room because of altered mental status shortness of breath. Chest x-ray shows increased bilateral effusions arterial blood gases show combined respiratory acidosis and metabolic alkalosis Objective Current Medications: Current Medications Sig/Roge Start time Last Medication Dose Route Stop Time Status Admin Acetaminophen 650 MG Q6P PRN 03/13 0200 AC PO Acetaminophen 1,000 MG Q6P PRN 03/13 0200 AC IV Albuterol Sulfate 2 PUF Q4-6 PRN PRN 03/13 0204 AC INH Apixaban 5 MG BID 03/13 1000 AC PO Aspirin Buffered 81 MG DAILY 03/13 1000 AC PO Atorvastatin Calcium 20 MG 1700 03/13 1700 AC PO Dextrose/Water 1,000 ML Q13H 03/13 1430 AC IV Insulin Aspart 0 TIDAC 03/13 0800 AC 03/13 SC 1230 Isosorbide 30 MG DAILY 03/13 1000 AC Mononitrate PO Losartan Potassium 25 MG DAILY 03/13 1000 AC PO Metoprolol Tartrate 50 MG BID 03/13 1000 AC PO Potassium Chloride 20 MEQ DAILY 03/13 1000 AC PO Thiamine HCl 500 MG TID 03/13 1600 AC Dextrose/Water 100 ML IV 03/15 2302 Thiamine HCl 100 MG TID 03/13 1000 DC Sodium Chloride 100 ML IV 03/15 2215 Thiamine HCl 500 MG TID 03/13 1000 DC 03/13 Sodium Chloride 250 ML IV 03/15 2224 1019 Vital Signs & I&O Last 24 Hrs of Vitals and I&O: Vital Signs Date Time Temp Pulse Resp B/P B/P Pulse O2 O2 Flow FiO2 Mean Ox Delivery Rate 03/13 1513 74 18 162/72 95 Nasal 3.0L Cannula 03/13 1216 96.9 66 14 196/79 Room Air 03/13 1014 98.1 69 20 140/80 03/13 1014 98.1 69 20 140/80 03/13 1014 98.1 69 20 140/80 03/13 0855 95 03/13 0823 98.1 69 20 140/80 95 03/13 0812 98.6 62 20 131/60 95 BIPAP 40% 03/13 0719 98.6 62 20 131/60 95 BIPAP 40% 03/13 0606 63 95 03/13 0351 65 95 03/12 2328 97.7 85 20 174/74 89 Nasal 4.0L Cannula 03/12 2119 Nasal 3.0L Cannula 03/12 2054 96.9 87 16 123/62 90 Nasal 4.0L Cannula Intake & Output 03/13 1600 03/13 0800 03/13 0000 Intake Total Output Total 600 Balance -600 Output, Urine 600 Patient 275 lb 275 lb Weight Weight Estimated Measurement Method Oxygen saturation on 3 L 95% exam his chest shows diminished breath sounds at the bases there is dullness cardiac exam shows normal S1 and S2 without murmurs abdomen is soft nontender there's no edema Impression/Plan Impression/Plan Impression/Plan: 81-year-old with recent hospitalization for hypercarbic respiratory failure has returned from short-term rehabilitation because of reported altered mental status. Patient is presently awake alert and conversant with his . Chest x -ray suggests increasing bilateral pleural effusions right greater than left. Arterial blood gases electrolytes document evidence of a compensated respiratory acidosis and metabolic alkalosis. I discussed the direction of care and his has agreed to DNR/DNI Recommendations: Consider therapeutic and diagnostic right thoracentesis. If his decides against that I discussed pursuing comfort care which she will consider. Increase free water to correct hypernatremia and give Diamox 250 mg IV 1 dose. Can continue with when necessary BiPAP especially during sleep at night
--- NOTE | 2017-03-13 15:29 | NUR ---
HAVE SPOKEN W/ ADMITTING MD Blackburn'S 2 R/E TELE BED ASSIGNMENT. STATES PATIENT DOES NOT NEED TELE ADMIT BUT WILL BE CHANGING ORDERS TO GENERAL ADMIT.
--- NOTE | 2017-03-13 15:53 | NUR ---
PATIENT IS TURNED AND REPOSITIONED.
--- NOTE | 2017-03-13 16:29 | Cons- Neurology ---
General Information and HPI Consulting Request Date of Consult: 03/13/17 Requested By: MIKE ROQUE M.D Reason for Consult: Worsening mental status Source of Information: family, old records Exam Limitations: unable to give history History of Present Illness: 81-year-old man with reported normal mental and neurologic status until about February 25 when he underwent carpal tunnel release surgery. Rapidly after this he became progressively lethargic and obtunded and was admitted for evaluation. The pattern was set of a toxic or metabolic encephalopathy, he was treated and improved progressively. Although still not ambulatory was discharged to an ECF yesterday. According to his agitated and again less responsive while there and was sent back for further hospital evaluation. The patient himself gives very limited information, he seems unwilling to speak but finally denied having headache or chest pain. He did report some pain in the low back. Allergies/Medications Allergies: Coded Allergies: piperacillin (Mild, RASH 12/15/15) tazobactam (Mild, RASH 12/15/15) morphine (Intermediate, HALLUCINATIONS 12/15/15) heparin (SOMETHING WITH HIS PLATELETS 12/15/15) Home Med List: Albuterol Sulfate (Proair Hfa) 90 MCG HFA.AER.AD 2 PUFF PO BID BREATHING PROBLEMS (Reported) Apixaban (Eliquis) 5 MG TABLET 1 TAB PO BID BLOOD THINNER (Reported) Aspirin (Ecotrin*) 81 MG TABLET.DR 1 TAB PO DAILY HEART/BLOOD (Reported) Bumetanide 1 MG TABLET 1 MG PO BID FLUID OVERLOAD Insulin NPL/Insulin Lispro (Humalog Mix 75-25 Vial) 100 UNIT/ML (75-25) VIAL 45 UNITS SC 8AM diabetes Isosorbide Mononitrate (Isosorbide Mononitrate ER) 60 MG TAB.ER.24H 0.5 TAB PO DAILY CAD (Reported) Metoprolol Tartrate (Lopressor) 50 MG TABLET 1 TAB PO BID CAD (Reported) Potassium Chloride (Klor-Con M10) 10 MEQ TAB.ER.PRT 1 TAB PO DAILY SUPPLEMENT (Reported) Simvastatin (Zocor*) 40 MG TABLET 1 TAB PO QPM CHOLESTEROL (Reported) Valsartan (Diovan) 80 MG TABLET 1 TAB PO DAILY HTN (Reported) Vit C/E/Zn/Coppr/Lutein/Zeaxan (Preservision Areds 2 Softgel) 250-200-40 CAPSULE MACULAR DEGENERATION (Reported) Current Medications: Current Medications Sig/Roge Start time Last Medication Dose Route Stop Time Status Admin Acetaminophen 650 MG Q6P PRN 03/13 0200 AC PO Acetaminophen 1,000 MG Q6P PRN 03/13 0200 AC IV Acetazolamide 250 MG ONCE ONE 03/13 1700 AC Sodium Chloride 50 ML IV 03/13 1729 Albuterol Sulfate 2 PUF Q4-6 PRN PRN 03/13 0204 AC INH Apixaban 5 MG BID 03/13 1000 AC PO Aspirin Buffered 81 MG DAILY 03/13 1000 AC PO Atorvastatin Calcium 20 MG 1700 03/13 1700 AC PO Dextrose/Water 1,000 ML Q13H 03/13 1430 AC 03/13 IV 1507 Insulin Aspart 0 TIDAC 03/13 0800 AC 03/13 SC 1230 Isosorbide 30 MG DAILY 03/13 1000 AC Mononitrate PO Losartan Potassium 25 MG DAILY 03/13 1000 AC PO Metoprolol Tartrate 50 MG BID 03/13 1000 AC PO Potassium Chloride 20 MEQ DAILY 03/13 1000 AC PO Thiamine HCl 500 MG TID 03/13 1600 AC 03/13 Dextrose/Water 100 ML IV 03/15 2302 1539 Thiamine HCl 100 MG TID 03/13 1000 DC Sodium Chloride 100 ML IV 03/15 2215 Thiamine HCl 500 MG TID 03/13 1000 DC 03/13 Sodium Chloride 250 ML IV 03/15 2224 1019 Review of Systems Review of Systems: Review of systems very limited by the patient's level of consciousness. He denied headache, chest pain or subjective shortness of breath. He denied any feeling of weakness or heaviness in either arm or leg. Past History Travel History Traveled to [place] past 21 day No Medical History Neurological: peripheral neuropathy EENT: CATARACT diabetic retinopathy Cardiovascular: AFIB (paroxysmal), CHF, hyperlipidemia, syncope, STENT, PACER AFIB ,CHOL, HTN STENTS LCW PM permanent pacemaker for heart block peripheral vascular diseaase peripheral vascular disease s/p angioplasty Respiratory: LYNDSEY Gastrointestinal: diverticulitis Hepatic: NONE Renal: benign prost hyperplasia Musculoskeletal: sciatica, L KNEE REPLACEMENT OSTEOMYELITIS osteomyelitis Psychiatric: NONE Endocrine: IDDM with diabetic neuropathy diabetic retinopathy Blood Disorders: NONE 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 spouse Services at Home: None Primary Language: Azeri Smoking Status: Unknown If Ever Smoked Functional Ability ADLs Independent: dressing, eating, toileting, bathing. Ambulation: walker Exam & Diagnostic Data Vital Signs and I&O Vital Signs Date Time Temp Pulse Resp B/P B/P Pulse O2 O2 Flow FiO2 Mean Ox Delivery Rate 03/13 1513 74 18 162/72 95 Nasal 3.0L Cannula 03/13 1216 96.9 66 14 196/79 Room Air 03/13 1014 98.1 69 20 140/80 03/13 1014 98.1 69 20 140/80 03/13 1014 98.1 69 20 140/80 03/13 0855 95 03/13 0823 98.1 69 20 140/80 95 03/13 0812 98.6 62 20 131/60 95 BIPAP 40% 03/13 0719 98.6 62 20 131/60 95 BIPAP 40% 03/13 0606 63 95 03/13 0351 65 95 03/12 2328 97.7 85 20 174/74 89 Nasal 4.0L Cannula 03/12 2119 Nasal 3.0L Cannula 03/12 2054 96.9 87 16 123/62 90 Nasal 4.0L Cannula Intake & Output 03/13 1600 03/13 0800 03/13 0000 Intake Total Output Total 600 Balance -600 Output, Urine 600 Patient 275 lb 275 lb Weight Weight Estimated Measurement Method Physical Exam: Lying motionless in bed, overweight, mouth open, very shallow and slow respirations about 12/m while being observed. The left wrist is bandaged, there are discolored atrophic skin changes in both calves with small amount of brawny edema but no pitting. Oral mucosa very dry and tongue crusted Occasional myoclonic jerks noted, symmetric Neurologically he would arouse slightly to loud voice and light shaking long enough to answer a question or follow one simple command but would drift rapidly back to sleep. Able to give his name but did not respond when questioned on date or location. Would not keep eyes open had to passively elevate eyelids to examine pupils which were quite small but symmetric and equivocally reactive. She will flynn intact to finger count and eye movements seemed conjugate and full. No evident facial asymmetry. Stung tongue was very weak. Would not elevate shoulders on command. He did car seat maker with both hands, slightly less on the left but there was no drift of the outstretched arms. Tone was normal and symmetric. He moved both legs equally. Tendon reflexes present at the biceps but absent elsewhere, plantar responses silent. He said he perceived touch equally over both the left and right arms remaining elements of the complete ROS could not be completed due to his mental state Last 48 Hours of Lab Results: Laboratory Tests 03/13 03/13 03/13 1415 1200 0655 Chemistry Sodium (137 - 145 mmol/L) 149 H Potassium (3.5 - 5.1 mmol/L) 4.0 Chloride (98 - 107 mmol/L) 101 Carbon Dioxide (22 - 30 mmol/L) 41 H Anion Gap (5 - 16) 7 BUN (9 - 20 mg/dL) 38 H Creatinine (0.7 - 1.2 mg/dL) 1.0 Estimated GFR (>60 ml/min) > 60 BUN/Creatinine Ratio (7 - 25 %) 38.0 H Troponin I (<0.11 ng/ml) 0.07 Cancelled 0.08 Hematology CBC w Diff NO MAN DIFF REQ WBC (4.8 - 10.8 /CUMM) 11.9 H RBC (4.70 - 6.10 /CUMM) 4.80 Hgb (14.0 - 18.0 G/DL) 11.6 L Hct (42 - 52 %) 37.3 L MCV (80.0 - 94.0 FL) 77.7 L MCH (27.0 - 31.0 PG) 24.2 L RDW (11.5 - 14.5 %) 19.0 H Plt Count (130 - 400 /CUMM) 214 MPV (7.4 - 10.4 FL) 10.4 Gran % (42.2 - 75.2 %) 81.8 H Lymphocytes % (20.5 - 51.1 %) 7.7 L Monocytes % (1.7 - 9.3 %) 5.5 Eosinophils % (0 - 5 %) 4.3 Basophils % (0.0 - 2.0 %) 0.7 Absolute Granulocytes (1.4 - 6.5 /CUMM) 9.7 H Absolute Lymphocytes (1.2 - 3.4 /CUMM) 0.9 L Absolute Monocytes (0.10 - 0.60 /CUMM) 0.6 Absolute Eosinophils (0.0 - 0.7 /CUMM) 0.5 Absolute Basophils (0.0 - 0.2 /CUMM) 0.1 PUBS MCHC (33.0 - 37.0 G/DL) 31.1 L 03/13 03/12 0655 2256 Chemistry Sodium (137 - 145 mmol/L) 148 H Potassium (3.5 - 5.1 mmol/L) 3.8 Chloride (98 - 107 mmol/L) 101 Carbon Dioxide (22 - 30 mmol/L) 45 H Anion Gap (5 - 16) 2 L BUN (9 - 20 mg/dL) 40 H Creatinine (0.7 - 1.2 mg/dL) 1.0 Estimated GFR (>60 ml/min) > 60 BUN/Creatinine Ratio (7 - 25 %) 40.0 H Coagulation D-Dimer High Sensitivty (0 - 243 ng/ml) 643 H Hematology CBC w Diff NO MAN DIFF REQ WBC (4.8 - 10.8 /CUMM) 10.5 RBC (4.70 - 6.10 /CUMM) 4.42 L Hgb (14.0 - 18.0 G/DL) 10.7 L Hct (42 - 52 %) 34.5 L MCV (80.0 - 94.0 FL) 77.9 L MCH (27.0 - 31.0 PG) 24.2 L RDW (11.5 - 14.5 %) 19.0 H Plt Count (130 - 400 /CUMM) 209 MPV (7.4 - 10.4 FL) 9.5 Gran % (42.2 - 75.2 %) 79.9 H Lymphocytes % (20.5 - 51.1 %) 9.1 L Monocytes % (1.7 - 9.3 %) 6.5 Eosinophils % (0 - 5 %) 4.0 Basophils % (0.0 - 2.0 %) 0.5 Absolute Granulocytes (1.4 - 6.5 /CUMM) 8.4 H Absolute Lymphocytes (1.2 - 3.4 /CUMM) 1.0 L Absolute Monocytes (0.10 - 0.60 /CUMM) 0.7 H Absolute Eosinophils (0.0 - 0.7 /CUMM) 0.4 Absolute Basophils (0.0 - 0.2 /CUMM) 0 PUBS MCHC (33.0 - 37.0 G/DL) 31.1 L Urines Urinalysis LIGHT H Urine Color (YEL,AMB,STR) YEL Urine Clarity (CLEAR) CLEAR Urine pH (5.0 - 8.0) 6.5 Ur Specific [place] (1.001 - 1.035) 1.010 Urine Protein (NEG,<30 MG/DL) TRACE H Urine Ketones (NEG) NEG Urine Nitrite (NEG) NEG Urine Bilirubin (NEG) NEG Urine Urobilinogen (0.1 - 1.0 EU/dl) 1.0 Ur Leukocyte Esterase (NEG) NEG Ur Microscopic SEDIMENT EXAMINED Urine RBC (0 - 5 /HPF) 5-10 H Ur Epithelial Cells (NONE,FEW) RARE Hyaline Casts (0/LPF) RARE H Urine Mucus (FEW,NONE) FEW Urine Hemoglobin (NEG) MOD H Urine Glucose (N MG/DL) NEG 03/12 03/12 2200 2125 Blood Gas pH (7.35 - 7.45 PH) 7.50 H pCO2 (35 - 45 TORR) 50 H pO2 (80 - 100 TORR) 61 L HCO3 (21 - 28 MEQ/L) 39 H ABG O2 Sat (Measured) (>96.0 %) 91.0 L P-50 (Temp Corrected) N Carboxyhemoglobin (1.5 - 5.0 %) 0.9 L O2 Concentration % 4L Temperature (97.0 - 100.0 FARH) 97.0 O2 Delivery Method NC Chemistry Sodium (137 - 145 mmol/L) 146 H Potassium (3.5 - 5.1 mmol/L) 4.0 Chloride (98 - 107 mmol/L) 98 Carbon Dioxide (22 - 30 mmol/L) 42 H Anion Gap (5 - 16) 6 BUN (9 - 20 mg/dL) 40 H Creatinine (0.7 - 1.2 mg/dL) 0.9 Estimated GFR (>60 ml/min) > 60 BUN/Creatinine Ratio (7 - 25 %) 44.4 H Glucose (65 - 99 mg/dL) 138 H Calcium (8.4 - 10.2 mg/dL) 9.3 Magnesium (1.6 - 2.3 mg/dL) 1.9 Total Bilirubin (0.2 - 1.3 mg/dL) 0.9 AST (17 - 59 U/L) 57 ALT (21 - 72 U/L) 62 Alkaline Phosphatase (< 127 U/L) 87 Troponin I (<0.11 ng/ml) 0.04 [id number]-[id number]-Llzfsrwmiff Pept (<125 pg/mL) 4050 H Total Protein (6.3 - 8.2 g/dL) 6.4 Albumin (3.5 - 5.0 g/dL) 2.5 L Globulin (1.9 - 4.2 gm/dL) 3.9 Albumin/Globulin Ratio (1.1 - 2.2 %) 0.6 L Coagulation PT (9.4 - 12.5 SEC) 21.8 H INR (0.90 - 1.17) 2.09 H Hematology CBC w Diff NO MAN DIFF REQ WBC (4.8 - 10.8 /CUMM) 12.6 H RBC (4.70 - 6.10 /CUMM) 4.74 Hgb (14.0 - 18.0 G/DL) 11.5 L Hct (42 - 52 %) 37.1 L MCV (80.0 - 94.0 FL) 78.2 L MCH (27.0 - 31.0 PG) 24.2 L RDW (11.5 - 14.5 %) 19.2 H Plt Count (130 - 400 /CUMM) 244 MPV (7.4 - 10.4 FL) 9.1 Gran % (42.2 - 75.2 %) 83.1 H Lymphocytes % (20.5 - 51.1 %) 7.3 L Monocytes % (1.7 - 9.3 %) 5.3 Eosinophils % (0 - 5 %) 4.3 Basophils % (0.0 - 2.0 %) 0 L Absolute Granulocytes (1.4 - 6.5 /CUMM) 10.4 H Absolute Lymphocytes (1.2 - 3.4 /CUMM) 0.9 L Absolute Monocytes (0.10 - 0.60 /CUMM) 0.7 H Absolute Eosinophils (0.0 - 0.7 /CUMM) 0.5 Absolute Basophils (0.0 - 0.2 /CUMM) 0 PUBS MCHC (33.0 - 37.0 G/DL) 30.9 L Miscellaneous Phlebotomy Draw Site RIGHT BRACHIAL Imaging/Other Studies: CT head: 1. Limited exam secondary to diffuse motion abnormality, which degrades image quality. No acute intracranial hemorrhage or abnormal extra-axial fluid collections. However, please note that smaller intracranial hemorrhages and extra-axial fluid collections may be missed on this examination given the aforementioned exam limitations. 2. No focal areas of hypoattenuation to suggest acute transcortical ischemia. However, please note that evaluation for ischemia is somewhat limited given motion abnormality. Consider sedation and repeat head CT. Assessment/Plan Assessment: Altered mental status with reduced level of consciousness but no significant focal findings consistent with a diffuse toxic or metabolic encephalopathy. It appears this was the working diagnosis during his previous admission. Potential contributors are the hyponatremia, dehydration, hypoxemia and hypercarbia. CT of brain was of poor quality but cannot have MRI due to pacemaker Recommendations: Correct metabolic errors Pulmonary consultation is underway Would repeat noncontrast head CT scan to better for multiple small infarcts, etc., missed on the poor quality CT done today If mental status change persists would obtain EEG in the pattern of toxic/ metabolic encephalopathy and also to rule out nonconvulsive seizures Consult Acknowledgment - Thank you for your consult request.
--- NOTE | 2017-03-13 18:42 | NUR ---
PATIENT RESTING QUIETLY. IVF INFUSING. IV SITE IS [facility].
--- NOTE | 2017-03-13 18:55 | NUR ---
PATIENT IS TURNED TO HIS LEFT SIDE.
--- NOTE | 2017-03-13 19:09 | NUR ---
SPOKE W/ SATHISH R/E REPEAT CT OF HEAD. STATES HE WILL D/C ORDER AND PASS ON TO THE DAY SHIFT TO DO POSSIBLE REPEAT WHEN PATIENT IS LESS COMBATIVE.
--- NOTE | 2017-03-13 20:10 | NUR ---
CALLS AND IS UPDATED ON PATIENT STATUS.
--- NOTE | 2017-03-13 20:11 | NUR ---
BED 228
--- NOTE | 2017-03-13 22:51 | Cons- Cardiology ---
See Addendum General Information and HPI Consulting Request Date of Consult: 03/13/17 Requested By: MIKE ROQUE M.D History of Present Illness: Brad is 81 year old male with a history of diabetes mellitus, dyslipidemia, PVD, carotid artery disease and coronary artery disease s/p non-ST elevation AZ. He also has a history of PAF. The patient is s/p angioplasty to his LAD performed in 1997. Lastly this patient is status post a permanent pacemaker for heart block. Brad was admitted to [facility] for a carpal tunnel release procedure a couple weeks ago that went well. Post operatively the patient was very weak and was not able to stand or walk well. This progressed to the patient being profoundly lethargic with minimal responsiveness. He improved a bit and was discharged only to come back yesterday with respiratory distress and mental status changes. His ABG is consistent with hypercapneic respiratory failure. At baseline, prior to carpal tunnel surgery this patient did feel shortness of breath with minimal exertion and needed to sleep in a reclining chair. He could walk about twently feet before becoming winded. He also had lower extremity edema that at times is severe but did improve with Bumex. His echocardiogram is suggestive of mitral stenosis with the severity diffult to determine quantitatively. This patient underwent a vascular procedure on his legs by Dr. Martinez a couple months ago with some borderline positive results. The patient's last echocardiogram showed a low normal EF of 50% with distal septal and apical akinesis and mild to moderate left ventricular hypertrophy with a restrictive filling pattern. There was mild right ventricular enlargement with moderate left atrial enlargment. Trace MR, AI, PI and mild TR is noted along with moderate pulmonary hypertension. To review of the patient's prior history, Brad has a history of atrial fibrillation, s/p cardioversion. Workup has included Holter monitor performed in 09/2007 which showed NSR with occasional PACs and PVCs with no recurrence of atrial fibrillation. In 1997, the patient underwent angioplasty of his LAD, as mentioned above. It should be noted that Brad underwent a left knee replacement complicated by what sounded like a non-ST elevation myocardial infarction. This occurred at [facility]. 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 In August of 2009, the patient was admitted with shortness of breath and a cough. He did rule in for another non-ST elevation AZ. It was, at that time, he was discovered to have osteomyelitis with gram positive cocci in both blood and bone samples. In consideration of the above, I performed a repeat cardiac catheterization which showed a diffusely calcified left main with a 50% distal stenosis. The LAD harbored a 50% proximal stenosis followed by a 50% mid- stenosis. Luminal irregularities were noted in the previously placed stent. Left circumflex, however, had a 50% proximal stenosis of the obtuse marginal 3 branch. The right coronary artery is dominant and parents a diffusely diseased PDA., with perhaps, a focal 80% mid-stenosis. I felt the patient had questionable left main disease with non-obstructive coronary artery disease in the left LAD and circumflex. The PDA did have a significant stenosis; however, this disease was very distal and diffusely diseased narrow vessel. Therefore, medical therapy was pursued. The PDA had an 80% mid-stenosis and less than 2 mm in this location and I do not think it would get good angioplasty results. Allergies/Medications Allergies: Coded Allergies: piperacillin (Mild, RASH 12/15/15) tazobactam (Mild, RASH 12/15/15) morphine (Intermediate, HALLUCINATIONS 12/15/15) heparin (SOMETHING WITH HIS PLATELETS 12/15/15) Home Med List: Albuterol Sulfate (Proair Hfa) 90 MCG HFA.AER.AD 2 PUFF PO BID BREATHING PROBLEMS (Reported) Apixaban (Eliquis) 5 MG TABLET 1 TAB PO BID BLOOD THINNER (Reported) Aspirin (Ecotrin*) 81 MG TABLET.DR 1 TAB PO DAILY HEART/BLOOD (Reported) Bumetanide 1 MG TABLET 1 MG PO BID FLUID OVERLOAD Insulin NPL/Insulin Lispro (Humalog Mix 75-25 Vial) 100 UNIT/ML (75-25) VIAL 45 UNITS SC 8AM diabetes Isosorbide Mononitrate (Isosorbide Mononitrate ER) 60 MG TAB.ER.24H 0.5 TAB PO DAILY CAD (Reported) Metoprolol Tartrate (Lopressor) 50 MG TABLET 1 TAB PO BID CAD (Reported) Potassium Chloride (Klor-Con M10) 10 MEQ TAB.ER.PRT 1 TAB PO DAILY SUPPLEMENT (Reported) Simvastatin (Zocor*) 40 MG TABLET 1 TAB PO QPM CHOLESTEROL (Reported) Valsartan (Diovan) 80 MG TABLET 1 TAB PO DAILY HTN (Reported) Vit C/E/Zn/Coppr/Lutein/Zeaxan (Preservision Areds 2 Softgel) 250-200-40 CAPSULE MACULAR DEGENERATION (Reported) Review of Systems Review of Systems: A review of systems is unobtainable. Past History Travel History Traveled to [place] past 21 day No Medical History Neurological: peripheral neuropathy EENT: CATARACT diabetic retinopathy Cardiovascular: AFIB (paroxysmal), CHF, hyperlipidemia, syncope, STENT, PACER AFIB ,CHOL, HTN STENTS LCW PM permanent pacemaker for heart block peripheral vascular diseaase peripheral vascular disease s/p angioplasty Respiratory: LYNDSEY Gastrointestinal: diverticulitis Hepatic: NONE Renal: benign prost hyperplasia Musculoskeletal: sciatica, L KNEE REPLACEMENT OSTEOMYELITIS osteomyelitis Psychiatric: NONE Endocrine: IDDM with diabetic neuropathy diabetic retinopathy Blood Disorders: NONE 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 spouse Services at Home: None Primary Language: Albanian Smoking Status: Unknown If Ever Smoked Functional Ability ADLs Independent: dressing, eating, toileting, bathing. Ambulation: walker Exam & Diagnostic Data Vital Signs and I&O Vital Signs Date Time Temp Pulse Resp B/P B/P Pulse O2 O2 Flow FiO2 Mean Ox Delivery Rate 03/13 2030 98.1 68 16 132/64 93 Nasal 2.0L Cannula 03/13 1735 98.2 80 17 158/68 94 Nasal 2.0L Cannula 03/13 1600 Nasal 2.0L Cannula 03/13 1513 74 18 162/72 95 Nasal 3.0L Cannula 03/13 1216 96.9 66 14 196/79 Room Air 03/13 1014 98.1 69 20 140/80 03/13 1014 98.1 69 20 140/80 03/13 1014 98.1 69 20 140/80 03/13 0855 95 03/13 0823 98.1 69 20 140/80 95 03/13 0812 98.6 62 20 131/60 95 BIPAP 40% 03/13 0719 98.6 62 20 131/60 95 BIPAP 40% 03/13 0606 63 95 03/13 0351 65 95 03/12 2328 97.7 85 20 174/74 89 Nasal 4.0L Cannula Intake & Output 03/13 1600 03/13 0800 03/13 0000 03/12 1600 03/12 0800 03/12 0000 Intake Total Output Total 600 Balance -600 Output, Urine 600 Patient 275 lb 275 lb Weight Weight Estimated Measurement Method Physical Exam: General: WD/ obese male in NAD; not responsive to verbal stimuli Neck: no JVD, bilateral carotid bruit R>L Heart: regular rate and rhythm with 2/6 sytolic murmur at the RUSB and 2/6 sytolic murmur at the LUSB and apex Lungs: clear bilaterally Abdomen: soft, NT, +ve bowel sounds Extremities: No leg edema with venous stasis changes bilaterally Assessment/Plan Assessment/Plan * This patient appears to have an encephalopathy. I do not think he has decompensated congestive heart failure at this time and his increased sodium is consistent with him being dry. Hold Bumex for now and restart at 1mg BID when sodium improves to normal. * This patient has at least mild mitral stenosis but it may be worse although this is difficult to quantitate on his latest EBTH. At some point a right heart catheterization may be pursued to determine if his MS if severe enough to warrant valve replacement. * Consider other reasons for mental status changes including thiamine deficiency /Wernicke's encephalopathy, meningitis, post ictal state, NPH and hyper or hypoadrenocorticism. This patient has an MRI safe pacemaker and an MRI may be of value. Consult Acknowledgment - Thank you for your consult request.
[2017-03-13 22:56] VITALS: BP 170/60
--- NOTE | 2017-03-13 23:00 | NUR ---
RECEIVED PT FROM ER AROUND 2200. A/VERBAL. CONFUSED AT TIMES. ON 3L O2 VIA NC. PT'S SPO2 AT 83%. O2 BUMPED TO 5L NC. SPO2 89%. RT CALLED AND UPDATED WHO CAME TO ASSESS THE PT AND STARTED BIPAP. SAFETY MONITOR IN PLACE BECAUSE PT TAKES HIS MASK OFF AND BREAK IT. HEALING SCABS TO L OUTER KNEE. HEALED SURGICAL SITES TO L FOOT. BOTTOM DISCOLORED W/?DTI. SIZEWISE ORDERED. SOTO PATENT DRAINING CYU. NIH SCALE HARD TO USE ON PATIENT BECAUSE PT DOESN'T ELEVATE HIS LEGS. PT HAS SWALLOW EVAL TODAY. DENIES PAIN. WILL MONITOR.
[2017-03-14 07:22] VITALS: BP 140/66
--- NOTE | 2017-03-14 07:57 | PN- Housestaff ---
Subjective Follow-up For: Delirium Review of Systems Constitutional: Reports: see HPI. Objective Last 24 Hrs of Vital Signs/I&O Vital Signs Date Time Temp Pulse Resp B/P B/P Pulse O2 O2 Flow FiO2 Mean Ox Delivery Rate 03/14 0722 98.1 66 22 140/66 98 Nasal 4.0L Cannula 03/14 0322 69 96 03/14 0054 69 96 03/14 0002 87 170/60 03/14 0000 95 BIPAP 03/13 2256 98.3 87 20 170/60 95 Nasal Cannula 03/13 2243 84 96 03/13 2030 98.1 68 16 132/64 93 Nasal 2.0L Cannula 03/13 1735 98.2 80 17 158/68 94 Nasal 2.0L Cannula 03/13 1600 Nasal 2.0L Cannula 03/13 1513 74 18 162/72 95 Nasal 3.0L Cannula 03/13 1216 96.9 66 14 196/79 Room Air 03/13 1014 98.1 69 20 140/80 03/13 1014 98.1 69 20 140/80 03/13 1014 98.1 69 20 140/80 Intake & Output 03/14 1600 03/14 0800 03/14 0000 Intake Total 600 Output Total 725 300 Balance -125 -300 Intake, IV 600 Output, Urine 725 300 Physical Exam General Appearance: Alert, Mild Distress Cardiovascular: Normal S1, Normal S2 Lungs: Clear to Auscultation, Limited Exam Abdomen: Normal Bowel Sounds, Soft, No Tenderness Extremities: No Edema Vascular: Normal Pulses Current Medications: Current Medications Sig/Roge Start time Last Medication Dose Route Stop Time Status Admin Acetaminophen 650 MG Q6P PRN 03/13 0200 AC PO Acetaminophen 1,000 MG Q6P PRN 03/13 0200 AC IV Acetazolamide 250 MG ONCE ONE 03/13 1700 DC 03/13 Sodium Chloride 50 ML IV 03/13 1729 1629 Albuterol Sulfate 2 PUF Q4-6 PRN PRN 03/13 0204 AC INH Apixaban 5 MG BID 03/13 1000 AC 03/14 PO 0001 Aspirin Buffered 81 MG DAILY 03/13 1000 AC PO Atorvastatin Calcium 20 MG 1700 03/13 1700 AC 03/13 PO 1629 Dextrose/Water 1,000 ML Q13H 03/13 1430 AC 03/13 IV 1507 Insulin Aspart 0 TIDAC 03/13 0800 DC 03/13 NC 1705 Insulin Human Regular 0 Q6 03/14 0757 03/14 NC 0843 Isosorbide 30 MG DAILY 03/13 1000 AC Mononitrate PO Losartan Potassium 25 MG DAILY 03/13 1000 AC PO Metoprolol Tartrate 50 MG BID 03/13 1000 AC 03/14 PO 0002 Potassium Chloride 20 MEQ DAILY 03/13 1000 AC PO Thiamine HCl 500 MG TID 03/13 1600 AC 03/14 Dextrose/Water 100 ML IV 03/15 2302 0001 Thiamine HCl 500 MG TID 03/13 1000 DC 03/13 Sodium Chloride 250 ML IV 03/15 2224 1019 Last 24 Hrs of Lab/Chu Results Last 24 Hrs of Labs/Mics: Laboratory Tests 03/14/17 0624: Anion Gap 7, Estimated GFR > 60, BUN/Creatinine Ratio 32.7 H, CBC w Diff NO MAN DIFF REQ, RBC 4.55 L, MCV 78.0 L, MCH 24.0 L, RDW 19.4 H, MPV 10.1, Gran % 82.9 H, Lymphocytes % 8.0 L, Monocytes % 5.3, Eosinophils % 3.4, Basophils % 0.4, Absolute Granulocytes 8.9 H, Absolute Lymphocytes 0.9 L, Absolute Monocytes 0.6, Absolute Eosinophils 0.4, Absolute Basophils 0, PUBS MCHC 30.8 L 03/13/17 1415: Anion Gap 7, Estimated GFR > 60, BUN/Creatinine Ratio 38.0 H, Troponin I 0.07, CBC w Diff NO MAN DIFF REQ, RBC 4.80, MCV 77.7 L, MCH 24.2 L, RDW 19.0 H, MPV 10.4, Gran % 81.8 H, Lymphocytes % 7.7 L, Monocytes % 5.5, Eosinophils % 4.3, Basophils % 0.7, Absolute Granulocytes 9.7 H, Absolute Lymphocytes 0.9 L, Absolute Monocytes 0.6, Absolute Eosinophils 0.5, Absolute Basophils 0.1, PUBS MCHC 31.1 L 03/13/17 1200: Troponin I Cancelled Assessment/Plan Pain Ratin Pain Location: No Pain reported Pain Goal: Remain pain free Pain Plan: Tylenol PRN Tomorrow's Labs & Rationales: CBC BEP and low oxygen saturation. Problem list: 1. Acute delirious state hypoxia, rule out ACS, infections, PE * CT of the head negative for acute intracranial pathology. Most likely etiology : elderly patient with multiple comorbidities, polypharmacy, undergoing several procedures requiring anesthesia/sedation, lately BETH was done (on 03/11/2017) under sedation with propofol. * serial troponin and EKG * check D-dimer, if (+) will do doppler US of LE * monitor vital sings, panculture if develops fever * 1:1 sitter * physical therapy * hold diuretics to avoid dehydration * monitor electrolytes and replete as needed 2. Acute hypoxemic respiratory failure * CXR: Congestive heart failure unchanged since chest x-ray 03/10/2017 * Avoid sedating medications * O2 supplementation as needed * TRC/Nebs 3. History of hypertension, CAD * Continue metoprolol 50 mg BID, losartan 25 mg daily, imdur 30 mg daily 4. History of DM * Accuchecks TID AC/ HS * Novolog insulin SS [place] thick liquids and puree diet DVT prophylaxis with Eliquis Full code Pain Ratin Pain Location: No Pain reported Pain Goal: Remain pain free Pain Plan: Tylenol PRN Tomorrow's Labs & Rationales: CBC BEP
[2017-03-14 08:01] LABS: ABSOLUTE BASOPHIL COUNT 0 /CUMM (0.0-0.2); ABSOLUTE EOSINOPHIL COUNT 0.4 /CUMM (0.0-0.7); ABSOLUTE GRANULOCYTE CT 8.9 /CUMM (1.4-6.5); ABSOLUTE LYMPH COUNT 0.9 /CUMM (1.2-3.4); ABSOLUTE MONOCYTE COUNT 0.6 /CUMM (0.10-0.60); BASOPHIL % 0.4 % (0.0-2.0); EOSINOPHIL % 3.4 % (0-5); GRANULOCYTE % 82.9 % (42.2-75.2); HEMATOCRIT 35.5 % (42-52); MEAN CORPUSCULAR HGB CONC 30.8 G/DL (33.0-37.0); MEAN PLATELET VOLUME 10.1 FL (7.4-10.4); PLATELET COUNT 189 /CUMM (130-400); RBC DISTRIBUTION WIDTH 19.4 % (11.5-14.5); RED BLOOD CELL CT 4.55 /CUMM (4.70-6.10); WHITE BLOOD CELL COUNT 10.7 /CUMM (4.8-10.8)
--- NOTE | 2017-03-14 11:28 | PN-Observation ---
Observation Note Observation Note _ I have personally examined DAPHNEY MUNROE. him disposition is uncertain at this time. Before a determination can be made, he requires continued observation for the following reasons patient needs to be monitored to ensure his acute delirium continues to improve. Needs a sitter in place due to continued agitation and restlessness. 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 Problem list: 1. Acute delirious state hypoxia, rule out ACS, infections, PE * CT of the head negative for acute intracranial pathology. Most likely etiology : elderly patient with multiple comorbidities, polypharmacy, undergoing several procedures requiring anesthesia/sedation, lately BETH was done (on 03/11/2017) under sedation with propofol, will hold off on repeating CBC. Will hold off on repeat CT of head. * monitor vital sings, panculture if develops fever * 1:1 sitter * physical therapy * monitor electrolytes and replete as needed * Avoid Benzodiazepines. Seroquel for agitation 2. Acute hypoxemic respiratory failure * CXR: Congestive heart failure unchanged since chest x-ray 03/10/2017 * Avoid sedating medications * O2 supplementation as needed * TRC/Nebs 3. History of hypertension, CAD * Continue metoprolol 50 mg BID, losartan 25 mg daily, imdur 30 mg daily 4. History of DM * Accuchecks TID AC/ HS * Novolog insulin SS * FS, 276, 293 5. Iron Deficiency Anemia * TIBC and Ferritin ordered Diet Advanced today: [place] thick liquids and puree diet DVT prophylaxis with Eliquis Full code Problem List: 1. Altered mental status Qualifiers Altered mental status type: unspecified Qualified Code: R41.82 - Altered mental status, unspecified 2. Hypercapnia 3. Hyperglycemia Subjective Follow-up For: Delirium Urinary Retantion Subjective: Mr. Munroe was seen and examined this morning. He is currently alert however not oriented to time, place or person. He appears somnolent and drifts in and out of sleep. Overnight no acute issues have been reported. He currently has a sitter in place. He is unable to follow any verbal or motor commands. Review of Systems Constitutional: Reports: see HPI. Objective Last 24 Hrs of Vital Signs/I&O Vital Signs Date Time Temp Pulse Resp B/P B/P Pulse O2 O2 Flow FiO2 Mean Ox Delivery Rate 03/14 1032 88 170/80 03/14 1020 88 170/80 03/14 1019 88 170/80 03/14 0722 98.1 66 22 140/66 98 Nasal 4.0L Cannula 03/14 0322 69 96 03/14 0054 69 96 03/14 0002 87 170/60 03/14 0000 95 BIPAP 03/13 2256 98.3 87 20 170/60 95 Nasal Cannula 03/13 2243 84 96 03/13 2030 98.1 68 16 132/64 93 Nasal 2.0L Cannula 03/13 1735 98.2 80 17 158/68 94 Nasal 2.0L Cannula 03/13 1600 Nasal 2.0L Cannula 03/13 1513 74 18 162/72 95 Nasal 3.0L Cannula 03/13 1216 96.9 66 14 196/79 Room Air Intake & Output 03/14 1600 03/14 0800 03/14 0000 Intake Total 600 Output Total 725 300 Balance -125 -300 Intake, IV 600 Output, Urine 725 300 Physical Exam General Appearance: Alert, Cooperative Cardiovascular: Regular Rate, Normal S1, Normal S2 Lungs: Decreased breath sounds Abdomen: Normal Bowel Sounds, Soft, No Tenderness Extremities: No Edema Vascular: Normal Pulses
--- NOTE | 2017-03-14 11:52 | PN- Att Addend ---
Attending Addendum Attending Brief Note Patient's mental status is much better today. He is alert. He is oriented 3. He is conversing appropriately. He was a little uncooperative with nursing staff and attempting to get up out of bed stating that he was uncomfortable lying down for so long. Were able to convince him to get back into bed. Denied nausea vomiting. Denies abdominal pain. Denies difficult breathing. He saturating 90% on 4 L of oxygen. He remains afebrile and hemodynamically stable. Vital Signs Date Time Temp Pulse Resp B/P B/P Pulse O2 O2 Flow FiO2 Mean Ox Delivery Rate 03/14 1032 88 170/80 03/14 1020 88 170/80 03/14 1019 88 170/80 03/14 0722 98.1 66 22 140/66 98 Nasal 4.0L Cannula 03/14 0322 69 96 03/14 0054 69 96 03/14 0002 87 170/60 03/14 0000 95 BIPAP 03/13 2256 98.3 87 20 170/60 95 Nasal Cannula 03/13 2243 84 96 03/13 2030 98.1 68 16 132/64 93 Nasal 2.0L Cannula 03/13 1735 98.2 80 17 158/68 94 Nasal 2.0L Cannula 03/13 1600 Nasal 2.0L Cannula 03/13 1513 74 18 162/72 95 Nasal 3.0L Cannula 03/13 1216 96.9 66 14 196/79 Room Air Gen. appearance: Well-developed, not in any distress Heart: S1-S2 regular Lungs: Diminished air entry bilateral lung bases. No added sounds Abdomen: Soft, nontender with normal bowel sounds Extremities: No pedal edema Skin: Intact and dry. Laboratory Tests 03/14/17 0624: Anion Gap 7, Estimated GFR > 60, BUN/Creatinine Ratio 32.7 H, CBC w Diff NO MAN DIFF REQ, RBC 4.55 L, MCV 78.0 L, MCH 24.0 L, RDW 19.4 H, MPV 10.1, Gran % 82.9 H, Lymphocytes % 8.0 L, Monocytes % 5.3, Eosinophils % 3.4, Basophils % 0.4, Absolute Granulocytes 8.9 H, Absolute Lymphocytes 0.9 L, Absolute Monocytes 0.6, Absolute Eosinophils 0.4, Absolute Basophils 0, PUBS MCHC 30.8 L 03/13/17 1415: Anion Gap 7, Estimated GFR > 60, BUN/Creatinine Ratio 38.0 H, Troponin I 0.07, CBC w Diff NO MAN DIFF REQ, RBC 4.80, MCV 77.7 L, MCH 24.2 L, RDW 19.0 H, MPV 10.4, Gran % 81.8 H, Lymphocytes % 7.7 L, Monocytes % 5.5, Eosinophils % 4.3, Basophils % 0.7, Absolute Granulocytes 9.7 H, Absolute Lymphocytes 0.9 L, Absolute Monocytes 0.6, Absolute Eosinophils 0.5, Absolute Basophils 0.1, PUBS MCHC 31.1 L 03/13/17 1200: Troponin I Cancelled Problems: 1. Acute delirium; resolving. Query underlying etiology 2. Hypernatremia; secondary to volume depletion. Improving. 3. Bilateral pleural effusions; right greater than left 4. Hypoxic respiratory failure 5. Status post recent carpal tunnel surgery 6. Microcytic anemia. Plan: -Supportive care. Fall precautions. Avoid sedatives. Do not administer benzodiazepines to this patient. May utilize Seroquel as needed if significantly agitated and not resolving with redirection. -Continue to hold Bumex. Continue hydration with D5W. Hold off further therapy with Diamox. -Given improvement of mental status resume his modified diet. -Hold off repeat head CT imaging due to improvement of mental status. -Check stool guaiac and obtain iron profile. -The pulmonology service had recommended thoracocentesis. declined to have this procedure done. Patient however is stable from a pulmonology standpoint at present. No plans for thoracocentesis is at present. -Patient will remain on observation status for continued monitoring of improvement of his altered sensorium. -Taper down oxygen supplementation.
--- NOTE | 2017-03-14 12:53 | PN- Pulmonary ---
Subjective HPI/Critical Care Issues: pt seen, he is sleeping the prefers for him not to be disturbed discussion held with - discussed in plan patient appears comfortable without nightly events Objective Current Medications: Current Medications Sig/Roge Start time Last Medication Dose Route Stop Time Status Admin Acetaminophen 650 MG Q6P PRN 03/13 0200 AC PO Acetaminophen 1,000 MG Q6P PRN 03/13 0200 AC IV Acetazolamide 250 MG ONCE ONE 03/13 1700 DC 03/13 Sodium Chloride 50 ML IV 03/13 1729 1629 Albuterol Sulfate 2 PUF Q4-6 PRN PRN 03/13 0204 AC INH Apixaban 5 MG BID 03/13 1000 AC 03/14 PO 1033 Aspirin Buffered 81 MG DAILY 03/13 1000 AC PO Atorvastatin Calcium 20 MG 1700 03/13 1700 AC 03/13 PO 1629 Dextrose/Water 1,000 ML Q13H 03/13 1430 AC 03/13 IV 1507 Insulin Aspart 0 TIDAC 03/13 0800 DC 03/13 SC 1705 Insulin Human Regular 0 Q6 03/14 0757 AC 03/14 SC 1146 Isosorbide 30 MG DAILY 03/13 1000 AC Mononitrate PO Losartan Potassium 25 MG DAILY 03/13 1000 AC 03/14 PO 1020 Metoprolol Tartrate 50 MG BID 03/13 1000 AC 03/14 PO 1019 Potassium Chloride 20 MEQ DAILY 03/13 1000 AC PO Thiamine HCl 500 MG TID 03/13 1600 AC 03/14 Dextrose/Water 100 ML IV 03/15 2302 1013 Vital Signs & I&O Last 24 Hrs of Vitals and I&O: Vital Signs Date Time Temp Pulse Resp B/P B/P Pulse O2 O2 Flow FiO2 Mean Ox Delivery Rate 03/14 1032 88 170/80 03/14 1020 88 170/80 03/14 1019 88 170/80 03/14 0800 Nasal 4.0L Cannula 03/14 0722 98.1 66 22 140/66 98 Nasal 4.0L Cannula 03/14 0322 69 96 03/14 0054 69 96 03/14 0002 87 170/60 03/14 0000 95 BIPAP 03/13 2256 98.3 87 20 170/60 95 Nasal Cannula 03/13 2243 84 96 03/13 2030 98.1 68 16 132/64 93 Nasal 2.0L Cannula 03/13 1735 98.2 80 17 158/68 94 Nasal 2.0L Cannula 03/13 1600 Nasal 2.0L Cannula 03/13 1513 74 18 162/72 95 Nasal 3.0L Cannula Intake & Output 03/14 1600 03/14 0800 03/14 0000 Intake Total 600 Output Total 725 300 Balance -125 -300 Intake, IV 600 Output, Urine 725 300 Exam Other Physical Findings: gen sleeping and appers comfortable heent ncat, nasal cannula rest of examination deferred as per request of Results Last 24 Hrs of Lab Results: Laboratory Tests 03/14/17 0624: Anion Gap 7, Estimated GFR > 60, BUN/Creatinine Ratio 32.7 H, CBC w Diff NO MAN DIFF REQ, RBC 4.55 L, MCV 78.0 L, MCH 24.0 L, RDW 19.4 H, MPV 10.1, Gran % 82.9 H, Lymphocytes % 8.0 L, Monocytes % 5.3, Eosinophils % 3.4, Basophils % 0.4, Absolute Granulocytes 8.9 H, Absolute Lymphocytes 0.9 L, Absolute Monocytes 0.6, Absolute Eosinophils 0.4, Absolute Basophils 0, PUBS MCHC 30.8 L 03/13/17 1415: Anion Gap 7, Estimated GFR > 60, BUN/Creatinine Ratio 38.0 H, Troponin I 0.07, CBC w Diff NO MAN DIFF REQ, RBC 4.80, MCV 77.7 L, MCH 24.2 L, RDW 19.0 H, MPV 10.4, Gran % 81.8 H, Lymphocytes % 7.7 L, Monocytes % 5.5, Eosinophils % 4.3, Basophils % 0.7, Absolute Granulocytes 9.7 H, Absolute Lymphocytes 0.9 L, Absolute Monocytes 0.6, Absolute Eosinophils 0.5, Absolute Basophils 0.1, PUBS MCHC 31.1 L Impression/Plan Impression/Plan Impression/Plan: Impression 81 year old man * Hypercarbic respiratory failure * bilateral pleural effusions * AMS Plan -per 's request we will pursue a more conservative approach -DNR/DNI - no interventions, including no thoracentesis -patient may use bipap if he allows, if not then it will be discontinued -per agreement and request of will sign off and remain available for any issues going forward -consider comfort care
[2017-03-14 14:44] VITALS: BP 138/72
--- NOTE | 2017-03-14 15:09 | NUR ---
GAVE PT MEDS CRUSHED IN APPLESAUCE, UNABLE TO GIVE CERTAIN MEDS BECAUSE CANNOT CRUSH. PT SPIT OUT KLOR POWDER. MD DELMA HO NOTIFIED.
--- NOTE | 2017-03-14 19:27 | PN- Cardiology ---
Subjective Subjective: The patient remains confused. He has no complaints of chest pain, shortness of breath, palpitations. Objective Vital Signs and I&Os Vital Signs Date Time Temp Pulse Resp B/P B/P Pulse O2 O2 Flow FiO2 Mean Ox Delivery Rate 03/14 1842 Nasal 3.0L Cannula 03/14 1600 95 Nasal 3.0L Cannula 03/14 1444 97.7 68 22 138/72 95 03/14 1032 88 170/80 03/14 1020 88 170/80 03/14 1019 88 170/80 03/14 0800 Nasal 4.0L Cannula 03/14 0722 98.1 66 22 140/66 98 Nasal 4.0L Cannula 03/14 0322 69 96 03/14 0054 69 96 03/14 0002 87 170/60 03/14 0000 95 BIPAP 03/13 2256 98.3 87 20 170/60 95 Nasal Cannula 03/13 2243 84 96 03/13 2030 98.1 68 16 132/64 93 Nasal 2.0L Cannula Intake & Output 03/14 1600 03/14 0800 03/14 0000 03/13 1600 03/13 0800 03/13 0000 Intake Total 800 600 Output Total 700 725 300 600 Balance 100 -125 -300 -600 Intake, IV 550 600 Intake, Oral 250 Output, Urine 700 725 300 600 Patient 275 lb 275 lb Weight Weight Estimated Measurement Method Physical Exam: Gen: NAD HEENT: normal Lungs: clear to auscultation, normal resp. effort Heart: RRR, S1, S2, 2/6 systolic murmur Abdomen: Soft, nontender, no masses Extremities: No clubbing, cyanosis, or edema. Neuro: Alert and oriented x 3, cranial nerves intact Current Medications: Current Medications Sig/Roge Start time Last Medication Dose Route Stop Time Status Admin Acetaminophen 650 MG Q6P PRN 03/13 0200 AC PO Acetaminophen 1,000 MG Q6P PRN 03/13 0200 AC 03/14 IV 1751 Albuterol Sulfate 2 PUF Q4-6 PRN PRN 03/13 0204 AC INH Apixaban 5 MG BID 03/13 1000 AC 03/14 PO 1033 Aspirin Buffered 81 MG DAILY 03/13 1000 AC PO Atorvastatin Calcium 20 MG 1700 03/13 1700 AC 03/14 PO 1751 Dextrose/Water 1,000 ML Q13H 03/13 1430 AC 03/14 IV 1617 Insulin Aspart 0 AT BEDTIME 03/14 2200 AC SC Insulin Aspart 0 TIDAC 03/14 1700 AC 03/14 SC 1752 Insulin Aspart 0 TIDAC 03/13 0800 DC 03/13 PA 1705 Insulin Human Regular 0 Q6 03/14 0757 DC 03/14 PA 1146 Isosorbide 30 MG DAILY 03/13 1000 AC Mononitrate PO Losartan Potassium 25 MG DAILY 03/13 1000 AC 03/14 PO 1020 Metoprolol Tartrate 50 MG BID 03/13 1000 AC 03/14 PO 1019 Potassium Chloride 20 MEQ DAILY 03/13 1000 AC PO Thiamine HCl 500 MG TID 03/13 1600 AC 03/14 Dextrose/Water 100 ML IV 03/15 2302 1617 Results Last 48 Hrs of Labs/Mics: Laboratory Tests 03/14/17 0624: Anion Gap 7, Estimated GFR > 60, BUN/Creatinine Ratio 32.7 H, Iron 25 L, TIBC 172 L, Ferritin 310.0, CBC w Diff NO MAN DIFF REQ, RBC 4.55 L, MCV 78.0 L, MCH 24.0 L, RDW 19.4 H, MPV 10.1, Gran % 82.9 H, Lymphocytes % 8.0 L, Monocytes % 5.3, Eosinophils % 3.4, Basophils % 0.4, Absolute Granulocytes 8.9 H, Absolute Lymphocytes 0.9 L, Absolute Monocytes 0.6, Absolute Eosinophils 0.4 , Absolute Basophils 0, PUBS MCHC 30.8 L 03/13/17 1415: Anion Gap 7, Estimated GFR > 60, BUN/Creatinine Ratio 38.0 H, Troponin I 0.07, CBC w Diff NO MAN DIFF REQ, RBC 4.80, MCV 77.7 L, MCH 24.2 L, RDW 19.0 H, MPV 10.4, Gran % 81.8 H, Lymphocytes % 7.7 L, Monocytes % 5.5, Eosinophils % 4.3, Basophils % 0.7, Absolute Granulocytes 9.7 H, Absolute Lymphocytes 0.9 L, Absolute Monocytes 0.6, Absolute Eosinophils 0.5, Absolute Basophils 0.1, PUBS MCHC 31.1 L 03/13/17 1200: Troponin I Cancelled 03/13/17 0655: Troponin I 0.08 03/13/17 0655: Anion Gap 2 L, Estimated GFR > 60, BUN/Creatinine Ratio 40.0 H, D-Dimer High Sensitivty 643 H, CBC w Diff NO MAN DIFF REQ, RBC 4.42 L, MCV 77.9 L, MCH 24.2 L, RDW 19.0 H, MPV 9.5, Gran % 79.9 H, Lymphocytes % 9.1 L, Monocytes % 6.5, Eosinophils % 4.0, Basophils % 0.5, Absolute Granulocytes 8.4 H, Absolute Lymphocytes 1.0 L, Absolute Monocytes 0.7 H, Absolute Eosinophils 0.4, Absolute Basophils 0, PUBS MCHC 31.1 L 03/12/17 2256: Urinalysis LIGHT H, Urine Color YEL, Urine Clarity CLEAR, Urine pH 6.5, Ur Specific [place] 1.010, Urine Protein TRACE H, Urine Ketones NEG, Urine Nitrite NEG, Urine Bilirubin NEG, Urine Urobilinogen 1.0, Ur Leukocyte Esterase NEG, Ur Microscopic SEDIMENT EXAMINED, Urine RBC 5-10 H, Ur Epithelial Cells RARE, Hyaline Casts RARE H, Urine Mucus FEW, Urine Hemoglobin MOD H, Urine Glucose NEG 03/12/17 2200: Anion Gap 6, Estimated GFR > 60, BUN/Creatinine Ratio 44.4 H, Glucose 138 H, Calcium 9.3, Magnesium 1.9, Total Bilirubin 0.9, AST 57, ALT 62, Alkaline Phosphatase 87, Troponin I 0.04, [id number] Pept 4050 H, Total Protein 6.4, Albumin 2.5 L, Globulin 3.9, Albumin/Globulin Ratio 0.6 L, PT 21.8 H, INR 2.09 H, CBC w Diff NO MAN DIFF REQ, RBC 4.74, MCV 78.2 L, MCH 24.2 L, RDW 19.2 H, MPV 9.1, Gran % 83.1 H, Lymphocytes % 7.3 L, Monocytes % 5.3, Eosinophils % 4.3, Basophils % 0 L, Absolute Granulocytes 10.4 H, Absolute Lymphocytes 0.9 L, Absolute Monocytes 0.7 H, Absolute Eosinophils 0.5, Absolute Basophils 0, PUBS MCHC 30.9 L 03/12/175: pH 7.50 H, pCO2 50 H, pO2 61 L, HCO3 39 H, ABG O2 Sat (Measured) 91.0 L, P- 50 (Temp Corrected) N, Carboxyhemoglobin 0.9 L, O2 Concentration % 4L, Temperature 97.0, O2 Delivery Method NC, Phlebotomy Draw Site RIGHT BRACHIAL Microbiology 03/12 7344 URINE ROUT: Urine Culture - COMP Assessment/Plan Assessment/Plan Assessment: 1. Acute delirium 2. Acute hypoxic respiratory failure 3. Chronic diastolic heart failure 4. CAD 5. Hyponatremia Plan: * Continue Eliquis * Restart Bumex 1 mg by mouth twice a day * Check basic metabolic profile daily * Continue other cardiac medications Continue telemetry? Not applicable
[2017-03-14 22:43] VITALS: BP 132/80
[2017-03-15 06:24] VITALS: BP 120/72
[2017-03-15 08:25] LABS: ABSOLUTE BASOPHIL COUNT 0 /CUMM (0.0-0.2); ABSOLUTE EOSINOPHIL COUNT 0.4 /CUMM (0.0-0.7); ABSOLUTE GRANULOCYTE CT 11.7 /CUMM (1.4-6.5); ABSOLUTE LYMPH COUNT 0.7 /CUMM (1.2-3.4); ABSOLUTE MONOCYTE COUNT 0.6 /CUMM (0.10-0.60); BASOPHIL % 0.3 % (0.0-2.0); EOSINOPHIL % 3.1 % (0-5); GRANULOCYTE % 87.2 % (42.2-75.2); HEMATOCRIT 35.2 % (42-52); MEAN CORPUSCULAR HGB 24.2 PG (27.0-31.0); MEAN CORPUSCULAR VOLUME 78.3 FL (80.0-94.0); MEAN PLATELET VOLUME 10.3 FL (7.4-10.4); PLATELET COUNT 182 /CUMM (130-400); RED BLOOD CELL CT 4.49 /CUMM (4.70-6.10); WHITE BLOOD CELL COUNT 13.4 /CUMM (4.8-10.8)
--- NOTE | 2017-03-15 08:38 | PN-Observation ---
ROSE SMITH 03/15/17 0836: Observation Note Observation Note _ I have personally examined DAPHNEY MUNROE. him disposition is uncertain at this time. Before a determination can be made, he requires continued observation for the following reasons patient needs to be monitored to ensure his acute delirium continues to improve. Needs a sitter in place due to continued agitation and restlessness. Assessment/Plan Assessment: Mr. 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 due to delirium and confusion, weakness on both lower extremities and low oxygen saturation. Problem list: 1. Acute delirious state hypoxia, rule out ACS, infections, PE * Patient appears to be improving * CT of the head negative for acute intracranial pathology. Most likely etiology : elderly patient with multiple comorbidities, polypharmacy, undergoing several procedures requiring anesthesia/sedation, lately BETH was done (on 03/11/2017) under sedation with propofol, will hold off on repeating CBC. Will hold off on repeat CT of head. * monitor vital sings, panculture if develops fever * 1:1 sitter * physical therapy * monitor electrolytes and replete as needed * Avoid Benzodiazepines. Seroquel for agitation * Patient has been tolerating diet will discontinue IV fluids 2. Acute hypoxemic respiratory failure * CXR: Congestive heart failure unchanged since chest x-ray 03/10/2017 * Avoid sedating medications * O2 supplementation as needed * TRC/Nebs 3. History of hypertension, CAD * Continue metoprolol 50 mg BID, losartan 25 mg daily, imdur 30 mg daily * Will restart bumetanide from tomorrow 4. History of DM * Accuchecks TID AC/ HS * Novolog insulin SS * FSG: In 300s * Will discontinue dextrose-containing fluids 5. Iron Deficiency Anemia * TIBC: 172, Ferritin:310, serum iron 25 * Will Start the patient on oral iron supplements * Check Hemoccult 6. DVT prophylaxis * Patient is on Eliquis 7. Patient is DNI/DNR Problem List: 1. Congestive Heart Failure 2. Altered mental status Qualifiers Altered mental status type: unspecified Qualified Code: R41.82 - Altered mental status, unspecified DVT/Prophylaxis: pharmacological Subjective Follow-up For: Delirium Urinary Retantion Tele-Events Since Last Visit: NA Subjective: Patient was seen and examined this morning. He is awake and alert not oriented to time and place. Reported to have occasional episodes of confusion. He tolerated diet this morning(ice cream). Able to follow commands. Denies headache, chest pain, shortness of breath, nausea, vomiting, abdominal pain. Review of Systems Constitutional: Denies: chills, diaphoresis, fever, malaise, weakness, unexplained weight loss. Objective Last 24 Hrs of Vital Signs/I&O Vital Signs Date Time Temp Pulse Resp B/P B/P Pulse O2 O2 Flow FiO2 Mean Ox Delivery Rate 03/15 0952 80 130/70 03/15 0952 80 130/70 03/15 0952 80 130/70 03/15 0624 98.2 66 20 120/72 90 Nasal Cannula 03/15 0000 94 Nasal 2.0L Cannula 03/14 2250 62 94 03/14 2243 96.7 60 22 132/80 90 Nasal Cannula 03/14 2123 64 124/60 03/14 1842 Nasal 3.0L Cannula 03/14 1600 95 Nasal 3.0L Cannula 03/14 1444 97.7 68 22 138/72 95 Intake & Output 03/15 1600 03/15 0800 03/15 0000 Intake Total 750 540 Output Total 900 600 Balance -150 -60 Intake, IV 600 300 Intake, Oral 150 240 Output, Urine 900 600 Physical Exam General Appearance: Alert, Cooperative, No Acute Distress Skin: No Rashes, No Breakdown, No Significant Lesion Skin Temp/Moisture Exam: Warm/Dry Sepsis Skin Exam (color): Normal for Ethnicity HEENT: Atraumatic, PERRLA, EOMI, Mucous Membr. moist/pink Neck: Supple, No JVD, No thryomegaly, +2 Carotid Pulse wo Bruit Lymphatic: Axillary nl, Cervical nl Cardiovascular: Regular Rate, Normal S1, Normal S2, No Murmurs Lungs: Normal Air Movement, Decreased breath sounds Abdomen: Normal Bowel Sounds, Soft, No Tenderness, No Hepatospenomegaly Neurological: Normal Speech, Normal Tone, Sensation Intact Extremities: No Clubbing, No Cyanosis, No Edema, Normal Pulses Vascular: Normal Pulses, Pulses Symmetrical Current Medications: Current Medications Sig/Roge Start time Last Medication Dose Route Stop Time Status Admin Acetaminophen 1,000 MG .STK-MED ONE 03/14 1749 DC IV 03/14 1750 Acetaminophen 650 MG Q6P PRN 03/13 0200 AC PO Acetaminophen 1,000 MG Q6P PRN 03/13 0200 AC 03/14 IV 1751 Albuterol Sulfate 2 PUF Q4-6 PRN PRN 03/13 0204 AC INH Apixaban 5 MG BID 03/13 1000 AC 03/15 PO 0952 Aspirin Buffered 81 MG DAILY 03/13 1000 AC 03/15 PO 0952 Atorvastatin Calcium 20 MG 1700 03/13 1700 AC 03/14 PO 1751 Bumetanide 1 MG BID 03/16 1000 AC PO Bumetanide 1 MG BID 03/14 2200 DC 03/14 PO 2123 Dextrose/Water 1,000 ML Q13H 03/13 1430 DC 03/15 IV 0534 Insulin Aspart 0 AT BEDTIME 03/14 2200 AC 03/14 SC 2122 Insulin Aspart 0 TIDAC 03/14 1700 AC 03/15 SC 1122 Insulin Human Regular 0 Q6 03/14 0757 DC 03/14 SC 1146 Isosorbide 30 MG DAILY 03/13 1000 AC 03/15 Mononitrate PO 0952 Losartan Potassium 25 MG DAILY 03/13 1000 AC 03/15 PO 0952 Metoprolol Tartrate 50 MG BID 03/13 1000 AC 03/15 PO 0952 Potassium Chloride 20 MEQ DAILY 03/13 1000 AC 03/15 PO 0952 Thiamine HCl 500 MG TID 03/13 1600 AC 03/15 Dextrose/Water 100 ML IV 03/15 2302 1122 Last 24 Hrs of Labs/Mics: Laboratory Tests 03/15/17 0640: Anion Gap 3 L, Estimated GFR > 60, BUN/Creatinine Ratio 28.0 H, CBC w Diff NO MAN DIFF REQ, RBC 4.49 L, MCV 78.3 L, MCH 24.2 L, RDW 19.0 H, MPV 10.3, Gran % 87.2 H, Lymphocytes % 4.9 L, Monocytes % 4.5, Eosinophils % 3.1, Basophils % 0.3, Absolute Granulocytes 11.7 H, Absolute Lymphocytes 0.7 L, Absolute Monocytes 0.6, Absolute Eosinophils 0.4, Absolute Basophils 0, PUBS MCHC 31.0 L MYA GRIFFIN,MIKE 03/15/17 1024: Addendum Note Addendum Patient seen and examined. Awake, conversing, answering questions appropriately liver he does continue to exhibit confusion on and off. Nursing staff reports that he occasionally curses at them According to nursing staff he tolerated his meals yesterday and appears to be doing so this morning. He denies pain or shortness of breath. On examination he has no jugular venous distention. Breath sounds are diminished lung bases with no added sounds. He has no peripheral edema. He has extensively wrinkled and dry skin on the lower extremities. Problems: 1. Acute delirium; Query underlying etiology 2. Hypernatremia; secondary to volume depletion. Improving. 3. Bilateral pleural effusions; right greater than left 4. Hypoxic respiratory failure 5. Status post recent carpal tunnel surgery 6. Microcytic anemia. Plan: -Wean off oxygen supplementation as tolerated. -I would recommend continue to hold diuretic therapy for now as his sodium level distress improvement and he is beginning to improve his oral intake. -Discontinue IV fluids. If he maintains oral intake today resume Bumex at 1 mg twice daily tomorrow. -If patient requires increasing amount of oxygen supplementation reconsider therapeutic thoracocentesis. For now refuses to have this procedure done. -Mobilize patient. -Supplement iron orally. Follow-up stool guaiac.
[2017-03-15 13:04] VITALS: BP 140/55
[2017-03-15 22:25] VITALS: BP 125/72
--- NOTE | 2017-03-16 05:58 | NUR ---
NURSING NOTE: AT 0535 PT BECAME EXTREMELY AGITATED AND COMBATIVE. 02SAT 74% ON 4L. GRADUALLY INCREASED OXYGEN TO 7L NC - PT 02SAT BETWEEN 89-91%. MD HURTADO AWARE. REPIRATORY THERAPIST AWARE. PT MORE CALM/COOPERATIVE NOW. SITTER REMAINS AT BEDSIDE FOR SAFETY.
[2017-03-16 06:30] VITALS: BP 142/78
[2017-03-16 08:15] LABS: ABSOLUTE BASOPHIL COUNT 0 /CUMM (0.0-0.2); ABSOLUTE EOSINOPHIL COUNT 0.2 /CUMM (0.0-0.7); ABSOLUTE GRANULOCYTE CT 12.5 /CUMM (1.4-6.5); ABSOLUTE LYMPH COUNT 0.7 /CUMM (1.2-3.4); ABSOLUTE MONOCYTE COUNT 0.7 /CUMM (0.10-0.60); BASOPHIL % 0.3 % (0.0-2.0); EOSINOPHIL % 1.7 % (0-5); GRANULOCYTE % 87.8 % (42.2-75.2); HEMATOCRIT 33.2 % (42-52); MEAN CORPUSCULAR HGB 24.3 PG (27.0-31.0); MEAN CORPUSCULAR HGB CONC 31.4 G/DL (33.0-37.0); MEAN CORPUSCULAR VOLUME 77.6 FL (80.0-94.0); MEAN PLATELET VOLUME 10.7 FL (7.4-10.4); PLATELET COUNT 180 /CUMM (130-400); RBC DISTRIBUTION WIDTH 18.8 % (11.5-14.5); RED BLOOD CELL CT 4.28 /CUMM (4.70-6.10); WHITE BLOOD CELL COUNT 14.2 /CUMM (4.8-10.8)
--- NOTE | 2017-03-16 10:29 | PN- Housestaff ---
IONALALITAMILADYS 03/16/17 1029: Addendum Addendum WRONG NOTE Assessment/Plan Assessment: Mr. 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 Problem list: 1. Acute delirious state hypoxia, rule out ACS, infections, PE * Patient appears to be improving * CT of the head negative for acute intracranial pathology. Most likely etiology : elderly patient with multiple comorbidities, polypharmacy, undergoing several procedures requiring anesthesia/sedation, lately BETH was done (on 03/11/2017) under sedation with propofol, will hold off on repeating CBC. Will hold off on repeat CT of head. * monitor vital sings, panculture if develops fever * 1:1 sitter * physical therapy * monitor electrolytes and replete as needed * Avoid Benzodiazepines. Seroquel for agitation * Patient has been tolerating diet will discontinue IV fluids 2. Acute hypoxemic respiratory failure * CXR: Congestive heart failure unchanged since chest x-ray 03/10/2017 * Avoid sedating medications * O2 supplementation as needed * TRC/Nebs 3. History of hypertension, CAD * Continue metoprolol 50 mg BID, losartan 25 mg daily, imdur 30 mg daily * Will restart bumetanide from tomorrow 4. History of DM * Accuchecks TID AC/ HS * Novolog insulin SS * FSG: In 300s * Will discontinue dextrose-containing fluids 5. Iron Deficiency Anemia * TIBC: 172, Ferritin:310, serum iron 25 * Will Start the patient on oral iron supplements * Check Hemoccult 6. DVT prophylaxis * Patient is on Eliquis 7. Patient is DNI/DNR NAWAF REEDER 03/16/17 1034: Attending MD Review Statement Attending Statement Attending MD Statement: examined this patient, discuss w/resident/PA/PROGRAMMER NUMERICAL CONTROL, agreed w/resident/PA/PROGRAMMER NUMERICAL CONTROL, discussed with family, reviewed EMR data (avail), discussed with nursing, discussed with case mgmt, reviewed images, amended to note Attending Assessment/Plan: Problems: 1. Toxic metabolic encephalopthy 2. Hypernatremia; secondary to volume depletion. Improving. 3. Bilateral pleural effusions; right greater than left 4. Hypoxic respiratory failure 5. Status post recent carpal tunnel surgery 6. Microcytic anemia 7. Acute kidney injury 8. General physical deterioriation 9. Poor lung reserves with severe pulmonary hypertension. Plan: -admit to inpatient medical services -Supportive care. Fall precautions. Avoid sedatives. avoid BZD. May utilize Seroquel as needed if significantly agitated. -Continue to hold Bumex. Nephrology following -Encephalopathy not improving. -The pulmonology service had recommended thoracocentesis. declined to have this procedure done. Patient however is stable from a pulmonology standpoint at present. No plans for thoracocentesis is at present. -consult case management and SW. awaiting hospice. -DNR/DNI plan of care d/wed family. family in agreement for hospice care. Patient does not want aggressive measures.
--- NOTE | 2017-03-16 10:34 | PN-Observation ---
Assessment/Plan Assessment: Mr. 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 Acute delirium and altered mental status. Patient is in and out of confusional state. CT of the head negative for acute intracranial pathology. Differentials are Urinary retention, Effect of anesthesia and sedation due to recent procedures, ? Infection, metabolic encephalopathy, Acute respiratory failure and bilateral pleural effusions. Definite diagnosis is still unclear. Thoracentesis was planned for further investigation with refused and requested to pursue a more conservative approach. She wants her to be comfortable and wants to pursue for hospice evaluation. With all these comorbidities patient has poor quality of life. Problem List: 1. Altered mental status Qualifiers Altered mental status type: unspecified Qualified Code: R41.82 - Altered mental status, unspecified Plan: Hospice evaluation DVT/Prophylaxis: pharmacological Subjective Review of Systems Constitutional: Reports: see HPI. Objective Last 24 Hrs of Vital Signs/I&O none Physical Exam General Appearance: Alert, No Acute Distress * Check Hemoccult 6. DVT prophylaxis * Patient is on Eliquis 7. Patient is DNI/DNR
--- NOTE | 2017-03-16 13:22 | NUR ---
SPEECH THERAPY: CHART REVIEWED AND ATTEMPTED TO SEE PT FOR FOLLOWUP OF SWALLOWING FUNCTION. HE WAS SEEN BY SKIN LIFTER BACON ON 03/13 AND RECOMMENDED NPO BUT WAS PLACED ON A GROUND MECH SOFT DIET AND NECTAR THICK LIQUIDS PER MD OVER WEEKEND. HE HAS BEEN SLEEPING ALL MORNING AND HAS NOT BEEN SUFFICIENTLY ALERT/ AROUSABLE ENOUGH FOR PO INTAKE. REC CONTINUE NPO DUE TO CURRENT MENTAL STATUS; [facility] LIFTER BACON TO FOLLOW FOR ABILITY TO PARTICIPATE IN PO TRIALS.
== END 2017-03-16 13:38 | disposition hospice, home (50) ==
LOC: ERH 20:49 → 2NA 03-13 00:34 → ERHI 03-13 00:34 → CANRESERV 03-13 14:31 → ENRESERV 03-13 14:31 → EDBEDREQ 03-13 16:53 → EDBEDREQTM 03-13 17:03 → ENRESERV 03-13 19:56 → ENTRNSPT 03-13 21:30 → 2NA 03-13 21:54 → CMPTRNSPT 03-13 22:03 → 2NA 03-16 09:52
PROVIDERS: Emergency Medicine; Internal Medicine Interventional Cardiology; Student in an Organized Health Care Education/Training Program; ADMIT Internal Medicine
DX: R41.82 Altered mental status, unspecified (principal); J96.01 Acute respiratory failure with hypoxia; G93.41 Metabolic encephalopathy; I25.10 Atherosclerotic heart disease of native coronary artery without angina pectoris; I25.2 Old myocardial infarction
CPT/HCPCS: 1288; 1328; 1530; 1748; 6030; 81001; 82436; 87040; 87070; 87086; 93005; 93010; 96374; 99291; G0378; J0131; J1120; J1815; J7040; J7060

== ENCOUNTER 2017-03-16 13:40 | Inpatient (IN) | payer OTHER ==
[~2017-03-16 13:40] MED LIST changes: +ELIQUIS5 M1 PO
[2017-03-16 14:47] VITALS: BP 144/66
--- NOTE | 2017-03-16 16:17 | History & Physical ---
General Information and HPI Chief Complaint: Admit to hospice Source of Information: family, old records Exam Limitations: unable to give history, confusion Associated Symptoms: delirium, poor po intake, generalized discomfort History of Present Illness: Pt. is an 81-year-old male previously hospitalized at [place] 02/25/17-03/12/17 for elective left carpal tunnel release with stay complicated by respiratory failure and delirium. He was eventually discharged to [facility] for short term rehabilitation on 03/12/17, stayed 5 hours and returned to [place] ED due to delirium with hallucinations and hypoxia. He is being treated for diastolic heart failure and has had hypernatremia due to volume depletion. A right thoracentesis was recommended for pleural effusion and declined. Pt remains delirious and has a sitter and has poor oral intake as well. reports pt would never want aggressive measures and he is now being admitted for hospice care. Nursing reports pt is moaning when they turn him for care. Allergies/Medications Allergies: Coded Allergies: piperacillin (Mild, RASH 12/15/15) tazobactam (Mild, RASH 12/15/15) morphine (Intermediate, HALLUCINATIONS 12/15/15) heparin (SOMETHING WITH HIS PLATELETS 12/15/15) Past History Medical History Neurological: peripheral neuropathy EENT: CATARACT diabetic retinopathy Cardiovascular: AFIB (paroxysmal), CHF, hyperlipidemia, syncope, STENT, PACER AFIB ,CHOL, HTN STENTS LCW PM permanent pacemaker for heart block peripheral vascular diseaase peripheral vascular disease s/p angioplasty Respiratory: LYNDSEY--historically refuses CPAP Gastrointestinal: diverticulitis Hepatic: NONE Renal: benign prost hyperplasia Musculoskeletal: sciatica, L KNEE REPLACEMENT OSTEOMYELITIS osteomyelitis Psychiatric: NONE Endocrine: IDDM with diabetic neuropathy diabetic retinopathy Blood Disorders: NONE Cancer(s): NONE 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 He was functional with assistance. Drank 1 beer daily. Tobacco unknown. Functional Ability: Assist with ADLs/IADLs Review of Systems Review of Systems Constitutional: Reports: see HPI. Exam & Diagnostic Data Last 24 Hrs of Vital Signs/I&O Vital Signs Date Time Temp Pulse Resp B/P B/P Pulse O2 O2 Flow FiO2 Mean Ox Delivery Rate 03/16 1447 97.7 66 20 144/66 91 Intake & Output 03/16 1600 03/16 0800 03/16 0000 Intake Total Output Total 600 Balance -600 Output, Urine 600 Physical Exam General Appearance Alert, Restless, confused Skin warm and dry HEENT Atraumatic, PERRLA, mucous membranes dry Cardiovascular Regular Rate, Normal S1, Normal S2, sytolic murmur Lungs scattered inspiratory wheeze, productive cough Abdomen Soft, No Tenderness Neurological alert, oriented to person only, conversation not logical Extremities bilat LE stasis dermatitis Last 24 Hrs of Labs/Chu: WBC 14.2, Hgb 10.4, Hct 33.2, plt 180 Na 144, K 3.5, CO2 36, Bun 34, Cr 1.3 Ucx negative Blood cx neg Diagnostic Data CXR Results 03/12: FINDINGS: Heart size enlarged. Pacemaker lead in right atrium and right ventricle. There is pulmonary vascular congestion with interstitial edema and bilateral pleural effusions. Congestive heart failure severity similar to chest x-ray of 03/10/2017. Other Results Head CT 03/12:IMPRESSION: 1. Limited exam secondary to diffuse motion abnormality, which degrades image quality. No acute intracranial hemorrhage or abnormal extra-axial fluid collections. However, please note that smaller intracranial hemorrhages and extra-axial fluid collections may be missed on this examination given the aforementioned exam limitations. 2. No focal areas of hypoattenuation to suggest acute transcortical ischemia. However, please note that evaluation for ischemia is somewhat limited given motion abnormality. Consider sedation and repeat head CT. 3. Paranasal sinus disease, as described above. Assessment/Plan Assessment: 61 year-old male with heart failure, acute hypoxic respiratory failure with prolonged agitated delirium doing poorly with poor oral intake, now admitted to hospice. Pt has morphine allergy (halucinations) will therefore order dilaudid for dyspnea/pain-0.4mg IV every 4 hrs as needed Haldol 2mg SC every 6 hrs as needed for agitation Rozerem 8mg orally every night (insomnia) ativan 1mg every 4 hours as needed for anxiety. Scopolamine and Robinul as needed for secretions. Will continue other cardiac meds as long as pt taking oral
[2017-03-17 07:30] VITALS: BP 136/52
[2017-03-17 09:25] VITALS: BP 136/52
--- NOTE | 2017-03-17 12:12 | PN- Hospice ---
Subjective Subjective: at bedside, tearful. Pt has been lethargic, not eating/drinking, unable to take oral meds. He received dilaudid x 1 yesterday evening and ativan x 1 last night. Objective Last 24 Hrs of Vital Signs/I&O Vital Signs Date Time Temp Pulse Resp B/P B/P Pulse O2 O2 Flow FiO2 Mean Ox Delivery Rate 03/17 0925 84 136/52 03/17 0921 85 136/52 03/17 0920 84 136/52 03/17 0800 Nasal 6.0L Cannula 03/17 0000 Nasal 6.0L Cannula 03/16 2149 60 140/60 03/16 1447 97.7 66 20 144/66 91 Intake & Output 03/17 1600 03/17 0800 03/17 0000 Intake Total 50 130 Output Total 50 300 Balance 0 -170 Intake, IV 20 10 Intake, Oral 30 120 Output, Urine 50 300 Physical Exam General Appearance: well developed/nourished, lethargic, mildly restless Respiratory: rhonchi, dyspneic, RR-32 Cardiovascular: regular rate/rhythm Extremities: no mottling, bilat. stasis dermatitis LEs Other Physical Findings: rutledge with luna urine Assessment/Plan Assessment/Recommendations: 61 year-old male with heart failure, acute hypoxic respiratory failure with prolonged agitated delirium doing poorly with poor oral intake, now admitted to hospice. Pt. more lethargic today, will d/c po meds Dyspneic, discussed with nursing and pt will receive dilaudid Congestion-will schedule Robinul 400mcg IV every 4hrs Provided emotional support to , Pat. She declined calling spiritual care for additional support, certified social workers in health care and hvac design mechanical engineer already in. Brother is also source of support and will be in shortly.
--- NOTE | 2017-03-17 14:53 | NUR ---
PT LETHARGIC AND OPENS EYES TO VERBAL STIMULI. RR 18-20 AND SHALLOW ON 6L NC. MOUTH CARE GIVEN Q2 HR. SOTO IN PLACE. #20 IN LFA. BOTTOM DISCOLORED, SMALL OPENING TO COCCYX, BARRIER CREAM APPLIED. ON SIZEWISE MATTRESS. L ARM SLIGHTLY EDEMATOUS, ELEVATED ON PILLOW. PAT AT BEDSIDE, EMOTIONAL SUPPORT GIVEN. PT TOO LETHARGIC FOR PO INTAKE. SAFETY MAINTAINED.
--- NOTE | 2017-03-17 19:25 | NUR ---
WHEN RN ENTERED ROOM, PT WITHOUT RESPIRATIONS FOR ONE MINUTE, NO AUDIBLE PULSE FOR ONE MINUTE, PUPILS FIXED AND NONREACTIVE TO LIGHT. PT PRONOUNCED AT 1925. ADMITTING NOTIFIED, CHARGE NURSE & NURSING HEDIS ABSTRACTOR NOTIFIED, DR GONCALVES NOTIFIED, CT [facility]OSPICE NOTIFIED, AND FAMILY CALLED. TO COME IN TO SEE PT.
--- NOTE | 2017-03-17 20:24 | NUR ---
AT BEDSIDE, PAGED. ORGAN BANK DECLINED. WILL MONITOR.
--- NOTE | 2017-03-17 22:23 | NUR ---
POST MORTEM CARE PROVIDED, BRITTANY REMOVED, IV DC'D. AUGUSTO DOHERTY CALLED FOR.
--- NOTE | 2017-03-18 14:33 | Discharge Summary ---
Visit Information Visit Dates Admission Date: 03/16/17 Discharge Date: 03/17/17 Hospital Course Course Attending Physician: NAWAF REEDER MD Primary Care Physician: WAYLON BILLS MD Hospital Course: 81 year-old male with heart failure, acute hypoxic respiratory failure with prolonged agitated delirium doing poorly with poor oral intake, now admitted to hospice. He was kept comfortable with dilaudid forpain/dyspnea and ativan for anxiety, haldol for agitation until he peacefully. Allergies: Coded Allergies: piperacillin (Mild, RASH 12/15/15) tazobactam (Mild, RASH 12/15/15) morphine (Intermediate, HALLUCINATIONS 12/15/15) heparin (SOMETHING WITH HIS PLATELETS 12/15/15) Disposition Summary Disposition Principal Diagnosis: Diastolic heart failure, chronic Hypoxic Respiratory failure, acute Delirium Additional Diagnosis: Diabetes mellitus type 2 Obstructive sleep apnea Discharge Disposition: Discharge Instructions General Discharge Information Code Status: Hospice Patient's Diet: N/A Patient's Activity: N/A Follow-Up Instructions/Appts: N/A Copies To: WAYLON BILLS MD
== END 2017-03-17 19:25 | disposition expired | DRG 189 ==
LOC: 2NA 13:40
PROVIDERS: ADMIT Internal Medicine
DX: J96.01 Acute respiratory failure with hypoxia (principal); E87.0 Hyperosmolality and hypernatremia; I50.32 Chronic diastolic (congestive) heart failure; E86.9 Volume depletion, unspecified; E11.42 Type 2 diabetes mellitus with diabetic polyneuropathy; I48.0 Paroxysmal atrial fibrillation; E11.51 Type 2 diabetes mellitus with diabetic peripheral angiopathy without gangrene; F41.9 Anxiety disorder, unspecified; G47.33 Obstructive sleep apnea (adult) (pediatric); E11.319 Type 2 diabetes mellitus with unspecified diabetic retinopathy without macular edema; R41.0 Disorientation, unspecified; Z51.5 Encounter for palliative care; Z66 Do not resuscitate; N40.0 Benign prostatic hyperplasia without lower urinary tract symptoms; Z96.652 Presence of left artificial knee joint; Z95.0 Presence of cardiac pacemaker; Z95.5 Presence of coronary angioplasty implant and graft
CPT/HCPCS: 2NAP; J1170; J1630